=== PATIENT | male | born 1945 | race Caucasian/White ===

== ENCOUNTER → 2019-07-28 09:55 | Outpatient (CLI) | payer MEDICARE, OTHER, SELFPAY ==
[2017-11-21 01:22] VITALS: BMI 28.7
[2019-07-28 11:02] LABS: International Normalized Ratio 3.3
== END ==
PROVIDERS: Family Provider Physician Assistant; PCP Physician Assistant; Referring Provider Physician Assistant; Visit Provider Physician Assistant
DX: I48.2 Chronic atrial fibrillation (principal)
CPT/HCPCS: 85610

== ENCOUNTER → 2019-08-04 10:13 | Outpatient (CLI) | payer MEDICARE, OTHER, SELFPAY ==
[2017-11-21 01:22] VITALS: BMI 28.7
[2019-08-04 10:36] LABS: International Normalized Ratio 3.3; Prothrombin Time (Protime)PT. 33.9 SECONDS (11.7-14.9)
== END ==
PROVIDERS: Family Provider Physician Assistant; PCP Physician Assistant; Referring Provider Physician Assistant; Visit Provider Physician Assistant
DX: I48.2 Chronic atrial fibrillation (principal)
CPT/HCPCS: 85610

== ENCOUNTER 2019-08-13 02:05 | Observation (INO) | payer MEDICARE, OTHER, SELFPAY ==
[2019-08-13] VITALS (9 sets, daily range): BP systolic 126–189; BP diastolic 67–133; PULSE 70–100; RESP 16–20; TEMP 36.1–37.1; O2SAT 95–99; BMI 28.8; BMI 28.9
--- NOTE | 2019-08-13 02:41 | CT_ITS ---
STUDY: CT BRAIN WITHOUT CONTRAST REASON FOR EXAM: Male, 74 years old. Headache, neck pain, neck spasms. RADIATION DOSAGE (If Supplied By Facility): CTDIvol = ( 44.99 ) mGy, DLP = ( 796.11 ) mGycm TECHNIQUE: Transaxial CT imaging of the brain was performed without administration of intravenous contrast material. Individualized dose optimization techniques were used for this CT. COMPARISON: No relevant priors. FINDINGS: Normal soft tissue structures. Normal calvarium. Normal size ventricles and extra-axial spaces for the patient's age. Normal white matter tracts of the cerebral hemispheres. Normal basal ganglia and thalami. Normal brainstem. Punctate calcifications medial aspect of the left cerebellar hemisphere, anterior aspect of the left temporal lobe and left frontal lobe which may be related to distant infection. There is no intracranial hemorrhage. There are no findings of an acute ischemic infarction. Moderate to severe left maxillary sinus mucosal thickening with central high attenuation suggestive of calcification related to chronic infection. In addition there is thickening of the wall of the left maxillary sinus also compatible with chronic infection. CT/Brain/Head without Contrast IMPRESSION: No acute intracranial abnormality. Chronic left maxillary sinusitis which is likely long-standing. Recommend ENT consult. Scattered calcifications as above probably related to distant infection. Electronically Signed: Naeem Hernandez MD at 3:30 EDT , Service support ,
--- NOTE | 2019-08-13 02:41 | CT_ITS ---
STUDY: CT CERVICAL SPINE WITHOUT CONTRAST REASON FOR EXAM: Male, 74 years old. Headache, neck pain, neck spasms. RADIATION DOSAGE (If Supplied By Facility): CTDIvol = ( 24.67 ) mGy, DLP = ( 549.94 ) mGycm TECHNIQUE: High resolution transaxial imaging was performed without contrast material. Sagittal and coronal images were reconstructed. Individualized dose optimization techniques were used for this CT. COMPARISON: None FINDINGS: Normal craniovertebral junction. Normal anterior atlantoaxial articulation. Normal odontoid process. Straightening of normal cervical lordosis compatible with muscle spasm or patient positioning. Disc space narrowing C3-C4 through C7-T1. Small marginal osteophytes at multiple levels. At C5-C6 posterior osteophyte disc complex produces mild to moderate spinal stenosis. Neural foramina narrowing C3-C4 bilaterally, C4-C5 bilaterally, C5-C6 on the left, C6-C7 on the left, Normal visualized soft tissue structures. 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 Carotid calcifications. CT/Spine Cervical without Contras IMPRESSION: Multilevel degenerative changes of the cervical spine most prominent at C5-C6, no fracture identified. Electronically Signed: Naeem Hernandez MD at 3:38 EDT , Service support ,
--- NOTE | 2019-08-13 02:42 | ED.DCSUM_ITS ---
History of Present Illness Chief Complaint: Back Narrative: Patient is a 74-year-old male who presents with back pain. He describes this as spasms or cramping at the top of his neck or base of the skull. He notes he spent most of yesterday in a recliner. He fell asleep in the recliner. When he got up to go to the bathroom he had noticed some pain in his neck worse with movement. This has worsened throughout the day and now become severe. No headache. No numbness tingling or weakness anywhere. He has a history of some prior neck pain but never to this degree. No direct trauma or injury. Past Medical History - Allergies and Home Meds Allergies/Adverse Reactions: Allergies Latex, Natural Rubber Allergy (Verified 11/21/17 01:22) Rash Primary Care Physician: Shanelle Purvis PA [Primary Care Provider] - Past Medical History: - - Atrial fibrillation Smoking Status: Former smoker Review of Systems All systems negative except as indicated General: Denies: Fever Cardiovascular: Denies: Chest pain Respiratory: Denies: Dyspnea Gastrointestinal: Denies: Nausea, Vomiting Musculoskeletal: Reports: Neck pain Physical Exam Vital Signs/Narrative: Vital Signs Temp Pulse Resp BP Pulse Ox 08/13/19 02:06 97 F L 96 18 179/133 H 96 Inital Vital Signs reviewed: Yes General: Acute Distress - Patient appears to be in pain Head: Normocephalic Eyes: Perrl, EOMI ENT: Moist mucous membranes Neck: Supple, - - Patient has paraspinal upper cervical tenderness and muscle spasm Cardiovascular: Regular rate, Regular rhythm Respiratory: No distress, CTA bilaterally Skin: Normal color Neurological: Alert, Oriented x3, Normal Strength, Normal Sensation Psychological: Normal affect Diagnostic/Tx/Re-eval Impressions Brain CT 08/13/19 02:41 IMPRESSION: No acute intracranial abnormality. Chronic left maxillary sinusitis which is likely long-standing. Recommend ENT consult. Scattered calcifications as above probably related to distant infection. Electronically Signed: Naeem Hernandez MD at 3:30 EDT , Service support , Cervical Spine CT 08/13/19 02:41 IMPRESSION: Multilevel degenerative changes of the cervical spine most prominent at C5-C6, no fracture identified. Electronically Signed: Naeem Hernandez MD at 3:38 EDT , Service support , 08/13/19 02:41 Brain/Head without Contrast [CT] Stat CT Cervical [Spine Cervical without Contras] [CT] Stat Laboratory Results 08/13/19 02:55 PT 30.2 H INR 2.9 - Medical Decision Making Initially CTs of the head and neck as well as INR were ordered. These were unremarkable as above. Patient was initially given Valium for muscle spasm without change in symptoms. He was given intramuscular morphine and continues to pain is severe pain. At this point I also ordered IM Norflex and a bit ordered for an IV to be placed. At this point he will need admitted for intractable pain. He may need an MRI of the cervical spine did not concern for process such as disc herniation. He does not have an indication for an emergent MRI given the lack of any weakness or sensory symptoms. ED Disposition - Plan for ED Patient: Disposition: Acute Care [facility] Diagnosis: Neck pain Referrals: Shanelle Purvis PA [Primary Care Provider] -
[2019-08-13] MEDS: diazePAM 5 MG Tablet 2.5 MG PO (02:49)
[2019-08-13 03:06] LABS: International Normalized Ratio 2.9; Prothrombin Time (Protime)PT. 30.2 SECONDS (11.7-14.9)
[2019-08-13] MEDS: morphine 8 MG/ML Syringe IM (03:57)
--- NOTE | 2019-08-13 04:45 | PCM.HP.STD ---
Problem List (1) Neck pain Status: Acute History of Present Illness Date of Admission: 08/13/19 Chief Complaint: neck pain The patient is a 74 year old M with a significant history of atrial fibrillation; and hypertension who presented to emergency department with excruciating posterior neck pain that started few hours before presentation. Patient slept in a recliner. When he woke up he realized that he has excruciating neck pain. His pain radiates from his posterior neck to the top of his head. He describes his pain as spasms and stiffness. Associated with his symptoms is nausea without vomiting. He denies any aggravating or ameliorating factor. He reported the last time he had this kind of pain was when he was young and at that time the pain was to one side of his neck. At the emergency department patient was given Valium; 8 mg of morphine IM; Norflex. However patient continued to be in pain. Cervical CT did not show any acute pathology. Also a brain CT did not show any acute pathology. Past Medical History Medical History: Medical History (Last Updated 08/13/19 @ 06:15 by Chilo Colvin MD) Atrial fibrillation I48.91 Hypertension I10 Allergies Latex, Natural Rubber Allergy (Verified 11/21/17 01:22) Rash Home Medications: Ambulatory Orders Medication Instructions Recorded Diltiazem CD [Cardizem CD] 180 mg PO DAILY 06/03/14 Tamsulosin HCl [Flomax] 0.4 mg PO DAILY 06/03/14 Warfarin Sodium [Coumadin] 5 mg PO QHS 06/03/14 Atorvastatin Calcium [Lipitor] 20 mg PO QHS 08/13/19 Surgical History: appendectomy, total knee arthroplasty, - - Shoulder surgery Lives: Alone Smoking Status: Former smoker Alcohol: Occasional Review of Systems Constitutional: Denies: Chills, Fever, Weight Change HEENT: Reports: Head Aches. Denies: Sinus Congestion, Sinus Drainage Cardiovascular: Denies: Chest Pain, Palpitations Respiratory: Denies: Cough, Shortness of breath at rest, Sputum production Gastrointestinal: Denies: Abdominal Pain, Nausea, Vomiting Genitourinary: Denies: Dysuria Musculoskeletal: Reports: Neck Pain. Denies: Joint Pain, Joint Tenderness Skin: Denies: Rash, Wounds Neurological: Denies: Numbness, Tingling, Focal weakness Psychiatric: Denies: Anxiety, Depression, Homicidal Ideations, Suicidal Ideations Hematologic/ Lymphatic: Denies: Easy Bruising, Easy Bleeding VTE Information - Inpt Only VTE Present on Admission: No VTE Mechan Device Prophylaxis: None VTE Pharm Prophylaxis ordered?: No Reason prophylaxis not ordered:: Treatment Not Indicated - Coumadin continued for A. fib Patient Problems: Active and Suspected Problems Neck pain (Acute) - Physical Exam General: Alert, Oriented x3, Cooperative, - - Patient in acute distress secondary to posterior neck pain HEENT: Atraumatic, PERRLA, EOMI, Normocephalic Neck: Supple, No JVD, Negative Carotid Bruits Lungs: Clear to auscultation, Normal air movement Cardiovascular: Regular rate, No murmurs Abdomen: Bowel Sounds Present, Soft, Non Tender Extremities: No edema, Capillary Refill Less than 3 Seconds Skin: No rashes, No breakdown Musculoskeletal: No Tenderness to Palpation of Joints or Extremities Neurological: Cranial nerves II-XII grossly intact, - - Brudzinski sign and Kernig's sign were negative Psych/Mental Status: Normal Affect, Appropriate Vital Signs Temp Pulse Resp BP Pulse Ox 97 F L 74 20 H 179/115 H 97 08/13/19 02:06 08/13/19 03:51 08/13/19 03:51 08/13/19 03:51 08/13/19 03:51 Oxygen Delivery Method Room Air Weight: 88.451 kg Body Mass Index (BMI) 28.8 Laboratory Tests Past 24 Hrs 08/13/19 02:55 PT 30.2 H INR 2.9 Assessment/Plan All Active Problems Neck pain (Acute) The patient is a 74 year old M with a significant history of atrial fibrillation; and hypertension who presented to emergency department with excruciating posterior neck pain that started few hours before presentation consistent with intractable neck pain. Intractable neck pain Differential diagnoses include spinal stenosis; the examination; muscle strain/muscle sprain or other. We will get an MRI of cervical spine. Methocarbamol scheduled ordered Oxycodone for moderate pain and morphine IV for severe pain. Bowel protocol in place. IV antiemetics ordered. Hypertension On presentation his blood pressure was not within goal. His pain could be contributing to his hypertension. Cardizem continued We will add PRN hydralazine. Trend blood pressure and adjust blood pressure medication. BPH Flomax continued History of A. fib Cardizem continued Coumadin continued. Of note his INR was 2.9. Patient reports recent his INR was supratherapeutic while being treated for a cold infection. Continue Coumadin Check INR Chronic sinusitis Per CT imaging. Patient to follow-up outpatient. DVT prophylaxis Not indicated since patient is on Coumadin. Coumadin continued. Code Visit OBSV E&M: 74897 Initial observation care L3
[2019-08-13] MEDS: Orphenadrine 60 MG/2 ML Ampul IM (04:52)
[2019-08-13 05:10] LABS: Absolute Lymphocyte Count 2.13 X10^3/uL (0.83-4.51); Absolute Neutrophil Count 9.9 X10^3/uL (2.0-7.7); Basophil# 0.03 X10^3/uL; Basophil% 0.2 % (0-1); Eosinophil# 0.02 X10^3/uL; Eosinophils% 0.2 % (0-5); Hematocrit 53.7 % (40-54); Hemoglobin 17.7 g/dL (13.0-16.5); Lymphocyte # 2.13 X10^3/ul (4.0); Lymphocyte % 16.3 % (19-41); Mean Platelet Vol. 9.6 fl (6.2-12.0); Monocyte% 7.6 % (0-10); NRBC Flagged by Analyzer 0 % (0-5); Neutrophil # 9.85 X10^3/uL (2.7-7.7); Neutrophil % 75.3 % (47-70); Platelet Count 188 K/mm3 (150-450); RBC Distribution Width CV 12.4 % (11.6-14.6); RBC Distribution Width SD 42.6 fl (35.1-43.9); Red Blood Count 5.71 M/mm3 (4.6-6.2); White Blood Count 13.1 K/mm3 (4.4-11.0)
[2019-08-13 05:17] LABS: Anion Gap 8 (5-15); BUN 17 mg/dL (7-18); BUN/Creat Ratio 22.5 RATIO (10-20); Calcium,Total 8.7 mg/dL (8.5-10.1); Chloride 102 mmol/L (98-107); Creatinine, Serum 0.76 mg/dL (0.70-1.30); EST Glomerular Filtration Rate 107 mL/min (>60); Est Glom Filt Rate - Afr Amer 129 mL/min (>60); Estimated Creatinine Clearance 62.84 ml/min; Glucose 118 mg/dL (74-106); Potassium 3.9 mmol/L (3.5-5.1); Sodium Level 139 mmol/L (136-145)
--- NOTE | 2019-08-13 05:45 | MRI_ITS ---
STUDY: MRI CERVICAL SPINE WITHOUT CONTRAST REASON FOR EXAM: Male, 74 years old. Neck pain TECHNIQUE: Standardized fat and water weighted pulse sequences were obtained in the sagittal and axial planes. COMPARISON: CT 08/13/2019 FINDINGS: Normal foramen magnum and brainstem-cervical cord junction. Normal craniovertebral junction. There are degenerative changes of the anterior atlantoaxial articulation. Normal odontoid process. Normal cervical lordosis. Normal vertebral bodies and posterior osseous elements. C2-3: Normal endplates. Normal disc height, signal and morphology. Normal central canal and intervertebral neural foramina. C3-4: Moderate sized right preforaminal disc osteophyte complex and right uncovertebral hypertrophy produces moderate spinal stenosis with abutment of the right hemicord and mild right neural foraminal stenosis. C4-5: Moderate broad disc osteophyte complex and bilateral uncovertebral hypertrophy produces moderate spinal stenosis with abutment of the central spinal cord and mild bilateral neural foraminal stenosis. C5-6: Large broad disc osteophyte complex asymmetric to the left with bilateral carotid joint hypertrophy produces severe spinal stenosis with effacement of left hemicord and moderate bilateral neural foraminal stenosis. C6-7: Moderate broad disc osteophyte complex asymmetric left produces moderate spinal stenosis with abutment of the left hemicord and mild left neural foraminal stenosis. C7-T1: Ankylosis of the disc space but no spinal stenosis or neural foraminal stenosis. Normal cervical cord. Normal visualized soft tissue structures. MRI/Spine Cervical (Routine) IMPRESSION: Multilevel degenerative changes, as described above. Electronically Signed: Steven Leonard MD at 9:20 EDT Tel , Service support ,
[2019-08-13] MEDS: Methocarbamol 750 MG Tablet PO ×2 (06:01→14:39)
[2019-08-13] MEDS: Morphine 4 MG/ML Syringe IV ×2 (06:01→09:57)
[2019-08-13] MEDS: hydrALAZINE 20 MG/ML Vial 5 MG IV (06:02)
[2019-08-13] MEDS: Tamsulosin HCl 0.4 MG Capsule PO (06:02)
--- NOTE | 2019-08-13 07:18 | PCM.PN.BLA ---
Progress Note 74-year-old male with past medical history of hypertension, chronic atrial fibrillation who was admitted this morning with intractable neck pain. Patient was seen and examined. He underwent MRI of the cervical spine showed multilevel degenerative changes Patient's vitals show slightly elevated blood pressure Physical exam is positive for muscle spasms in the left posterior neck region We will continue on scheduled Tylenol, Lidoderm patch, methocarbamol as needed, oxycodone as needed Will reassess later for possible discharge today or tomorrow
[2019-08-13] MEDS: oxyCODONE 5 MG Tablet 10 MG PO (07:36)
[2019-08-13] MEDS: Acetaminophen 500 MG Tablet 1000 MG PO ×3 (09:56→21:54)
[2019-08-13] MEDS: 0.9% NaCl Peripheral Flush Adult/Peds IV (09:56)
[2019-08-13] MEDS: dilTIAZem CD 180 MG Capsule PO (09:57)
[2019-08-13] MEDS: Enoxaparin 40 MG/0.4 ML Syringe SC (09:57)
[2019-08-13] MEDS: Senna/Docusate Sodium 1 Tablet PO (09:57)
[2019-08-13] MEDS: Lidocaine 5% Patch 2 PATCH TOPICAL (09:58)
--- NOTE | 2019-08-13 13:19 | CASEMGMT ---
RN CM Assessment Introduced role of RN CM to patient.? Patient is alert, oriented and able?to participate in RN CM Assessment. ?Care providers, pharmacy, and demographics verified. Presentation: Neck/Back pain Admit Dx: Intractable Neck pain Re-Admit: No Barriers/Issues: None. Patient states that he was in pain this morning when the physician rounded and states that his pain is better and manageable at this time. PCP: Terry Purvis Specialists: Used to see Cardio- Dr Feliciano- states since usp his PCP Dr Purvis has been handling his cardiac care [facility]acy: [facility] Insurance: [employer] A[employer], [employer] Benefit:?Yes, [employer] for Maintenance Medication. ?LNOK: Ex Gege Munroe LW/HPOA: States has both but they are outdated and needs to redo them. States that another one of his Ex 's is listed and prefers to change HPOA to Ex Gege. Declines offered services and/or information on this admission and made aware if he changes his mind to notify staff or can come in as an Outpatient and complete. Living Arrangements:?Lives alone in a Mobile home with 4-5 steps to enter ADL?s: Independent with ambulation and ADLs Transportation: Patient drives and denies any transportation issues. DME: [employer] HHC: Past- cannot recall agency SNF: None Goal: Home and does not think will have any needs. Denies any issues/concerns/ or questions with DC planning at this time. Aware CM remains available for any emerging needs. DC PLAN: Home with no anticipated needs identified at this time. DAMIAN Johnson
[2019-08-13] MEDS: oxyCODONE 5 MG Tablet PO ×2 (14:38→21:53)
[2019-08-14 02:45] VITALS: BP 131/77; PULSE 75; RESP 16; TEMP 37.1; O2SAT 95
[2019-08-14] MEDS: Acetaminophen 500 MG Tablet 1000 MG PO (05:36)
[2019-08-14 06:11] LABS: International Normalized Ratio 3.2
[2019-08-14 08:45] VITALS: BP 138/88; PULSE 83; RESP 16; TEMP 37.1; O2SAT 98
--- NOTE | 2019-08-14 09:08 | DCINST_ITS ---
- Discharge Diagnoses Current Active Problems: Current Active and Chronic Problems (Last Updated 08/13/19 @ 06:15 by Chilo Colvin MD) Neck pain (Acute) Reason(s) for Visit for Discharge Instructions: Neck pain You will use the following diet at home:: Regular Your food should be the consistency of: Regular Your liquids should be the consistency of: Regular/Thin Discharge Activity: Return to Normal Activity Additional Instructions: Continue to take all your medications. Do not drive while on the muscle relaxants. Follow-up with your primary care doctor within 1- 2 weeks. Follow-up with pain management if pain is persistent. Allergies/Adverse Reactions: Allergies Latex, Natural Rubber Allergy (Verified 11/21/17 01:22) Rash Medications to take at Discharge Diltiazem CD [Cardizem CD] 180 mg PO DAILY 06/03/14 Tamsulosin HCl [Flomax] 0.4 mg PO DAILY 06/03/14 Warfarin Sodium [Coumadin] 5 mg PO QHS 06/03/14 Atorvastatin Calcium [Lipitor] 20 mg PO QHS 08/13/19 Acetaminophen [Tylenol] 1,000 mg PO Q8 PRN #30 tab 08/14/19 Lidocaine [Lidoderm Patch] 2 patch TOPICAL DAILY #14 patch 08/14/19 Methocarbamol 750 mg PO 4X/DAY PRN 7 Days #28 tab 08/14/19 The following prescriptions were given: Lidocaine [Lidoderm Patch] 2 patch TOPICAL DAILY #14 patch Transmission Status: Pending to [id number] Methocarbamol 750 mg PO 4X/DAY PRN 7 Days #28 tab PRN Reason: Muscle Spasm Transmission Status: Pending to [id number] Acetaminophen [Tylenol] 1,000 mg PO Q8 PRN #30 tab PRN Reason: Pain Score 6-10/10 Transmission Status: Pending to [id number] Primary Care Physician: Shanelle Purvis PA [Primary Care Provider] - Please follow up with your Primary Care Physician in: within 1-2 weeks Test Results: Test results from this visit will be discussed in further detail at your follow- up appointment, if applicable. Please Follow Up With: Kala Davila MD When: within 2 weeks Proposed Discharge Date: 08/14/19
--- NOTE | 2019-08-14 09:11 | DS.PCM_ITS ---
Discharge Date and Diagnosis - Problem List Patient Problems: Active and Suspected Problems (Last Updated 08/13/19 @ 06:15 by Chilo Colvin MD) Neck pain (Acute) Date of Admission: 08/13/19 Date of Discharge: 08/14/19 - Primary Discharge Diagnosis Active and Suspected Problems (Last Updated 08/13/19 @ 06:15 by Chilo Colvin MD) Intractable neck pain - Secondary Discharge Diagnosis Hypertension BPH Chronic atrial fibrillation Hospital Course and Treatment Imaging Results: Clinical Impression(s) from Imaging Studies Brain CT 08/13/19 02:41 IMPRESSION: No acute intracranial abnormality. Chronic left maxillary sinusitis which is likely long-standing. Recommend ENT consult. Scattered calcifications as above probably related to distant infection. Electronically Signed: Naeem Hernandez MD at 3:30 EDT , Service support , Cervical Spine CT 08/13/19 02:41 IMPRESSION: Multilevel degenerative changes of the cervical spine most prominent at C5-C6, no fracture identified. Electronically Signed: Naeem Hernandez MD at 3:38 EDT , Service support , Cervical Spine MRI 08/13/19 05:45 IMPRESSION: Multilevel degenerative changes, as described above. Electronically Signed: Steven Leonard MD at 9:20 EDT Tel , Service support , None Operations: None Procedures: None Summary of Care Provided: The patient is a 74 year old M with past medical history of chronic atrial fibrillation, hypertension, BPH who comes in with complaints of excruciating posterior neck pain which started a couple of hours prior to admission. Patient had a CT scan of the brain done on admission which was unremarkable. Cervical spine CT and cervical spine MRI was also unremarkable. Patient received IV morphine, p.o. oxycodone, Lidoderm patches, scheduled Tylenol, as well as methocarbamol. He was kept overnight with improvement in his pain. He was able to ambulate on a pain regimen. He was discharged on methocarbamol, Lidoderm patches and scheduled Tylenol. He was given a referral to Dr. Dr. Davila if his pain per sisted. He knows to follow-up with his primary care doctor within 1-2 weeks. Patient Problems: Active and Suspected Problems (Last Updated 08/13/19 @ 06:15 by Chilo Colvin MD) Neck pain (Acute) Subjective: On the day of discharge, patient was seen and examined. He complains of pain in his neck and back but this is much improved. He was eager to be discharged. - Physical Exam General: Alert, Oriented x3, Cooperative, - - In mild discomfort from pain HEENT: Atraumatic, PERRLA, EOMI, Normocephalic Oral: Moist Mucosa Neck: Supple Lungs: Clear to auscultation, Normal air movement Cardiovascular: Regular rate, Regular Rhythm, Normal S1, Normal S2, No murmurs Abdomen: Bowel Sounds Present, Soft, Non Tender, Non-Distended, No Hepato-splenomegaly Extremities: No edema Skin: No rashes, No breakdown Musculoskeletal: Tenderness - over the posterior neck and upper back, more on the left side of neck Lymphatic: No Cervical, Supraclavicular, or Inguinal Adenopathy Neurological: Cranial nerves II-XII grossly intact, Neuro grossly intact Psych/Mental Status: Normal Affect, Appropriate Vital Signs Temp Pulse Resp BP Pulse Ox 98.7 F 83 16 138/88 H 98 08/14/19 08:45 08/14/19 08:45 08/14/19 08:45 08/14/19 08:45 08/14/19 08:45 Oxygen Delivery Method Room Air Weight: 91.4 kg Body Mass Index (BMI) 28.9 Intake and Output for Last 24 Hours 08/12/19 08/13/19 08/14/19 23:59 23:59 23:59 Intake Total 1000 / 1000 Output Total 600 / 1250 1000 / 1000 Balance -600 / -650 0 / 0 Laboratory Tests Past 24 Hrs 08/14/19 05:42 PT 33.0 H INR 3.2 Discharge Diet: No Restrictions Discharge Activity: Return to Normal Activity Home Medications: Medications to take at Discharge Diltiazem CD [Cardizem CD] 180 mg PO DAILY 06/03/14 Tamsulosin HCl [Flomax] 0.4 mg PO DAILY 07/23/14 Warfarin Sodium [Coumadin] 5 mg PO QHS 06/03/14 Atorvastatin Calcium [Lipitor] 20 mg PO QHS 08/13/19 Acetaminophen [Tylenol] 1,000 mg PO Q8 PRN #30 tab 08/14/19 Lidocaine [Lidoderm Patch] 2 patch TOPICAL DAILY #14 patch 08/14/19 Methocarbamol 750 mg PO 4X/DAY PRN 7 Days #28 tab 08/14/19 Following Prescrptions Were Given to Patient: Lidocaine [Lidoderm Patch] 2 patch TOPICAL DAILY #14 patch Transmission Status: Received by [id number] Methocarbamol 750 mg PO 4X/DAY PRN 7 Days #28 tab PRN Reason: Muscle Spasm Transmission Status: Received by [id number] Acetaminophen [Tylenol] 1,000 mg PO Q8 PRN #30 tab PRN Reason: Pain Score 6-10/10 Transmission Status: Received by [id number] Primary Care Physician: Shanelle Purvis PA [Primary Care Provider] - Please follow up with your Primary Care Physician in: within 1-2 weeks Please Follow Up With: Kala Davila MD When: within 2 weeks Disposition: Home Minutes spent on discharge:: 40 Patient Condition:: Stable Medical Necessity - Tobacco Use Smoking Status: Former smoker Tobacco Use: Cigarettes, Pipe Meaningful Use Info Meaningful Use Diagnoses (Choose all that apply): None applicable Code Visit OBSV E&M: 81331 Observation care discharge
[2019-08-14] MEDS: Tamsulosin HCl 0.4 MG Capsule PO (09:26)
[2019-08-14] MEDS: Lidocaine 5% Patch 2 PATCH TOPICAL (09:26)
[2019-08-14] MEDS: Senna/Docusate Sodium 1 Tablet PO (09:26)
[2019-08-14] MEDS: Methocarbamol 750 MG Tablet PO (09:26)
[2019-08-14] MEDS: dilTIAZem CD 180 MG Capsule PO (09:26)
[2019-08-14 09:30] VITALS: PULSE 80
[2019-08-14 09:42] VITALS: BP 135/77; PULSE 75; RESP 18; TEMP 36.6; O2SAT 96
--- NOTE | 2019-08-14 09:45 | CASEMGMT ---
DASHAWN ROTH NOTE: To room to talk with pt. Pt sitting up in recliner chair. Introduced self and role of RN GONZALEZ. Reviewed GUAMAN form w/pt. Questions answered and form signed by pt. Copy made and placed on chart and original given to pt. Anaid VUONGN DASHAWN ROTH
== END 2019-08-14 09:57 | disposition home or self-care (01) ==
LOC: ED 04:43 → MS3 05:39
PROVIDERS: Admitting Provider Hospitalist; Emergency Provider Emergency Medicine; Family Provider Physician Assistant; PCP Physician Assistant; Visit Provider Internal Medicine
DX: M54.2 Cervicalgia (principal); I10 Essential (primary) hypertension; I48.20 Chronic atrial fibrillation, unspecified; N40.0 Benign prostatic hyperplasia without lower urinary tract symptoms; Z79.899 Other long term (current) drug therapy; Z87.891 Personal history of nicotine dependence; Z79.01 Long term (current) use of anticoagulants; J32.0 Chronic maxillary sinusitis
CPT/HCPCS: 36415; 70450; 72125; 72141; 80048; 85025; 85610; 96372; 96374; 96375; 96376; 99218; 99285; A4216; G0378

== ENCOUNTER 2019-10-01 08:16 | Day surgery (SDC) | payer MEDICARE, OTHER, SELFPAY ==
[2019-08-13 05:51] VITALS: BMI 28.9
[2019-09-24 09:28] VITALS: BP 133/84; PULSE 88; RESP 16; TEMP 37.2; O2SAT 95; BMI 29.0
--- NOTE | 2019-09-24 10:04 | SDCEKG_ITS ---
Test Reason : Blood Pressure : / mmHG Vent. Rate : 088 BPM Atrial Rate : 098 BPM P-R Int : 000 ms QRS Dur : 108 ms QT Int : 364 ms P-R-T Axes : 000 -25 011 degrees QTc Int : 440 ms Atrial fibrillation Incomplete right bundle branch block Abnormal ECG Confirmed by REG WALSH, LUKE ([id number]), primer expeditor and drier AMIRA PATTERSON ([id number]) on 10/01/2019 2:11:46 PM Referred By: Javan Taylor Confirmed By:LUKE FINNEY MD
[2019-10-01] VITALS (13 sets, daily range): BP systolic 117–148; BP diastolic 68–105; PULSE 62–110; RESP 16–18; TEMP 36.4–37.1; O2SAT 93–100; BMI 29.0
[2019-10-01 08:41] LABS: Prothrombin Time Fingerstick 16.5 SEC (11.9-14.4)
[2019-10-01] MEDS: Lactated Ringers 1,000 ML 100 ML IV ×2 (08:56→11:06)
--- NOTE | 2019-10-01 09:42 | PCM.DC ---
- Discharge Diagnoses Current Active Problems: BPH with obstruction Reason(s) for Visit for Discharge Instructions: Transurethral resection of the prostate You will use the following diet at home:: Regular Your food should be the consistency of: Regular Discharge Activity: Return to Normal Activity Call your doctor if your incision/area has: Sudden Increased Bleeding Instructions: Transurethral Resection of the Prostate (TURP): Home Recovery Allergies/Adverse Reactions: Allergies Latex, Natural Rubber Allergy (Verified 10/01/19 08:38) Rash lorazepam [From Ativan] Allergy (Verified 10/01/19 08:38) Other HALLUCINATIONS Medications to take at Discharge Diltiazem CD [Cardizem CD] 180 mg PO DAILY 06/03/14 Tamsulosin HCl [Flomax] 0.4 mg PO DAILY 06/03/14 Warfarin Sodium [Coumadin] 5 mg PO SUTUTHSA 06/03/14 Atorvastatin Calcium [Lipitor] 20 mg PO QHS 08/13/19 Albuterol Inhaler [Ventolin Hfa (SP)] 2 puff INHALATION Q6H PRN PRN 09/24/19 Cyclobenzaprine HCl 10 mg PO PRN PRN 09/24/19 Enoxaparin [Lovenox] 60 mg SUBCUT Q12@0600,1800 09/24/19 Prednisone 10 mg PO UD 09/24/19 Testosterone [Androgel] 10 gm TD DAILY 09/24/19 Warfarin [Coumadin (PBKC)] 4 mg PO MOWEFR 09/24/19 Ciprofloxacin [Cipro] 500 mg PO BID #14 tab 10/01/19 The following prescriptions were given: Ciprofloxacin [Cipro] 500 mg PO BID #14 tab Transmission Status: Pending to [id number] Primary Care Physician: Shanelle Purvis PA [Primary Care Provider] - Test Results: Test results from this visit will be discussed in further detail at your follow-up appointment, if applicable. Please Follow Up With: Lani Benoit Dr When: 2 weeks Proposed Discharge Date: 10/02/19
[2019-10-01] MEDS: Cefazolin 2 GM in 0.9% Normal Saline 100 ML IV (09:48)
--- NOTE | 2019-10-01 10:05 | PROS_PTH ---
PATIENT: MAGDALENA MERCADO [place] [facility] [place][id number] AGE/SX: 74/M ROOM: RE10/01/[address]: Dr. Javan Taylor MD : [id number] BED: DIS: 10/02/2019 SPEC #: [id number] RECD: 10/01/19 16:08 STATUS: TASNEEM REGalileo #: [id number] VERENA: 10/01/19 10:[address]: Javan Taylor DEPT: SURGICAL PATHOLOGY RECD BY: Denis Harris ENTERED: 10/02/19 11:29 SP TYPE: TURP OTHR DR: NIKKI Mckenzie Tissues: Prostate, NOS Procedures: Surgery Specimen Level IV HEADER OPERATION: Cysto, TUR prostate, Olympus PRE-OP DIAGNOSIS: BPH with obstruction TISSUE SUBMITTED: Prostate tissue MICROSCOPIC DIAGNOSIS Prostate tissue, TUR: Benign prostatic hyperplasia, glandular and stromal type. Focal mild chronic inflammation. SJ:darshan 10/03/19 MICROSCOPIC DESCRIPTION Slides are reviewed. GROSS DESCRIPTION Received is one container labeled with the patient's name and designated prostate tissue. The specimen consists of multiple irregular fragments of pink-bender, rubbery, soft tissue that in aggregate weigh 12.5 gm and measure in aggregate 5.5 x 5 x 2 cm. The entire specimen is submitted in 12 cassettes. / SJ:darshan 10/02/19 TC:5 CPT: 46371
--- NOTE | 2019-10-01 10:49 | OP.PCM_ITS ---
Report of Operation Date of Procedure: 10/01/19 Pre-Operative Diagnosis: BPH with obstruction and urinary retention Post-Operative Diagnosis: The same Surgery/Procedure Performed:: Transurethral resection of the prostate Description of Surgical Findings:: 74-year-old male taken back to the operating room at the smooth induction of general anesthesia. He was placed in dorsolithotomy position. The legs were placed in stirrups. Penis and testicles are prepped and draped in usual sterile fashion. Went into the bladder with a 21 Ukrainian rigid cystourethroscope he had a large median lobe bilateral hypertrophy and significant obstruction the bladder was heavily trabeculated with lots of trabeculation throughout the bladder but no tumors or stones seen within the bladder right and left ureteral orifice were identified. I then marked out the verumontanum marked out the bladder neck and then started resection resected the median lobe first making sure not to injure the left and right ureteral orifice I then resected the left lobe of the prostate completely and then resect the right lobe of the prostate completely and then resected the apical tissue at the end did a flow test he was able to get a decent flow looking back into the prostate and so had some tissue in the roof but still had a nice wide open channel all the way to the verumontanum into the bladder neck I then obtained hemostasis all the chips were Ellik out we verify that the left and right ureter orifice were intact and effluxing clear the sphincter was intact and has a nice good flow I tried to place a silicone catheter in the bladder but it was too rigid would not go so we put a regular 22 Ukrainian Toro catheter into the bladder this was placed on chronic irrigation the urine was nice and clear is taken back to PACU in good condition. Type of Anesthesia:: General Drains: [address] - Admit VTE Documentation VTE Present on Admission: No VTE Mechan Device Prophylaxis: SCD's
[2019-10-01] MEDS: 0.9% Normal Saline 1,000 ML 75 ML IV ×2 (11:51→23:15)
[2019-10-01] MEDS: dilTIAZem CD 180 MG Capsule PO (13:05)
[2019-10-01] MEDS: Pantoprazole Sodium 40 MG Tablet PO (13:05)
[2019-10-01] MEDS: 0.9% Saline Lock 10 ML Syringe IV (17:34)
[2019-10-01] MEDS: DiphenhydrAMINE 25 MG Capsule PO (21:23)
[2019-10-01] MEDS: Ciprofloxacin 400 MG/200 ML BAG 200 MG IV (21:23)
[2019-10-01] MEDS: Docusate Sodium 100 MG Capsule PO (21:23)
[2019-10-02 03:00] VITALS: BP 128/82; PULSE 75; RESP 16; TEMP 36.7; O2SAT 97
[2019-10-02 07:54] VITALS: BP 113/88; PULSE 74; RESP 16; TEMP 36.8; O2SAT 97
[2019-10-02] MEDS: Pantoprazole Sodium 40 MG Tablet PO (08:09)
[2019-10-02] MEDS: dilTIAZem CD 180 MG Capsule PO (08:10)
[2019-10-02] MEDS: Docusate Sodium 100 MG Capsule PO (08:10)
[2019-10-02] MEDS: Atorvastatin Calcium 20 MG Tablet PO (08:10)
[2019-10-02] MEDS: Tamsulosin HCl 0.4 MG Capsule PO (08:10)
[2019-10-02] MEDS: Ciprofloxacin 400 MG/200 ML BAG 200 MG IV (10:17)
[2019-10-02] MEDS: 0.9% Saline Lock 10 ML Syringe IV (10:20)
[2019-10-02 12:40] VITALS: BP 128/74; PULSE 78; RESP 16; TEMP 36.8; O2SAT 98
== END 2019-10-02 13:18 | disposition home or self-care (01) ==
LOC: SDC 08:19 → AC 08:20 → MS2 14:25
PROVIDERS: Family Provider Physician Assistant; PCP Physician Assistant; Referring Provider Urology; Visit Provider Urology
PROC: (CPT 52601; principal; 2019-10-01 09:55)
DX: N40.1 Benign prostatic hyperplasia with lower urinary tract symptoms (principal); N13.8 Other obstructive and reflux uropathy; R35.0 Frequency of micturition; R39.14 Feeling of incomplete bladder emptying; R35.1 Nocturia; R33.8 Other retention of urine; E11.9 Type 2 diabetes mellitus without complications; J45.998 Other asthma; E78.00 Pure hypercholesterolemia, unspecified; I10 Essential (primary) hypertension; I48.91 Unspecified atrial fibrillation; Z79.01 Long term (current) use of anticoagulants; Z79.899 Other long term (current) drug therapy; Z87.891 Personal history of nicotine dependence
CPT/HCPCS: 52601; 36416; 85610; 88305; 93005; 99251; J7030; J7120; A4216; G0463; J0744; J2405

== ENCOUNTER → 2019-12-01 10:01 | Outpatient (CLI) | payer MEDICARE, OTHER, SELFPAY ==
[2019-10-01 12:45] VITALS: BMI 29.0
[2019-12-01 10:36] LABS: International Normalized Ratio 2.5; Prothrombin Time (Protime)PT. 26.6 SECONDS (11.7-14.9)
== END ==
PROVIDERS: PCP Physician Assistant; Visit Provider Physician Assistant
DX: I48.20 Chronic atrial fibrillation, unspecified (principal)
CPT/HCPCS: 85610

== ENCOUNTER 2019-12-27 19:32 | Inpatient (IN) | payer MEDICARE, OTHER, SELFPAY ==
[2019-10-01 12:45] VITALS: BMI 29.0
[2019-12-27 19:33] VITALS: BP 145/116; PULSE 102; RESP 20; TEMP 36.2; O2SAT 96; BMI 29.6
--- NOTE | 2019-12-27 19:54 | EKG12_ITS ---
Test Reason : CHEST PAIN Blood Pressure : / mmHG Vent. Rate : 108 BPM Atrial Rate : 170 BPM P-R Int : 000 ms QRS Dur : 098 ms QT Int : 340 ms P-R-T Axes : 000 -47 011 degrees QTc Int : 455 ms Atrial fibrillation with rapid ventricular response Left axis deviation Incomplete right bundle branch block Abnormal ECG Confirmed by REG WALSH, LUKE ([id number]), editor book SB SPENCER ([id number]) on 12/31/2019 8:53:40 AM Referred By: TONNY Confirmed By:LUKE FINNEY MD
--- NOTE | 2019-12-27 19:55 | ED.DCSUM_ITS ---
History of Present Illness Chief Complaint: Abd Pain Informant: Patient Onset: Today Current Severity: Severe Maximum Severity: Severe Narrative: Patient presents with complaint of severe epigastric pain. He states he was watching a movie this afternoon and eating pizza. Before he realized that he to eaten half of a medium pizza. He started getting crampy epigastric abdominal pain that is continued to worsen. He tried taking multiple home remedies for indigestion without improvement. He has not been able to pass gas. Pain is now started move up into the chest. Patient denies any prior abdominal surgeries. - Past Medical History (1) Atrial fibrillation Status: Chronic (2) Hypertension Status: Chronic Past Medical History - Allergies and Home Meds Allergies/Adverse Reactions: Allergies Latex, Natural Rubber Allergy (Verified 12/27/19 19:33) Rash lorazepam [From Ativan] Allergy (Verified 12/27/19 19:33) Other HALLUCINATIONS Primary Care Physician: Shanelle Purvis PA [Primary Care Provider] - Prior records reviewed: Yes Surgical History: appendectomy, total knee arthroplasty, - - Shoulder surgery Lives: Alone Smoking Status: Former smoker Review of Systems General: Denies: Chills, Fever Eyes: Denies: Visual changes - bilaterally ENT: Denies: Bilateral ear pain Cardiovascular: Reports: Chest pain. Denies: Palpitations, Heart racing Respiratory: Denies: Dyspnea, Cough Gastrointestinal: Reports: Abdominal pain. Denies: Nausea, Vomiting, Diarrhea Genitourinary: Denies: Dysuria Musculoskeletal: Denies: Back pain, Extremity Pain Skin: Denies: Rash Neurological: Denies: Headache Allergy: Denies: Uticaria Physical Exam Vital Signs/Narrative: Vital Signs Temp Pulse Resp BP Pulse Ox 12/27/19 19:33 97.1 F L 102 H 20 H 145/116 H 96 Inital Vital Signs reviewed: Yes General: Well nourished, Well developed Head: Normocephalic ENT: Moist mucous membranes Neck: Supple Cardiovascular: Irregular Respiratory: No distress, CTA bilaterally Abdomen: Soft, Tender, Guarding, Hypoactive bowel sounds Skin: Normal color Neurological: Alert, Oriented x3 Psychological: Normal affect Diagnostic/Tx/Re-eval Impressions Abdomen/Pelvis CT 12/27/19 20:07 IMPRESSION: Findings consistent with small bowel obstruction of indeterminate etiology. Minor diverticular changes in the distal descending colon without evidence for acute diverticulitis Electronically Signed: Chung Croft MD at 20:38 EST , Service support , KUB X-Ray 12/27/19 21:20 IMPRESSION: NG tube placement with tip in gastric fundus Electronically Signed: Chung Croft MD at 21:33 EST , Service support , 12/27/19 20:07 Abdomen/Pelvis without Cont [CT] Stat 12/27/19 21:20 Abdomen Single View (Portable) [RAD] Stat Laboratory Results 12/27/19 12/27/19 12/27/19 20:00 20:00 20:00 WBC 11.2 H RBC 5.60 Hgb 17.2 H Hct 52.1 MCV 93.0 MCH 30.7 MCHC 33.0 RDW Std Deviation 42.1 RDW Coeff of Yakelin 12.3 Plt Count 272 MPV 9.1 Immature Gran % (Auto) 0.500 Neut % (Auto) 67.3 Lymph % (Auto) 22.4 [place] % (Auto) 8.1 Eos % (Auto) 1.2 Baso % (Auto) 0.5 Absolute Neuts (auto) 7.5 Absolute Lymphs (auto) 2.51 Nucleated RBC % 0 PT 23.7 H INR 2.1 Sodium 138 Potassium 3.9 Chloride 104 Carbon Dioxide 28.0 Anion Gap 6 BUN 17 Creatinine 1.08 Estim Creat Clear Calc 58.19 Est GFR (MDRD) Af Amer 85 Est GFR (MDRD) Non-Af 71 BUN/Creatinine Ratio 15.7 Glucose 101 Calcium 9.4 Total Bilirubin 0.50 Direct Bilirubin 0.16 AST 20 ALT 21 Alkaline Phosphatase 80 Troponin I < 0.015 Total Protein 7.4 Albumin 3.8 Globulin 3.6 Lipase 113 - EKG Initial EKG Interpretation: Atrial Fibrillation - A. fib at 108 with incomplete right bundle. No acute ischemia. - Medical Decision Making Patient was given morphine and Zofran on arrival. He was sent to CT scan rather quickly due to his significant abdominal distention and pain. CT scan does reveal small bowel obstruction. He initially told me he had no prior belly surgeries, however now states he did have a prior appendectomy. Further he states that he is been having difficulties with bowel movements recently. He was seen by his primary care doctor and had an ultrasound and an MRI of his abdomen last week. Patient states his last bowel movement was this morning and was loose. NG tube was placed without difficulty by nursing staff. He has had 800 cc material out already. I spoke with Dr. Diaz. She will see the patient in consult but this is not likely to be surgical. She asked for hospitalist to admit. Addendum: I received a call back from Dr. Diaz who was able to review further records from [facility] and noted that the patient does have a meningioma. With this present and patient being on anticoagulants she did not feel comfortable keeping the patient here in case the patient would need surgery. In addition to that she did note some pneumatosis on the CT scan. This was discussed with the patient and he agreed to transfer to [facility]. Addendum: I spoke with the surgeon at [facility]. He is concerned that the patient may have ischemic bowel and needs to go to the OR sooner rather than later and transfer is not necessary for this. He states the meningioma should not be a concern. He asked to speak directly to Dr. Diaz. Dr. Diaz called and spoke with him. Dr. Diaz advised me that she will be in to see the patient and may take him to the OR at this time. She did asked that I start FFP. I ordered a lactic acid as well as 2 units of FFP at this time. Patient has been updated. I did asked Dr. Tamez, hospitalist, to see the patient as well. ED Disposition - Plan for ED Patient: Disposition: Acute Care Hospital [facility] Diagnosis: Small bowel obstruction Referrals: Shanelle Purvis PA [Primary Care Provider] -
[2019-12-27] MEDS: Ondansetron 4 MG/2 ML Vial IV (20:02)
[2019-12-27] MEDS: Morphine 4 MG/ML Syringe IV (20:04)
[2019-12-27] MEDS: 0.9% Normal Saline 1,000 ML 150 ML IV (20:05)
[2019-12-27 20:07] VITALS: BP 144/91; PULSE 109; RESP 17; O2SAT 99
--- NOTE | 2019-12-27 20:07 | CT_ITS ---
STUDY: CT ABDOMEN AND PELVIS WITHOUT CONTRAST REASON FOR EXAM: Male, 74 years old. SEVERE UPPER ABD PAIN X 3 HR. Last ate pizza at 1:00pm RADIATION DOSAGE (If Supplied By Facility): CTDIvol = ( 13.78 ) mGy, DLP = ( 705.83 ) mGycm TECHNIQUE: Transaxial images were obtained from the dome of the diaphragm to the symphysis pubis without oral contrast, and without intravenous contrast. Sagittal and coronal images were reconstructed. Individualized dose optimization techniques were used for this CT. COMPARISON: None. FINDINGS: There is mild bibasilar interstitial thickening.. The visualized portions of the heart are within normal limits. The liver is normal size. There is a tiny cyst in the right lobe. Bile ducts are not dilated. Normal gallbladder and extrahepatic biliary system. Normal spleen. Normal pancreas. Normal bilateral adrenal glands. Normal right kidney. Normal left kidney. There is markedly distended fluid-filled stomach and multiple distended fluid-filled loops of small bowel with transition point as well as fecalization and pneumatosis which may be consistent with small bowel obstruction.. There is diffuse fecal retention within the colon. Diverticular changes in the distal descending colon without evidence for acute diverticulitis No evidence for acute appendicitis. Mild atherosclerotic changes of the aorta without evidence for aneurysm. Normal inferior vena cava. Normal retroperitoneum. Nonspecific enlargement of the prostate imaging upon the base of bladder which is incompletely distended mildly. Moderate size right inguinal hernia containing fat . Lumbar spine demonstrates advanced spondylosis CT/Abdomen/Pelvis without Cont IMPRESSION: Findings consistent with small bowel obstruction of indeterminate etiology. Minor diverticular changes in the distal descending colon without evidence for acute diverticulitis Electronically Signed: Chung Croft MD at 20:38 EST , Service support ,
[2019-12-27 20:09] LABS: Absolute Lymphocyte Count 2.51 X10^3/uL (0.83-4.51); Absolute Neutrophil Count 7.5 X10^3/uL (2.0-7.7); Basophil# 0.06 X10^3/uL; Basophil% 0.5 % (0-1); Eosinophil# 0.13 X10^3/uL; Eosinophils% 1.2 % (0-5); Hematocrit 52.1 % (40-54); Hemoglobin 17.2 g/dL (13.0-16.5); Lymphocyte # 2.51 X10^3/ul (4.0); Lymphocyte % 22.4 % (19-41); Mean Corpuscular Hgb 30.7 pg (27.0-32.0); Mean Platelet Vol. 9.1 fl (6.2-12.0); Monocyte# 0.91 X10^3/uL; Monocyte% 8.1 % (0-10); NRBC Flagged by Analyzer 0 % (0-5); Neutrophil # 7.53 X10^3/uL (2.7-7.7); Neutrophil % 67.3 % (47-70); Platelet Count 272 K/mm3 (150-450); RBC Distribution Width CV 12.3 % (11.6-14.6); RBC Distribution Width SD 42.1 fl (35.1-43.9); White Blood Count 11.2 K/mm3 (4.4-11.0)
[2019-12-27 20:16] LABS: International Normalized Ratio 2.1; Prothrombin Time (Protime)PT. 23.7 SECONDS (11.7-14.9)
[2019-12-27 20:36] LABS: AST(SGOT) 20 U/L (15-37); Alanine Aminotransfer ALT/SGPT 21 U/L (16-61); Albumin, Serum 3.8 g/dL (3.2-5.0); Alkaline Phosphatase 80 U/L (45-117); Anion Gap 6 (5-15); BUN 17 mg/dL (7-18); BUN/Creat Ratio 15.7 RATIO (10-20); Bilirubin, Direct 0.16 mg/dL (0.00-0.30); Calcium,Total 9.4 mg/dL (8.5-10.1); Chloride 104 mmol/L (98-107); Creatinine, Serum 1.08 mg/dL (0.70-1.30); EST Glomerular Filtration Rate 71 mL/min (>60); Est Glom Filt Rate - Afr Amer 85 mL/min (>60); Estimated Creatinine Clearance 58.19 ml/min; Globulin 3.6 g/dL (2.2-4.2); Glucose 101 mg/dL (74-106); Lipase 113 U/L (73-393); Potassium 3.9 mmol/L (3.5-5.1); Protein, Total 7.4 g/dL (6.4-8.2); Sodium Level 138 mmol/L (136-145)
[2019-12-27] MEDS: Lidocaine 4% 5 ML Ampul 2 ML INHALATION (20:59)
[2019-12-27 21:00] VITALS: PULSE 101; RESP 22
[2019-12-27] MEDS: Oxymetazoline 0.05% 1 SPRAY SPRAY.BTL 2 SPRAY NASAL (21:00)
--- NOTE | 2019-12-27 21:20 | RAD_ITS ---
STUDY: X-RAY - ABDOMEN/PELVIS REASON FOR EXAM: Male, 74 years old. NG PLACEMENT TECHNIQUE: KUB COMPARISON: None. FINDINGS: There is mild interstitial thickening in the lower lobes. Multiple distended air-filled loops of small bowel. There is no demonstrated free abdominal air. Nasogastric tube is noted with tip in the gastric fundus The visualized liver, spleen and kidneys are grossly normal in size and morphology. Normal soft tissue structures. Normal visualized osseous structures. RAD/Abdomen Single View (Portable) IMPRESSION: NG tube placement with tip in gastric fundus Electronically Signed: Chung Croft MD at 21:33 EST , Service support ,
--- NOTE | 2019-12-27 21:59 | HP.PCM_ITS ---
History of Present Illness Date of Admission: 12/27/19 Chief Complaint: Abdominal pain The patient is a 74 y/o M w/ PMHx: PAF, HTN, HLD, Former Tobacco use, GERD who presents to the [facility] ED on 12/27/19 with history of ate of 1/2 medium pizza this after noon while watching a movie with onset significant abdominal pain following, distention, lack of flatus, inability to have BM Notes feeling as if he needs to have a BM, but unable to have bowel movement. Spot on his liver that CC is following. appendectomy Work-up in the ED included T 97.1, heart rate 102, BP 145/116, respiratory rate 20, 96% on room air, CBC with WC 11.2, hemoglobin 17.2, platelet 272 without shift, INR 2.1, unremarkable CMP including normal liver function studies, lipase 113, troponin less than 0.015, CT abdomen and pelvis with evidence of small bowel obstruction of indeterminate etiology with moderate diverticular changes in the distal descending colon without evidence of acute diverticulitis, NG tube placed with follow-up KUB demonstrating NG tube placement with the tip in the gastric fundus. In the ED patient ministered Afrin, Zofran, morphine, lidocaine, normal saline. Following NGT placement, 800 cc output. Abdominal pain, nausea, emesis w/ SBO: Work-up in the ED included T 97.1, heart rate 102, BP 145/116, respiratory rate 20, 96% on room air, CBC with WC 11.2, hemoglobin 17.2, platelet 272 without shift, INR 2.1, unremarkable CMP including normal liver function studies, lipase 113, troponin less than 0.015, CT abdomen and pelvis with evidence of small bowel obstruction of indeterminate etiology with moderate diverticular changes in the distal descending colon without evidence of acute diverticulitis, NG tube placed with follow-up KUB demonstrating NG tube placement with the tip in the gastric fundus. Will admit to [facility], maintain on IVFs, continue NGT to suction, strict I&Os, IV pain/anti- emetics PRN, serial KUB as needed to montior bowel function, Famotidine IV, maintain NPO on bowel rest. General surgery Dr. Diaz consulted, pending. PAF: Holding patient oral regimen including Cardizem, if necessary may administer IV Lopressor versus Cardizem, holding Coumadin, INR therapeutic upon presentation. Hypertension: Holding oral regimen given n.p.o. status with NG tube, PRN IV hydralazine in interim. Hyperlipidemia: Holding statin therapy. Former tobacco use: Continues tobacco cessation. GERD: Maintained on IV famotidine. DVT prophylaxis: SCDs, therapeutic on Coumadin with admission INR 2.1, holding oral regimen with initiation of Lovenox once subtherapeutic. Past Medical History Past Medical History (Chronic Problems): Chronic Problems (Last Updated 08/13/19 @ 06:15 by Chilo Colvin MD) Atrial fibrillation (Chronic) Hypertension (Chronic) Medical History: Medical History (Last Updated 08/13/19 @ 06:15 by Chilo Colvin MD) Atrial fibrillation I48.91 Hypertension I10 Allergies Latex, Natural Rubber Allergy (Verified 12/27/19 19:33) Rash lorazepam [From Ativan] Allergy (Verified 12/27/19 19:33) Other HALLUCINATIONS Home Medications: Ambulatory Orders Medication Instructions Recorded Diltiazem CD [Cardizem CD] 180 mg PO DAILY 06/03/14 Atorvastatin Calcium [Lipitor] 20 mg PO QHS 08/13/19 Albuterol Inhaler [Ventolin Hfa] 2 puff INHALATION Q6H PRN PRN 09/24/19 Omeprazole [Prilosec] 20 mg PO DAILY 12/27/19 Warfarin [Coumadin (PBKC)] 4 mg PO MOWEFRSA 12/27/19 Warfarin [Coumadin (PBKC)] 5 mg PO SUTUTH 12/27/19 Surgical History: appendectomy, total knee arthroplasty, - - Shoulder surgery Lives: Alone Smoking Status: Former smoker Patient Problems: Active and Suspected Problems (Last Updated 08/13/19 @ 06:15 by Chilo Colvin MD) Small bowel obstruction (Acute) - Physical Exam Vitals/I&O's: Vital Signs Temp Pulse Resp BP Pulse Ox 97.1 F L 101 H 22 H 144/91 H 99 12/27/19 19:33 12/27/19 21:00 12/27/19 21:00 12/27/19 20:07 12/27/19 20:07 Oxygen Flow Rate (L/min) 2 Oxygen Delivery Method Nasal Cannula Weight: 203 lb 7.787 oz Body Mass Index (BMI) 29.6 Laboratory Results 12/27/19 20:00: WBC 11.2 H, RBC 5.60, Hgb 17.2 H, Hct 52.1, MCV 93.0, MCH 30.7, MCHC 33.0, RDW Std Deviation 42.1, RDW Coeff of Yakelin 12.3, Plt Count 272, MPV 9.1, Immature Gran % (Auto) 0.500, Neut % (Auto) 67.3, Lymph % (Auto) 22.4, [place] % (Auto) 8.1, Eos % (Auto) 1.2, Baso % (Auto) 0.5, Absolute Neuts (auto) 7.5, Absolute Lymphs (auto) 2.51, Nucleated RBC % 0 12/27/19 20:00: Sodium 138, Potassium 3.9, Chloride 104, Carbon Dioxide 28.0, Anion Gap 6, BUN 17, Creatinine 1.08, Estim Creat Clear Calc 58.19, Est GFR (MDRD) Af Amer 85, Est GFR (MDRD) Non-Af 71, BUN/Creatinine Ratio 15.7, Glucose 101, Calcium 9.4, Total Bilirubin 0.50, Direct Bilirubin 0.16, AST 20, ALT 21, Alkaline Phosphatase 80, Troponin I < 0.015, Total Protein 7.4, Albumin 3.8, Globulin 3.6, Lipase 113 12/27/19 20:00: PT 23.7 H, INR 2.1 Current Medications Sodium Chloride () 1,000 mls @ 150 mls/hr IV .[id number] JUAN Last Admin: 12/27/19 20:05 Dose: 150 mls/hr Documented by: Assessment/Plan All Active Problems (Last Updated 08/13/19 @ 06:15 by Chilo Colvin MD) Neck pain (Acute) Small bowel obstruction (Acute)
[2019-12-27 22:00] VITALS: BP 136/98; PULSE 101; RESP 16; O2SAT 98
[2019-12-27 23:00] VITALS: BP 169/81; PULSE 101; RESP 18; O2SAT 97
--- NOTE | 2019-12-27 23:51 | PCM.HP.STD ---
History of Present Illness Date of Admission: 12/27/19 Chief Complaint: Abdominal pain Admission Diagnoses: Acute SBO History of Meningioma Chronic Atrial Fibrillation Hypertension Hyperlipidemia BPH GERD The patient is a 74 y/o M w/ PMHx: Hx Meningoma noted to be stable, Chronic AF on coumadin previously following w/ Dr. Mccarty, HTN, HLD, GERD, BPH who presents to the [facility] ED on 12/27/19 with history of onset following intake of nearly 1/2 of a pizza while watching a movie at lunchtime significant 10 out of 10 progressively worsening cramping abdominal pain diffusely with distention as well as nausea without emesis with recent difficulties over the last several days of constipation and denies any flatus for hours following onset of initial discomfort prompting eventual ED presentation. In the ED NG tube was placed and following this patient had significant resolution of discomfort with copious (800 cc immediately) amounts of output with abdomen soft and nontender following. Patient initially going to be admitted earlier however concerns per general surgeon, Dr. Diaz with history of meningioma and noted to be on Coumadin therefore at that time she had recommended transfer to tertiary facility; however discussions between [facility] surgeon on-call and herself with decision for patient to remain at [facility] with some concern for possible pneumatosis noted on film with potential need for more urgent surgery. Work-up in the ED included T 97.1, heart rate 102, BP 145/116, respiratory rate 20, 96% on room air, CBC with WC 11.2, hemoglobin 17.2, platelet 272 without shift, INR 2.1, CMP unremarkable, troponin less than 0.015, lipase 113, lactic acid 0.9, CT abdomen pelvis with findings consistent with small bowel obstruction with moderate diverticular changes in the distal descending colon without evidence for acute diverticulitis, follow-up KUB s/p NGT placement with noted appropriate placement with tip in the gastric fundus. In the ED patient administered morphine, Zofran, Afrin. Given follow-up concerns per general surgery following per discussion with general surgeon at [facility], ED physician noted intention for administration of FFP to reverse patient given INR 2.1 as noted. Past Medical History Past Medical History (Chronic Problems): Chronic Problems (Last Updated 08/13/19 @ 06:15 by Chilo Colvin MD) Atrial fibrillation (Chronic) Hypertension (Chronic) Medical History: Medical History (Last Updated 08/13/19 @ 06:15 by Chilo Colvin MD) Atrial fibrillation I48.91 Hypertension I10 Allergies Latex, Natural Rubber Allergy (Verified 12/27/19 19:33) Rash lorazepam [From Ativan] Allergy (Verified 12/27/19 19:33) Other HALLUCINATIONS Home Medications: Ambulatory Orders Medication Instructions Recorded Diltiazem CD [Cardizem CD] 180 mg PO DAILY 06/03/14 Atorvastatin Calcium [Lipitor] 20 mg PO QHS 08/13/19 Albuterol Inhaler [Ventolin Hfa] 2 puff INHALATION Q6H PRN PRN 09/24/19 Omeprazole [Prilosec] 20 mg PO DAILY 12/27/19 Warfarin [Coumadin ([facility])] 4 mg PO MOWEFRSA 12/27/19 Warfarin [Coumadin ([facility])] 5 mg PO SUTUTH 12/27/19 Surgical History: appendectomy, total knee arthroplasty, - - Appendectomy, tonsillectomy, right total knee replacement, left total shoulder placement, prostate surgery, right inguinal hernia repair. Psychiatric History: No pertinent psych hx Lives: Alone Smoking Status: Former smoker - Quit remotely ~ 30-35 years prior, prior to this 1-1.5 ppd cigarette tobacco use. Tobacco Use: Non-smoker Alcohol: Occasional - Previously notes heavy beer intake but has not for many years and will only occasionally drink now. Drugs: None - *Family History Maternal History Items: - - Patient notes that his mother passed at age 82 and had significant health issues related with her stomach but he cannot tell specifically what these were. Paternal History Items: - - Patient notes his father had a history of prostate cancer. Review of Systems Constitutional: Reports: Malaise, Weakness, Fatigue. Denies: Chills, Fever, Weight Change HEENT: Denies: Head Aches, Sinus Congestion, Sinus Drainage Cardiovascular: Denies: Chest Pain, Palpitations Respiratory: Denies: Cough, Shortness of breath at rest, Sputum production Gastrointestinal: Reports: Abdominal Pain, Constipation, Nausea. Denies: Vomiting Genitourinary: Denies: Dysuria Musculoskeletal: Reports: Joint Pain. Denies: Joint Tenderness Skin: Denies: Rash, Wounds Neurological: Denies: Numbness, Tingling, Focal weakness Psychiatric: Denies: Anxiety, Depression, Homicidal Ideations, Suicidal Ideations Hematologic/ Lymphatic: Reports: Easy Bruising, Easy Bleeding VTE Information - Inpt Only VTE Present on Admission: No VTE Mechan Device Prophylaxis: SCD's VTE Pharm Prophylaxis ordered?: No Reason prophylaxis not ordered:: Medical Contraindication - INR 2.1 upon presentation. Patient Problems: Active and Suspected Problems (Last Updated 08/13/19 @ 06:15 by Chilo Colvin MD) Small bowel obstruction (Acute) Subjective: Seated upright in ED bed, mildly fatigued appearance but notes he is much more comfortable status post NG tube placement with copious NG tube output. Objective: Physical Examination: General: awake, alert, oriented x 3 and cooperative, seated upright in the ED bed, mildly fatigued but notes feeling much more comfortable status post NG tube placement. Skin: normal color, turgor, no icterus, cyanosis. HEENT: AT/NC, EOMI, PERRLA, moderately dry MM, NG-tube in place, no carotid bruits or JVD noted. Lungs: CTA bilaterally, moderate effort, moderate decrease BL bases, no rales, ronchi or wheezing. Heart: Irregular, rate controlled; no gallop, rub audible. Abdomen: soft, obese, significant improvement status post NG tube placement, per ED physician was very tense and severely diffusely tender initially in the ED upon presentation however now status post NG tube placement abdomen soft, nontender to palpation diffusely, still absent bowel sounds, difficult to assess HSM secondary to habitus. Extremities: no cyanosis, clubbing, or edema. Neurological: patient awake, alert, oriented x 3; cognitive function intact; pupils equally reactive to light and accomodation; cranial nerves II-XII grossly normal, moving all 4 extremities, no focal deficits, strength improved, moderately global decreased secondary to acute presentation. Psychiatric: affect appears fatigued, otherwise normal, no acute evidence of depressive or anxiety feelings. - Physical Exam Vitals/I&O's: Vital Signs Temp Pulse Resp BP Pulse Ox 97.1 F L 101 H 18 169/81 H 97 12/27/19 19:33 12/27/19 23:00 12/27/19 23:00 12/27/19 23:00 12/27/19 23:00 Oxygen Flow Rate (L/min) 2 Oxygen Delivery Method Room Air Weight: 203 lb 7.787 oz Body Mass Index (BMI) 29.6 Laboratory Results 12/27/19 13:41: Blood Type Pending 12/27/19 20:00: WBC 11.2 H, RBC 5.60, Hgb 17.2 H, Hct 52.1, MCV 93.0, MCH 30.7, MCHC 33.0, RDW Std Deviation 42.1, RDW Coeff of Yakelin 12.3, Plt Count 272, MPV 9.1, Immature Gran % (Auto) 0.500, Neut % (Auto) 67.3, Lymph % (Auto) 22.4, [place] % (Auto) 8.1, Eos % (Auto) 1.2, Baso % (Auto) 0.5, Absolute Neuts (auto) 7.5, Absolute Lymphs (auto) 2.51, Nucleated RBC % 0 12/27/19 20:00: Sodium 138, Potassium 3.9, Chloride 104, Carbon Dioxide 28.0, Anion Gap 6, BUN 17, Creatinine 1.08, Estim Creat Clear Calc 58.19, Est GFR (MDRD) Af Amer 85, Est GFR (MDRD) Non-Af 71, BUN/Creatinine Ratio 15.7, Glucose 101, Calcium 9.4, Total Bilirubin 0.50, Direct Bilirubin 0.16, AST 20, ALT 21, Alkaline Phosphatase 80, Troponin I < 0.015, Total Protein 7.4, Albumin 3.8, Globulin 3.6, Lipase 113 12/27/19 20:00: PT 23.7 H, INR 2.1 12/27/19 23:25: Lactic Acid Pending Current Medications Sodium Chloride () 1,000 mls @ 150 mls/hr IV .[id number] JUAN Last Admin: 12/27/19 20:05 Dose: 150 mls/hr Documented by: Assessment/Plan All Active Problems (Last Updated 08/13/19 @ 06:15 by Chilo Colvin MD) Neck pain (Acute) Small bowel obstruction (Acute) The patient is a 74 y/o M w/ PMHx: Hx Meningoma noted to be stable, Chronic AF on coumadin previously following w/ Dr. Mccarty, HTN, HLD, GERD, BPH who presents to the [facility] ED on 12/27/19 with history of onset following intake of nearly 1/2 of a pizza while watching a movie at lunchtime significant 10 out of 10 progressively worsening cramping abdominal pain diffusely with distention as well as nausea without emesis with recent difficulties over the last several days of constipation and denies any flatus for hours following onset of initial discomfort prompting eventual ED presentation. 1. Abdominal pain, nausea, emesis w/ SBO: Work-up in the ED included T 97.1, heart rate 102, BP 145/116, respiratory rate 20, 96% on room air, CBC with WC 11.2, hemoglobin 17.2, platelet 272 without shift, INR 2.1, CMP unremarkable, troponin less than 0.015, lipase 113, lactic acid 0.9, CT abdomen pelvis with findings consistent with small bowel obstruction with moderate diverticular changes in the distal descending colon without evidence for acute diverticulitis, follow-up KUB s/p NGT placement with noted appropriate placement with tip in the gastric fundus. In the ED patient administered morphine, Zofran, Afrin. Given follow-up concerns per general surgery following per discussion with general surgeon at [facility], ED physician noted intention for administration of FFP to reverse patient given INR 2.1 as noted. Will admit to medical surgical floor, maintain on IVFs, continue NGT to suction, strict I&Os, IV pain/anti-emetics PRN, serial KUB as needed to montior bowel function, Famotidine IV, maintain NPO on bowel rest. General surgeon evaluating patient, unclear if intention for operative intervention although currently patient comfortable, abdomen soft, nontender and lactic acid level is normal therefore lower suspicion. 2. Chronic atrial fibrillation: Holding oral regimen, will have IV Lopressor if needed, Coumadin being reversed with FFP administration per ED discretion. 3. Hypertension: Holding patient oral regimen, will have PRN IV Lopressor as well as IV hydralazine in interim. 4. Hyperlipidemia: Holding statin. 5. GERD: We will maintain on IV famotidine. 6. History of meningioma: Per report stable, encourage continued follow-up with patient's oncologist and neurosurgeon. 7. DVT prophylaxis: SCDs, admission INR 2.1, holding Coumadin, being reversed with FFP per ED physician per surgery request. Code Visit Inpatient E&M: 24630 Init Hosp L3
[2019-12-27 23:59] LABS: Lactic Acid 0.9 mmol/L (0.4-1.9)
[2019-12-28] VITALS (18 sets, daily range): BP systolic 137–165; BP diastolic 74–126; PULSE 73–126; RESP 12–20; TEMP 36.6–37.1; O2SAT 92–99; BMI 29.6; BMI 31.1; BMI 31.2
--- NOTE | 2019-12-28 00:22 | PCM.CONS.B ---
- Consult Date of Consult: 12/28/19 - Reason for Consult Chief Complaint: abdominal pain HISTORY OF PRESENT ILLNESS: 74 y/o WM presents with abdominal pain and bloating. He states that he has had problems with his bowels ever since his TURP two months ago. However, more recently he has had increase in his abdominal pain such that he presented to ED at [facility] this evening. He states that he has waves of severe pain. He denies emesis. LABS reveals WBC 11.2K with no shift in differential, INR is 2.1 Patient states that he does not recall the last time that he passed flatus and he states that he had watery bowel movements yesterday morning. CT scan reveals - There is markedly distended fluid-filled stomach and multiple distended fluid-filled loops of small bowel with transition point as well as fecalization and pneumatosis which may be consistent with small bowel obstruction.. There is diffuse fecal retention within the colon. Diverticular changes in the distal descending colon without evidence for acute diverticulitis No evidence for acute appendicitis. PAST MEDICAL HISTORY ? Atrial fibrillation (HCC) ? ? Benign neoplasm of colon 2006 ? Head injury, unspecified 1962 ? Right Head Injury Unspec ? Hypogonadism in male ? ? sees Dr. Wilson ? Intracranial meningioma (HCC) 07/06/2018 ? ?05/29/17 MRI brain: left middle cranial fossa meningioma. Done for recent intermittent motion dizziness. No falls, loss of hearing. 06/25/[address] Mcintosh 07/19/18 consult Tani Mccormick M.D. Dx: Left sphenoid wing meningioma, slow growth from initial MRI 2006. Plan to repeat MRI in 1 year. ? Unspecified asthma(493.90) ? ? ? PAST SURGICAL HISTORY ? APPENDECTOMY ? ? ? COLONOSCPY FLX DX ? 2011 ? COLONS W/REM POLYP HT BX ? 08/08/2007 ? small polyps at 20 and 40 cm - recommende 5 year follow up ? REMOVAL OF TONSILS,<12 Y/O ? ? ? Tonsillectomy ? REPAIR ING HERNIA,5+Y/O,REDUCIBL ? ? ? Right Hernia repair, inguinal ? REPAIR OF NASAL SEPTUM ? ? ? Septoplasty ? REPAIR SHOULDER CAPSULE,ANTERIOR Left ? ? Repair shoulder replacement ? TOTAL KNEE REPLACEMENT Right ? ? Knee replacement, total - Right ? TRANSURETHRAL ELEC-SURG PROSTATECTOM ? 10/01/2019 ? Dr. Taylor ? Social History ? Smoking status: Current Some Day Smoker ? ? Packs/day: 2.00 ? ? Years: 10.00 ? ? Pack years: 20.00 ? ? Types: Pipe ? Smokeless tobacco: Never Used ? Tobacco comment: smokes occasional pipe Substance Use Topics ? Alcohol use: No ? ? Alcohol/week: 0.0 standard drinks ? ? Comment: hx of abuse, quit drinking August 2015. ? Drug use: No ?? FAMILY HISTORY ? other (Arteriosclerosis) Father ? ? Coronary Artery ALLERGIES ? Adhesives [Other] ? ? ? blisters ? Ativan [Lorazepam] Mental Status Change ? Latex Other: See Comments ? ? blisterering from adhesive ? Tape [Other] Rash CURRENT MEDICATIONS sildenafil (REVATIO) 20 mg tablet TAKE 3 TABLETS BY MOUTH ONCE DAILY NEEDED warfarin (COUMADIN) 4 mg tablet 5mg T, Th, Sa, Romeo, 4mg all other days or as directed. warfarin (COUMADIN) 5 mg tablet 5mg T, Th, Sa, Romeo, 4mg all other days or as directed. atorvastatin (LIPITOR) 20 mg tablet Take 1 tablet by mouth once daily. cyclobenzaprine (FLEXERIL) 10 mg tablet Take 1 tablet by mouth three times daily as needed. enoxaparin (LOVENOX) 60 mg/0.6 mL syrg Inject 0.6 mL subcutaneously q 12 HR. diltiazem CD (CARDIZEM CD, CARTIA XT) 180 mg 24 hr capsule Take 1 capsule by mouth once daily. Promethazine-DM (PHENERGAN-DM) 6.25-15 mg/5 mL syrup Take 5 mL by mouth four times daily as needed. albuterol HFA (VENTOLIN HFA) 90 mcg/actuation inhaler INHALE 2 PUFFS BY MOUTH EVERY 4 HOURS NEEDED FOR WHEEZING OR SHORTNESS OF BREATH testosterone (FORTESTA) 10 mg/0.5 gram /actuation glpm 3 pumps daily -- prescribed by urology. COMPOUNDED PRESCRIPTION Nebulizer and supplies. Use as directed. Dx: J44.1 tamsulosin 0.4 mg Cp24 Take 0.4 mg by mouth. REVIEW OF SYSTEMS: General - denies fevers Cardiovascular denies chest pain, denies history of heart attack, has chronic afib Pulmonary denies shortness of breath, denies coughing up blood Gastrointestinal as per HPI Neurological has known stable intracranial meningioma, denies seizures, denies history of stroke Genitourinary s/p TURP Hematological denies spontaneous/prolonged bleeding Skin denies open non healing wounds Endocrine denies diabetes Psychological denies hallucinations PHYSICAL EXAMINATION: Vital signs Temp 97.8F HR 101 BP 165/91 RR 16 General WD/WN WM in no apparent distress, alert and oriented, not septic appearing HEENT Normocephalic. EOM intact with sclera clear and no icterus noted. Neck is supple with no jugular venous distention noted. Trachea is midline. Lungs normal breath sounds . No rales/rhonchi/wheezing noted. No labored breathing noted, such as retractions. No cough heard. Heart normal heart sounds, irregular Abdomen not soft, distended with diffuse tenderness and guarding, when patient has the wave of pain - there is facial grimacing and moaning, no bowel sounds noted. Extremities no calf tenderness noted. No pitting edema noted. Genitourinary/Rectal deferred Skin normal skin integrity. Neurological non focal Psychological normal affect, patient is appropriate IMPRESSION: small bowel obstruction DISCUSSION/PLAN: I have discussed the above with the patient. Given patient doesn't recall the last time he passed flatus and the reading of radiologist of pneumatosis and patient's tenderness on examination, will proceed to OR for exploratory laparotomy, lysis of adhesions, possible bowel resection (if compromised bowel is noted). He is on coumadin, his INR is 2.1, will transfuse 2 uFFP in the OR I have explained the procedure to the patient. I have counseled the patient as to the risks of the procedure, including but not limited to: infection, bleeding, injury to any blood vessels/nerves, scar tissue, injury to any intraabdominal organs, injury to kidney/ureters, injury to bowel/bladder, intraabdominal abscess/bleeding, hernias at incisional sites, wound infections, complications of anesthesia, postoperative pneumonia/cardiac problems/blood clots etc. the patient understands. He also has a known intracranial meningioma and I have told patient that we do not have neurosurgical capabilities at this hospital - he acknowledges this. Patient wishes to proceed with surgery. I have answered all questions to the patient?s satisfaction and the patient has no further questions.
[2019-12-28] MEDS: Lactated Ringers 1,000 ML 100 ML IV (02:15)
--- NOTE | 2019-12-28 02:29 | OP.PCM_ITS ---
Report of Operation Date of Procedure: 12/28/19 Pre-Operative Diagnosis: small bowel obstruction, acute abdomen, pneumatosis on CT scan Post-Operative Diagnosis: pneumatosis on CT scan, no bowel obstruction Surgery/Procedure Performed:: exploratory laparotomy Description of Surgical Findings:: normal small intestine - no evidence of bowel obstruction, fecalization in small intestine mortgage loan counselor: Pia Barakat Type of Anesthesia:: General Anesthesiologist: Nara Hi Specimen's removed: none Estimated Blood Loss (mL): 30 ml Fluids Replaced: 1000 ml RL, 2 u FFP Description of Procedure: After informed consent was obtained, patient was brought to the Operating Room. Appropriate time out protocol was followed. He was then placed under GETA. The abdomen was then prepped and draped in appropriate surgical fashion. A midline skin incision was made with a 10 blade scalpel and carried down to the fascia using sharp dissection. Any hemorrhage was controlled with electrocautery. Patient was noted to be oozing due to his being on coumadin. The fascia was then incised carefully avoiding any injury to any internal organs. The intraabdominal cavity was entered. There was no purulent peritoneal fluid noted. The small bowel was evaluated from the ligament of Trietz to the ileocecal valve and there was no evidence of obstruction/lesions/adhesions. There was palpable stool noted in the small intestine. Also, there was hard stool noted in the right and transverse colon. No obvious intraabdominal masses were noted. The abdomen was vigorously irrigated with normal saline and all irrigant was aspirated out. The fascia was reapproximated with running looped #1 PDS suture. The wound was irrigated with normal saline. The skin incision was reapproximated with skin licha. Dressing was applied. Patient was brought to Recovery Room in stable condition. - Complications none noted - Admit VTE Documentation VTE Present on Admission: Yes VTE Mechan Device Prophylaxis: SCD's
[2019-12-28] MEDS: 0.9% Normal Saline 1,000 ML 125 ML IV ×3 (04:35→21:18)
--- NOTE | 2019-12-28 05:26 | NURSING ---
Pt unsure of last PNA shot.
[2019-12-28 05:53] LABS: Absolute Lymphocyte Count 2.02 X10^3/uL (0.83-4.51); Absolute Neutrophil Count 10.9 X10^3/uL (2.0-7.7); Basophil# 0.03 X10^3/uL; Basophil% 0.2 % (0-1); Hemoglobin 15.5 g/dL (13.0-16.5); Lymphocyte # 2.02 X10^3/ul (4.0); Lymphocyte % 15.1 % (19-41); Mean Corp Hgb Conc 32.3 g/dL (32-36); Mean Corpuscular Hgb 30.6 pg (27.0-32.0); Mean Corpuscular Volume 94.7 fL (80-94); Mean Platelet Vol. 9.8 fl (6.2-12.0); Monocyte# 0.37 X10^3/uL; Monocyte% 2.8 % (0-10); NRBC Flagged by Analyzer 0 % (0-5); Neutrophil # 10.91 X10^3/uL (2.7-7.7); Neutrophil % 81.6 % (47-70); Platelet Count 238 K/mm3 (150-450); RBC Distribution Width CV 12.4 % (11.6-14.6); RBC Distribution Width SD 43.1 fl (35.1-43.9); Red Blood Count 5.07 M/mm3 (4.6-6.2); White Blood Count 13.4 K/mm3 (4.4-11.0)
--- NOTE | 2019-12-28 05:55 | RAD_ITS ---
HISTORY: SBO HAD ABDOMINAL SURGERY DURING THE NIGHT ADDITIONAL HISTORY: None. COMPARISON: 12/27/2019 Technique: Supine and upright abdominal radiographs Number of images including paperwork: 3 FINDINGS: FREE AIR: None detected. BOWEL GAS PATTERN: Nonobstructive. CALCIFICATIONS: No definite urinary tract calculi. ORGANS: No evidence of organomegaly. SOFT TISSUES: Unremarkable. BONES: No acute skeletal findings. Degenerative changes. Abdominal wall skin licha. Nasogastric tube tip and side-port of the stomach. RAD/Abd Decub and/or Erect(Portabl IMPRESSION: Nonspecific bowel gas pattern. Nasogastric tube in place. at [id number] Reported and signed by: Joy Leija MD Electronically Signed: Joy Leija MD at 6:53 EST Tel , Service support ,
[2019-12-28 06:35] LABS: Anion Gap 3 (5-15); BUN 15 mg/dL (7-18); Calcium,Total 8.5 mg/dL (8.5-10.1); Chloride 108 mmol/L (98-107); Creatinine, Serum 0.94 mg/dL (0.70-1.30); EST Glomerular Filtration Rate 83 mL/min (>60); Est Glom Filt Rate - Afr Amer 100 mL/min (>60); Estimated Creatinine Clearance 66.86 ml/min; Glucose 107 mg/dL (74-106); Potassium 4.2 mmol/L (3.5-5.1); Sodium Level 139 mmol/L (136-145)
[2019-12-28] MEDS: Morphine 4 MG/ML Syringe IV (06:56)
--- NOTE | 2019-12-28 10:19 | PN.SURG_ITS ---
Patient Problems: Active and Suspected Problems (Last Updated 08/13/19 @ 06:15 by Chilo Colvin MD) Small bowel obstruction (Acute) Subjective: patient feelnig well no flatus no bowel movement - Physical Exam Vitals/I&O's: Vital Signs Temp Pulse Resp BP Pulse Ox 98.3 F 106 H 17 146/85 H 96 12/28/19 08:28 12/28/19 08:28 12/28/19 08:28 12/28/19 08:28 12/28/19 09:49 Oxygen Flow Rate (L/min) 2 Oxygen Delivery Method Nasal Cannula Weight: 95.7 kg Body Mass Index (BMI) 31.1 Intake and Output for Last 24 Hours 12/26/19 12/27/19 12/28/19 23:59 23:59 23:59 Intake Total 2455.67 / 2455.67 Output Total 630 / 630 Balance 1825.67 / 1825.67 General: Alert, Oriented x3 Oral: Moist Mucosa Neck: Supple Lungs: Normal air movement Abdomen: Soft - dressing intact, no seepage Laboratory Results 12/27/19 13:41: Blood Type A POSITIVE 12/27/19 20:00: WBC 11.2 H, RBC 5.60, Hgb 17.2 H, Hct 52.1, MCV 93.0, MCH 30.7, MCHC 33.0, RDW Std Deviation 42.1, RDW Coeff of Yakelin 12.3, Plt Count 272, MPV 9.1, Immature Gran % (Auto) 0.500, Neut % (Auto) 67.3, Lymph % (Auto) 22.4, [place] % (Auto) 8.1, Eos % (Auto) 1.2, Baso % (Auto) 0.5, Absolute Neuts (auto) 7.5, Absolute Lymphs (auto) 2.51, Nucleated RBC % 0 12/27/19 20:00: Sodium 138, Potassium 3.9, Chloride 104, Carbon Dioxide 28.0, Anion Gap 6, BUN 17, Creatinine 1.08, Estim Creat Clear Calc 58.19, Est GFR (MDRD) Af Amer 85, Est GFR (MDRD) Non-Af 71, BUN/Creatinine Ratio 15.7, Glucose 101, Calcium 9.4, Total Bilirubin 0.50, Direct Bilirubin 0.16, AST 20, ALT 21, Alkaline Phosphatase 80, Troponin I < 0.015, Total Protein 7.4, Albumin 3.8, Globulin 3.6, Lipase 113 12/27/19 20:00: PT 23.7 H, INR 2.1 12/27/19 23:25: Lactic Acid 0.9 12/28/19 05:05: WBC 13.4 H, RBC 5.07, Hgb 15.5, Hct 48.0, MCV 94.7 H, MCH 30.6, MCHC 32.3, RDW Std Deviation 43.1, RDW Coeff of Yakelin 12.4, Plt Count 238, MPV 9.8, Immature Gran % (Auto) 0.300, Neut % (Auto) 81.6 H, Lymph % (Auto) 15.1 L, [place] % (Auto) 2.8, Eos % (Auto) 0.0, Baso % (Auto) 0.2, Absolute Neuts (auto) 10.9 H, Absolute Lymphs (auto) 2.02, Nucleated RBC % 0 12/28/19 05:05: Sodium 139, Potassium 4.2, Chloride 108 H, Carbon Dioxide 28.0, Anion Gap 3 L, BUN 15, Creatinine 0.94, Estim Creat Clear Calc 66.86, Est GFR (MDRD) Af Amer 100, Est GFR (MDRD) Non-Af 83, BUN/Creatinine Ratio 16.0, Glucose 107 H, Calcium 8.5 Current Medications Albuterol Sulfate (Ventolin Aerosols) 2.5 mg INHALATION Q2H PRN PRN PRN Reason: Shortness of Breath/Wheezing Glucagon () 1 mg IM .X1 PRN PRN Reason: Hypoglycemia Hydralazine HCl (Apresoline Iv) 10 mg IV Q4H PRN PRN PRN Reason: SBP > 160 Famotidine 20 mg/ Sodium (Chloride) 10 mls @ 300 mls/hr IV Q12 [facility] Sodium Chloride () 1,000 mls @ 125 mls/hr IV .Q8H [facility] Last Admin: 12/28/19 04:35 Dose: 125 mls/hr Documented by: Dextrose (Dextrose 10%-Water) 250 mls @ 999 mls/hr IV .Q16M PRN; Protocol PRN Reason: HYPOGLYCEMIA Lactated Ringer's () 1,000 mls @ 100 mls/hr IV .Q10H [facility] Last Infusion: 12/28/19 04:10 Dose: Infused Documented by: Sodium Chloride () 250 mls @ 15 mls/hr IV .[id number] PRN PRN Reason: Saline Flush Sodium Chloride () 250 mls @ 15 mls/hr IV .[id number] PRN PRN Reason: Additional IVPB Infusion Metoprolol Tartrate (Lopressor (Beta Shea)) 5 mg IV Q8H PRN PRN PRN Reason: HR > 100, sustained (PAF hx) Morphine Sulfate () 4 mg IV Q2H PRN PRN PRN Reason: 1-08/21 pain Last Admin: 12/28/19 06:56 Dose: 4 mg Documented by: Ondansetron HCl (Zofran) 4 mg IV Q8H PRN PRN PRN Reason: NAUSEA/VOMITING Prochlorperazine Edisylate (Compazine Iv) 5 mg IV Q4H PRN PRN PRN Reason: Breakthrough nausea/vomiting Sodium Chloride () 10 - 40 ml IV UD PRN PRN Reason: SALINE FLUSH Medical Necessity - Tobacco Use Smoking Status: Current some day smoker Tobacco Use: Non-smoker, Pipe Assessment/Plan All Active Problems (Last Updated 08/13/19 @ 06:15 by Chilo Colvin MD) Neck pain (Acute) Small bowel obstruction (Acute) IMPRESSION: DOS exploratory laparotomy - no evidence of bowel obstruction PLAN: given 30 ml of gastrografin for constipation and also fecalization of small intestine contents also adequate hydration Patient placed on PPI Maintain NG decompression until patient passing flatus can start coumadin tonight can give po meds and clamp NG tube for an hour
--- NOTE | 2019-12-28 11:22 | PN_ITS ---
Patient Problems: Active and Suspected Problems (Last Updated 08/13/19 @ 06:15 by Chilo Colvin MD) Small bowel obstruction (Acute) Subjective: Patient seen and examined. He was admitted with a complaint of abdominal pain and bloating and inability to pass gas. CT showed markedly distended fluid- filled stomach and multiple distended fluid-filled loops of small bowel as well as fecal isolation and pneumatosis which could be consistent with small bowel obstruction. General surgery was consulted and he had emergency laparotomy which was negative for small bowel obstruction. Patient seen this morning. He said pain was well controlled with IV morphine. He denied ay fever, chills, shortness of breath,k chest pain or vomiting. Review of systems is otherwise negative. Labs and vitals reviewed. He is tachycardic with heart rate going up to 120. This is likely because he has not gotten his p.o. A. fib medication. Chemistry is unremarkable. CBC shows white cell count of 13.4. Vitals/I&O's: Vital Signs Temp Pulse Resp BP Pulse Ox 98.3 F 106 H 17 146/85 H 96 12/28/19 08:28 12/28/19 08:28 12/28/19 08:28 12/28/19 08:28 12/28/19 09:49 Oxygen Flow Rate (L/min) 2 Oxygen Delivery Method Nasal Cannula Weight: 210 lb 15.718 oz Body Mass Index (BMI) 31.1 Intake and Output for Last 24 Hours 12/26/19 12/27/19 12/28/19 23:59 23:59 23:59 Intake Total 2455.67 / 2455.67 Output Total 630 / 630 Balance 1825.67 / 1825.67 General: Alert, Oriented x3, Cooperative, No apparent distress HEENT: Atraumatic, PERRLA, EOMI, Normocephalic Oral: Dry Mucosa Neck: Supple, No JVD, Negative Carotid Bruits Lungs: Clear to auscultation, Normal air movement, No rhonchi, No wheeze, No rales Cardiovascular: Normal S1, Normal S2, No murmurs, Irregular Rate - Afib, Tachycardic Abdomen: Bowel Sounds Present, Soft, Non Tender, - - clean, intact dresisng over laparotomy site. Minimal bowel sounds Extremities: No clubbing, No cyanosis, No edema, Capillary Refill Less than 3 Seconds Skin: No rashes, No breakdown Musculoskeletal: No Tenderness to Palpation of Joints or Extremities Lymphatic: No Cervical, Supraclavicular, or Inguinal Adenopathy Neurological: Cranial nerves II-XII grossly intact, Neuro grossly intact, Motor Exam 5/5 strength throughout Psych/Mental Status: Normal Affect, Appropriate, Alert and oriented to time, place, person, mood and affect Laboratory Results 12/27/19 13:41: Blood Type A POSITIVE 12/27/19 20:00: WBC 11.2 H, RBC 5.60, Hgb 17.2 H, Hct 52.1, MCV 93.0, MCH 30.7, MCHC 33.0, RDW Std Deviation 42.1, RDW Coeff of Yakelin 12.3, Plt Count 272, MPV 9.1, Immature Gran % (Auto) 0.500, Neut % (Auto) 67.3, Lymph % (Auto) 22.4, [place] % (Auto) 8.1, Eos % (Auto) 1.2, Baso % (Auto) 0.5, Absolute Neuts (auto) 7.5, Absolute Lymphs (auto) 2.51, Nucleated RBC % 0 12/27/19 20:00: Sodium 138, Potassium 3.9, Chloride 104, Carbon Dioxide 28.0, Anion Gap 6, BUN 17, Creatinine 1.08, Estim Creat Clear Calc 58.19, Est GFR (MDRD) Af Amer 85, Est GFR (MDRD) Non-Af 71, BUN/Creatinine Ratio 15.7, Glucose 101, Calcium 9.4, Total Bilirubin 0.50, Direct Bilirubin 0.16, AST 20, ALT 21, Alkaline Phosphatase 80, Troponin I < 0.015, Total Protein 7.4, Albumin 3.8, Globulin 3.6, Lipase 113 12/27/19 20:00: PT 23.7 H, INR 2.1 12/27/19 23:25: Lactic Acid 0.9 12/28/19 05:05: WBC 13.4 H, RBC 5.07, Hgb 15.5, Hct 48.0, MCV 94.7 H, MCH 30.6, MCHC 32.3, RDW Std Deviation 43.1, RDW Coeff of Yakelin 12.4, Plt Count 238, MPV 9.8, Immature Gran % (Auto) 0.300, Neut % (Auto) 81.6 H, Lymph % (Auto) 15.1 L, [place] % (Auto) 2.8, Eos % (Auto) 0.0, Baso % (Auto) 0.2, Absolute Neuts (auto) 10.9 H, Absolute Lymphs (auto) 2.02, Nucleated RBC % 0 12/28/19 05:05: Sodium 139, Potassium 4.2, Chloride 108 H, Carbon Dioxide 28.0, Anion Gap 3 L, BUN 15, Creatinine 0.94, Estim Creat Clear Calc 66.86, Est GFR (MDRD) Af Amer 100, Est GFR (MDRD) Non-Af 83, BUN/Creatinine Ratio 16.0, Glucose 107 H, Calcium 8.5 Diagnostic Data Abdomen/Pelvis CT 12/27/19 20:07 IMPRESSION: Findings consistent with small bowel obstruction of indeterminate etiology. Minor diverticular changes in the distal descending colon without evidence for acute diverticulitis Electronically Signed: Chung Croft MD at 20:38 EST , Service support , KUB X-Ray 12/27/19 21:20 IMPRESSION: NG tube placement with tip in gastric fundus Electronically Signed: Chung Croft MD at 21:33 EST , Service support , Abdomen X-Ray 12/28/19 05:55 IMPRESSION: Nonspecific bowel gas pattern. Nasogastric tube in place. at [id number] Reported and signed by: Joy Leija MD Electronically Signed: Joy Leija MD at 6:53 EST Tel , Service support , Current Medications Albuterol Sulfate (Ventolin Aerosols) 2.5 mg INHALATION Q2H PRN PRN PRN Reason: Shortness of Breath/Wheezing Atorvastatin Calcium (Lipitor) 20 mg PO DAILY [facility] Diltiazem HCl (Cardizem Cd) 180 mg PO 1700 [facility] Glucagon () 1 mg IM .X1 PRN PRN Reason: Hypoglycemia Hydralazine HCl (Apresoline Iv) 10 mg IV Q4H PRN PRN PRN Reason: SBP > 160 Famotidine 20 mg/ Sodium (Chloride) 10 mls @ 300 mls/hr IV Q12 [facility] Sodium Chloride () 1,000 mls @ 125 mls/hr IV .Q8H JUAN Last Admin: 12/28/19 04:35 Dose: 125 mls/hr Documented by: Dextrose (Dextrose 10%-Water) 250 mls @ 999 mls/hr IV .Q16M PRN; Protocol PRN Reason: HYPOGLYCEMIA Lactated Ringer's () 1,000 mls @ 100 mls/hr IV .Q10H [facility] Last Infusion: 12/28/19 04:10 Dose: Infused Documented by: Sodium Chloride () 250 mls @ 15 mls/hr IV .[id number] PRN PRN Reason: Saline Flush Sodium Chloride () 250 mls @ 15 mls/hr IV .[id number] PRN PRN Reason: Additional IVPB Infusion Metoprolol Tartrate (Lopressor (Beta Shea)) 5 mg IV Q8H PRN PRN PRN Reason: HR > 100, sustained (PAF hx) Morphine Sulfate () 4 mg IV Q2H PRN PRN PRN Reason: -08/21 pain Last Admin: 12/28/19 06:56 Dose: 4 mg Documented by: Non-Formulary Medication (Oxybutynin Chloride [Oxybutynin Chloride Er]) 10 mg PO DAILY [facility] Ondansetron HCl (Zofran) 4 mg IV Q8H PRN PRN PRN Reason: NAUSEA/VOMITING Prochlorperazine Edisylate (Compazine Iv) 5 mg IV Q4H PRN PRN PRN Reason: Breakthrough nausea/vomiting Sodium Chloride () 10 - 40 ml IV UD PRN PRN Reason: SALINE FLUSH Warfarin Sodium (Coumadin (Pbkc)) 4 mg PO MOWEFRSA [facility] Warfarin Sodium (Coumadin (Pbkc)) 5 mg PO [facility] STROKE Vital Signs/Narrative: Vital Signs Temp Pulse Resp BP Pulse Ox 12/28/19 09:49 96 12/28/19 08:28 98.3 F 106 H 17 146/85 H 98 Medical Necessity - Tobacco Use Smoking Status: Current some day smoker Tobacco Use: Non-smoker, Pipe Assessment/Plan All Active Problems (Last Updated 08/13/19 @ 06:15 by Chilo Colvin MD) Neck pain (Acute) Small bowel obstruction (Acute) 1. Small bowel obstruction s/p exploratory laparotomy * today is POD 0 * surgical findings showed no evidence of bowel obstruction and fecalization in small intestine * currently NPO * wbc is up to 13.4 * on IV famotidine * general surgery on board * 2. Chronic Afib * on cardizem; hasnt received his PO meds today as he was NPO * per general surgery, can take PO meds today; to receive cardizem tonight * coumadin on hold. Per general surgeon, can resume PO coumadin tonight, per general surgery * 3. Hypertension: on IV metoprolol and IV hydralazine. 4. Hyperlipidemia: on statin 5. GERD: on famotidine 6. History of meningioma: stable. To follow up with oncologist and neurosurgery DVT prophylaxis: to resume coumadin tonight Code Visit Inpatient E&M: 01308 Subs Hosp L2
[2019-12-28] MEDS: Famotidine 200 MG/20 ML MDV 20 MG in 0.9% Normal Saline (Pres. free 8 ML 300 MG IV ×2 (11:36→22:36)
--- NOTE | 2019-12-28 11:40 | NURSING ---
Patient NG tube hooked back up to low intermittent suction. Tolerated NG being clamped well. No complaints of nausea or increased abdominal pain.
[2019-12-28] MEDS: Metoprolol Tartrate 5 MG/5 ML Vial IV (11:43)
[2019-12-28] MEDS: dilTIAZem CD 180 MG Capsule PO (16:51)
[2019-12-28] MEDS: Tolterodine Tartrate 2 MG CAP.SA PO (16:51)
[2019-12-28] MEDS: Ondansetron 4 MG/2 ML Vial IV (18:17)
[2019-12-28] MEDS: 0.9% Saline Lock 10 ML Syringe IV (18:18)
[2019-12-28] MEDS: Atorvastatin Calcium 20 MG Tablet PO (22:36)
[2019-12-28] MEDS: MELATONIN 3 MG TABLET PO (22:36)
[2019-12-29 04:35] VITALS: BP 143/76; PULSE 94; RESP 12; TEMP 36.6; O2SAT 95
[2019-12-29 04:38] LABS: Absolute Lymphocyte Count 2.68 X10^3/uL (0.83-4.51); Absolute Neutrophil Count 9.2 X10^3/uL (2.0-7.7); Basophil# 0.02 X10^3/uL; Basophil% 0.2 % (0-1); Hematocrit 44.8 % (40-54); Hemoglobin 14.8 g/dL (13.0-16.5); Lymphocyte # 2.68 X10^3/ul (4.0); Lymphocyte % 20.5 % (19-41); Mean Corpuscular Hgb 30.6 pg (27.0-32.0); Mean Corpuscular Volume 92.6 fL (80-94); Mean Platelet Vol. 9.6 fl (6.2-12.0); Monocyte# 1.09 X10^3/uL; Monocyte% 8.3 % (0-10); NRBC Flagged by Analyzer 0 % (0-5); Neutrophil # 9.21 X10^3/uL (2.7-7.7); Neutrophil % 70.5 % (47-70); Platelet Count 230 K/mm3 (150-450); RBC Distribution Width CV 12.2 % (11.6-14.6); Red Blood Count 4.84 M/mm3 (4.6-6.2); White Blood Count 13.1 K/mm3 (4.4-11.0)
[2019-12-29 05:04] LABS: Anion Gap 7 (5-15); BUN 13 mg/dL (7-18); BUN/Creat Ratio 18.7 RATIO (10-20); Calcium,Total 8.4 mg/dL (8.5-10.1); Chloride 105 mmol/L (98-107); EST Glomerular Filtration Rate 117 mL/min (>60); Est Glom Filt Rate - Afr Amer 142 mL/min (>60); Estimated Creatinine Clearance 62.84 ml/min; Glucose 101 mg/dL (74-106); Sodium Level 138 mmol/L (136-145)
[2019-12-29] MEDS: 0.9% Normal Saline 1,000 ML 125 ML IV ×3 (05:41→22:01)
--- NOTE | 2019-12-29 07:51 | RAD_ITS ---
STUDY: X-RAY - ABDOMEN/PELVIS REASON FOR EXAM: Male, 74 years old. Small bowel obstruction -- done upright per Dr. Diaz TECHNIQUE: Single AP upright view of the abdomen / pelvis. COMPARISON: Comparison is made with prior study dated December 28, 2019. FINDINGS: The tip of the nasogastric tube is just distal to the gastroesophageal junction. A large amount of oral contrast is seen in the right hemicolon as well as fecal material. Nonspecific bowel gas pattern. There is no demonstrated free abdominal air. The visualized liver, spleen and kidneys are grossly normal in size and morphology. Normal soft tissue structures. There are diffuse degenerative changes of the visualized lumbar spine. RAD/Abdomen Single View IMPRESSION: Large amount of oral contrast is seen within the right hemicolon. Nonspecific bowel gas pattern. No evidence of small bowel obstruction. The tip of the nasogastric tube is just distal to the gastroesophageal junction. Electronically Signed: Doroteo Lopez, at 15:32 EST , Service support ,
--- NOTE | 2019-12-29 07:53 | PN.SURG_ITS ---
Patient Problems: Active and Suspected Problems (Last Updated 08/13/19 @ 06:15 by Chilo Colvin MD) Small bowel obstruction (Acute) Subjective: patient denies passing flatus has incisional pain controlled with pain meds - Physical Exam Vitals/I&O's: Vital Signs Temp Pulse Resp BP Pulse Ox 97.9 F 94 12 143/76 H 95 12/29/19 04:35 12/29/19 04:35 12/29/19 04:35 12/29/19 04:35 12/29/19 04:35 Oxygen Flow Rate (L/min) 2 Oxygen Delivery Method Room Air Weight: 95.7 kg Body Mass Index (BMI) 31.1 Intake and Output for Last 24 Hours 12/27/19 12/28/19 12/29/19 23:59 23:59 23:59 Intake Total 6170.67 / 6170.67 1480 / 1480 Output Total 2875 / 2875 1290 / 1290 Balance 3295.67 / 3295.67 190 / 190 General: Alert, Oriented x3 Oral: Moist Mucosa Neck: Supple Lungs: Normal air movement Abdomen: Soft, Hypoactive Bowel Sounds Laboratory Results 12/29/19 04:00: WBC 13.1 H, RBC 4.84, Hgb 14.8, Hct 44.8, MCV 92.6, MCH 30.6, MCHC 33.0, RDW Std Deviation 42.0, RDW Coeff of Yakelin 12.2, Plt Count 230, MPV 9.6, Immature Gran % (Auto) 0.500, Neut % (Auto) 70.5 H, Lymph % (Auto) 20.5, [place] % (Auto) 8.3, Eos % (Auto) 0.0, Baso % (Auto) 0.2, Absolute Neuts (auto) 9.2 H, Absolute Lymphs (auto) 2.68, Nucleated RBC % 0 12/29/19 04:00: Sodium 138, Potassium 4.0, Chloride 105, Carbon Dioxide 26.0, Anion Gap 7, BUN 13, Creatinine 0.70, Estim Creat Clear Calc 62.84, Est GFR (MDRD) Af Amer 142, Est GFR (MDRD) Non-Af 117, BUN/Creatinine Ratio 18.7, Glucose 101, Calcium 8.4 L Current Medications Albuterol Sulfate (Ventolin Aerosols) 2.5 mg INHALATION Q2H PRN PRN PRN Reason: Shortness of Breath/Wheezing Atorvastatin Calcium (Lipitor) 20 mg PO QHS [facility]PLAC[facility] Last Admin: 12/28/19 22:36 Dose: 20 mg Documented by: Diltiazem HCl (Cardizem Cd) 180 mg PO 1700 [facility]PL[facility] Last Admin: 12/28/19 16:51 Dose: 180 mg Documented by: Glucagon () 1 mg IM .X1 PRN PRN Reason: Hypoglycemia Hydralazine HCl (Apresoline Iv) 10 mg IV Q4H PRN PRN PRN Reason: SBP > 160 Famotidine 20 mg/ Sodium (Chloride) 10 mls @ 300 mls/hr IV Q12 [facility] Last Infusion: 12/28/19 22:38 Dose: Infused Documented by: Sodium Chloride () 1,000 mls @ 125 mls/hr IV .Q8H [facility]PLACED BY [facility] Last Admin: 12/29/19 05:41 Dose: 125 mls/hr Documented by: Dextrose (Dextrose 10%-Water) 250 mls @ 999 mls/hr IV .Q16M PRN; Protocol PRN Reason: HYPOGLYCEMIA Sodium Chloride () 250 mls @ 15 mls/hr IV .[id number] PRN PRN Reason: Saline Flush Sodium Chloride () 250 mls @ 15 mls/hr IV .[id number] PRN PRN Reason: Additional IVPB Infusion Melatonin (Melatonin) 3 mg PO QHS REPLACED BY [facility] Last Admin: 12/28/19 22:36 Dose: 3 mg Documented by: Metoclopramide HCl (Reglan) 5 mg IV Q6 REPLACED BY [facility] Metoprolol Tartrate (Lopressor (Beta Shea)) 5 mg IV Q8H PRN PRN PRN Reason: HR > 100, sustained (PAF hx) Last Admin: 12/28/19 11:43 Dose: 5 mg Documented by: Morphine Sulfate () 4 mg IV Q2H PRN PRN PRN Reason: -08/21 pain Last Admin: 12/28/19 06:56 Dose: 4 mg Documented by: Ondansetron HCl (Zofran) 4 mg IV Q8H PRN PRN PRN Reason: NAUSEA/VOMITING Last Admin: 12/28/19 18:17 Dose: 4 mg Documented by: Prochlorperazine Edisylate (Compazine Iv) 5 mg IV Q4H PRN PRN PRN Reason: Breakthrough nausea/vomiting Sodium Chloride () 10 - 40 ml IV UD PRN PRN Reason: SALINE FLUSH Last Admin: 12/28/19 18:18 Dose: 10 ml Documented by: Tolterodine Tartrate (Detrol La) 2 mg PO DAILY [facility]PLACED BY [facility] Last Admin: 12/28/19 16:51 Dose: 2 mg Documented by: Warfarin Sodium (Coumadin (Pbkc)) 4 mg PO MoWeFrSa@1700 [facility] Warfarin Sodium (Coumadin (Pbkc)) 5 mg PO SuTuTh@1700 [facility] Last Admin: 12/28/19 16:51 Dose: 5 mg Documented by: Medical Necessity - Tobacco Use Smoking Status: Current some day smoker Tobacco Use: Non-smoker, Pipe Assessment/Plan All Active Problems (Last Updated 08/13/19 @ 06:15 by Chilo Colvin MD) Neck pain (Acute) Small bowel obstruction (Acute) IMPRESSION: POD#1 exploratory laparotomy - no evidence of bowel obstruction PLAN: will check KUB and position of gastrografin Will start reglan to promote peristalsis Have encouraged ambulation suspect ileus after surgery, but may require repeat CT scan if no improvement
[2019-12-29] MEDS: Morphine 4 MG/ML Syringe IV ×2 (08:43→19:30)
[2019-12-29 08:49] VITALS: BP 147/99; PULSE 90; RESP 18; TEMP 36.7; O2SAT 98
[2019-12-29] MEDS: Tolterodine Tartrate 2 MG CAP.SA PO (10:07)
[2019-12-29] MEDS: Famotidine 200 MG/20 ML MDV 20 MG in 0.9% Normal Saline (Pres. free 8 ML 300 MG IV ×2 (10:07→22:04)
[2019-12-29] MEDS: Metoclopramide 10 MG/2 ML Vial 5 MG IV ×2 (11:07→17:34)
[2019-12-29] MEDS: 0.9% Saline Lock 10 ML Syringe IV ×4 (11:07→22:00)
--- NOTE | 2019-12-29 12:01 | PCM.PN.HOSP ---
Patient Problems: Active and Suspected Problems (Last Updated 08/13/19 @ 06:15 by Chilo Colvin MD) Small bowel obstruction (Acute) Reason for Visit: Follow-up on small bowel obstruction Subjective: Patient was seen and examined. NG tube in situ. He denied any complaints. Starting to feel bowel movements in the pelvis. Denies any flatus. Been walking around the unit. Objective: Physical exam: Vitals/I&O's: Vital Signs Temp Pulse Resp BP Pulse Ox 98.0 F 90 18 147/99 H 98 12/29/19 08:49 12/29/19 08:49 12/29/19 08:49 12/29/19 08:49 12/29/19 08:49 Oxygen Flow Rate (L/min) 2 Oxygen Delivery Method Room Air Weight: 95.7 kg Body Mass Index (BMI) 31.1 Intake and Output for Last 24 Hours 12/27/19 12/28/19 12/29/19 23:59 23:59 23:59 Intake Total 6170.67 / 6170.67 1590 / 1590 Output Total 2875 / 2875 1940 / 1940 Balance 3295.67 / 3295.67 -350 / -350 General: Alert, Oriented x3, Cooperative, No apparent distress HEENT: Atraumatic, PERRLA, EOMI, Normocephalic, - - NG tube in situ Oral: Moist Mucosa Neck: Supple Lungs: Clear to auscultation, Normal air movement Cardiovascular: Regular rate, Regular Rhythm, Normal S1, Normal S2, No murmurs Abdomen: Bowel Sounds Present, Soft, Non-Distended, No Hepato-splenomegaly, Tender - dressing over incision, occasional bowel sounds Extremities: No edema Skin: No rashes Musculoskeletal: No Tenderness to Palpation of Joints or Extremities Lymphatic: No Cervical, Supraclavicular, or Inguinal Adenopathy Neurological: Cranial nerves II-XII grossly intact, Neuro grossly intact Psych/Mental Status: Normal Affect, Appropriate Laboratory Results 12/29/19 04:00: WBC 13.1 H, RBC 4.84, Hgb 14.8, Hct 44.8, MCV 92.6, MCH 30.6, MCHC 33.0, RDW Std Deviation 42.0, RDW Coeff of Yakelin 12.2, Plt Count 230, MPV 9.6, Immature Gran % (Auto) 0.500, Neut % (Auto) 70.5 H, Lymph % (Auto) 20.5, [place] % (Auto) 8.3, Eos % (Auto) 0.0, Baso % (Auto) 0.2, Absolute Neuts (auto) 9.2 H, Absolute Lymphs (auto) 2.68, Nucleated RBC % 0 12/29/19 04:00: Sodium 138, Potassium 4.0, Chloride 105, Carbon Dioxide 26.0, Anion Gap 7, BUN 13, Creatinine 0.70, Estim Creat Clear Calc 62.84, Est GFR (MDRD) Af Amer 142, Est GFR (MDRD) Non-Af 117, BUN/Creatinine Ratio 18.7, Glucose 101, Calcium 8.4 L Current Medications Albuterol Sulfate (Ventolin Aerosols) 2.5 mg INHALATION Q2H PRN PRN PRN Reason: Shortness of Breath/Wheezing Atorvastatin Calcium (Lipitor) 20 mg PO QHS [facility] Last Admin: 12/28/19 22:36 Dose: 20 mg Documented by: Diltiazem HCl (Cardizem Cd) 180 mg PO 1700 [facility] Last Admin: 12/28/19 16:51 Dose: 180 mg Documented by: Glucagon () 1 mg IM .X1 PRN PRN Reason: Hypoglycemia Hydralazine HCl (Apresoline Iv) 10 mg IV Q4H PRN PRN PRN Reason: SBP > 160 Famotidine 20 mg/ Sodium (Chloride) 10 mls @ 300 mls/hr IV Q12 [facility] Last Infusion: 12/29/19 10:09 Dose: Infused Documented by: Sodium Chloride () 1,000 mls @ 125 mls/hr IV .Q8H [facility] Last Admin: 12/29/19 05:41 Dose: 125 mls/hr Documented by: Dextrose (Dextrose 10%-Water) 250 mls @ 999 mls/hr IV .Q16M PRN; Protocol PRN Reason: HYPOGLYCEMIA Sodium Chloride () 250 mls @ 15 mls/hr IV .[id number] PRN PRN Reason: Saline Flush Sodium Chloride () 250 mls @ 15 mls/hr IV .[id number] PRN PRN Reason: Additional IVPB Infusion Melatonin (Melatonin) 3 mg PO QHS [facility] Last Admin: 12/28/19 22:36 Dose: 3 mg Documented by: Metoclopramide HCl (Reglan) 5 mg IV Q6 [facility] Last Admin: 12/29/19 11:07 Dose: 5 mg Documented by: Metoprolol Tartrate (Lopressor (Beta Shea)) 5 mg IV Q8H PRN PRN PRN Reason: HR > 100, sustained (PAF hx) Last Admin: 12/28/19 11:43 Dose: 5 mg Documented by: Morphine Sulfate () 4 mg IV Q2H PRN PRN PRN Reason: 1-08/21 pain Last Admin: 12/29/19 08:43 Dose: 4 mg Documented by: Ondansetron HCl (Zofran) 4 mg IV Q8H PRN PRN PRN Reason: NAUSEA/VOMITING Last Admin: 12/28/19 18:17 Dose: 4 mg Documented by: Prochlorperazine Edisylate (Compazine Iv) 5 mg IV Q4H PRN PRN PRN Reason: Breakthrough nausea/vomiting Sodium Chloride () 10 - 40 ml IV UD PRN PRN Reason: SALINE FLUSH Last Admin: 12/29/19 11:07 Dose: 10 ml Documented by: Tolterodine Tartrate (Detrol La) 2 mg PO DAILY [facility] Last Admin: 12/29/19 10:07 Dose: 2 mg Documented by: Warfarin Sodium (Coumadin (Pbkc)) 4 mg PO MoWeFrSa@1700 [facility] Warfarin Sodium (Coumadin (Pbkc)) 5 mg PO SuTuTh@1700 [facility] Last Admin: 12/28/19 16:51 Dose: 5 mg Documented by: STROKE Vital Signs/Narrative: Vital Signs Temp Pulse Resp BP Pulse Ox 12/29/19 08:49 98.0 F 90 18 147/99 H 98 Medical Necessity - Tobacco Use Smoking Status: Current some day smoker Tobacco Use: Non-smoker, Pipe Assessment/Plan All Active Problems (Last Updated 08/13/19 @ 06:15 by Chilo Colvin MD) Neck pain (Acute) Small bowel obstruction (Acute) 1. Postop day #1 status post exploratory laparotomy, status post NG tube His pain is well controlled, ambulating around the unit General surgery following, continue on IV fluids 2. Chronic atrial fibrillation, rate controlled, on Cardizem, metoprolol as needed, INR is pending, resumed on coumadin 3. Hypertension, better controlled, continue on Cardizem, continue on metoprolol and hydralazine as needed 4. GERD continue on famotidine IV 5. DVT PPx- on coumadin Code Visit Inpatient E&M: 77417 Subs Hosp L2
--- NOTE | 2019-12-29 13:17 | CASEMGMT ---
DASHAWN ROTH assessment: Face to Face with patient for initial transition planning/care coordination assessment. DASHAWN ROTH introduced self and role at [facility], pt voices understanding and consents to assessment at this time. Pt is sitting up in bed in no distress at this time with NG in place to low suction. Pt is A/Ox4 at this time and answers all questions appropriately at this time. Care providers, pharmacy, and demographics verified at this time. Presentation: Mid abd pain after eating pizza Admitting dx: SBO PCP: Yaniv Specialists: urologist Preferred [facility]acy: [facility] Insurance: MCR A/B, Prescription Benefit: yes Living Will/HPOA: Pt states has LW/HPOA and is aware that they are not currently on file at [facility] at this time. Pt states that he wants his AD's updated but declines SW c/s for same, stating 'I have too many stipulations and I would prefer my plastic worker take care of it.' LNOK: Gege Munroe, ex- Living Arrangements: Pt states lives alone in mobile home with stairs up to deck and states no concerns at home at this time. Pt is independent with ADL's. Transportation: Pt states drives self and states no transportation concerns at this time. DME/HHC: Pt states no current DME or need for any at this time. Pt states has had HHC in the past but has not been to SNF. Pt states no concerns with going home at time of discharge. Pt states is retired. Pt states does not smoke cigarettes and rarely drinks ETOH. Pt states no further concerns/needs at this time. CM to follow for any further discharge planning/needs. Advised pt to ask for CM if any further questions/concerns/needs arise, voices understanding. Pt Goal: Home Plan: [place] DASHAWN ROTH
[2019-12-29 14:00] VITALS: O2SAT 94
[2019-12-29 14:15] VITALS: BP 141/92; PULSE 88; RESP 18; TEMP 36.6; O2SAT 94
[2019-12-29 17:05] LABS: International Normalized Ratio 2.4; Prothrombin Time (Protime)PT. 25.8 SECONDS (11.7-14.9)
[2019-12-29] MEDS: dilTIAZem CD 180 MG Capsule PO (17:34)
[2019-12-29 20:20] VITALS: BP 131/84; PULSE 90; RESP 18; TEMP 36.6; O2SAT 97
[2019-12-29] MEDS: Atorvastatin Calcium 20 MG Tablet PO (22:01)
[2019-12-29] MEDS: MELATONIN 3 MG TABLET PO (22:04)
--- NOTE | 2019-12-29 23:33 | NURSING ---
Pt wanted his iv fluids turned down for the night because he had to void almost every 30 minutes. It was turned down to 75/hr, will notify .
[2019-12-30] MEDS: Metoclopramide 10 MG/2 ML Vial 5 MG IV ×4 (00:52→17:46)
[2019-12-30] MEDS: 0.9% Saline Lock 10 ML Syringe IV ×3 (00:53→21:55)
[2019-12-30 05:30] VITALS: BP 143/87; PULSE 81; RESP 18; TEMP 36.5; O2SAT 97
[2019-12-30 06:04] LABS: Absolute Lymphocyte Count 2.88 X10^3/uL (0.83-4.51); Absolute Neutrophil Count 6.1 X10^3/uL (2.0-7.7); Basophil# 0.03 X10^3/uL; Basophil% 0.3 % (0-1); Eosinophil# 0.03 X10^3/uL; Eosinophils% 0.3 % (0-5); Hematocrit 51.6 % (40-54); Hemoglobin 16.6 g/dL (13.0-16.5); Lymphocyte # 2.88 X10^3/ul (4.0); Mean Corp Hgb Conc 32.2 g/dL (32-36); Mean Corpuscular Hgb 29.9 pg (27.0-32.0); Mean Platelet Vol. 9.8 fl (6.2-12.0); Monocyte# 1.21 X10^3/uL; Monocyte% 11.7 % (0-10); NRBC Flagged by Analyzer 0 % (0-5); Neutrophil # 6.12 X10^3/uL (2.7-7.7); Neutrophil % 59.4 % (47-70); Platelet Count 238 K/mm3 (150-450); RBC Distribution Width CV 12.4 % (11.6-14.6); RBC Distribution Width SD 42.8 fl (35.1-43.9); Red Blood Count 5.55 M/mm3 (4.6-6.2); White Blood Count 10.3 K/mm3 (4.4-11.0)
[2019-12-30 06:16] LABS: International Normalized Ratio 2.5; Prothrombin Time (Protime)PT. 27.4 SECONDS (11.7-14.9)
[2019-12-30 06:38] LABS: AST(SGOT) 30 U/L (15-37); Alanine Aminotransfer ALT/SGPT 22 U/L (16-61); Albumin, Serum 3.9 g/dL (3.2-5.0); Alkaline Phosphatase 74 U/L (45-117); Anion Gap 6 (5-15); BUN 12 mg/dL (7-18); BUN/Creat Ratio 13.4 RATIO (10-20); Calcium,Total 8.8 mg/dL (8.5-10.1); Chloride 102 mmol/L (98-107); EST Glomerular Filtration Rate 87 mL/min (>60); Est Glom Filt Rate - Afr Amer 106 mL/min (>60); Estimated Creatinine Clearance 69.83 ml/min; Globulin 3.8 g/dL (2.2-4.2); Glucose 81 mg/dL (74-106); Potassium 3.6 mmol/L (3.5-5.1); Protein, Total 7.7 g/dL (6.4-8.2); Sodium Level 138 mmol/L (136-145)
--- NOTE | 2019-12-30 07:24 | PN.SURG_ITS ---
Patient Problems: Active and Suspected Problems (Last Updated 08/13/19 @ 06:15 by Chilo Colvin MD) Small bowel obstruction (Acute) Subjective: some abdominal pain, has been ambulating some flatus no bowel movement - anxious about this - Physical Exam Vitals/I&O's: Vital Signs Temp Pulse Resp BP Pulse Ox 97.7 F L 81 18 143/87 H 97 12/30/19 05:30 12/30/19 05:30 12/30/19 05:30 12/30/19 05:30 12/30/19 05:30 Oxygen Flow Rate (L/min) 2 Oxygen Delivery Method Room Air Weight: 95.7 kg Body Mass Index (BMI) 31.1 Intake and Output for Last 24 Hours 12/28/19 12/29/19 12/30/19 23:59 23:59 23:59 Intake Total 6170.67 / 6170.67 3691.67 / 3891.67 857.5 / 857.5 Output Total 2875 / 2875 2915 / 3615 1685 / 1685 Balance 3295.67 / 3295.67 776.67 / 276.67 -827.5 / -827.5 General: Alert, Oriented x3 Oral: Moist Mucosa Neck: Supple Lungs: Normal air movement Abdomen: Soft, - - incision intact - ecchymoses present Laboratory Results 12/29/19 16:33: PT 25.8 H, INR 2.4 12/30/19 05:25: PT 27.4 H, INR 2.5 12/30/19 05:25: WBC 10.3, RBC 5.55, Hgb 16.6 H, Hct 51.6, MCV 93.0, MCH 29.9, MCHC 32.2, RDW Std Deviation 42.8, RDW Coeff of Yakelin 12.4, Plt Count 238, MPV 9.8, Immature Gran % (Auto) 0.300, Neut % (Auto) 59.4, Lymph % (Auto) 28.0, [place] % (Auto) 11.7 H, Eos % (Auto) 0.3, Baso % (Auto) 0.3, Absolute Neuts (auto) 6.1, Absolute Lymphs (auto) 2.88, Nucleated RBC % 0 12/30/19 05:25: Sodium 138, Potassium 3.6, Chloride 102, Carbon Dioxide 30.0, Anion Gap 6, BUN 12, Creatinine 0.90, Estim Creat Clear Calc 69.83, Est GFR (MDRD) Af Amer 106, Est GFR (MDRD) Non-Af 87, BUN/Creatinine Ratio 13.4, Glucose 81, Calcium 8.8, Total Bilirubin 1.00, AST 30, ALT 22, Alkaline Phosphatase 74, Total Protein 7.7, Albumin 3.9, Globulin 3.8, Albumin/Globulin Ratio 1.0 Current Medications Albuterol Sulfate (Ventolin Aerosols) 2.5 mg INHALATION Q2H PRN PRN PRN Reason: Shortness of Breath/Wheezing Atorvastatin Calcium (Lipitor) 20 mg PO QHS [facility] Last Admin: 12/29/19 22:01 Dose: 20 mg Documented by: Diltiazem HCl (Cardizem Cd) 180 mg PO 1700 [facility] Last Admin: 12/29/19 17:34 Dose: 180 mg Documented by: Glucagon () 1 mg IM .X1 PRN PRN Reason: Hypoglycemia Hydralazine HCl (Apresoline Iv) 10 mg IV Q4H PRN PRN PRN Reason: SBP > 160 Famotidine 20 mg/ Sodium (Chloride) 10 mls @ 300 mls/hr IV Q12 [facility] Last Infusion: 12/29/19 22:08 Dose: Infused Documented by: Sodium Chloride () 1,000 mls @ 125 mls/hr IV .Q8H [facility] Last Infusion: 12/30/19 05:55 Dose: 125 mls/hr Documented by: Dextrose (Dextrose 10%-Water) 250 mls @ 999 mls/hr IV .Q16M PRN; Protocol PRN Reason: HYPOGLYCEMIA Sodium Chloride () 250 mls @ 15 mls/hr IV .[id number] PRN PRN Reason: Saline Flush Sodium Chloride () 250 mls @ 15 mls/hr IV .[id number] PRN PRN Reason: Additional IVPB Infusion Melatonin (Melatonin) 3 mg PO QHS [facility] Last Admin: 12/29/19 22:04 Dose: 3 mg Documented by: Metoclopramide HCl (Reglan) 5 mg IV Q6 [facility] Last Admin: 12/30/19 05:37 Dose: 5 mg Documented by: Metoprolol Tartrate (Lopressor (Beta Shea)) 5 mg IV Q8H PRN PRN PRN Reason: HR > 100, sustained (PAF hx) Last Admin: 12/28/19 11:43 Dose: 5 mg Documented by: Morphine Sulfate () 4 mg IV Q2H PRN PRN PRN Reason: 1-08/21 pain Last Admin: 12/29/19 19:30 Dose: 4 mg Documented by: Ondansetron HCl (Zofran) 4 mg IV Q8H PRN PRN PRN Reason: NAUSEA/VOMITING Last Admin: 12/28/19 18:17 Dose: 4 mg Documented by: Prochlorperazine Edisylate (Compazine Iv) 5 mg IV Q4H PRN PRN PRN Reason: Breakthrough nausea/vomiting Sodium Chloride () 10 - 40 ml IV UD PRN PRN Reason: SALINE FLUSH Last Admin: 12/30/19 05:37 Dose: 10 ml Documented by: Tolterodine Tartrate (Detrol La) 2 mg PO DAILY [facility] Last Admin: 12/29/19 10:07 Dose: 2 mg Documented by: Warfarin Sodium (Coumadin (Pbkc)) 4 mg PO MoWeFrSa@1700 [facility] Last Admin: 12/29/19 17:34 Dose: 4 mg Documented by: Warfarin Sodium (Coumadin (Pbkc)) 5 mg PO SuTuTh@1700 [facility] Last Admin: 12/28/19 16:51 Dose: 5 mg Documented by: Medical Necessity - Tobacco Use Smoking Status: Current some day smoker Tobacco Use: Non-smoker, Pipe Assessment/Plan All Active Problems (Last Updated 08/13/19 @ 06:15 by Chilo Colvin MD) Neck pain (Acute) Small bowel obstruction (Acute) IMPRESSION: POD#2 exploratory laparotomy - no evidence of bowel obstruction PLAN: continue reglan to promote peristalsis Have encouraged ambulation patient passing small amounts of flatus, has had chronic constipation since TURP, still no BM, will trial dulcolax suppository
[2019-12-30] MEDS: Bisacodyl 10 MG Suppository RECTAL ×2 (08:23→14:56)
[2019-12-30] MEDS: 0.9% Normal Saline 1,000 ML 125 ML IV (08:28)
[2019-12-30] MEDS: Tolterodine Tartrate 2 MG CAP.SA PO (10:11)
[2019-12-30] MEDS: Famotidine 200 MG/20 ML MDV 20 MG in 0.9% Normal Saline (Pres. free 8 ML 300 MG IV ×2 (10:12→21:55)
[2019-12-30 11:00] VITALS: O2SAT 96
[2019-12-30 11:10] VITALS: BP 155/83; PULSE 88; RESP 18; TEMP 36.3; O2SAT 96
--- NOTE | 2019-12-30 12:38 | PN_ITS ---
Patient Problems: Active and Suspected Problems (Last Updated 08/13/19 @ 06:15 by Chilo Colvin MD) Small bowel obstruction (Acute) Reason for Visit: Follow-up on small bowel obstruction Subjective: Patient was seen and examined. He has not moved his bowel. He has been ambulating. NG tube has been taken out. He has passed some flatus. Objective: Physical exam: General: Alert, Oriented x3, Cooperative, No apparent distress HEENT: Atraumatic, PERRLA, EOMI, Normocephalic Oral: Moist Mucosa Neck: Supple Lungs: Clear to auscultation, Normal air movement Cardiovascular: Regular rate, Regular Rhythm, Normal S1, Normal S2, No murmurs Abdomen: Bowel Sounds Present, Soft, Non-Distended, No Hepato-splenomegaly, Tender - dressing over incision, occasional bowel sounds Extremities: No edema Skin: No rashes Musculoskeletal: No Tenderness to Palpation of Joints or Extremities Lymphatic: No Cervical, Supraclavicular, or Inguinal Adenopathy Neurological: Cranial nerves II-XII grossly intact, Neuro grossly intact Psych/Mental Status: Normal Affect, Appropriate Vitals/I&O's: Vital Signs Temp Pulse Resp BP Pulse Ox 97.4 F L 88 18 155/83 H 96 12/30/19 11:10 12/30/19 11:10 12/30/19 11:10 12/30/19 11:10 12/30/19 11:10 Oxygen Flow Rate (L/min) 2 Oxygen Delivery Method Room Air Weight: 95.7 kg Body Mass Index (BMI) 31.1 Intake and Output for Last 24 Hours 12/28/19 12/29/19 12/30/19 23:59 23:59 23:59 Intake Total 6170.67 / 6170.67 3691.67 / 3891.67 1186.25 / 1186.25 Output Total 2875 / 2875 2915 / 3615 1685 / 1685 Balance 3295.67 / 3295.67 776.67 / 276.67 -498.75 / -498.75 Laboratory Results 12/29/19 16:33: PT 25.8 H, INR 2.4 12/30/19 05:25: PT 27.4 H, INR 2.5 12/30/19 05:25: WBC 10.3, RBC 5.55, Hgb 16.6 H, Hct 51.6, MCV 93.0, MCH 29.9, MCHC 32.2, RDW Std Deviation 42.8, RDW Coeff of Yakelin 12.4, Plt Count 238, MPV 9.8, Immature Gran % (Auto) 0.300, Neut % (Auto) 59.4, Lymph % (Auto) 28.0, [place] % (Auto) 11.7 H, Eos % (Auto) 0.3, Baso % (Auto) 0.3, Absolute Neuts (auto) 6.1, Absolute Lymphs (auto) 2.88, Nucleated RBC % 0 12/30/19 05:25: Sodium 138, Potassium 3.6, Chloride 102, Carbon Dioxide 30.0, Anion Gap 6, BUN 12, Creatinine 0.90, Estim Creat Clear Calc 69.83, Est GFR (MDRD) Af Amer 106, Est GFR (MDRD) Non-Af 87, BUN/Creatinine Ratio 13.4, Glucose 81, Calcium 8.8, Total Bilirubin 1.00, AST 30, ALT 22, Alkaline Phosphatase 74, Total Protein 7.7, Albumin 3.9, Globulin 3.8, Albumin/Globulin Ratio 1.0 Current Medications Albuterol Sulfate (Ventolin Aerosols) 2.5 mg INHALATION Q2H PRN PRN PRN Reason: Shortness of Breath/Wheezing Atorvastatin Calcium (Lipitor) 20 mg PO QHS [facility] Last Admin: 12/29/19 22:01 Dose: 20 mg Documented by: Diltiazem HCl (Cardizem Cd) 180 mg PO 1700 [facility] Last Admin: 12/29/19 17:34 Dose: 180 mg Documented by: Glucagon () 1 mg IM .X1 PRN PRN Reason: Hypoglycemia Hydralazine HCl (Apresoline Iv) 10 mg IV Q4H PRN PRN PRN Reason: SBP > 160 Famotidine 20 mg/ Sodium (Chloride) 10 mls @ 300 mls/hr IV Q12 [facility] Last Infusion: 12/30/19 10:17 Dose: Infused Documented by: Sodium Chloride () 1,000 mls @ 125 mls/hr IV .Q8H [facility] Last Admin: 12/30/19 08:28 Dose: 125 mls/hr Documented by: Dextrose (Dextrose 10%-Water) 250 mls @ 999 mls/hr IV .Q16M PRN; Protocol PRN Reason: HYPOGLYCEMIA Sodium Chloride () 250 mls @ 15 mls/hr IV .[id number] PRN PRN Reason: Saline Flush Sodium Chloride () 250 mls @ 15 mls/hr IV .[id number] PRN PRN Reason: Additional IVPB Infusion Melatonin (Melatonin) 3 mg PO QHS [facility] Last Admin: 12/29/19 22:04 Dose: 3 mg Documented by: Metoclopramide HCl (Reglan) 5 mg IV Q6 [facility] Last Admin: 12/30/19 11:18 Dose: 5 mg Documented by: Metoprolol Tartrate (Lopressor (Beta Shea)) 5 mg IV Q8H PRN PRN PRN Reason: HR > 100, sustained (PAF hx) Last Admin: 12/28/19 11:43 Dose: 5 mg Documented by: Morphine Sulfate () 4 mg IV Q2H PRN PRN PRN Reason: 1-08/21 pain Last Admin: 12/29/19 19:30 Dose: 4 mg Documented by: Ondansetron HCl (Zofran) 4 mg IV Q8H PRN PRN PRN Reason: NAUSEA/VOMITING Last Admin: 12/28/19 18:17 Dose: 4 mg Documented by: Prochlorperazine Edisylate (Compazine Iv) 5 mg IV Q4H PRN PRN PRN Reason: Breakthrough nausea/vomiting Sodium Chloride () 10 - 40 ml IV UD PRN PRN Reason: SALINE FLUSH Last Admin: 12/30/19 05:37 Dose: 10 ml Documented by: Tolterodine Tartrate (Detrol La) 2 mg PO DAILY [facility] Last Admin: 12/30/19 10:11 Dose: 2 mg Documented by: Warfarin Sodium (Coumadin (Pbkc)) 4 mg PO MoWeFrSa@1700 [facility] Last Admin: 12/29/19 17:34 Dose: 4 mg Documented by: Warfarin Sodium (Coumadin (Pbkc)) 5 mg PO SuTuTh@1700 [facility] Last Admin: 12/28/19 16:51 Dose: 5 mg Documented by: STROKE Vital Signs/Narrative: Vital Signs Temp Pulse Resp BP Pulse Ox 12/30/19 11:10 97.4 F L 88 18 155/83 H 96 Medical Necessity - Tobacco Use Smoking Status: Current some day smoker Tobacco Use: Non-smoker, Pipe Assessment/Plan All Active Problems (Last Updated 08/13/19 @ 06:15 by Chilo Colvin MD) Neck pain (Acute) Small bowel obstruction (Acute) 1. Postop day #2 status post exploratory laparotomy, NG tube removal His pain remains controlled, ambulating around the unit General surgery following, continue on IV fluids 2. Chronic atrial fibrillation, rate controlled, on Cardizem, metoprolol as needed, INR is pending, on coumadin 3. Hypertension, better controlled, continue on Cardizem, continue on metoprolol and hydralazine as needed 4. GERD continue on famotidine IV 5. DVT PPx- on coumadin Code Visit Inpatient E&M: 45792 Subs Hosp L2
[2019-12-30] MEDS: Acetaminophen 325 MG Tablet 650 MG PO (14:55)
[2019-12-30 16:10] VITALS: BP 147/93; PULSE 89; RESP 18; TEMP 36.7; O2SAT 99
[2019-12-30] MEDS: dilTIAZem CD 180 MG Capsule PO (16:14)
[2019-12-30] MEDS: 0.9% Normal Saline 1,000 ML 75 ML IV (17:46)
[2019-12-30] MEDS: MELATONIN 3 MG TABLET PO (21:55)
[2019-12-30] MEDS: Atorvastatin Calcium 20 MG Tablet PO (21:55)
[2019-12-30 22:10] VITALS: BP 134/86; PULSE 79; RESP 18; TEMP 36.6; O2SAT 97
[2019-12-31] MEDS: 0.9% Saline Lock 10 ML Syringe IV ×2 (00:35→05:51)
[2019-12-31] MEDS: Metoclopramide 10 MG/2 ML Vial 5 MG IV ×3 (00:36→11:19)
[2019-12-31 04:20] VITALS: BP 139/95; PULSE 88; RESP 18; TEMP 36.3; O2SAT 98
[2019-12-31] MEDS: 0.9% Normal Saline 1,000 ML 75 ML IV (06:07)
[2019-12-31 06:47] LABS: Absolute Lymphocyte Count 2.87 X10^3/uL (0.83-4.51); Absolute Neutrophil Count 5.9 X10^3/uL (2.0-7.7); Basophil# 0.03 X10^3/uL; Basophil% 0.3 % (0-1); Eosinophil# 0.13 X10^3/uL; Eosinophils% 1.3 % (0-5); Hematocrit 52.4 % (40-54); Hemoglobin 17.3 g/dL (13.0-16.5); Lymphocyte # 2.87 X10^3/ul (4.0); Lymphocyte % 29.2 % (19-41); Mean Corpuscular Hgb 30.2 pg (27.0-32.0); Mean Corpuscular Volume 91.6 fL (80-94); Monocyte# 0.91 X10^3/uL; Monocyte% 9.2 % (0-10); NRBC Flagged by Analyzer 0 % (0-5); Neutrophil # 5.85 X10^3/uL (2.7-7.7); Neutrophil % 59.5 % (47-70); Platelet Count 248 K/mm3 (150-450); RBC Distribution Width CV 12.4 % (11.6-14.6); RBC Distribution Width SD 41.4 fl (35.1-43.9); Red Blood Count 5.72 M/mm3 (4.6-6.2); White Blood Count 9.8 K/mm3 (4.4-11.0)
[2019-12-31 06:57] LABS: International Normalized Ratio 3.2; Prothrombin Time (Protime)PT. 32.6 SECONDS (11.7-14.9)
[2019-12-31 07:19] LABS: AST(SGOT) 25 U/L (15-37); Alanine Aminotransfer ALT/SGPT 20 U/L (16-61); Albumin, Serum 3.7 g/dL (3.2-5.0); Alkaline Phosphatase 75 U/L (45-117); Anion Gap 10 (5-15); BUN 11 mg/dL (7-18); BUN/Creat Ratio 13.9 RATIO (10-20); Calcium,Total 8.9 mg/dL (8.5-10.1); Chloride 102 mmol/L (98-107); Creatinine, Serum 0.79 mg/dL (0.70-1.30); EST Glomerular Filtration Rate 101 mL/min (>60); Est Glom Filt Rate - Afr Amer 122 mL/min (>60); Estimated Creatinine Clearance 62.84 ml/min; Globulin 3.7 g/dL (2.2-4.2); Glucose 67 mg/dL (74-106); Potassium 3.7 mmol/L (3.5-5.1); Protein, Total 7.4 g/dL (6.4-8.2); Sodium Level 138 mmol/L (136-145)
[2019-12-31 07:38] VITALS: O2SAT 96
--- NOTE | 2019-12-31 08:15 | PN.SURG_ITS ---
Patient Problems: Active and Suspected Problems (Last Updated 08/13/19 @ 06:15 by Chilo Colvin MD) Small bowel obstruction (Acute) Subjective: patient still with no bowel movement, states that he is passing flatus there is stool in the colon that was hard - he may require assistance with gastrografin enema - Physical Exam Vitals/I&O's: Vital Signs Temp Pulse Resp BP Pulse Ox 97.3 F L 88 18 139/95 H 98 12/31/19 04:20 12/31/19 04:20 12/31/19 04:20 12/31/19 04:20 12/31/19 04:20 Oxygen Flow Rate (L/min) 2 Oxygen Delivery Method Room Air Weight: 95.7 kg Body Mass Index (BMI) 31.1 Intake and Output for Last 24 Hours 12/29/19 12/30/19 12/31/19 23:59 23:59 23:59 Intake Total 3691.67 / 3891.67 2316.25 / 2416.25 1026.25 / 1026.25 Output Total 2915 / 3615 3660 / 4160 1900 / 1900 Balance 776.67 / 276.67 -1343.75 / -1743.75 -873.75 / -873.75 General: Alert, Oriented x3 Oral: Moist Mucosa Neck: Supple Lungs: Normal air movement Abdomen: Soft, - - incision is clean/dry/intact Laboratory Results 12/31/19 05:55: PT 32.6 H, INR 3.2 12/31/19 05:55: WBC 9.8, RBC 5.72, Hgb 17.3 H, Hct 52.4, MCV 91.6, MCH 30.2, MCHC 33.0, RDW Std Deviation 41.4, RDW Coeff of Yakelin 12.4, Plt Count 248, MPV 10.0, Immature Gran % (Auto) 0.500, Neut % (Auto) 59.5, Lymph % (Auto) 29.2, [place] % (Auto) 9.2, Eos % (Auto) 1.3, Baso % (Auto) 0.3, Absolute Neuts (auto) 5.9, Absolute Lymphs (auto) 2.87, Nucleated RBC % 0 12/31/19 05:55: Sodium 138, Potassium 3.7, Chloride 102, Carbon Dioxide 26.0, Anion Gap 10, BUN 11, Creatinine 0.79, Estim Creat Clear Calc 62.84, Est GFR (MDRD) Af Amer 122, Est GFR (MDRD) Non-Af 101, BUN/Creatinine Ratio 13.9, Glucose 67 L, Calcium 8.9, Total Bilirubin 1.10 H, AST 25, ALT 20, Alkaline Phosphatase 75, Total Protein 7.4, Albumin 3.7, Globulin 3.7, Albumin/Globulin Ratio 1.0 Current Medications Acetaminophen (Tylenol) 650 mg PO Q6H PRN PRN PRN Reason: HEADACHE Last Admin: 12/30/19 14:55 Dose: 650 mg Documented by: Albuterol Sulfate (Ventolin Aerosols) 2.5 mg INHALATION Q2H PRN PRN PRN Reason: Shortness of Breath/Wheezing Atorvastatin Calcium (Lipitor) 20 mg PO QHS [facility] Last Admin: 12/30/19 21:55 Dose: 20 mg Documented by: Diltiazem HCl (Cardizem Cd) 180 mg PO 1700 [facility] Last Admin: 12/30/19 16:14 Dose: 180 mg Documented by: Glucagon () 1 mg IM .X1 PRN PRN Reason: Hypoglycemia Hydralazine HCl (Apresoline Iv) 10 mg IV Q4H PRN PRN PRN Reason: SBP > 160 Famotidine 20 mg/ Sodium (Chloride) 10 mls @ 300 mls/hr IV Q12 [facility] Last Infusion: 12/30/19 22:05 Dose: Infused Documented by: Sodium Chloride () 1,000 mls @ 75 mls/hr IV .[id number] [facility] Last Admin: 12/31/19 06:07 Dose: 75 mls/hr Documented by: Dextrose (Dextrose 10%-Water) 250 mls @ 999 mls/hr IV .Q16M PRN; Protocol PRN Reason: HYPOGLYCEMIA Sodium Chloride () 250 mls @ 15 mls/hr IV .[id number] PRN PRN Reason: Saline Flush Sodium Chloride () 250 mls @ 15 mls/hr IV .[id number] PRN PRN Reason: Additional IVPB Infusion Melatonin (Melatonin) 3 mg PO QHS [facility] Last Admin: 12/30/19 21:55 Dose: 3 mg Documented by: Metoclopramide HCl (Reglan) 5 mg IV Q6 [facility] Last Admin: 12/31/19 05:51 Dose: 5 mg Documented by: Metoprolol Tartrate (Lopressor (Beta Shea)) 5 mg IV Q8H PRN PRN PRN Reason: HR > 100, sustained (PAF hx) Last Admin: 12/28/19 11:43 Dose: 5 mg Documented by: Morphine Sulfate () 4 mg IV Q2H PRN PRN PRN Reason: 1-08/21 pain Last Admin: 12/29/19 19:30 Dose: 4 mg Documented by: Ondansetron HCl (Zofran) 4 mg IV Q8H PRN PRN PRN Reason: NAUSEA/VOMITING Last Admin: 12/28/19 18:17 Dose: 4 mg Documented by: Prochlorperazine Edisylate (Compazine Iv) 5 mg IV Q4H PRN PRN PRN Reason: Breakthrough nausea/vomiting Sodium Chloride () 10 - 40 ml IV UD PRN PRN Reason: SALINE FLUSH Last Admin: 12/31/19 05:51 Dose: 10 ml Documented by: Tolterodine Tartrate (Detrol La) 2 mg PO DAILY [facility] Last Admin: 12/30/19 10:11 Dose: 2 mg Documented by: Warfarin Sodium (Coumadin (Pbkc)) 4 mg PO MoWeFrSa@1700 [facility] Last Admin: 12/29/19 17:34 Dose: 4 mg Documented by: Warfarin Sodium (Coumadin (Pbkc)) 5 mg PO SuTuTh@1700 [facility] Last Admin: 12/30/19 16:14 Dose: 5 mg Documented by: Medical Necessity - Tobacco Use Smoking Status: Current some day smoker Tobacco Use: Non-smoker, Pipe Assessment/Plan All Active Problems (Last Updated 08/13/19 @ 06:15 by Chilo Colvin MD) Neck pain (Acute) Small bowel obstruction (Acute) IMPRESSION: POD#3 exploratory laparotomy - no evidence of bowel obstruction PLAN: gastrografin enema
--- NOTE | 2019-12-31 08:46 | RAD_ITS ---
STUDY: GASTROGRAFIN THERAPEUTIC ENEMA. REASON FOR EXAM: Male, 74 years old. Severe constipation, had prostate surgery 2 months ago, has had trouble with bowels since FLUOROSCOPY TIME (if supplied): ( 42 seconds ) minutes/seconds TECHNIQUE: Gastrografin was introduced retrograde through the rectum. The entire colon was opacified. COMPARISON: None. FINDINGS: On the cut out marker film, small amount of residual contrast is seen in the right hemicolon. Surgical clips are seen in the lower abdomen and pelvis. Degenerative changes of the lumbar spine. Gastrografin was introduced retrograde through the rectum. Large amount of fecal material is seen scattered throughout the colon. There is no evidence of retrograde obstruction to flow of contrast. There is evidence of scattered sigmoid diverticula without evidence of diverticulitis. On the postevacuation examination, residual fecal material is seen in the right hemicolon. RAD/Therapeutic Enema IMPRESSION: Gastrografin therapeutic enema. The patient tolerated the procedure well. Electronically Signed: Doroteo Lopez, at 9:26 EST , Service support ,
--- NOTE | 2019-12-31 10:51 | PN_ITS ---
Patient Problems: Active and Suspected Problems (Last Updated 08/13/19 @ 06:15 by Chilo Colvin MD) Small bowel obstruction (Acute) Reason for Visit: Follow-up on small bowel obstruction Subjective: Patient was seen and examined. He had 2 large bowel movements after Gastrografin enema. This study showed lots of stool in the colon. He denied any pain. He has been ambulating. Advanced on diet. Objective: Physical exam: General: Alert, Oriented x3, Cooperative, No apparent distress HEENT: Atraumatic, PERRLA, EOMI, Normocephalic Oral: Moist Mucosa Neck: Supple Lungs: Clear to auscultation, Normal air movement Cardiovascular: Regular rate, Regular Rhythm, Normal S1, Normal S2, No murmurs Abdomen: Bowel Sounds Present, Soft, Non-Distended, No Hepato-splenomegaly, Tender - wound is clean, licha to air, slight serosanguineous discharge Extremities: No edema Skin: No rashes Musculoskeletal: No Tenderness to Palpation of Joints or Extremities Lymphatic: No Cervical, Supraclavicular, or Inguinal Adenopathy Neurological: Cranial nerves II-XII grossly intact, Neuro grossly intact Psych/Mental Status: Normal Affect, Appropriate Vitals/I&O's: Vital Signs Temp Pulse Resp BP Pulse Ox 97.3 F L 88 18 139/95 H 96 12/31/19 04:20 12/31/19 04:20 12/31/19 04:20 12/31/19 04:20 12/31/19 07:38 Oxygen Flow Rate (L/min) 2 Oxygen Delivery Method Room Air Weight: 95.7 kg Body Mass Index (BMI) 31.1 Intake and Output for Last 24 Hours 12/29/19 12/30/19 12/31/19 23:59 23:59 23:59 Intake Total 3691.67 / 3891.67 2316.25 / 2416.25 1026.25 / 1026.25 Output Total 2915 / 3615 3660 / 4160 1900 / 1900 Balance 776.67 / 276.67 -1343.75 / -1743.75 -873.75 / -873.75 Laboratory Results 12/31/19 05:55: PT 32.6 H, INR 3.2 12/31/19 05:55: WBC 9.8, RBC 5.72, Hgb 17.3 H, Hct 52.4, MCV 91.6, MCH 30.2, MCHC 33.0, RDW Std Deviation 41.4, RDW Coeff of Yakelin 12.4, Plt Count 248, MPV 10.0, Immature Gran % (Auto) 0.500, Neut % (Auto) 59.5, Lymph % (Auto) 29.2, [place] % (Auto) 9.2, Eos % (Auto) 1.3, Baso % (Auto) 0.3, Absolute Neuts (auto) 5.9, Absolute Lymphs (auto) 2.87, Nucleated RBC % 0 12/31/19 05:55: Sodium 138, Potassium 3.7, Chloride 102, Carbon Dioxide 26.0, Anion Gap 10, BUN 11, Creatinine 0.79, Estim Creat Clear Calc 62.84, Est GFR (MDRD) Af Amer 122, Est GFR (MDRD) Non-Af 101, BUN/Creatinine Ratio 13.9, Glucose 67 L, Calcium 8.9, Total Bilirubin 1.10 H, AST 25, ALT 20, Alkaline Phosphatase 75, Total Protein 7.4, Albumin 3.7, Globulin 3.7, Albumin/Globulin Ratio 1.0 Current Medications Acetaminophen (Tylenol) 650 mg PO Q6H PRN PRN PRN Reason: HEADACHE Last Admin: 12/30/19 14:55 Dose: 650 mg Documented by: Albuterol Sulfate (Ventolin Aerosols) 2.5 mg INHALATION Q2H PRN PRN PRN Reason: Shortness of Breath/Wheezing Atorvastatin Calcium (Lipitor) 20 mg PO QHS [facility] Last Admin: 12/30/19 21:55 Dose: 20 mg Documented by: Diltiazem HCl (Cardizem Cd) 180 mg PO 1700 [facility] Last Admin: 12/30/19 16:14 Dose: 180 mg Documented by: Glucagon () 1 mg IM .X1 PRN PRN Reason: Hypoglycemia Hydralazine HCl (Apresoline Iv) 10 mg IV Q4H PRN PRN PRN Reason: SBP > 160 Famotidine 20 mg/ Sodium (Chloride) 10 mls @ 300 mls/hr IV Q12 [facility] Last Infusion: 12/30/19 22:05 Dose: Infused Documented by: Sodium Chloride () 1,000 mls @ 75 mls/hr IV .[id number] [facility] Last Admin: 12/31/19 06:07 Dose: 75 mls/hr Documented by: Dextrose (Dextrose 10%-Water) 250 mls @ 999 mls/hr IV .Q16M PRN; Protocol PRN Reason: HYPOGLYCEMIA Sodium Chloride () 250 mls @ 15 mls/hr IV .[id number] PRN PRN Reason: Saline Flush Sodium Chloride () 250 mls @ 15 mls/hr IV .[id number] PRN PRN Reason: Additional IVPB Infusion Melatonin (Melatonin) 3 mg PO QHS [facility] Last Admin: 12/30/19 21:55 Dose: 3 mg Documented by: Metoclopramide HCl (Reglan) 5 mg IV Q6 [facility] Last Admin: 12/31/19 05:51 Dose: 5 mg Documented by: Metoprolol Tartrate (Lopressor (Beta Shea)) 5 mg IV Q8H PRN PRN PRN Reason: HR > 100, sustained (PAF hx) Last Admin: 12/28/19 11:43 Dose: 5 mg Documented by: Morphine Sulfate () 4 mg IV Q2H PRN PRN PRN Reason: -08/21 pain Last Admin: 12/29/19 19:30 Dose: 4 mg Documented by: Ondansetron HCl (Zofran) 4 mg IV Q8H PRN PRN PRN Reason: NAUSEA/VOMITING Last Admin: 12/28/19 18:17 Dose: 4 mg Documented by: Prochlorperazine Edisylate (Compazine Iv) 5 mg IV Q4H PRN PRN PRN Reason: Breakthrough nausea/vomiting Sodium Chloride () 10 - 40 ml IV UD PRN PRN Reason: SALINE FLUSH Last Admin: 12/31/19 05:51 Dose: 10 ml Documented by: Tolterodine Tartrate (Detrol La) 2 mg PO DAILY [facility] Last Admin: 12/30/19 10:11 Dose: 2 mg Documented by: Warfarin Sodium (Coumadin (Pbkc)) 4 mg PO MoWeFrSa@1700 [facility] Last Admin: 12/29/19 17:34 Dose: 4 mg Documented by: Warfarin Sodium (Coumadin (Pbkc)) 5 mg PO [id number] [facility] Last Admin: 12/30/19 16:14 Dose: 5 mg Documented by: STROKE Vital Signs/Narrative: Vital Signs Pulse Ox 12/31/19 07:38 96 Medical Necessity - Tobacco Use Smoking Status: Current some day smoker Tobacco Use: Non-smoker, Pipe Assessment/Plan All Active Problems (Last Updated 08/13/19 @ 06:15 by Chilo Colvin MD) Neck pain (Acute) Small bowel obstruction (Acute) 1. Postop day #3, status post exploratory laparotomy, patient has moved his bowels; had Gastrografin today Advanced on diet, will continue to monitor 2. Chronic atrial fibrillation, rate controlled, on Cardizem, metoprolol as needed, INR is 3.2, on coumadin 3. Hypertension, better controlled, continue on Cardizem, continue on metoprolol and hydralazine as needed 4.DVT PPx- on coumadin Code Visit Inpatient E&M: 23294 Subs Hosp L2
[2019-12-31 11:09] VITALS: BP 130/79; PULSE 86; RESP 16; TEMP 36.7; O2SAT 95
[2019-12-31] MEDS: Famotidine 200 MG/20 ML MDV 20 MG in 0.9% Normal Saline (Pres. free 8 ML 300 MG IV (11:19)
[2019-12-31] MEDS: Tolterodine Tartrate 2 MG CAP.SA PO (11:19)
[2019-12-31 17:00] VITALS: BP 143/87; PULSE 102; RESP 18; TEMP 36.6; O2SAT 96
[2019-12-31] MEDS: dilTIAZem CD 180 MG Capsule PO (17:14)
[2019-12-31 21:35] VITALS: BP 148/95; PULSE 76; RESP 18; TEMP 37.1; O2SAT 96
[2019-12-31] MEDS: MELATONIN 3 MG TABLET PO (21:39)
[2019-12-31] MEDS: Atorvastatin Calcium 20 MG Tablet PO (21:39)
[2020-01-01 03:30] VITALS: BP 146/105; PULSE 86; RESP 16; TEMP 36.6; O2SAT 97
[2020-01-01 06:34] LABS: Prothrombin Time (Protime)PT. 41.7 SECONDS (11.7-14.9)
[2020-01-01 06:38] LABS: International Normalized Ratio 4.3
--- NOTE | 2020-01-01 07:31 | PN.SURG_ITS ---
Patient Problems: Active and Suspected Problems (Last Updated 08/13/19 @ 06:15 by Chilo Colvin MD) Small bowel obstruction (Acute) Subjective: passing flatus, having bowel movements feels good, ready to go home - Physical Exam Vitals/I&O's: Vital Signs Temp Pulse Resp BP Pulse Ox 97.8 F 86 16 146/105 H 97 01/01/20 03:30 01/01/20 03:30 01/01/20 03:30 01/01/20 03:30 01/01/20 03:30 Oxygen Flow Rate (L/min) 2 Oxygen Delivery Method Room Air Weight: 95.7 kg Body Mass Index (BMI) 31.1 Intake and Output for Last 24 Hours 12/30/19 12/31/19 01/01/20 23:59 23:59 23:59 Intake Total 2316.25 / 2416.25 1630.00 / 1630.00 50 / 50 Output Total 3660 / 4160 2150 / 2150 500 / 500 Balance -1343.75 / -1743.75 -520.00 / -520.00 -450 / -450 General: Alert, Oriented x3 Oral: Moist Mucosa Neck: Supple Lungs: Normal air movement Abdomen: Bowel Sounds Present, Soft, - - incision is clean/dry/intact Laboratory Results 01/01/20 05:35: PT 41.7 H, INR 4.3 H* Current Medications Acetaminophen (Tylenol) 650 mg PO Q6H PRN PRN PRN Reason: HEADACHE Last Admin: 12/30/19 14:55 Dose: 650 mg Documented by: Albuterol Sulfate (Ventolin Aerosols) 2.5 mg INHALATION Q2H PRN PRN PRN Reason: Shortness of Breath/Wheezing Atorvastatin Calcium (Lipitor) 20 mg PO QHS [facility] Last Admin: 12/31/19 21:39 Dose: 20 mg Documented by: Diltiazem HCl (Cardizem Cd) 180 mg PO 1700 [facility] Last Admin: 12/31/19 17:14 Dose: 180 mg Documented by: Glucagon () 1 mg IM .X1 PRN PRN Reason: Hypoglycemia Dextrose (Dextrose 10%-Water) 250 mls @ 999 mls/hr IV .Q16M PRN; Protocol PRN Reason: HYPOGLYCEMIA Sodium Chloride () 250 mls @ 15 mls/hr IV .[id number] PRN PRN Reason: Saline Flush Sodium Chloride () 250 mls @ 15 mls/hr IV .[id number] PRN PRN Reason: Additional IVPB Infusion Melatonin (Melatonin) 3 mg PO QHS [facility] Last Admin: 12/31/19 21:39 Dose: 3 mg Documented by: Metoclopramide HCl (Reglan) 5 mg IV Q6 [facility] Last Admin: 01/01/20 05:54 Dose: Not Given Documented by: Morphine Sulfate () 4 mg IV Q2H PRN PRN PRN Reason: 1-08/21 pain Last Admin: 12/29/19 19:30 Dose: 4 mg Documented by: Ondansetron HCl (Zofran) 4 mg IV Q8H PRN PRN PRN Reason: NAUSEA/VOMITING Last Admin: 12/28/19 18:17 Dose: 4 mg Documented by: Prochlorperazine Edisylate (Compazine Iv) 5 mg IV Q4H PRN PRN PRN Reason: Breakthrough nausea/vomiting Sodium Chloride () 10 - 40 ml IV UD PRN PRN Reason: SALINE FLUSH Last Admin: 12/31/19 05:51 Dose: 10 ml Documented by: Tolterodine Tartrate (Detrol La) 2 mg PO DAILY [facility] Last Admin: 12/31/19 11:19 Dose: 2 mg Documented by: Warfarin Sodium (Coumadin (Pbkc)) 3.5 mg PO DAILY@1700 [facility] Medical Necessity - Tobacco Use Smoking Status: Current some day smoker Tobacco Use: Non-smoker, Pipe Assessment/Plan All Active Problems (Last Updated 08/13/19 @ 06:15 by Chilo Colvin MD) Neck pain (Acute) Small bowel obstruction (Acute) IMPRESSION: POD#4 exploratory laparotomy - no evidence of bowel obstruction PLAN: can d/c to home patient not requiring narcotic pain medications, he states that he will take acetaminophen and/or ibuprofen at home to follow up with me next week.
--- NOTE | 2020-01-01 07:34 | DCINST_ITS ---
Discharge Diet: No Restrictions - drink plenty of fluids Discharge Activity: Return to Normal Activity Lifting Restrictions: no lifting greater than 20 pounds for one month Call your doctor if your incision/area has: Continuous Slow Oozing, Foul Smelling Discharge Call your doctor if you observe: Fever of 101 or Higher Additional Dressing/Incision Instructions:: May shower. Do not soak - no tub baths/swimming Allergies/Adverse Reactions: Allergies Latex, Natural Rubber Allergy (Verified 12/27/19 19:33) Rash lorazepam [From Ativan] Allergy (Verified 12/27/19 19:33) Other HALLUCINATIONS Medications to take at Discharge Diltiazem CD [Cardizem CD] 180 mg PO 1700 06/03/14 Atorvastatin Calcium [Lipitor] 20 mg PO DAILY 08/13/19 Albuterol Inhaler [Ventolin Hfa] 2 puff INHALATION Q6H PRN PRN 09/24/19 Warfarin [Coumadin ([facility])] 4 mg PO MOWEFRSA 12/27/19 Warfarin [Coumadin ([facility])] 5 mg PO SUTUTH 12/27/19 Oxybutynin Chloride [Oxybutynin Chloride ER] 10 mg PO DAILY 12/28/19 Testosterone 3 pump TOPICAL DAILY 12/28/19 Primary Care Physician: Shanelle Purvis PA [Primary Care Provider] - Test Results: Test results from this visit will be discussed in further detail at your follow- up appointment, if applicable. Please Follow Up With: Savana Diaz MD - call When: to be seen next week at your convenience, please call - thank you
[2020-01-01] MEDS: Tolterodine Tartrate 2 MG CAP.SA PO (09:13)
[2020-01-01 09:30] VITALS: BP 130/84; PULSE 78; RESP 18; TEMP 36.6; O2SAT 97
--- NOTE | 2020-01-01 12:45 | DCINST_ITS ---
- Discharge Diagnoses Current Active Problems: Current Active and Chronic Problems (Last Updated 08/13/19 @ 06:[address] Chilo Colvin MD) Small bowel obstruction (Acute) Reason(s) for Visit for Discharge Instructions: Abdominal pain You will use the following diet at home:: Cardiac Your food should be the consistency of: Regular Your liquids should be the consistency of: Regular/Thin Discharge Activity: Return to Normal Activity Call your doctor if your incision/area has: Continuous Slow Oozing, Foul Smelling Discharge Call your doctor if you observe: Fever of 101 or Higher Additional Dressing/Incision Instructions:: May shower. Do not soak - no tub baths/swimming Additional Instructions: Your INR today was 4.3. Do not take coumadin tonight. Go get your INR checked tomorrow, 01/02/20. Start on coumadin 3mg daily from tomorrow 01/02/20 unless instructed otherwise by your primary care doctor. Continue to hydrate yourself. Keep yourself active Allergies/Adverse Reactions: Allergies Latex, Natural Rubber Allergy (Verified 12/27/19 19:33) Rash lorazepam [From Ativan] Allergy (Verified 12/27/19 19:33) Other HALLUCINATIONS Medications to take at Discharge Diltiazem CD [Cardizem CD] 180 mg PO 1700 06/03/14 Atorvastatin Calcium [Lipitor] 20 mg PO DAILY 08/13/19 Albuterol Inhaler [Ventolin Hfa] 2 puff INHALATION Q6H PRN PRN 09/24/19 Oxybutynin Chloride [Oxybutynin Chloride ER] 10 mg PO DAILY 12/28/19 Testosterone 3 pump TOPICAL DAILY 12/28/19 Acetaminophen [Tylenol Tablet] 650 mg PO Q6H PRN PRN tablet 01/01/20 Warfarin [Coumadin] 3 mg PO DAILY #7 tab 01/01/20 The following prescriptions were given: Warfarin [Coumadin] 3 mg PO DAILY #7 tab Transmission Status: Pending to [id number] Primary Care Physician: Shanelle Purvis PA [Primary Care Provider] - Please follow up with your Primary Care Physician in: as scheduled on 01/09/20 Test Results: Test results from this visit will be discussed in further detail at your follow- up appointment, if applicable. Please Follow Up With: Savana Diaz MD When: to be seen next week at your convenience, please call - thank you Please Follow Up With: Shanelle Purvis PA Proposed Discharge Date: 01/01/20
--- NOTE | 2020-01-01 12:48 | DS.PCM_ITS ---
Discharge Date and Diagnosis Date of Admission: 12/27/19 Date of Discharge: 01/01/20 - Primary Discharge Diagnosis Active and Suspected Problems (Last Updated 08/13/19 @ 06:[address] Chilo Colvin MD) Abdominal pain, unclear etiology, likely secondary to constipation - Secondary Discharge Diagnosis Chronic Problems (Last Updated 08/13/19 @ 06:[address] Chilo Colvin MD) Atrial fibrillation (Chronic) Hypertension (Chronic) Hospital Course and Treatment Imaging Results: Clinical Impression(s) from Imaging Studies Abdomen/Pelvis CT 12/27/19 20:07 IMPRESSION: Findings consistent with small bowel obstruction of indeterminate etiology. Minor diverticular changes in the distal descending colon without evidence for acute diverticulitis Electronically Signed: Chung Croft MD at 20:38 EST , Service support , KUB X-Ray 12/27/19 21:20 IMPRESSION: NG tube placement with tip in gastric fundus Electronically Signed: Chung Croft MD at 21:33 EST , Service support , Abdomen X-Ray 12/28/19 05:55 IMPRESSION: Nonspecific bowel gas pattern. Nasogastric tube in place. at 0654 Reported and signed by: Joy Leija MD Electronically Signed: Joy Leija MD at 6:53 EST Tel , Service support , KUB X-Ray 12/29/19 07:51 IMPRESSION: Large amount of oral contrast is seen within the right hemicolon. Nonspecific bowel gas pattern. No evidence of small bowel obstruction. The tip of the nasogastric tube is just distal to the gastroesophageal junction. Electronically Signed: Doroteo Lopez, at 15:32 EST , Service support , Therapeutic Barium Enema Intussusception 12/31/19 08:46 IMPRESSION: Gastrografin therapeutic enema. The patient tolerated the procedure well. Electronically Signed: Doroteo Lopez, at 9:26 EST , Service support , General surgery Operations: None Procedures: None Summary of Care Provided: The patient is a 74 year old M past medical history of chronic atrial fibrillation, who presented with abdominal pain with bloating. Patient recently had a TURP 2 months prior. He noticed increasing abdominal pain that comes in waves. He came to the emergency department. His white cell count 11.2. CT of the abdomen showed marked distended fluid-filled stomach with multiple distended fluid-filled loops of small bowel transition point as well as equalization pneumatosis consistent with small bowel obstruction. There was diffuse retention within the colon. Patient went emergent exploratory laparotomy for pneumatosis seen on CT. There was findings of no bowel obstruction. There was recanalization in the small intestine. Patient postoperatively was managed off Coumadin, resume Coumadin on postop day 2. He was managed symptomatically with early ambulation, kept n.p.o., on gentle IV fluids. Patient continued to have no bowel movement but had some flatus. He received Dulcolax suppository as well as Gastrografin with improved bowel movement. His INR was supratherapeutic 2 days prior to his discharge. He was discharged home with her Coumadin and will follow-up the next day with his Coumadin clinic for close monitoring and titration. Subjective: On the day of discharge, patient was seen and examined. Denied any new complaints. He feels much improved. He was able to tolerate advancement in his diet. Objective: Physical exam: General: Alert, Oriented x3, Cooperative, No apparent distress HEENT: Atraumatic, PERRLA, EOMI, Normocephalic Oral: Moist Mucosa Neck: Supple Lungs: Clear to auscultation, Normal air movement Cardiovascular: Regular rate, Regular Rhythm, Normal S1, Normal S2, No murmurs Abdomen: Bowel Sounds Present, Soft, Non-Distended, No Hepato-splenomegaly, Tender - wound is clean, licha to air, slight serosanguineous discharge Extremities: No edema Skin: No rashes Musculoskeletal: No Tenderness to Palpation of Joints or Extremities Lymphatic: No Cervical, Supraclavicular, or Inguinal Adenopathy Neurological: Cranial nerves II-XII grossly intact, Neuro grossly intact Psych/Mental Status: Normal Affect, Appropriate - Physical Exam Vitals/I&O's: Vital Signs Temp Pulse Resp BP Pulse Ox 97.9 F 78 18 130/84 H 97 01/01/20 09:30 01/01/20 09:30 01/01/20 09:30 01/01/20 09:30 01/01/20 09:30 Oxygen Flow Rate (L/min) 2 Oxygen Delivery Method Room Air Weight: 95.7 kg Body Mass Index (BMI) 31.1 Intake and Output for Last 24 Hours 12/30/19 12/31/19 01/01/20 23:59 23:59 23:59 Intake Total 2316.25 / 2416.25 1630.00 / 1630.00 50 / 50 Output Total 3660 / 4160 2150 / 2150 500 / 500 Balance -1343.75 / -1743.75 -520.00 / -520.00 -450 / -450 Laboratory Results 01/01/20 05:35: PT 41.7 H, INR 4.3 H* Current Medications Acetaminophen (Tylenol) 650 mg PO Q6H PRN PRN PRN Reason: HEADACHE Last Admin: 12/30/19 14:55 Dose: 650 mg Documented by: Albuterol Sulfate (Ventolin Aerosols) 2.5 mg INHALATION Q2H PRN PRN PRN Reason: Shortness of Breath/Wheezing Atorvastatin Calcium (Lipitor) 20 mg PO QHS [facility] Last Admin: 12/31/19 21:39 Dose: 20 mg Documented by: Diltiazem HCl (Cardizem Cd) 180 mg PO 1700 [facility] Last Admin: 12/31/19 17:14 Dose: 180 mg Documented by: Glucagon () 1 mg IM .X1 PRN PRN Reason: Hypoglycemia Dextrose (Dextrose 10%-Water) 250 mls @ 999 mls/hr IV .Q16M PRN; Protocol PRN Reason: HYPOGLYCEMIA Sodium Chloride () 250 mls @ 15 mls/hr IV .[id number] PRN PRN Reason: Saline Flush Sodium Chloride () 250 mls @ 15 mls/hr IV .[id number] PRN PRN Reason: Additional IVPB Infusion Melatonin (Melatonin) 3 mg PO QHS [facility] Last Admin: 12/31/19 21:39 Dose: 3 mg Documented by: Metoclopramide HCl (Reglan) 5 mg IV Q6 [facility] Last Admin: 01/01/20 05:54 Dose: Not Given Documented by: Morphine Sulfate () 4 mg IV Q2H PRN PRN PRN Reason: -08/21 pain Last Admin: 12/29/19 19:30 Dose: 4 mg Documented by: Ondansetron HCl (Zofran) 4 mg IV Q8H PRN PRN PRN Reason: NAUSEA/VOMITING Last Admin: 12/28/19 18:17 Dose: 4 mg Documented by: Prochlorperazine Edisylate (Compazine Iv) 5 mg IV Q4H PRN PRN PRN Reason: Breakthrough nausea/vomiting Sodium Chloride () 10 - 40 ml IV UD PRN PRN Reason: SALINE FLUSH Last Admin: 12/31/19 05:51 Dose: 10 ml Documented by: Tolterodine Tartrate (Detrol La) 2 mg PO DAILY [facility] Last Admin: 01/01/20 09:13 Dose: 2 mg Documented by: Discharge Diet: No Restrictions - drink plenty of fluids Discharge Activity: Return to Normal Activity Call your doctor if your incision/area has: Continuous Slow Oozing, Foul Smelling Discharge Call your doctor if you observe: Fever of 101 or Higher Additional Dressing/Incision Instructions:: May shower. Do not soak - no tub baths/swimming Home Medications: Medications to take at Discharge Diltiazem CD [Cardizem CD] 180 mg PO 1700 06/03/14 Atorvastatin Calcium [Lipitor] 20 mg PO DAILY 08/13/19 Albuterol Inhaler [Ventolin Hfa] 2 puff INHALATION Q6H PRN PRN 09/24/19 Oxybutynin Chloride [Oxybutynin Chloride ER] 10 mg PO DAILY 12/28/19 Testosterone 3 pump TOPICAL DAILY 12/28/19 Acetaminophen [Tylenol Tablet] 650 mg PO Q6H PRN PRN tab 01/01/20 Warfarin [Coumadin] 3 mg PO DAILY #7 tab 01/01/20 Following Prescrptions Were Given to Patient: Warfarin [Coumadin] 3 mg PO DAILY #7 tab Transmission Status: Received by [facility] Primary Care Physician: Shanelle Purvis PA [Primary Care Provider] - Please follow up with your Primary Care Physician in: as scheduled on 01/09/20 Please Follow Up With: Savana Diaz MD When: to be seen next week at your convenience, please call - thank you Please Follow Up With: Shanelle Purvis PA Disposition: Home Minutes spent on discharge:: 40 Patient Condition:: Stable Medical Necessity - Tobacco Use Smoking Status: Current some day smoker Tobacco Use: Non-smoker, Pipe Meaningful Use Info Meaningful Use Diagnoses (Choose all that apply): None applicable Code Visit Inpatient E&M: 65478 Disch Hosp
--- NOTE | 2020-01-02 14:01 | CASEMGMT ---
DASHAWN CM DC PHONE CALL DC DATE: 01.01.20 DC Disposition: Home Diagnosis on Discharge: SBO LACE/STRATA: 10/15 Attempted call to home phone. No answer and no message machine with name identifier. Chinedu BALES RN ACM
== END 2020-01-01 13:06 | disposition home or self-care (01) | DRG 357 ==
LOC: ED 21:54 → PCU 22:25
PROVIDERS: Student in an Organized Health Care Education/Training Program; Surgery; Admitting Provider Family Medicine; Emergency Provider Emergency Medicine; PCP Physician Assistant; Visit Provider Internal Medicine
PROC: 0WJG0ZZ Inspection of Peritoneal Cavity, Open Approach (ICD-10-PCS; CPT 49000; principal; 2019-12-28 01:30)
DX: K59.00 Constipation, unspecified (principal); I48.20 Chronic atrial fibrillation, unspecified; I10 Essential (primary) hypertension; E78.5 Hyperlipidemia, unspecified; F17.200 Nicotine dependence, unspecified, uncomplicated; R10.9 Unspecified abdominal pain; Z79.01 Long term (current) use of anticoagulants; R79.1 Abnormal coagulation profile
CPT/HCPCS: 36415; 74018; 74019; 74176; 74283; 80048; 80053; 80076; 83605; 83690; 84484; 85025; 85610; 86900; 86901; 93005; 94640; 97802; 99251; 99285; J7030; J7040; J7120; P9017; A4216; G0463; J2405; J3490

== ENCOUNTER → 2020-01-02 | Outpatient (CLI) | payer MEDICARE, OTHER, SELFPAY ==
[2019-12-28 04:10] VITALS: BMI 31.1
[2020-01-02 13:29] LABS: International Normalized Ratio 3.6
[2020-01-02 14:08] LABS: Prothrombin Time (Protime)PT. 36.4 SECONDS (11.7-14.9)
== END | disposition home or self-care (01) ==
LOC: LABSPEC 12:43
PROVIDERS: PCP Physician Assistant; Referring Provider Physician Assistant; Visit Provider Physician Assistant
DX: I48.20 Chronic atrial fibrillation, unspecified (principal)
CPT/HCPCS: 85610

== ENCOUNTER → 2020-01-09 | Outpatient (CLI) | payer MEDICARE, OTHER, SELFPAY ==
[2019-12-28 04:10] VITALS: BMI 31.1
[2020-01-09 13:30] LABS: International Normalized Ratio 1.8; Prothrombin Time (Protime)PT. 20.4 SECONDS (11.7-14.9)
== END | disposition home or self-care (01) ==
LOC: LABSPEC 13:13
PROVIDERS: PCP Physician Assistant; Referring Provider Physician Assistant; Visit Provider Physician Assistant
DX: I48.20 Chronic atrial fibrillation, unspecified (principal)
CPT/HCPCS: 85610

== ENCOUNTER → 2020-01-23 | Outpatient (CLI) | payer MEDICARE, OTHER, SELFPAY ==
[2019-12-28 04:10] VITALS: BMI 31.1
[2020-01-23 10:39] LABS: International Normalized Ratio 2.4
== END | disposition home or self-care (01) ==
PROVIDERS: PCP Physician Assistant; Referring Provider Physician Assistant; Visit Provider Physician Assistant
DX: I48.20 Chronic atrial fibrillation, unspecified (principal)
CPT/HCPCS: 85610

== ENCOUNTER → 2020-01-30 | Outpatient (CLI) | payer MEDICARE, OTHER, SELFPAY ==
[2019-12-28 04:10] VITALS: BMI 31.1
[2020-01-30 12:56] LABS: International Normalized Ratio 2.4; Prothrombin Time (Protime)PT. 26.4 SECONDS (11.7-14.9)
== END | disposition home or self-care (01) ==
LOC: LABSPEC 12:18
PROVIDERS: PCP Physician Assistant; Referring Provider Physician Assistant; Visit Provider Physician Assistant
DX: I48.20 Chronic atrial fibrillation, unspecified (principal)
CPT/HCPCS: 85610

== ENCOUNTER → 2020-04-16 | Outpatient (CLI) | payer MEDICARE, OTHER, SELFPAY ==
[2019-12-28 04:10] VITALS: BMI 31.1
[2020-04-16 12:46] LABS: International Normalized Ratio 2.1; Prothrombin Time (Protime)PT. 22.9 SECONDS (11.7-14.9)
== END | disposition home or self-care (01) ==
LOC: LABSPEC 12:09
PROVIDERS: PCP Physician Assistant; Visit Provider Physician Assistant
DX: I48.20 Chronic atrial fibrillation, unspecified (principal)
CPT/HCPCS: 85610

== ENCOUNTER → 2020-05-17 | Outpatient (CLI) | payer MEDICARE, OTHER, SELFPAY ==
[2019-12-28 04:10] VITALS: BMI 31.1
[2020-05-17 10:33] LABS: Prothrombin Time (Protime)PT. 22.3 SECONDS (11.7-14.9)
== END | disposition home or self-care (01) ==
LOC: LABSPEC 10:03
PROVIDERS: PCP Physician Assistant; Referring Provider Physician Assistant; Visit Provider Physician Assistant
DX: I48.20 Chronic atrial fibrillation, unspecified (principal)
CPT/HCPCS: 85610

== ENCOUNTER → 2020-08-05 | Outpatient (CLI) | payer MEDICARE, OTHER, SELFPAY ==
[2019-12-28 04:10] VITALS: BMI 31.1
[2020-08-05 13:00] LABS: International Normalized Ratio 2.7
== END | disposition home or self-care (01) ==
LOC: LABSPEC 12:04
PROVIDERS: PCP Physician Assistant; Referring Provider Physician Assistant; Visit Provider Physician Assistant
DX: I48.20 Chronic atrial fibrillation, unspecified (principal)
CPT/HCPCS: 85610

== ENCOUNTER → 2021-07-05 10:29 | Outpatient (CLI) | payer MEDICARE, OTHER, SELFPAY ==
[2021-07-05 11:57] LABS: PSA,Total - Annual Screen 3.28 ng/mL (0.00-4.00)
== END ==
PROVIDERS: PCP Physician Assistant; Referring Provider Urology; Visit Provider Urology
DX: Z12.5 Encounter for screening for malignant neoplasm of prostate (principal)
CPT/HCPCS: 36415; 84153; G0103

== ENCOUNTER → 2021-07-22 06:16 | Outpatient (CLI) | payer MEDICARE, OTHER, SELFPAY ==
--- NOTE | 2021-07-22 11:34 | STRESSREP ---
Stress Test Report Date: 07-22-2021 Procedure: Pharmacologic stress nuclear imaging study Indications: Chest pain; dizzy/lightheaded; atrial fibrillation Consent: Per the patient Procedure: The patient underwent pharmacologic (Regadenoson 0.4mg ) evaluation with a peak heart rate of 94 beats per minute (66%predicted maximal heart rate) and a peak blood pressure of 142/92 mmHg. The baseline ECG demonstrated atrial fibrillation. The peak pharmacologic ECG demonstrated no obvious ECG changes. There was an isolated PVC during infusion and recovery. There was no complaint of chest discomfort during pharmacologic infusion or recovery. The examination was discontinued secondary to completion of protocol. Impression: 1. Pharmacologic (Regadenoson) evaluation 2. Peak pharmacologic ECG with no obvious ECG changes. 3. There was an isolated PVC during infusion and recovery. 4. Nuclear images pending Myocardial perfusion imaging study: Technique: The patient was injected with 14.4 millicuries of technetium 99m Cardiolite and subsequently rest SPECT Cardiolite nuclear imaging was obtained in the horizontal long, vertical long, and short axis views. The patient underwent pharmacologic (Regadenoson) evaluation with a peak heart rate of 94 beats per minute (66% percent predicted maximal heart rate) and a peak blood pressure of 142/92 mmHg. The patient was injected with 44.3 millicuries of technetium 99m Cardiolite and subsequently stress SPECT Cardiolite nuclear imaging was obtained in the horizontal long, vertical long, and short axis views. A gated Cardiolite study at peak stress was obtained. Interpretation: Rest and stress SPECT Cardiolite nuclear imaging status post realignment, normalization, and attenuation correction demonstrate relative uniform tracer uptake and myocardial perfusion appearing within normal limits. There is end systolic thickening and brightening. The gated Cardiolite study demonstrates myocardial thickening and inward wall motion. The reported LVEF is 56%. Impression: 1. Rest and stress SPECT Cardiolite nuclear imaging demonstrate relative uniform tracer uptake and myocardial perfusion appearing within normal limits. 2. The gated Cardiolite study reports an LVEF of 56%. This note was generated with [employer] software. It may contain incorrect words, spelling, and punctuation that were not noted in checking the note before signing.
== END ==
PROVIDERS: PCP Physician Assistant; Referring Provider Physician Assistant; Visit Provider Physician Assistant
DX: R07.89 Other chest pain (principal); I48.20 Chronic atrial fibrillation, unspecified; Z13.6 Encounter for screening for cardiovascular disorders; Z79.01 Long term (current) use of anticoagulants
CPT/HCPCS: 78452; 93017; A9500; A4216; J2785

== ENCOUNTER 2021-11-14 16:29 | Outpatient (CLI) | payer MEDICARE, OTHER, SELFPAY ==
--- NOTE | 2021-11-14 | CYSPIN_PTH ---
PATIENT: MAGDALENA MERCADO [facility] U#:[id number] AGE/SX: 76/M ROOM: RE11/14/[address]: Dr. Javan Taylor MD : 1945 BED: DIS: 11/14/2021 SPEC #: [id number] RECD: 11/15/21 09:10 STATUS: TASNEEM REGalileo #: [id number] VERENA: 11/14/21 00:[address]: Javan Taylor DEPT: CYTOLOGY RECD BY: Alejo Martell ENTERED: 11/15/21 09:11 SP TYPE: CYSPIN FL OTHR DR: NIKKI Mckenzie Tissues: Urine Procedures: Pap Stain (control) Special Stain Group II Cytospin Fluid HEADER OPERATION: Not noted PRE-OP DIAGNOSIS: Hematuria TISSUE SUBMITTED: Urine for cytology DIAGNOSIS CYTOLOGY Urine for cytology (cytospin): Rare atypical urothelial cells present. AM:darshan 11/16/2021 CYTOLOGY STUDY Slides are reviewed. CYTOLOGY GROSS Received is 50 ml of gold cloudy fluid labeled with the patient's name and and designated per the requisition as urine. Submitted for cytology preparation. / rg 11/15/2021 TC:? CPT: 71372
[2021-11-14 16:40] LABS: Cytology, Body Fluid / CSF SEE PATHOLOGY REPORT
== END 2021-11-14 23:59 | disposition short-term general hospital (02) ==
LOC: LABSPEC 16:31
PROVIDERS: PCP Physician Assistant; Visit Provider Urology
DX: R31.9 Hematuria, unspecified (principal)
CPT/HCPCS: 88108; 88313

== ENCOUNTER → 2022-07-31 | Outpatient (CLI) | payer MEDICARE, OTHER, SELFPAY | END | disposition home or self-care (01) | LOC: LAB 14:13 | PROVIDERS: PCP Physician Assistant; Referring Provider Urology; Visit Provider Urology | DX: R31.9 Hematuria, unspecified (principal) | CPT/HCPCS: 87086; 87088 ==

== ENCOUNTER → 2022-08-07 | Outpatient (CLI) | payer MEDICARE, OTHER, SELFPAY ==
[2022-08-07 13:27] LABS: Hematocrit 50.5 % (40-54); Hemoglobin 16.7 g/dL (13.0-16.5); Mean Corp Hgb Conc 33.1 g/dL (32-36); Mean Corpuscular Hgb 32.4 pg (27.0-32.0); Mean Corpuscular Volume 98.1 fL (80-94); Mean Platelet Vol. 10.2 fl (6.2-12.0); Platelet Count 266 K/mm3 (150-450); RBC Distribution Width CV 12.4 % (11.6-14.6); RBC Distribution Width SD 45.5 fl (35.1-43.9); Red Blood Count 5.15 M/mm3 (4.6-6.2)
[2022-08-07 13:51] LABS: Anion Gap 6 (5-15); BUN 24 mg/dL (7-18); Chloride 102 mmol/L (98-107); EST Glomerular Filtration Rate 77 mL/min (>60); Est Glom Filt Rate - Afr Amer 93 mL/min (>60); Glucose 104 mg/dL (74-106); Potassium 4.2 mmol/L (3.5-5.1); Sodium Level 138 mmol/L (136-145)
== END | disposition home or self-care (01) ==
LOC: LAB 12:03
PROVIDERS: PCP Physician Assistant; Referring Provider Urology; Visit Provider Urology
DX: Z01.812 Encounter for preprocedural laboratory examination (principal)
CPT/HCPCS: 36415; 80048; 85027

== ENCOUNTER 2022-08-29 01:13 | Emergency (ER) | payer MEDICARE, OTHER, SELFPAY ==
[2022-08-29 01:13] VITALS: BP 197/92; PULSE 98; RESP 20; TEMP 36.6; O2SAT 97; BMI 25.4
--- NOTE | 2022-08-29 01:27 | RAD_ITS ---
STUDY: X-RAY - LEFT HAND REASON FOR EXAM: Male, 77 years old. pain TECHNIQUE: 3 view(s) of the hand. COMPARISON: November 21, 2017. FINDINGS: Edema dorsal to the metacarpal head as with posterior paratracheal erosion at the second and third metacarpal head. Metallic ring noted. No other radiodense soft tissue foreign body. No fracture or dislocation. RAD/Hand Min 3 Views IMPRESSION: Soft tissue edema with dorsal periarticular erosion at the second and third metacarpal heads. Finding is nonspecific but can be seen with inflammatory osteoarthropathy including particular disease such as gout. No other acute osseous finding Electronically Signed: Zane Andrea MD at 2:22 EDT ,
--- NOTE | 2022-08-29 01:42 | EDS_ITS ---
HPI History of Present Illness Chief Complaint: Upper Extremity Injury Narrative Narrative: 77-year-old male past medical history of arthritis and atrial fibrillation has had previous shoulder surgery, presents with bilateral thumb pain left greater than right. He states he was working on his car 2 days ago, and has had increasing pain since then, mainly of his left thumb. Is worse with movement. He denies any fevers or chills. No nausea or vomiting or other symptoms. No true injury to his left thumb. He is right-hand dominant. He states that his primary care physician use to write him for Medrol Dosepaks which would help him considerably with his arthritis pain. [facility] Medical History Atrial fibrillation Hypertension Home Medications diltiazem HCl 180 mg capsule,extended release 24 hr 180 mg PO 1700 heart rate 06/03/14 [History Last Taken 12/26/19 17:00] atorvastatin 20 mg tablet 20 mg PO DAILY cholesterol 08/13/19 [History Last Taken 12/27/19 08:00] albuterol sulfate 90 mcg/actuation aerosol inhaler 2 puff inhalation Q6H PRN PRN Allergies 09/24/19 [History Last Taken Unknown] oxybutynin chloride 10 mg tablet,extended release 24 hr 10 mg PO DAILY urinary urgency 12/28/19 [History Last Taken 12/27/19 09:00] testosterone 10 mg/0.5 gram/actuation transdermal gel pump 3 pump topical DAILY hormone replacement 12/28/19 [History Last Taken 12/27/19 12:00] acetaminophen 325 mg tablet 650 mg PO Q6H PRN PRN Headache 01/01/20 [Rx Last Taken Unknown] warfarin 3 mg tablet 3 mg PO DAILY #7 tabs 01/01/20 [Rx Last Taken Unknown] methylprednisolone 4 mg tablets in a dose pack (Medrol (Tony)) 4 mg PO DAILY #21 tabs 08/29/22 [Rx Last Taken Unknown] Allergy/AdvReac Type Severity Reaction Status Date / Time Latex, Natural Rubber Allergy Rash Verified 08/29/22 01:26 lorazepam [From Ativan] Allergy Other Verified 08/29/22 01:26 Social History Smoking Status: Current some day smoker tobacco type: cigarettes ROS ROS ED ROS Narrative Constitutional: No fever, no chills. HEENT: No sore throat. No neck pain. No loss of vision. No rhinorrhea. Cardiovascular: No chest pain. No palpitations. No pedal edema. Respiratory: No cough, no shortness of breath. Abdominal: No abdominal pain. No nausea. No vomiting. Genitourinary: No dysuria. No hematuria. Musculoskeletal: No myalgias. Multiple arthralgias, especially bilateral thumbs left greater than right. Neurologic: No headaches. No dizziness. No lightheadedness. Skin: No rash. No change in color. Psychiatric: No depression. No anxiety. EXAM Physical Exam Narrative Exam Narrative: Afebrile. Vital signs noted. HEENT: Normocephalic. Atraumatic. PERRL, EOMI. Neck soft and supple. No point tenderness or step off. Cardiovascular: Regular rate and rhythm. No murmurs, rubs, or gallops appreciated. Respiratory: No tachypnea. Lungs clear to auscultation bilaterally. Gastrointestinal: Abdomen soft, nontender, with normoactive bowel sounds. No re bound or guarding. Neurological: Awake. Alert. Nonfocal, nonlateralizing. Skin: No rash. Normal color. No pallor. Musculoskeletal: No pedal edema. Full range of motion extremities with exception of decreased range of motion of left thumb. Positive Yolette test left. Full range of motion right thumb including opposition. Const Vital Signs: 08/29/22 01:13 Temperature 97.8 F Temperature Source Oral Pulse Rate 98 Respiratory Rate 20 H Blood Pressure 197/92 H Blood Pressure Mean 127 Pulse Ox 97 Oxygen Delivery Method Room Air MDM MDM MDM Narrative Medical decision making narrative: Patient was given 8 mg of Medrol orally here. I will write him for Medrol Dosepak. Given his positive Yolette test I do feel he may have more of a tendinitis along with arthritis. X-rays obtained of the left thumb, and patient was placed in a Velcro thumb spica splint. He will follow-up with orthopedics. My interpretation of his x-ray shows no evidence of fracture, but I feel there is noted osteoarthritis, especially at the base of the first metacarpal. He will follow-up with his orthopedic surgeon as soon as possible. Return instructions to the emergency department were reviewed. Disposition is discharged home in stable condition. Discharge Plan Triage Chief Complaint: Upper Extremity Injury ED Provider: Pasquale Chavez Dx/Rx/DC Orders Clinical Impression: De Quervain's tenosynovitis, Osteoarthritis of both thumbs Instructions: ED Osteoarthritis, ED De Quervain Tenosynovitis Prescriptions: New methylprednisolone [Medrol (Tony)] 4 mg tablets,dose pack 4 mg PO DAILY Qty: 21 0RF No Action diltiazem HCl 180 MG capsule 180 mg PO 1700 Label Comments: heart rate atorvastatin 20 MG tablet 20 mg PO DAILY Label Comments: cholesterol albuterol sulfate 1 INHALER inhaler 2 puff inhalation Q6H PRN PRN (Reason: Allergies) Label Comments: allergies oxybutynin chloride 10 MG tablet extended release 24hr 10 mg PO DAILY Label Comments: urinary urgency testosterone 10 mg/0.5 gram/actuation gel in metered-dose pump 3 pump topical DAILY Label Comments: APPLY 3 PUMPS TOPICALLY ONCE DAILY DIRECTED hormone replacement acetaminophen 325 MG tablet 650 mg PO Q6H PRN PRN (Reason: Headache) 0RF warfarin 3 MG tablet 3 mg PO DAILY Qty: 7 0RF Primary Care Provider: Martínez Rosado Referrals: Martínez Rosado MD [Primary Care Provider] - 3-5 Days if not improving Activity Restrictions/Additional Instructions: Follow-up with your orthopedic surgeon as soon as possible regarding your bilateral thumb pain. Wear your splint. Continue elevation of your hand and take your Medrol Dosepak as directed. Disposition Disposition: Home, Self Care Discharge Date/Time: 08/29/22 02:48
[2022-08-29] MEDS: MethylPREDNISolone 4 MG Tablet 8 MG PO (01:57)
[2022-08-29 02:48] VITALS: BP 163/75; PULSE 72; RESP 16
== END 2022-08-29 02:48 | disposition home or self-care (01) ==
PROVIDERS: Emergency Provider Emergency Medicine; PCP Family Medicine; Visit Provider Emergency Medicine
DX: M65.4 Radial styloid tenosynovitis [de Quervain] (principal); I48.91 Unspecified atrial fibrillation; I10 Essential (primary) hypertension; F17.210 Nicotine dependence, cigarettes, uncomplicated; M19.041 Primary osteoarthritis, right hand; M19.042 Primary osteoarthritis, left hand; M79.644 Pain in right finger(s); M79.645 Pain in left finger(s)
CPT/HCPCS: 73130; 99283

== ENCOUNTER → 2022-09-01 | Outpatient (CLI) | payer MEDICARE, OTHER, SELFPAY ==
--- NOTE | 2022-09-01 11:15 | TEST_PTH ---
PATIENT: MAGDALENA MERCADO LOC: [facility] U#:[id number] AGE/SX: 77/M ROOM: RE09/01/[address]: Dr. Javan Taylor MD : 1945 BED: DIS: 09/01/2022 SPEC #: [id number] RECD: 09/01/22 15:24 STATUS: TASNEEM REGalileo #: [id number] VERENA: 09/01/22 11:[address]: Javan Taylor DEPT: SURGICAL PATHOLOGY RECD BY: Deanne Cash ENTERED: 09/04/22 13:39 SP TYPE: TESTICLE OTHR DR: Dr. Martínez Rosado MD [facility] Tissues: Testis, NOS Procedures: Surgery Specimen Level IV HEADER OPERATION: Right radical orchiectomy PRE-OP DIAGNOSIS: Undescended testicle TISSUE SUBMITTED: Right testicle MICROSCOPIC DIAGNOSIS Right testicle, orchiectomy: Consistent with cryptorchid testis. AM:darshan 09/05/2022 MICROSCOPIC DESCRIPTION Slides are reviewed. GROSS DESCRIPTION Received in fixative is one container labeled with the patient's name and designated right testicle. The specimen consists of a testicle surrounded by soft tissue. The specimen measures 6 x 2.7 x 2.2 cm and weighs 18.4 gm. Serial sections reveal a testis measuring 3 x 2 x 2 cm. No mass lesions are identified. Distinct epididymis or rete testis are not identified. Subcontracts Manager sections are submitted in six cassettes. Cassette 6 contains the margin of excision. / AM:darshan 09/04/2022 TC:5 CPT: 91167
== END | disposition home or self-care (01) ==
LOC: LABSPEC 15:39
PROVIDERS: PCP Family Medicine; Visit Provider Urology
DX: Q53.10 Unspecified undescended testicle, unilateral (principal)
CPT/HCPCS: 88305; 88309

== ENCOUNTER → 2023-11-13 | Outpatient (CLI) | payer MEDICARE, OTHER, SELFPAY ==
[2023-11-13 10:46] LABS: Lipase 31 U/L (13-75)
--- OUTSIDE RECORDS SUMMARY | 2023-11-13 11:32 | XMS RPT_ITS | CCD ---
Author Name Unknown Address [id number] [place] [address] Organization [facility] Care Team Providers Care Manager Of Distribution Name Role Phone Shanelle Purvis PA-C Primary Care Provider [phone] Shanelle PURVIS Primary Care Unavailable GONZALES MONROY Referring Unavailable PROVIDER, UNKNOWN Referring Unavailable Shanelle PURVIS Primary Care Unavailable PROVIDER, UNKNOWN Referring Unavailable Shanelle PURVIS Primary Care Unavailable PROVIDER, UNKNOWN Referring Unavailable Shanelle PURVIS Primary Care Unavailable GONZALES MONROY Admitting Unavailable GONZALES MONROY Attending Unavailable Shanelle PURVIS Primary Care Unavailable Shanelle Purvis PA-C Primary Care Provider [phone] MARTÍNEZ YOUNG Referring Unavailable Shanelle PURVIS Primary Care Unavailable MARTÍNEZ YOUNG Referring Unavailable Shanelle PURVIS Primary Care Unavailable PURVISShanelle Attending Unavailable PURVISShanelle Primary Care Unavailable PURVISShanelle Attending Unavailable PURVISShanelle Primary Care Unavailable PURVISShanelle CARVAJAL Referring Unavailable DION KUMAR Attending Unavailable PURVISShanelle Primary Care Unavailable PURVISShanelle Referring Unavailable DION KUMAR Attending Unavailable PURVISShanelle Primary Care Unavailable PURVISShanelle Referring Unavailable DION KUMAR Attending Unavailable PURVISShanelle Primary Care Unavailable PURVISShanelle Primary Care Unavailable PURVIS, Shanelle DISLA Referring Unavailable Shanelle PURVIS Primary Care Unavailable MARTÍNEZ YOUNG Referring Unavailable MARTÍNEZ YOUNG Referring Unavailable Shanelle PURVIS Primary Care Unavailable MARTÍNEZ YOUNG Referring Unavailable PURVIS, Shanelle DISLA Primary Care Unavailable RAS MENDEZ Attending Unavailable RAS MENDEZ Referring Unavailable PURVISShanelle Primary Care Unavailable PURVIS, M NAIF Primary Care Unavailable PURVIS, M NAIF Referring Unavailable HANNAH, MARTÍNEZ Willingham Referring Unavailable PURVIS, M NAIF Primary Care Unavailable HANNAH, MARTÍNEZ Willingham Referring Unavailable PURVIS, M NAIF Primary Care Unavailable HANNAH, MARTÍNEZ J Referring Unavailable PURVIS, M NAIF Primary Care Unavailable HANNAH, MARTÍNEZ J Referring Unavailable PURVIS, M NAIF Primary Care Unavailable PURVIS, M NAIF Primary Care Unavailable HANNAH, MARTÍNEZ J Referring Unavailable GONZALES MONROY Attending Unavailable PURVIS, M NAIF Primary Care Unavailable HANNAH, MARTÍNEZ J Referring Unavailable PURVIS, M NAIF Primary Care Unavailable RAS MENDEZ Referring Unavailable PURVIS, M NAIF Primary Care Unavailable PURVIS, M NAIF Referring Unavailable DION KUMAR Attending Unavailable PURVIS, M NAIF Primary Care Unavailable PURVIS, M NAIF Primary Care Unavailable HANNAH, MARTÍNEZ J Referring Unavailable PURVIS, M NAIF Primary Care Unavailable HANNAH, MARTÍNEZ J Referring Unavailable PURVIS, M NAIF Primary Care Unavailable HANNAH, MARTÍNEZ J Referring Unavailable PURVIS, M NAIF Primary Care Unavailable HANNAH, MARTÍNEZ J Referring Unavailable PURVIS, M NAIF Primary Care Unavailable GONZALES MONROY Attending Unavailable PURVIS, M NAIF Primary Care Unavailable PURVIS, M NAIF Primary Care Unavailable HANNAH, MARTÍNEZ Willingham Referring Unavailable PURVIS, M NAIF Attending Unavailable PURVIS, M NAIF Primary Care Unavailable GONZALES MONROY Referring Unavailable PURVIS, M NAIF Primary Care Unavailable HANNAH, MARTÍNEZ Willingham Referring Unavailable PURVIS, M NAIF Primary Care Unavailable GONZALES MONROY Attending Unavailable GONZALES MONROY Referring Unavailable PURVIS, M NAIF Primary Care Unavailable PURVIS, M NAIF Referring Unavailable PURVIS, M NAIF Primary Care Unavailable GONZALES MONROY Attending Unavailable PURVIS, M NAIF Referring Unavailable PURVIS, M NAIF Primary Care Unavailable GONZALES MONROY Referring Unavailable PURVIS, M NAIF Primary Care Unavailable HANNAH, MARTÍNEZ Willingham Referring Unavailable PURVIS, M NAIF Primary Care Unavailable MAURA SHAH Attending Unavailable PURVIS, M NAIF Referring Unavailable PURVIS, M NAIF Primary Care Unavailable HANNAH, MARTÍNEZ Willingham Referring Unavailable PURVIS, M NAIF Primary Care Unavailable PURVIS, M NAIF Referring Unavailable PURVIS, M NAIF Primary Care Unavailable PURVIS, M NAIF Referring Unavailable PURVIS, M NAIF Primary Care Unavailable HANNAH, MARTÍNEZ J Referring Unavailable PURVIS, M NAIF Primary Care Unavailable RAS MENDEZ Attending Unavailable RAS MENDEZ Referring Unavailable Shanelle PURVIS Primary Care Unavailable MARTÍNEZ YOUNG Referring Unavailable Shanelle PURVIS Primary Care Unavailable Shanelle PURVIS Referring Unavailable Shanelle PURVIS Primary Care Unavailable Shanelle PURVIS Referring Unavailable Shanelle PURVIS Primary Care Unavailable MARTÍNEZ YOUNG Referring Unavailable Shanelle PURVIS Primary Care Unavailable MARTÍNEZ YOUNG Referring Unavailable Shanelle PURVIS Primary Care Unavailable Allergies Allergy Classification Reported Allergen(s) Allergy Type Date of Onset Reaction(s) Facility (20 sources) Latex; Translations: [LATEX] Drug Intolerance 7 Other: See Comments [facility] (20 sources) LORazepam; Translations: [LORAZEPAM] Drug Allergy 5 Mental Status Change [facility] (20 sources) adhesives [Other] Propensity to adverse reactions [address] [facility] Work Phone: (20 sources) tape [Other] Propensity to adverse reactions [address] [facility] (2 sources) OTHER; Translations: [OTHER] Propensity to adverse reactions (disorder) [address] [facility] Other [facility] [place] [facility] Medications Current Medications Medication Drug Class(es) Dates Sig (Normalized) Sig (Original) acetaminophen 325 mg / HYDROcodone bitartrate 5 mg oral tablet (1 source) Opioid Agonist Start: 11-17-2022 End: 11-24-2022 take 1 tablet by mouth every six hours as needed for pain HYDROcodone-acetamino phen (NORCO) 5-325 mg per tablet Indications: Arthritis of carpometacarpal (CMC) joint of left thumb Take 1 tablet by mouth every 6 hours as needed for pain for up to 7 days. 28 tablet 0 11/17/2022 11/24/2022 Active Completed/Discontinued Medications Medication Drug Class(es) Dates Sig (Normalized) Sig (Original) [id number] 200 actuat albuterol 0.09 mg/actuat metered dose inhaler (20 sources) beta2-Adrenergic Agonist Start: 01-22-2023 take 2 puff(s) by mouth every four hours as needed for wheezing albuterol HFA (VENTOLIN HFA) 90 mcg/actuation inhaler Indications: COPD with exacerbation (HCC) INHALE 2 PUFFS BY MOUTH EVERY 4 HOURS NEEDED FOR WHEEZING OR SHORTNESS OF BREATH 36 g 3 01/22/2023 Active Problems Active Problems Problem Classification Problem Date Documented Da te Episodic/Chronic Abdominal pain (1 source) Epigastric pain; Translations: [Epigastric pain] Episodic Adjustment disorders (2 sources) Adjustment disorder with mixed anxiety and depressed mood; Translations: [Adjustment disorder with mixed anxiety and depressed mood] Onset: 2 Chronic Anxiety disorders (20 sources) Generalized anxiety disorder; Translations: [Generalized anxiety disorder] Onset: 7 06-04-2007 Chronic Asthma (20 sources) Mild intermittent asthma; Translations: [Mild intermittent asthma, uncomplicated] Onset: 2 09-12-2012 Chronic Cardiac dysrhythmias (20 sources) Chronic atrial fibrillation; Translations: [Chronic atrial fibrillation, unspecified] Onset: 9 Chronic Cataract (20 sources) Bilateral cortical age-related cataract eyes; Translations: [Cortical age-related cataract, bilateral] Onset: 1 06-01-2021 Chronic Chronic obstructive pulmonary disease and bronchiectasis (20 sources) Chronic obstructive lung disease co-occurrent with acute bronchitis; Translations: [Chronic obstructive pulmonary disease with (acute) lower respiratory infection] Onset: 8 11-29-2017 Chronic Disorders of lipid metabolism (20 sources) Hyperlipidemia; Translations: [Other hyperlipidemia] Onset: 2 Chronic Esophageal disorders (20 sources) Gastroesophageal reflux disease; Translations: [Gastro-esophageal reflux disease without esophagitis] Onset: 2 Chronic Immunizations and screening for infectious disease (1 source) Suspected disease caused by 2019-nCoV; Translations: [Suspected COVID-19 virus infection] Episodic Miscellaneous mental health disorders (20 sources) Primary insomnia; Translations: [Primary insomnia] Onset: 8 12-28-2015 Chronic Osteoarthritis (20 sources) Degenerative joint disease involving multiple joints; Translations: [Polyosteoarthritis, unspecified] Onset: 7 06-04-2007 Chronic Other aftercare (3 sources) Long-term current use of anticoagulant; Translations: [assisted (current) use of anticoagulants] Episodic Other aftercare (1 source) terminal carman (current) use of anticoagulants; Translations: [Chronic anticoagulation] Onset: 3 Episodic Other and unspecified benign neoplasm (20 sources) Intracranial meningioma; Translations: [Benign neoplasm of cerebral meninges] Onset: 8 08-08-2018 Chronic Other and unspecified benign neoplasm (1 source) Benign neoplasm of cerebral meninges; Translations: [Intracranial meningioma (HCC)] Onset: 8 Chronic Other and unspecified benign neoplasm (1 source) 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; Translations: [Benign neoplasm of left conjunctiva] Episodic Other connective tissue disease (2 sources) Pain in right hand; Translations: [Pain in right hand] Episodic Other ear and sense organ disorders (20 sources) Bilateral hearing loss; Translations: [Sensorineural hearing loss, unilateral, right ear, with restricted hearing on the contralateral side] Onset: 9 01-14-2019 Chronic Other endocrine disorders (20 sources) Male hypogonadism; Translations: [Testicular hypofunction] Onset: 7 10-25-2017 Chronic Other endocrine disorders (1 source) Testicular hypofunction; Translations: [Hypogonadism in male] Onset: 7 Chronic Other gastrointestinal disorders (1 source) Heartburn; Translations: [Heartburn] Episodic Other lower respiratory disease (2 sources) Dyspnea on exertion; Translations: [Dyspnea, unspecified] Episodic Other lower respiratory disease (1 source) Other forms of dyspnea; Translations: [RUIZ (dyspnea on exertion)] Onset: 3 Episodic Other nervous system disorders (1 source) Ulnar neuropathy; Translations: [Lesion of ulnar nerve, right upper limb] Chronic Other upper respiratory infections (20 sources) Chronic left maxillary sinusitis; Translations: [Chronic maxillary sinusitis] Onset: 9 08-19-2019 Chronic Unclassified (1 source) Chronic atrial fibrillation, unspecified; Translations: [Chronic atrial fibrillation (HCC)] Onset: 6 Past or Other Problems Problem Classification Problem Date Documented Da te Episodic/Chronic Blindness and vision defects (20 sources) Disorder of refraction; Translations: [Unspecified disorder of refraction] Onset: 06-01-2021 06-01-2021 Episodic Conditions associated with dizziness or vertigo (20 sources) Dizziness and giddiness; Translations: [Dizziness and giddiness] Onset: 01-14-2019 01-14-2019 Episodic Menopausal disorders (2 sources) Long-term current use of testosterone replacement therapy; Translations: [Hormone replacement therapy] Onset: 04-28-2022 Episodic Nonspecific chest pain (20 sources) Chest pain; Translations: [Other chest pain] Onset: 07-28-2021 07-28-2021 Episodic Other and unspecified benign neoplasm (20 sources) Benign neoplasm of colon; Translations: [Benign neoplasm of colon, unspecified] Onset: 08-08-2007 08-08-2007 Episodic Other and unspecified benign neoplasm (20 sources) History of polyp of colon; Translations: [Personal history of colonic polyps] Onset: 09-19-2012 01-01-2019 Episodic Other and unspecified benign neoplasm (20 sources) Hemangioma of liver; Translations: [Hemangioma of intra-abdominal structures] Onset: 12-30-2019 01-18-2021 Episodic Other and unspecified benign neoplasm (2 sources) Hemangioma of intra-abdominal structures; Translations: [Hemangioma of liver] Onset: 01-18-2021 Episodic Other connective tissue disease (20 sources) Impingement syndrome of shoulder region; Translations: [Impingement syndrome of unspecified shoulder] Onset: 12-11-2016 12-11-2016 Episodic Other connective tissue disease (20 sources) Right rotator cuff syndrome; Translations: [Unspecified rotator cuff tear or rupture of right shoulder, not specified as traumatic] Onset: 12-11-2016 12-11-2016 Episodic Other connective tissue disease (20 sources) Tendonitis of right shoulder; Translations: [Other enthesopathies, not elsewhere classified] Onset: 09-26-2022 Episodic Other connective tissue disease (1 source) Other enthesopathies, not elsewhere classified; Translations: [Right shoulder tendinitis] Onset: 09-26-2022 Episodic Other connective tissue disease (1 source) Pain in right hand; Translations: [Pain of right hand] Onset: 10-02-2022 Episodic Other ear and sense organ disorders (20 sources) Ear pressure sensation; Translations: [Other specified disorders of right ear] Onset: 01-14-2019 01-14-2019 Episodic Other ear and sense organ disorders (20 sources) Bilateral tinnitus; Translations: [Tinnitus, bilateral] Onset: 01-14-2019 01-14-2019 Episodic Other eye disorders (20 sources) Tear film insufficiency; Translations: [Dry eye syndrome of bilateral lacrimal glands] Onset: 06-01-2021 06-01-2021 Episodic Other lower respiratory disease (1 source) Dyspnea, unspecified; Translations: [RUIZ (dyspnea on exertion)] Onset: 04-28-2022 Episodic Other non-traumatic joint disorders (20 sources) Disorder of shoulder; Translations: [Other specified joint disorders, unspecified shoulder] Onset: 12-11-2016 12-11-2016 Episodic Other screening for suspected conditions (not mental disorders or infectious disease) (20 sources) Patient encounter status; Translations: [Encounter for screening for malignant neoplasm of colon] Onset: 07-12-2007 07-12-2007 Episodic Residual codes; unclassified (20 sources) H/O: risk factor; Translations: [Contact with and (suspected) exposure to noise] Onset: 01-14-2019 01-14-2019 Episodic Spondylosis; intervertebral disc disorders; other back problems (20 sources) Low back pain; Translations: [Low back pain] Onset: 12-09-2009 12-09-2009 Episodic Results Test Name Value Interpretation Reference Range Facil ity Vital Signs Date Time Vital Sign Value Performing Clinician Faci lity 01-22-2023 09:50-0400 Body weight 84.82 kg Ras Mendez MD Work Phone: [facility] 01-22-2023 09:50-0400 Diastolic blood pressure 78 mm[Hg] Ras Mendez MD Work Phone: [facility] 01-22-2023 09:50-0400 Heart rate 82 /min Ras Mendez MD Work Phone: [facility] 01-22-2023 09:50-0400 SaO2% (BldA) [Mass fraction] 98 % Ras Mendez MD Work Phone: [facility] 01-22-2023 09:50-0400 Systolic blood pressure 122 mm[Hg] Ras Mendez MD Work Phone: [facility] 12-19-2022 09:01-0500 Body weight 79.38 kg ROB Purvis PA-C Work Phone: [facility] 12-19-2022 09:01-0500 Diastolic blood pressure 86 mm[Hg] NA Purvis PA-C Work Phone: [facility] 12-19-2022 09:01-0500 Heart rate 86 /min NA Purvis PA-C Work Phone: [facility] 12-19-2022 09:01-0500 Respiratory rate 16 /min NA Purvis PA-C Work Phone: [facility] 12-19-2022 09:01-0500 SaO2% (BldA) [Mass fraction] 97 % NA Purvis PA-C Work Phone: [facility] 12-19-2022 09:01-0500 Systolic blood pressure 148 mm[Hg] NA Purvis PA-C Work Phone: [facility] 10-23-2022 10:24-0500 Body height 175.3 cm Pacc 1 Work Phone: [facility] 10-23-2022 10:24-0500 Body temperature 97.81 [degF] Pacc 1 Work Phone: [facility] 10-23-2022 10:24-0500 Body weight 79.83 kg Pacc 1 Work Phone: [facility] 10-23-2022 10:24-0500 Diastolic blood pressure 84 mm[Hg] Pacc 1 Work Phone: [facility] 10-23-2022 10:24-0500 Heart rate 78 /min Pacc 1 Work Phone: [facility] 10-23-2022 10:24-0500 Respiratory rate 18 /min Pacc 1 Work Phone: [facility] 10-23-2022 10:24-0500 SaO2% (BldA) [Mass fraction] 95 % Pacc 1 Work Phone: [facility] 10-23-2022 10:24-0500 Systolic blood pressure 132 mm[Hg] Pacc 1 Work Phone: [facility] 07-31-2022 11:40-0400 Body temperature 99.9 [degF] Chung Paololebury MACHINE SHORTHAND TEACHER.CHICKEN TENDER Work Phone: [facility] 07-31-2022 11:40-0400 Body weight 78.02 kg Chung Glover MACHINE SHORTHAND TEACHER.CHICKEN TENDER Work Phone: [facility] 07-31-2022 11:40-0400 Diastolic blood pressure 90 mm[Hg] Chung Ugaldebury MACHINE SHORTHAND TEACHER.CHICKEN TENDER Work Phone: [facility] 07-31-2022 11:40-0400 Heart rate 94 /min [facility] MACHINE SHORTHAND TEACHER.CHICKEN TENDER Work Phone: [facility] 07-31-2022 11:40-0400 Respiratory rate 18 /min [facility] MACHINE SHORTHAND TEACHER.CHICKEN TENDER Work Phone: [facility] 07-31-2022 11:40-0400 SaO2% (BldA) [Mass fraction] 94 % [facility] MACHINE SHORTHAND TEACHER.CHICKEN TENDER Work Phone: [facility] 07-31-2022 11:40-0400 Systolic blood pressure 130 mm[Hg] Chung Glover MACHINE SHORTHAND TEACHER.CHICKEN TENDER Work Phone: [facility] 07-10-2022 10:06-0400 Body weight 78.93 kg Ras Mendez MD Work Phone: [facility] 07-10-2022 10:06-0400 Diastolic blood pressure 90 mm[Hg] Ras Mendez MD Work Phone: [facility] 07-10-2022 10:06-0400 Heart rate 70 /min Ras Mendez MD Work Phone: [facility] 07-10-2022 10:06-0400 Systolic blood pressure 140 mm[Hg] Ras Mendez MD Work Phone: [facility] 04-28-2022 10:30-0400 Body weight 81.65 kg NA Yaniv COOK Work Phone: [facility] 04-28-2022 10:30-0400 Diastolic blood pressure 78 mm[Hg] NA Yaniv COOK Work Phone: [facility] 04-28-2022 10:30-0400 Heart rate 71 /min NA Puvris PA-C Work Phone: [facility] 04-28-2022 10:30-0400 Respiratory rate 18 /min NA Purvis PA-C Work Phone: [facility] 04-28-2022 10:30-0400 SaO2% (BldA) [Mass fraction] 97 % NA Purvis PA-C Work Phone: [facility] 04-28-2022 10:30-0400 Systolic blood pressure 128 mm[Hg] NA Purvis PA-C Work Phone: [facility] Encounters Encounter Date Encounter Type Care Provider Facility Start: 09-13-2023 Taran Disla Artur on PA-C Work Phone: [facility] Procedures Date Procedure Procedure Detail Performing Clinician Start: 10-02-2022 Radex hand minimum 3 views Gonzales Monroy MD Work Phone: Start: 09-19-2022 Mri brain brain stem w/o w/contrast material Shanelle Disla Purvis PA-C Work Phone: Start: 05-16-2022 Mri abdomen w/o & w/contrast material Shanelle Disla Purvis PA-C Work Phone: Start: 07-24-2019 Adult depression screening assessment NA Purvis PA-C Work Phone: Plan of Treatment Date Care Activity Detail Author Start: 03-15-2026 DIABETES SCREEN DIABETES SCREEN [facility] Start: 03-15-2026 Diabetes Screening Diabetes Screenin g [facility] Start: 05-16-2025 DIABETES SCREEN DIABETES SCREEN [facility] Start: 05-04-2025 DIABETES SCREEN DIABETES SCREEN [facility] Start: 03-09-2025 DIABETES SCREEN DIABETES SCREEN [facility] Start: 10-19-2024 DIABETES SCREEN DIABETES SCREEN [facility] Start: 06-03-2024 Urine microalbumin profile [facility] Start: 12-19-2023 ANNUAL PCP TEAM SCRAP BUNCH MAKER MARCOS DISEASE VISIT ANNUAL PCP TEAM CHRONIC DISEASE VISIT [facility] Start: 12-19-2023 COVID-19 VACCINE (3 - Booster for Pfizer series) COVID-19 VACCINE (3 - Booster for Pfizer series) [facility] Immunizations Immunization Date Immunization Notes Care Provider Violet burgos 09-18-2022 influenza, high-dose , quadrivalent vaccine (FLUZONE HIGH DOSE QUADRIVALENT) NA Purvis PA-C Work Phone: [facility] 09-18-2022 influenza virus vacc ine, unspecified formulation NA Purvis PA-C Work Phone: [facility] 10-13-2021 influenza, high-dose , quadrivalent vaccine (FLUZONE HIGH DOSE QUADRIVALENT) NA Purvis PA-C Work Phone: [facility] 12-23-2019 influenza, seasonal, injectable, preservative free NA Purivs PA-C Work Phone: [facility] 12-15-2019 influenza, high dose seasonal, preservative-free NA Purvis PA-C Work Phone: [facility] 08-12-2018 influenza, high dose seasonal, preservative-free NA Purvis PA-C Work Phone: [facility] Work Phone: 08-21-2016 influenza, high dose seasonal, preservative-free NA Purvis PA-C Work Phone: [facility] 12-28-2015 pneumococcal conjuga te vaccine, 13 valent NA Purvis PA-C Work Phone: [facility] 08-06-2014 influenza, high dose seasonal, preservative-free NA Purvis PA-C Work Phone: [facility] 06-03-2014 TD(adult) unspecifie d formulation NA Purvis PA-C Work Phone: [facility] 06-03-2014 tetanus and diphther ia toxoids, adsorbed, preservative free, for adult use (2 Lf of tetanus toxoid and 2 Lf of diphtheria toxoid) NA Purvis PA-C Work Phone: [facility] 09-03-2013 influenza virus vacc ine, unspecified formulation NA Purvis PA-C Work Phone: [facility] 09-13-2012 influenza virus vacc ine, unspecified formulation NA Purvis PA-C Work Phone: [facility] 10-18-2010 pneumococcal polysaccharide vaccine, 23 valent NA Purvis PA-C Work Phone: [facility] 08-26-2009 influenza virus vacc ine, unspecified formulation NA Purvis PA-C Work Phone: [facility] 06-12-2005 diphtheria and tetan us toxoids, adsorbed for pediatric use NA Purvis PA-C Work Phone: [facility] Payers Date Payer Category Payer Medicare MEDICARE MEDICAR E A AND B [id number] 2008-Present [phone] [address] [address] [place] [address] Medicare [id number] 2008 Medicare MEDICARE MEDICAR E A AND B [id number] 2008-Present [phone] [address] [address] [place] [address] Medicare [id number] 2008 Medicare [id number] 2003 [employer] ( and others) [id number] 2003 Unknown FOR LIFE [id number] 2003-Present [phone] [place] [id number] Indemnity [id number] 2003 Unknown FOR LIFE [id number] 2003-Present [phone] [address] [place] [address] Indemnity [id number] Social History Date Type Detail Facility Start: 07-28-2021 End: 07-10-2022 Tobacco smoking status NHIS Ex-smoker [facility] History of tobacco use Pipe Smoker [facility] Start: 10-17-2020 End: 07-28-2021 Cigarettes smoked current (pack per day) - Reported [address] [facility] Work Phone: Start: 07-28-2021 End: 07-10-2022 Tobacco use and exposure Smokeless tobacco non-user [facility] Start: 01-09-2022 End: 09-18-2022 Alcohol intake Current non-drinker of alcohol (finding) [facility] Start: 12-28-2015 History SDOH Alcohol Comment hx of abuse, quit drinking August 2015. [facility] Start: 10-19-2014 End: 07-10-2022 Tobacco Comment smokes occasional pipe [facility] Start: 1945 Sex Assigned At Not on file [facility] Start: 01-23-2022 End: 10-02-2022 Exposure to SARS-CoV-2 (event) Not sure [facility] History of tobacco use Current smoker [facility] History of tobacco use Cigarette Smoker C [facility] Start: 10-17-2020 End: 01-22-2023 Tobacco use panel [facility] Work Phone: Adult Depression Screening Assessment [address] [facility] Work Phone: Clinical Notes 12-30-2019 to 09-14-2023 Telephone Encounter - Neo Chung - 09/14/2023 2:13 PM EDTTelephone Encounter - Carolina Husain LPN - 03/16/2023 8:31 AM EDTTelephone Encounter - Shanelle Purvis PA-C - 03/15/2023 7:11 PM EDT Note Date & Type Note Facility 09-14-2023 Miscellaneous Notes Patient phones requesting refills as follows: Requested Prescriptions Pending Prescriptions Disp Refills Doxepin 3 mg tab 30 tablet 2 Sig: Take 1 tablet by mouth daily at bedtime. ASHUTOSH 12/19/22Sep no upcoming appt Please review and advise. Neo Chung documented in this encounter [facility] 03-16-2023 Miscellaneous Notes Patient notified and verbalizes understanding. He will check with pharmacy and let us know the outcome. Lower next dose to 2.5mg and then new schedule: 2.5mg one day, all others 5mg Recheck in INR 2 weeks. In the interim I will send an rx in for eliquis and see if we can get it covered. 03/15/2023 CRE 0.79, eGFR 90 Have him check tomorrow with pharmacy on cost and call or mychart results. We may have to finagle assistance if too high. If cost is acceptable will stop coumadin and started apixaban next day The following approved medication requests have been transmitted electronically. Requested Prescriptions Signed Prescriptions Disp Refills apixaban (ELIQUIS) 5 mg tab(s) 60 tablet 5 Sig: Take 1 tablet by mouth twice daily. Authorizing Provider: Shanelle PURVIS PA-C See Message below. Patient states that for the past 4 nights he had mixed up an elixir to help him sleep. Elixir consists of 1 cup water, 1/4 of cinnamon stick, 1/2 lemon, 1 Tablespoon apple cider vinegar, and bag of chamomile tea. Patient does not know if this would have an effect on INR. Please review and advise, Joy Saravia RN Patient returned call and went over notes from Shaun JORDAN with understanding. Patient said he has been on keto diet for some time, but INR has fluctuated for long time. Patient said he is interested in which ever medication you think he should go on. He is tired if having all the blood work done all the time. He uses [facility] for his pharmacy. Left message to call office and speak with nurse. INR is too high- any diet changes? This seems to fluctuate way too often. Would he be interested in trying Eliquis or Xarelto- doesn't required labwork. Thanks, Shaun Purvis PA-C Last INR: INR (POCT) 3.5 03/15/2023 Current dose of coumadin is: 5mg daily. Last date of dose change: 12/18/22. Previous INR (date and result): 2.7 03/01/23 Additional Clinical Information or narrative: no documented in this encounter [facility] 03-08-2023 Miscellaneous Notes Patient has been identified by name and date of : Yes, Provider MARGAUX Quach Date 03/08/23 Time 9:31 am Patient phones for refill(s): Requested Prescriptions Pending Prescriptions Disp Refills Doxepin 3 mg tab 30 tablet 2 Sig: Take 1 tablet by mouth daily at bedtime. Date of last office visit in primary care: 12/19/22 next apt Last 2 Encounter Wt Readings: Date: Wt: 01/22/2023 84.8 kg (187 lb) 12/19/2022 79.4 kg (175 lb) Previous labs/tests for medication: Not applicable Thank you. Oneida Hannah LPN documented in this encounter [facility] 03-01-2023 Miscellaneous Notes Patient notified of results, verbalizes understanding of instructions. Tracker updated. Heather Gil MA Same dosing, recheck 2 weeks. Shaun Ortiz PA-C Last INR: INR (POCT) 2.7 03/01/2023 Current dose of coumadin is: 5mg daily. Last date of dose change: 12/18/22. Previous INR (date and result): 2.1 02/15/23 Additional Clinical Information or narrative: no documented in this encounter [facility] 02-15-2023 Miscellaneous Notes Patient instructed of dosage with teach back method. Verbalizes understanding. Same dose, 2 weeks Shaun Ortiz PA-C Last INR: INR (POCT) 2.1 02/15/2023 Current dose of coumadin is: 5 mg daily. Previous INR (date and result): 2.6 on 02/01/23 Additional Clinical Information or narrative: no documented in this encounter [facility] 02-01-2023 Miscellaneous Notes Confirmed dose with patient and states that is taking 5 mg daily. Tracker updated. Same dose, 2 weeks Shaun Ortiz PA-C Last INR: INR (POCT) 2.6 02/01/2023 Current dose of coumadin is: 2.5 Tues/Thurs and 5mg all other days. Last date of dose change: 01/15/23 was instructed to take an extra 2.5mg. Previous INR (date and result): 01/15/23 1.8 Additional Clinical Information or narrative: no documented in this encounter [facility] 01-25-2023 Note HNO ID: [id number] Author: Delphine Lang OT/Sara Service: ? Author Type: Occupational Therapist Type: Progress Notes Filed: 01/25/2023 10:52 AM Note Text: Episode Visit Count: 3 Therapist That Will Accept/Oversee The Plan Of Care: Rickey Akers Start of Care Date: 11/28/22 Onset Date: 11/17/22 Plan of Care Certification Date: 11/28/22 Next Certification Due Date: 02/23/23 Patient Identified by Name and Date of : Yes REHABILITATION AND SPORTS THERAPY OCCUPATIONAL THERAPY DISCONTINUANCE OF CARE PLAN OF CARE UPDATE: Assessment: Lupillo Mercado is discontinued from Occupational Therapy services due to goal achievement and maximal benefit.. Patient was seen for 3 visits from Start of Care Date: 11/28/22 to 01/25/2023 and treatment included: Therapeutic exercise. Goals for Episode of Care created on 11/28/22 through 02/16/23 Patient will report a good understanding of diagnosis and OT recommendations for progression of program.PROGRESSING 01/04 MET Patient will demonstrate independence with ongoing home recommendations/exercise program throughout therapy plan of care. PROGRESSING 01/04 MET Patient will independently demonstrate correct application of CUSTOM orthosis and verbalize understanding of proper wear/care. PROGRESSING 01/04 MET Patient will report a good understanding of edema control, scar / wound management throughout therapy plan of care to promote non-adherent / non-tender soft tissue.PROGRESSING 01/04 MET Patient Goals: to resume full function PROGRESSING 01/04 SUBJECTIVE: 10 weeks post CMC suspensionplasty Pain: Post Treatment Pain Post Treatment Pain Level: 0 PROMIS Scales T-scores: mean of general population = 50. 5 points is clinically meaningfully difference Percentiles provide an indication of how the patient's score ranks in relation to the general population. Higher percentile rankings indicate better function/quality of life. 50th percentile is the average of the general population and indicates half of respondents had a worse score. OBJECTIVE MEASURES WITH LEVEL OF FUNCTION: Hand Strength: Wire Tester Position 2, Pinch Meter Hand Strength R Wire Tester Position 2 (lbs): 49 lbs R Lateral Pinch (lbs): 7 lbs R Tripod/ 3 Jaw Florencio (lbs): 7 lbs Sensory R Thumb Sensation, Osburn Sanjeev: 3.61 - diminished light touch R Index Finger Sensation, Osburn Sanjeev: 3.61 - diminished light touch R Middle Finger Sensation, Osburn Sanjeev: 3.61-diminished light touch R Radial Ring Finger Sensation, Osburn Sanjeev: 3.61 - diminished light touch R Ulnar Ring Finger Sensation, Osburn Sanjeev: 4.31 - diminished protective sensation R Little Finger Sensation, Osburn Sanjeev: 4.31 - diminished protective sensation UE AROM R Wrist Extension: 65 Degrees R Wrist Flexion: 65 Degrees R Wrist Radial Deviation: 30 Degrees R Wrist Ulnar Deviation: 20 Degrees Hand AROM R Thumb MP Flexion : 52 Degrees R Thumb IP Flexion : 55 Degrees R Thumb Radial Abduction: 75 Degrees R Thumb Palmar Abduction: 70 Degrees TREATMENT: Therapeutic Exercise: 1: objective measurements taken and recorded discusses with patient 2: reviewed and provided hamndouts for all strengthening with instructions on progression 3: educated in resuming normal activities including yardwork, working out to his tolerance Skilled Intervention: Patient was educated in proper exercise technique and purpose for exercises. Skilled judgment was provided in selection of appropriate interventions. Billing Therapeutic Exercise Treatment Minutes: 38 Delphine Lang OT/Sara [facility] 01-25-2023 History of Presen t illness Narrative Episode Visit Count: 3 Therapist That Will Accept/Oversee The Plan Of Care: Rickey Akers Start of Care Date: 11/28/22 Onset Date: 11/17/22 Plan of Care Certification Date: 11/28/22 Next Certification Due Date: 02/23/23 Patient Identified by Name and Date of : Yes REHABILITATION AND SPORTS THERAPY OCCUPATIONAL THERAPY DISCONTINUANCE OF CARE PLAN OF CARE UPDATE: Assessment: Lupillo Mercado is discontinued from Occupational Therapy services due to goal achievement and maximal benefit.. Patient was seen for 3 visits from Start of Care Date: 11/28/22 to 01/25/2023 and treatment included: Therapeutic exercise. Goals for Episode of Care created on 11/28/22 through 02/16/23 Patient will report a good understanding of diagnosis and OT recommendations for progression of program.PROGRESSING 01/04 MET Patient will demonstrate independence with ongoing home recommendations/exercise program throughout therapy plan of care. PROGRESSING 01/04 MET Patient will independently demonstrate correct application of CUSTOM orthosis and verbalize understanding of proper wear/care. PROGRESSING 01/04 MET Patient will report a good understanding of edema control, scar / wound management throughout therapy plan of care to promote non-adherent / non-tender soft tissue.PROGRESSING 01/04 MET Patient Goals: to resume full function PROGRESSING 01/04 SUBJECTIVE: 10 weeks post CMC suspensionplasty Pain: Post Treatment Pain Post Treatment Pain Level: 0 PROMIS Scales T-scores: mean of general population = 50. 5 points is clinically meaningfully difference Percentiles provide an indication of how the patient's score ranks in relation to the general population. Higher percentile rankings indicate better function/quality of life. 50th percentile is the average of the general population and indicates half of respondents had a worse score. OBJECTIVE MEASURES WITH LEVEL OF FUNCTION: Hand Strength: Wire Tester Position 2, Pinch Meter Hand Strength R Wire Tester Position 2 (lbs): 49 lbs R Lateral Pinch (lbs): 7 lbs R Tripod/ 3 Jaw Florencio (lbs): 7 lbs Sensory R Thumb Sensation, Osburn Sanjeev: 3.61 - diminished light touch R Index Finger Sensation, Osburn Sanjeev: 3.61 - diminished light touch R Middle Finger Sensation, Osburn Sanjeev: 3.61-diminished light touch R Radial Ring Finger Sensation, Osburn Sanjeev: 3.61 - diminished light touch R Ulnar Ring Finger Sensation, Osburn Sanjeev: 4.31 - diminished protective sensation R Little Finger Sensation, Osburn Sanjeev: 4.31 - diminished protective sensation UE AROM R Wrist Extension: 65 Degrees R Wrist Flexion: 65 Degrees R Wrist Radial Deviation: 30 Degrees R Wrist Ulnar Deviation: 20 Degrees Hand AROM R Thumb MP Flexion : 52 Degrees R Thumb IP Flexion : 55 Degrees R Thumb Radial Abduction: 75 Degrees R Thumb Palmar Abduction: 70 Degrees TREATMENT: Therapeutic Exercise: 1: \objective measurements taken and recorded discusses with patient 2: reviewed and provided hamndouts for all strengthening with instructions on progression 3: educated in resuming normal activities including yardwork, working out to his tolerance Skilled Intervention: Patient was educated in proper exercise technique and purpose for exercises. Skilled judgment was provided in selection of appropriate interventions. Billing Therapeutic Exercise Treatment Minutes: 38 Delphine Lang OT/L documented in this encounter [facility] 01-22-2023 Note [facility] 01-22-2023 Instructions Ras Mendez MD - 01/22/2023 10:13 AM EDT We will repeat fasting blood work documented in this encounter [facility] 01-22-2023 History of Presen t illness Narrative Images from the original note were not included. [facility] SECTION OF REGIONAL CARDIOLOGY Cardiology ([facility]) [address] [facility] [id number] OUTPATIENT VISIT DATE 01/22/2023 PRIMARY CARE PHYSICIAN: Shanelle Purvis [address] [place] [address] HISTORY OF PRESENT ILLNESS: Mr. Mercado is a 77 year old gentleman with a longstanding history of atrial fibrillation who is here for routine follow-up. Patient continues to remain very active. He has been following a keto diet. He stopped taking Lipitor due to concerns of side effects. He has had no decline in his functional capacity since his last visit. He denies symptoms concerning for lightheadedness, dizziness, or syncope. He has not had symptoms concerning for congestive heart failure including PND, orthopnea, or lower extremity edema. PAST MEDICAL HISTORY Diagnosis Date Atrial fibrillation (HCC) Benign neoplasm of colon 2007 Head injury, unspecified 1963 Right Head Injury Unspec Hypogonadism in male sees Dr. Wilson Intracranial meningioma (HCC) 07/06/2018 05/29/17 MRI brain: left middle cranial fossa meningioma. Done for recent intermittent motion dizziness. No falls, loss of hearing. 06/25/[address] Mcintosh 07/19/18 consult Tani Mccormick M.D. Dx: Left sphenoid wing meningioma, slow growth from initial MRI 2006. Plan to repeat MRI in 1 year. Other specified diseases of intestine 12/2019 Pneumatosis coli 12/30/2019 12/17/19 patient had outpatient evaluation for heartburn and epigastric pain with ultrasound demonstrating possible hemangioma of liver. MRI was recommended. 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 Also 1 cm left hepatic lobe cyst. Follow-up MRI in 3-6 months is recommended to assess stability and exclude a malignant neoplasm. 12/27/19 [facility] ED Unspecified asthma(493.90) PAST SURGICAL HISTORY Procedure Laterality Date APPENDECTOMY ARTHRP KNE CONDYLE&PLATU MEDIAL&LAT COMPARTMENTS Right Knee replacement, total - Right CAPSULORRHAPHY ANTERIOR PUTTI-SHIRAZ/NHI Left Repair shoulder replacement COLONOSCPY FLX DX 2011 COLSC FLX W/REMOVAL LESION BY HOT BX FORCEPS 08/08/2007 small polyps at 20 and 40 cm - recommende 5 year follow up EXPLORATORY LAPAROTOMY CELIOTOMY W/WO BIOPSY SPX 12/28/2019 ORCHIECTOMY, RADICAL, INGUINAL APPROACH 2022 RPR 1ST INGUN HRNA AGE 3 YRS/> REDUCIBLE Right Hernia repair, inguinal SEPTOPLASTY/SUBMUCOUS RESECJ W/WO CARTILAGE GRF Septoplasty TONSILLECTOMY PRIMARY/SECONDARY <AGE 10 Tonsillectomy TRURL ELECTROSURG RESCJ PROSTATE BLEED COMPLETE 10/01/2019 Dr. Taylor SOCIAL HISTORY Social History Tobacco Use Smoking status: Former Packs/day: 2.00 Years: 10.00 Pack years: 20.00 Types: Pipe, Cigarettes Smokeless tobacco: Never Tobacco comments: smokes occasional pipe Vaping Use Vaping Use: Never used Substance Use Topics Alcohol use: No Alcohol/week: 0.0 standard drinks Comment: hx of abuse, quit drinking August 2015. Drug use: Not Currently Types: Marijuana FAMILY HISTORY Problem Relation Age of Onset other (Arteriosclerosis) Father Coronary Artery Disease Mother No Ocular Disease No Family History ALLERGIES: ALLERGIES Allergen Reactions Adhesives [Other] blisters Ativan [Lorazepam] Mental Status Change Latex Other: See Comments blisterering from adhesive Tape [Other] Rash MEDICATIONS: Doxepin 3 mg tab Take 1 tablet by mouth daily at bedtime. dilTIAZem CD (CARDIZEM CD, CARTIA XT) 180 mg 24 hr capsule Take 1 capsule by mouth once daily. warfarin (COUMADIN) 5 mg tablet 5mg daily or as directed by provider (Patient taking differently: 2.5 T/TH, 5 mg all other days or as directed by provider) omeprazole (PRILOSEC) 40 mg capsule Take 1 capsule by mouth once daily. (Patient taking differently: Take 40 mg by mouth as needed.) albuterol (PROVENTIL) 2.5 mg /3 mL (0.083 %) nebulizer solution Use 3 mL via nebulizer every 4 hours as needed for wheezing/shortness of breath. Use over 5-15minutes. Fluticasone Propionate (FLOVENT DISKUS) 50 mcg/actuation diskus inhaler Inhale 1 Puff as instructed twice daily. (Patient taking differently: Inhale 1 Puff as instructed as needed.) warfarin (COUMADIN) 4 mg tablet 4 mg daily or as directed by provider (Patient taking differently: 2.5 T/TH, 5 mg all other days or as directed by provider) albuterol HFA (VENTOLIN HFA) 90 mcg/actuation inhaler INHALE 2 PUFFS BY MOUTH EVERY 4 HOURS NEEDED FOR WHEEZING OR SHORTNESS OF BREATH sildenafil (REVATIO) 20 mg tablet TAKE 3 TABLETS BY MOUTH ONCE DAILY NEEDED testosterone (FORTESTA) 10 mg/0.5 gram /actuation glpm 3 pumps daily -- prescribed by urology. COMPOUNDED PRESCRIPTION Nebulizer and supplies. Use as directed. Dx: J44.1 REVIEW OF SYSTEMS: Review of Systems Constitutional: Negative for chills, fever, malaise/fatigue and weight loss. HENT: Negative for hearing loss and sore throat. Eyes: Negative for blurred vision and double vision. Respiratory: Negative. Cardiovascular: Negative. Genitourinary: Negative for dysuria, frequency, hematuria and urgency. Musculoskeletal: Negative. Skin: Negative. Neurological: Negative for dizziness, seizures, loss of consciousness, weakness and headaches. Endo/Heme/Allergies: Negative for environmental allergies. Does not bruise/bleed easily. Psychiatric/Behavioral: Negative for depression. PHYSICAL EXAMINATION: BP 122/78 Pulse 82 Wt 187 lb (84.8kg) SpO2 98% General: Patient sitting appears comfortable no apparent distress. He is alert and oriented x3 HEENT: Carotid upstrokes are brisk without bruits no JVD appreciated. Pulmonary: Lungs are clear no rales, wheezes, or rhonchi Cardiovascular: Variable S1. Regular rate with an irregularly irregular rhythm. No murmurs, rubs, or gallops Extremities: Warm, well-perfused, no lower extremity edema. CARDIOVASCULAR MEDICINE TESTING: Lexiscan Nuclear Stress [facility] 07/22/2021 1. Rest and stress SPECT Cardiolite nuclear imaging demonstrate relative uniform tracer uptake and myocardial perfusion appearing within normal limits. 2. Gated Cardiolite study reports an LVEF of 56% Ecocardiogram 04/19/2020: CONCLUSIONS: - Technically difficult exam due to body habitus. - Exam indication: Atrial fibrillation - The left ventricle is small. There is mild upper septal left ventricular hypertrophy. Left ventricular systolic function is normal. EF = 55 5% (2D biplane) Left ventricular diastolic function was not evaluated due to AF. - The right ventricle is normal in size. Right ventricular systolic function is npr,e mal.- The left atrial cavity is moderately dilated. - The right atrial cavity is dilated. - There is no significant valvular stenosis or insufficiency present. - The patient has not had a prior CC echocardiographic exam for comparison. IMPRESSION: Mr. Mercado is a 77 year old gentleman with a history of persistent atrial fibrillation, dyslipidemia, borderline hypertension, prior significant smoking history who presents for routine follow-up PLAN AND RECOMMENDATIONS: 1. Chronic atrial fibrillation (HCC) - ICD9: 427.31, ICD10: I48.20 (primary diagnosis) Heart rates adequately controlled on current regimen. He is on Coumadin for stroke risk reduction. - CBC - COMP METABOLIC PANEL 2. Other hyperlipidemia - ICD9: 272.4, ICD10: E78.49 Patient would like to recheck his fasting lipid panel before making a decision regarding treatment with statin. - COMP METABOLIC PANEL - LIPID PANEL BASIC Ras Mendez MD documented in this encounter [facility] 01-15-2023 Miscellaneous Notes Patient informed and verbalized understanding. Katy Chacon Take extra 2.5mg today, continue same schedule. Recheck in 2 weeks. Thanks, Shaun Purvis PA-C Last INR: INR (POCT) 1.8 01/15/2023 Current dose of coumadin is: 2.5mg Tues/Thurs and 5mg all other days. Last date of dose change: 12/18/22. Previous INR (date and result): 2.2 01/01/23 Additional Clinical Information or narrative: no documented in this encounter [facility] 01-15-2023 Note [facility] 01-15-2023 History of Presen t illness Narrative Gonzales Monroy MD Department of Orthopaedics Orthopaedics [address] [facility] [address] Dept: [phone] Dept January 15, 2023 CHIEF COMPLAINT: Post Op of the Right Hand and 8 weeks 3 days post op Right thumb CMC arthroplasty (and 1st dorsal compartment release). HPI Patient here for post op Right thumb CMC arthroplasty. He is continuing OT and home exercises. Patient states since the surgery he has been have numbness and tingling in his right 4th and 5th fingers. He was given some exercises in OT for his fingers but is not helping. 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 He believes he is got some ulnar neuropathy at the wrist with some subjective light touch sensation in the small and ulnar half of the ring with symptoms apparently isolated at the wrist. Otherwise doing well. We will continue to keep an eye on things and if he still having troubles in another 6 weeks we may consider a nerve exam. Exam: As above Supporting Information Below: Medications: Current Outpatient Medications Medication Sig Doxepin 3 mg tab Take 1 tablet by mouth daily at bedtime. dilTIAZem CD (CARDIZEM CD, CARTIA XT) 180 mg 24 hr capsule Take 1 capsule by mouth once daily. warfarin (COUMADIN) 5 mg tablet 5mg daily or as directed by provider (Patient taking differently: 2.5 T/TH, 5 mg all other days or as directed by provider) omeprazole (PRILOSEC) 40 mg capsule Take 1 capsule by mouth once daily. (Patient taking differently: Take 40 mg by mouth as needed.) albuterol (PROVENTIL) 2.5 mg /3 mL (0.083 %) nebulizer solution Use 3 mL via nebulizer every 4 hours as needed for wheezing/shortness of breath. Use over 5-15minutes. Fluticasone Propionate (FLOVENT DISKUS) 50 mcg/actuation diskus inhaler Inhale 1 Puff as instructed twice daily. (Patient taking differently: Inhale 1 Puff as instructed as needed.) warfarin (COUMADIN) 4 mg tablet 4 mg daily or as directed by provider (Patient taking differently: 2.5 T/TH, 5 mg all other days or as directed by provider) albuterol HFA (VENTOLIN HFA) 90 mcg/actuation inhaler INHALE 2 PUFFS BY MOUTH EVERY 4 HOURS NEEDED FOR WHEEZING OR SHORTNESS OF BREATH sildenafil (REVATIO) 20 mg tablet TAKE 3 TABLETS BY MOUTH ONCE DAILY NEEDED testosterone (FORTESTA) 10 mg/0.5 gram /actuation glpm 3 pumps daily -- prescribed by urology. COMPOUNDED PRESCRIPTION Nebulizer and supplies. Use as directed. Dx: J44.1 No current facility-administered medications for this visit. Allergies: Adhesives [Other], Ativan [Lorazepam], Latex, and Tape [Other] Gonzales Monroy MD documented in this encounter [facility] 01-15-2023 Miscellaneous Notes Telephone on 01/15/23 PROTHROMBIN TIME/PT ThanksShaun PA-C INR order is please file new order. documented in this encounter [facility] 01-05-2023 Miscellaneous Notes Patient instructed of dosage with teach back method. Verbalizes understanding. Same dose, repeat in 2 weeks ago Shaun Ortiz PA-C Last INR: INR (POCT) 2.2 01/01/2023 Current dose of coumadin is: 2.5 mg Tues/Thurs, 5 mg all other days. Last date of dose change: 12/14/22. Previous INR (date and result): 3.8 Additional Clinical Information or narrative: no documented in this encounter [facility] 01-04-2023 Note HNO ID: [id number] Author: Delphine Lang OT/Sara Service: ? Author Type: Occupational Therapist Type: Progress Notes Filed: 01/04/2023 11:04 AM Note Text: Episode Visit Count: 2 Therapist That Will Accept/Oversee The Plan Of Care: Rickey Akers Start of Care Date: 11/28/22 Onset Date: 11/17/22 Plan of Care Certification Date: 11/28/22 Next Certification Due Date: 02/23/23 REHABILITATION AND SPORTS THERAPY OCCUPATIONAL THERAPY PROGRESS REPORT PLAN OF CARE UPDATE: Assessment: Lupillo Mercado demonstrates moderate improvement in weight bearing, gripping, and pinching. He has progressed toward goals. Patient continues to present with impairments in strength that interfere with . Current prognosis is .good He will benefit from continued skilled therapy services to meet the updated goals for this plan of care as noted below. Goals for Episode of Care created on 11/28/22 through 02/16/23 Patient will report a good understanding of diagnosis and OT recommendations for progression of program.PROGRESSING 01/04 Patient will demonstrate independence with ongoing home recommendations/exercise program throughout therapy plan of care. PROGRESSING 01/04 Patient will independently demonstrate correct application of CUSTOM orthosis and verbalize understanding of proper wear/care. PROGRESSING 01/04 Patient will report a good understanding of edema control, scar / wound management throughout therapy plan of care to promote non-adherent / non-tender soft tissue.PROGRESSING 01/04 Patient Goals: to resume full function PROGRESSING 01/04 Planned Interventions, Frequency, and Duration: , Planned Treatment Interventions: SUBJECTIVE: 7 weeks post CMC arthroplasty reports he is here to see how he is doing has not been to OT reports ulnar nerve symptoms Pain: Pain Pain Level: 0 PROMIS Scales Higher is Better 12/11/2016 03/13/2017 GH Physical - Percentile 41 % 41 % GH Mental - Percentile 34 % 53 % T-scores: mean of general population = 50. 5 points is clinically meaningfully difference Percentiles provide an indication of how the patient's score ranks in relation to the general population. Higher percentile rankings indicate better function/quality of life. 50th percentile is the average of the general population and indicates half of respondents had a worse score. T-scores: mean of general population = 50. 5 points is clinically meaningfully difference Percentiles provide an indication of how the patient's score ranks in relation to the general population. Higher percentile rankings indicate better function/quality of life. 50th percentile is the average of the general population and indicates half of respondents had a worse score. OBJECTIVE MEASURES WITH LEVEL OF FUNCTION: Hand Strength: Wire Tester Position 2, Pinch Meter Sensation: Osburn-Sanjeev Hand, Reports tingling or numbness Hand Strength R Wire Tester Position 2 (lbs): 40 lbs L Wire Tester Position 2 (lbs): 60 lbs R Lateral Pinch (lbs): 7 lbs R Tripod/ 3 Jaw Florencio (lbs): 6 lbs L Lateral Pinch (lbs): 20 lbs L Tripod/ 3 Jaw Florencio (lbs): 17 lbs Sensory R Thumb Sensation, Osburn Sanjeev: 3.61 - diminished light touch R Index Finger Sensation, Osburn Sanjeev: 3.61 - diminished light touch R Middle Finger Sensation, Osburn Sanjeev: 3.61-diminished light touch R Radial Ring Finger Sensation, Osburn Sanjeev: 3.61 - diminished light touch R Ulnar Ring Finger Sensation, Osburn Sanjeev: 4.31 - diminished protective sensation R Little Finger Sensation, Osburn Sanjeev: 4.31 - diminished protective sensation UE AROM R Wrist Extension: 55 Degrees R Wrist Flexion: 55 Degrees R Wrist Radial Deviation: 25 Degrees R Wrist Ulnar Deviation: 15 Degrees Hand AROM R Thumb MP Flexion : 44 Degrees R Thumb IP Flexion : 57 Degrees R Thumb Radial Abduction: 75 Degrees R Thumb Palmar Abduction: 70 Degrees TREATMENT: Therapeutic Exercise: 1: 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 Skilled judgment was provided in selection of appropriate interventions. Provided written instruction for home exercise program to facilitate proper performance and compliance. Delphine Lang OT/[facility] 01-04-2023 History of Presen t illness Narrative Episode Visit Count: 2 Therapist That Will Accept/Oversee The Plan Of Care: Rickey Akers Start of Care Date: 11/28/22 Onset Date: 11/17/22 Plan of Care Certification Date: 11/28/22 Next Certification Due Date: 02/23/23 REHABILITATION AND SPORTS THERAPY OCCUPATIONAL THERAPY PROGRESS REPORT PLAN OF CARE UPDATE: Assessment: Lupillo Mercado demonstrates moderate improvement in weight bearing, gripping, and pinching. He has progressed toward goals. Patient continues to present with impairments in strength that interfere with . Current prognosis is .good He will benefit from continued skilled therapy services to meet the updated goals for this plan of care as noted below. Goals for Episode of Care created on 11/28/22 through 02/16/23 Patient will report a good understanding of diagnosis and OT recommendations for progression of program.PROGRESSING 01/04 Patient will demonstrate independence with ongoing home recommendations/exercise program throughout therapy plan of care. PROGRESSING 01/04 Patient will independently demonstrate correct application of CUSTOM orthosis and verbalize understanding of proper wear/care. PROGRESSING 01/04 Patient will report a good understanding of edema control, scar / wound management throughout therapy plan of care to promote non-adherent / non-tender soft tissue.PROGRESSING 01/04 Patient Goals: to resume full function PROGRESSING 01/04 Planned Interventions, Frequency, and Duration: , Planned Treatment Interventions: SUBJECTIVE: 7 weeks post CMC arthroplasty reports he is here to see how he is doing has not been to OT reports ulnar nerve symptoms Pain: Pain Pain Level: 0 PROMIS Scales Higher is Better 12/11/2016 03/13/2017 GH Physical - Percentile 41 % 41 % GH Mental - Percentile 34 % 53 % T-scores: mean of general population = 50. 5 points is clinically meaningfully difference Percentiles provide an indication of how the patient's score ranks in relation to the general population. Higher percentile rankings indicate better function/quality of life. 50th percentile is the average of the general population and indicates half of respondents had a worse score. T-scores: mean of general population = 50. 5 points is clinically meaningfully difference Percentiles provide an indication of how the patient's score ranks in relation to the general population. Higher percentile rankings indicate better function/quality of life. 50th percentile is the average of the general population and indicates half of respondents had a worse score. OBJECTIVE MEASURES WITH LEVEL OF FUNCTION: Hand Strength: Wire Tester Position 2, Pinch Meter Sensation: Osburn-Sanjeev Hand, Reports tingling or numbness Hand Strength R Wire Tester Position 2 (lbs): 40 lbs L Wire Tester Position 2 (lbs): 60 lbs R Lateral Pinch (lbs): 7 lbs R Tripod/ 3 Jaw Florencio (lbs): 6 lbs L Lateral Pinch (lbs): 20 lbs L Tripod/ 3 Jaw Florencio (lbs): 17 lbs Sensory R Thumb Sensation, Osburn Sanjeev: 3.61 - diminished light touch R Index Finger Sensation, Osburn Sanjeev: 3.61 - diminished light touch R Middle Finger Sensation, Osburn Sanjeev: 3.61-diminished light touch R Radial Ring Finger Sensation, Osburn Sanjeev: 3.61 - diminished light touch R Ulnar Ring Finger Sensation, Osburn Sanjeev: 4.31 - diminished protective sensation R Little Finger Sensation, Osburn Sanjeev: 4.31 - diminished protective sensation UE AROM R Wrist Extension: 55 Degrees R Wrist Flexion: 55 Degrees R Wrist Radial Deviation: 25 Degrees R Wrist Ulnar Deviation: 15 Degrees Hand AROM R Thumb MP Flexion : 44 Degrees R Thumb IP Flexion : 57 Degrees R Thumb Radial Abduction: 75 Degrees R Thumb Palmar Abduction: 70 Degrees TREATMENT: Therapeutic Exercise: 1: 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 Skilled judgment was provided in selection of appropriate interventions. Provided written instruction for home exercise program to facilitate proper performance and compliance. CLAIRE Fitch documented in this encounter [facility] 12-19-2022 Note [facility] 12-19-2022 Note HNO ID: [id number] Author: JOHN Santiago Service: Radiology Author Type: Technologist Type: Progress Notes Filed: 12/19/2022 1:14 PM Note Text: Radiology Service Progress Note PATIENT NAME: Lupillo Mercado DATE OF SERVICE: December 19, 2022 TIME: 1:14 PM PATIENT IDENTITY VERIFICATION COMPLETED USING TWO (2) IDENTIFIERS: Name and Date of confirmed by patient verbally. FALL SCREENING: Has the patient had 2 falls in the last year or 1 fall with injury or currently using an Ambulatory Assistive Device (Walker, Cane, Wheelchair, Crutches, etc.)? No PATIENT GENDER DATA: Male PATIENT RELEVANT IMPLANT DATA REVIEWED: Not Applicable RADIOLOGY DEPARTMENT: General X-ray: Exam(s) Completed: Upper Extremity X-Ray(s): Hand, right PERIPHERAL IV DATA: Not applicable SIGNED BY: JOHN Santiago December 19, 2022 1:14 PM [facility] 12-19-2022 History of Presen t illness Narrative Gonzales Monroy MD Department of Orthopaedics Orthopaedics [address] [place] [id number] Dept: [phone] December 19, 2022 CHIEF COMPLAINT: Post Op of the Right Hand and 4 weeks 6 days post op Right thumb CMC arthroplasty (and 1st dorsal compartment release). HPI Patient here for post op Right thumb CMC arthroplasty. Patient states he is continuing to wear orthoplasty splint. He is having numbness in his right 4th and 5th fingers. Patient thought he was scheduled for OT today but there is no appointment scheduled. He is continuing to home exercises. Patient is from [place] and asking if he can have his OT closer to home. Patient taking Tylenol for the pain and does not help. He is asking for a refill of Tramadol. X-rays done today. ASSESSMENT: M18.11 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 (primary encounter diagnosis) SUMMARY/PLAN: He's doing very well. Not sure why some ulnar symptoms. That's not typically seen. If symptoms persist, would get a nerve test at 3-4 months post-op. Exam: Healed incision. Normal radial sensory nerve. Imaging: Appropriate post op films. Mr. Lupillo Mercado was advised as to contrast therapies and/or to take analgesics/anti-inflammatories as needed and all contraindications were reviewed. Supporting Information Below: Medications: Current Outpatient Medications Medication Sig Doxepin 3 mg tab Take 1 tablet by mouth daily at bedtime. dilTIAZem CD (CARDIZEM CD, CARTIA XT) 180 mg 24 hr capsule Take 1 capsule by mouth once daily. warfarin (COUMADIN) 5 mg tablet 5mg daily or as directed by provider (Patient taking differently: 2.5 T/TH, 5 mg all other days or as directed by provider) omeprazole (PRILOSEC) 40 mg capsule Take 1 capsule by mouth once daily. (Patient taking differently: Take 40 mg by mouth as needed.) albuterol (PROVENTIL) 2.5 mg /3 mL (0.083 %) nebulizer solution Use 3 mL via nebulizer every 4 hours as needed for wheezing/shortness of breath. Use over 5-15minutes. Fluticasone Propionate (FLOVENT DISKUS) 50 mcg/actuation diskus inhaler Inhale 1 Puff as instructed twice daily. (Patient taking differently: Inhale 1 Puff as instructed as needed.) warfarin (COUMADIN) 4 mg tablet 4 mg daily or as directed by provider (Patient taking differently: 2.5 T/TH, 5 mg all other days or as directed by provider) albuterol HFA (VENTOLIN HFA) 90 mcg/actuation inhaler INHALE 2 PUFFS BY MOUTH EVERY 4 HOURS NEEDED FOR WHEEZING OR SHORTNESS OF BREATH sildenafil (REVATIO) 20 mg tablet TAKE 3 TABLETS BY MOUTH ONCE DAILY NEEDED COMPOUNDED PRESCRIPTION Nebulizer and supplies. Use as directed. Dx: J44.1 testosterone (FORTESTA) 10 mg/0.5 gram /actuation glpm 3 pumps daily -- prescribed by urology. No current facility-administered medications for this visit. Allergies: Adhesives [Other], Ativan [Lorazepam], Latex, and Tape [Other] Gonzales Monroy MD documented in this encounter [facility] 12-19-2022 Note [facility] 12-19-2022 History of Presen t illness Narrative 77 year old male with c/o here for follow up Chronic atrial fibrillation (hcc) (primary encounter diagnosis) Chronic anticoagulation Ruiz (dyspnea on exertion) Other hyperlipidemia Cardiovascular interval hx: Patient did not schedule nuclear medicine stress test ordered 07/14/2021 EKG 07/10/2022: Atrial fibrillation VR 69, AR 214, incomplete RBBB, left anterior fascicular block 12/20/2021 cardiology f/u Dr. Mendez 07/1021 nuclear pharmacologic stress test:Dr. Quesada [facility]: Baseline rhythm atrial fibrillation, isolated PVC during infusion recovery, no complaints of chest pain, MHR 94, 66% predicted, peak blood pressure 142. Cardiolite imaging: Uniform uptake, gated study shows myocardial thickening and inward wall motion, LVEF 56%. Echocardiogram 04/19/2020: CONCLUSIONS: - Technically difficult exam due to body habitus. - Exam indication: Atrial fibrillation - The left ventricle is small. There is mild upper septal left ventricular hypertrophy. Left ventricular systolic function is normal. EF = 55 5% (2D biplane) Left ventricular diastolic function was not evaluated due to AF. - The right ventricle is normal in size. Right ventricular systolic function is npr,e mal.- The left atrial cavity is moderately dilated. - The right atrial cavity is dilated. - There is no significant valvular stenosis or insufficiency present. - The patient has not had a prior CC echocardiographic exam for comparison. Current meds: Diltiazem CD 180mg daily Warfarin 5mg as directed Use of NTG: No Chest pain, arm, jaw pain, neck, or upper back pain suggestive of angina: No. SOB: No Dyspnea with exertion: No orthopnea: No Cough : No racing or irregular heartbeats: No palpitations: No syncopal sx: No Headache: No Unexplainable fatigue No Leg swelling: No Nausea: No diaphoresis: No Heartburn: No Claudication: No Smoking: No Following Low cholesterol, high fiber diet? No If on statin: muscle aches? N/A If on statin: GI sx or diarrhea? N/A Additional history none. Lab review: Component Latest Ref Rng & Units 03/09/2022 05/04/2022 05/16/2022 Protein, Total 6.3 - 8.0 g/dL 6.9 6.4 6.6 Albumin 3.9 - 4.9 g/dL 4.3 4.3 4.3 Calcium 8.5 - 10.2 mg/dL 8.6 8.7 8.6 Bilirubin, Total 0.2 - 1.3 mg/dL 1.1 0.7 0.5 Alkaline Phosphatase 38 - 113 U/L 53 61 61 AST 14 - 40 U/L 18 17 18 Glucose 74 - 99 mg/dL 95 111 (H) 109 (H) BUN 9 - 24 mg/dL 17 16 22 Creatinine 0.73 - 1.22 mg/dL 0.91 0.80 0.90 Sodium 136 - 144 mmol/L 134 (L) 136 138 Potassium 3.7 - 5.1 mmol/L 4.2 4.1 4.2 Chloride 97 - 105 mmol/L 97 98 98 CO2 22 - 30 mmol/L 27 24 26 Anion Gap 9 - 18 mmol/L 10 14 14 ALT 10 - 54 U/L 11 13 13 eGFR- eGFR-All Other Races . eGFR >=60 mL/min/1.73m 86 91 87 WBC 3.70 - 11.00 k/uL 8.85 RBC 4.20 - 6.00 m/uL 5.34 Hemoglobin 13.0 - 17.0 g/dL 17.0 Hematocrit 39.0 - 51.0 % 50.6 MCV 80.0 - 100.0 fL 94.8 MCH 26.0 - 34.0 pg 31.8 MCHC 30.5 - 36.0 g/dL 33.6 RDW-CV 11.5 - 15.0 % 13.7 Platelet Count 150 - 400 k/uL 224 MPV 9.0 - 12.7 fL 10.1 Absolute nRBC <0.01 k/uL <0.01 Cholesterol, Total <200 mg/dL 213 (H) 222 (H) Triglyceride <150 mg/dL 66 53 HDL Cholesterol >39 mg/dL 42 48 LDL Cholesterol <100 mg/dL 158 (H) 163 (H) Non HDL Cholesterol <130 mg/dL 171 (H) 174 (H) Fasting Time hrs 12 13 VLDL Cholesterol <30 mg/dL 13 11 TC:HDL Ratio <5.10 5.07 4.63 LDL:HDL Ratio <2.54 3.76 (H) 3.40 (H) Last 3 Encounter BP Readings: Date: BP: 12/19/2022 148/86 11/17/2022 108/61 10/23/2022 132/84 Copd with exacerbation (hcc) 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 Interval history: no changes. Current medications: Albuterol 0.083% NEBS Q4H prn Fluticasone propionate 50mcg 1 puff twice daily Albuterol HFA 90 mcg 2 puffs every 4 hours as needed Worsening shortness of breath: No. Cough: No. Wheezing: No. Smoking: No. Compliant with medications: No. Using rescue inhaler: No. . Recurrent vertigo Intracranial meningioma (hcc) 09/19/2022 MRI brain without and with IV contrast: No significant overall change in size and morphology left middle cranial fossa meningioma from 07/29/2021 Vertigo has improved significantly Arthritis of carpometacarpal (cmc) joint of left thumb Cmc djd(carpometacarpal degenerative joint disease), localized primary, right 11/17/2022 arthroplasty carpometacarpal joint right, Dr. Monroy In PT/OT currently Patient notes carpal tunnel and left hand flared up because he is using his left hand more postsurgery. 12/12/2022 called and and prednisone 5-day burst 40 mg daily was provided. Right shoulder tendinitis A little twinge now and then. In PT and feels improving. Steroid injection helped significantly Gastroesophageal reflux disease, unspecified whether esophagitis present Current medication: Omeprazole 40 mg daily as needed. Current symptoms: none. Last Mg level if on PPI chronically: 01/31/21 2.0. Heartburn is controlled: Yes. Dysphagia: No. Bloody or black stools: No. Bowel changes: No. Last EGD and/or colonoscopy: 10/16/2012. - Mild inflammation was found in the cecum secondary to colitis. This was biopsied, diverticulosis in the sigmoid colon. One 3 mm polyp at the recto-sigmoid colon. Resected and retrieved. A few non-bleeding colonic angiodysplastic lesions. FINAL DIAGNOSIS 1. Cecum, biopsy (A) - Colonic mucosa with ischemic-type injury. 2. Colon at 20 cm, polypectomy (B) - Fragments of hyperplastic polyp. TP/kr 10/17/2012 Hemangioma of liver 05/16/2022 MRI (EOVIST) liver w/wo IVCON: Stable indeterminate but likely benign segment 7/8 lesion. 04/22/20 MRI 0.9 cm mildly T2 hyperintense/T1 hypointense arterial enhancing lesion.There is an adjacent contiguous 1.0 x 0.7 cm mildly hyperintense lesion- likely small cyst. No rec for additional follow up. 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 Also 1 cm left hepatic lobe cyst. Follow-up MRI in 3-6 months is recommended to assess stability and exclude a malignant neoplasm. Insomnia Current medications: Rozerem 8mg daily HS Has been doubling medication last few days. Only sleeps about 2h a night. Urinates but feels not the issue waking him Taking power naps through the day watching TV 2 naps a day 1-2h each. ETOH use none Hypogonadism Testosterone 10 mg per 0.5 g per actuation 3 pumps daily (prescribed by urology) HISTORIES FAMILY HISTORY Problem Relation Age of Onset other (Arteriosclerosis) Father Coronary Artery Disease Mother No Ocular Disease No Family History PAST MEDICAL HISTORY Diagnosis Date Atrial fibrillation (HCC) Benign neoplasm of colon 2006 Head injury, unspecified 1963 Right Head Injury Unspec Hypogonadism in male sees Dr. Wilson Intracranial meningioma (HCC) 07/06/2018 05/29/17 MRI brain: left middle cranial fossa meningioma. Done for recent intermittent motion dizziness. No falls, loss of hearing. 06/25/[address] Mcintosh 07/19/18 consult Tani Mccormick M.D. Dx: Left sphenoid wing meningioma, slow growth from initial MRI 2006. Plan to repeat MRI in 1 year. Other specified diseases of intestine 12/2019 Pneumatosis coli 12/30/2019 12/17/19 patient had outpatient evaluation for heartburn and epigastric pain with ultrasound demonstrating possible hemangioma of liver. MRI was recommended. 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 Also 1 cm left hepatic lobe cyst. Follow-up MRI in 3-6 months is recommended to assess stability and exclude a malignant neoplasm. 12/27/19 [facility] ED Unspecified asthma(493.90) PAST SURGICAL HISTORY Procedure Laterality Date APPENDECTOMY ARTHRP KNE CONDYLE&PLATU MEDIAL&LAT COMPARTMENTS Right Knee replacement, total - Right CAPSULORRHAPHY ANTERIOR PUTTI-SHIRAZ/NHI Left Repair shoulder replacement COLONOSCPY FLX DX 2012 COLSC FLX W/REMOVAL LESION BY HOT BX FORCEPS 08/08/2007 small polyps at 20 and 40 cm - recommende 5 year follow up EXPLORATORY LAPAROTOMY CELIOTOMY W/WO BIOPSY SPX 12/28/2019 RPR 1ST INGUN HRNA AGE 3 YRS/> REDUCIBLE Right Hernia repair, inguinal SEPTOPLASTY/SUBMUCOUS RESECJ W/WO CARTILAGE GRF Septoplasty TONSILLECTOMY PRIMARY/SECONDARY <AGE 10 Tonsillectomy TRURL ELECTROSURG RESCJ PROSTATE BLEED COMPLETE 10/01/2019 Dr. Taylor Social History Tobacco Use Smoking status: Former Packs/day: 2.00 Years: 10.00 Pack years: 20.00 Types: Pipe, Cigarettes Smokeless tobacco: Never Tobacco comments: smokes occasional pipe Vaping Use Vaping Use: Never used Substance Use Topics Alcohol use: No Alcohol/week: 0.0 standard drinks Comment: hx of abuse, quit drinking August 2015. Drug use: Not Currently Types: Marijuana ACTIVE PROBLEM LIST Generalized Anxiety Disorder Generalized Osteoarthrosis, Unspecified Site Hypogonadism in Male Special Screening for Malignant Neoplasms, Colon Benign Neoplasm of Colon Primary Insomnia Chronic Atrial Fibrillation (Hcc) Low Back Pain Asthma, Mild Intermittent Personal History of Colonic Polyps Shoulder Impingement Rotator Cuff Syndrome of Right Shoulder Copd (Chronic Obstructive Pulmonary Disease) With Acute Bronchitis (Hcc) Intracranial Meningioma (Hcc) Sensorineural Hearing Loss (Snhl) of Right Ear With Restricted Hearing of Left Ear History of Exposure to Noise Dizziness and Giddiness Ear Pressure, Right Tinnitus, Bilateral Chronic Left Maxillary Sinusitis Hemangioma of Liver Cortical Age-Related Cataract, Bilateral Dry Eye Syndrome of Both Eyes Refractive Error Other Chest Pain Arthritis of Carpometacarpal (Cmc) Joint of Left Thumb Other Hyperlipidemia Right Shoulder Tendinitis Cmc Djd(carpometacarpal Degenerative Joint Disease), Localized Primary, Right Gerd (Gastroesophageal Reflux Disease) Current Outpatient Medications Medication Sig Dispense Refill dilTIAZem CD (CARDIZEM CD, CARTIA XT) 180 mg 24 hr capsule Take 1 capsule by mouth once daily. 90 capsule 3 warfarin (COUMADIN) 5 mg tablet 5mg daily or as directed by provider (Patient taking differently: 2.5 T/TH, 5 mg all other days or as directed by provider) 90 tablet 3 ramelteon (ROZEREM) 8 mg tablet Take 1 tablet by mouth daily at bedtime. 30 tablet 5 omeprazole (PRILOSEC) 40 mg capsule Take 1 capsule by mouth once daily. (Patient taking differently: Take 40 mg by mouth as needed.) 90 capsule 3 albuterol (PROVENTIL) 2.5 mg /3 mL (0.083 %) nebulizer solution Use 3 mL via nebulizer every 4 hours as needed for wheezing/shortness of breath. Use over 5-15minutes. 750 mL 5 Fluticasone Propionate (FLOVENT DISKUS) 50 mcg/actuation diskus inhaler Inhale 1 Puff as instructed twice daily. (Patient taking differently: Inhale 1 Puff as instructed as needed.) 1 Each 5 warfarin (COUMADIN) 4 mg tablet 4 mg daily or as directed by provider (Patient taking differently: 2.5 T/TH, 5 mg all other days or as directed by provider) 90 tablet 3 albuterol HFA (VENTOLIN HFA) 90 mcg/actuation inhaler INHALE 2 PUFFS BY MOUTH EVERY 4 HOURS NEEDED FOR WHEEZING OR SHORTNESS OF BREATH 36 g 3 sildenafil (REVATIO) 20 mg tablet TAKE 3 TABLETS BY MOUTH ONCE DAILY NEEDED testosterone (FORTESTA) 10 mg/0.5 gram /actuation glpm 3 pumps daily -- prescribed by urology. COMPOUNDED PRESCRIPTION Nebulizer and supplies. Use as directed. Dx: J44.1 1 Device 0 No current facility-administered medications for this visit. SHINGRIX VACCINE(1 of 2) Never done COVID-19 VACCINE(3 - Booster for Pfizer series) due on 07/20/2021 ADVANCE DIRECTIVE DISCUSSION due on 11/12/2022 DEPRESSION ASSESSMENT Never done EXAM: BP 148/86 Pulse 86 Resp 16 Wt 79.4 kg (175 lb) SpO2 97% BMI 25.84 kg/m Pleasant well appearing adult man, splint on right thumb, in no acute distress. Alert and oriented all spheres. Normal affect and cognition. Speech normal. No deficits to learning or comprehension. Skin warm, dry, pink to lips and nailbeds. Normal turgor. Respirations regular and unlabored. HEENT: NCAT. No scleral icterus or conjunctival injection. TM's clear. Nose and oropharynx free from injection or lesion. Oral membranes moist and pink. No cervical lymph nodes. Thyroid non-tender, no masses, or enlargement. Carotids pulses 2+/4+ without bruits. No JVD with HOB at 30 degrees. Chest is normal shape. Lungs are clear to all miller with good air exchange through out. Heart rate irregular, without murmur or gallop. No lifts, heaves, or rubs. Extrem: no clubbing or cyanosis. Edema: none. Extremities are warm and pink with prompt capillary refill. ASSESSMENT/PLAN: 1. Chronic atrial fibrillation (HCC) - ICD9: 427.31, ICD10: I48.20 (primary diagnosis) Stable rhythm, asymptomatic. 2. Chronic anticoagulation - ICD9: V58.61, ICD10: Z79.01 Compliant with coumadin. 3. COPD with exacerbation (HCC) - ICD9: 491.21, ICD10: J44.1 Stable on medications, continue. Minimal use resuce 4. RUIZ (dyspnea on exertion) - ICD9: 786.09, ICD10: R06.09 Stable 5. Other hyperlipidemia - ICD9: 272.4, ICD10: E78.49 Stable on medication, continue 6. Recurrent vertigo - ICD9: 780.4, ICD10: R42 IMPROVED SINCE STARTED 7. Intracranial meningioma (HCC) - ICD9: 225.2, ICD10: D32.0 Stable on last MRI 8. Arthritis of carpometacarpal (CMC) joint of left thumb - ICD9: 716.94, ICD10: M18.12 Persistent sx: considering surgery 9. CMC DJD(carpometacarpal degenerative joint disease), localized primary, right - ICD9: 715.14, ICD10: M19.031 In recovery from surgery 10. Right shoulder tendinitis - ICD9: 726.10, ICD10: M77.8 Stable and improved following steroid injection. Exercising as instructed 11. Gastroesophageal reflux disease, unspecified whether esophagitis present - ICD9: 530.81, ICD10: K21.9 - improved on keto diet and with weight loss 12. Hemangioma of liver - ICD9: 228.04, ICD10: D18.03 Stable on last MRi 13. Chronic insomnia - ICD9: 780.52, ICD10: F51.04 Trial. Doxepin 3mg qHS prn 14. Hypogonadism in male - ICD9: 257.2, ICD10: E29.1 Follows with urology. F/u 6 months and as needed Shanelle Purvis PA-C documented in this encounter [facility] 12-18-2022 Miscellaneous Notes Spoke with pt. He already took his dose today. Advised 2.5 mg and , 5 mg all other days. Recheck 2 weeks. He will eat some greens today. Sunday and 2.5mg, other days 5mg or as instructed. Recheck in 2 weeks. Eat some extra greens today. Thanks, Shaun Purvis PA-C Last INR: INR (POCT) 3.8 12/18/2022 Current dose of coumadin is: 5mg daily. Last date of dose change: 10/03 Previous INR (date and result): 2.1 11/30/22. Additional Clinical Information or narrative: no documented in this encounter [facility] 12-12-2022 Miscellaneous Notes Patient notified of prescription at pharmacy. He was made aware to call back if no improvement Fariba Arreola Ma The following approved medication requests have been transmitted electronically. Requested Prescriptions Signed Prescriptions Disp Refills predniSONE (DELTASONE) 20 mg tablet 10 tablet 0 Sig: Take 2 tablets by mouth once daily for 5 days. Authorizing Provider: Shanelle PURVIS PA-C Pt calls to report he had carpal tunnel surgery on R hand on 11/17/22. Pt reports he has carpal tunnel in L hand also. Pt reports since he is having to use left hand his left thumb has flared up x 2 + days. Pt reports he cannot apply any pressure with L thumb. Pt reports pain is a 10, feels inflamed, sharp stabbing pains. Pt reports he has been prescribed prednisone before when right hand flared up. Pt is requesting rx for prednisone for left thumb pain. Pt reports he could not sleep last night because of pain. Pt has an appt 12/19 with pcp but reports he can not wait that long with the pain. Pt did not want to come in for OV sooner if not needed. Please review and advise. Bev Collins LPN documented in this encounter [facility] 11-30-2022 Miscellaneous Notes Patient instructed of dosage with teach back method. Verbalizes understanding. Same dose, 2 weeks How'd surgery go? Thanks, Shaun Purvis PA-C Last INR: INR (POCT) 2.1 11/30/2022 Current dose of coumadin is: 5 mg daily. Last date of dose change: 10/03/22. Previous INR (date and result): 1.2 on 11/17 for surgery, 2.2 on 10/23 Additional Clinical Information or narrative: no documented in this encounter [facility] 11-28-2022 Note HNO ID: [id number] Author: Delphine Lang, OT/L Service: ? Author Type: Occupational Therapist Type: Progress Notes Filed: 11/28/2022 5:55 PM Note Text: Episode Visit Count: 1 Therapist That Will Accept/Oversee The Plan Of Care: Rickey Akers Start of Care Date: 11/28/22 Onset Date: 11/17/22 Plan of Care Certification Date: 11/28/22 Next Certification Due Date: 02/23/23 Patient Identified by Name and Date of : Yes [facility] OCCUPATIONAL THERAPY EVALUATION PLAN OF CARE: Assessment: Lupillo Mercado presents with diagnosis of post CMC arthroplasty that interferes with weight bearing;gripping;pinching;john g;pushing;carrying . He presents with impairments in range of motion and strength . PROMIS? (Patient-Reported Outcomes Measurement Information System) scores were reviewed and physical function domain identified as a rehabilitation concern. Prognosis for therapy is Good due to: current objective clinical presentation . He will benefit from skilled therapy services to meet the goals established for this plan of care as noted below. Goals for Episode of Care created on 11/28/22 through 02/16/23 Patient will report a good understanding of diagnosis and OT recommendations for progression of program. Patient will demonstrate independence with ongoing home recommendations/exercise program throughout therapy plan of care. Patient will independently demonstrate correct application of CUSTOM orthosis and verbalize understanding of proper wear/care. Patient will report a good understanding of edema control, scar / wound management throughout therapy plan of care to promote non-adherent / non-tender soft tissue. Patient Goals: to resume full function Planned Interventions, Frequency, and Duration: Current Frequency: 1x every other week Duration: 8 weeks Total Number of Visits Planned: 4 Planned Treatment Interventions: Custom orthosis fabrication;Prefabricated orthosis fitting;Therapeutic exercise (90684);Self-intermediate management (07123) PLAN FOR NEXT VISIT: check and adjust splint reduce to hand based at 4 weeks, start scar massage soft sponge formal thumb motion Patient demonstrates good understanding of plan of care and treatment. The above goals and plan of care were discussed and agreed upon by patient/family. SUBJECTIVE: Lupillo Mercado is a 77 year old male seen today for s/p CMC arthroplasty Functional Limitations: weight bearing;gripping;pinching;john g;pushing;carrying Prior Level of Function: Independent without limitations Patient Goals: to resume full function Intake Information: Prescription present Previous Treatment: None Falls Interview: No positive findings with falls interview Relevant History Past Relevant Medical Conditions: Cardiac;COPD;Arthritis Past Relevant Surgical Conditions: Total Shoulder Replacement-Left;Total Hip Replacement-Right Preferred Language: Belgian Right or Left Handed: Right Employment: Retired Recreation / Current Exercise: [employer] work out Hobbies / Interests: outdoor activities Home Environment Patient Lives With: Self/Alone Assistance Available: PRN Pain: Pain Pain Level: 4 Pain Location: Hand - Right;Wrist - Right Description: Aching;Stiffness Frequency: Intermittent Post Treatment Pain Post Treatment Pain Level: No Change PROMIS Scales Higher is Better 12/11/2016 03/13/2017 GH Physical - Percentile 41 % 41 % GH Mental - Percentile 34 % 53 % T-scores: mean of general population = 50. 5 points is clinically meaningfully difference Percentiles provide an indication of how the patient's score ranks in relation to the general population. Higher percentile rankings indicate better function/quality of life. 50th percentile is the average of the general population and indicates half of respondents had a worse score. T-scores: mean of general population = 50. 5 points is clinically meaningfully difference Percentiles provide an indication of how the patient's score ranks in relation to the general population. Higher percentile rankings indicate better function/quality of life. 50th percentile is the average of the general population and indicates half of respondents had a worse score. OBJECTIVE MEASURES WITH LEVEL OF FUNCTION: Hand Skin / Wound: Scar;Sutures Wound Description: absorbable;Steri-strips Scar: Tender;Mild adherance Edema Location: right hand Edema Description: Moderate Wrist AROM: Right Limitation Right Hand AROM: WFL (full but not tight fist) Thumb AROM: Right Limitation Sensation: Denies tingling or numbness UE AROM R Wrist Extension: 40 Degrees R Wrist Flexion: 40 Degrees R Wrist Radial Deviation: 15 Degrees R Wrist Ulnar Deviation: 5 Degrees Right Hand AROM: WFL (full but not tight fist) Thumb AROM: Right Limitation Hand AROM R Thumb MP Flexion : 32 Degrees R Thumb IP Flexion : 40 Degrees R Th (more content not included)... [facility] 11-28-2022 Note [facility] 11-28-2022 History of Presen t illness Narrative Episode Visit Count: 1 Therapist That Will Accept/Oversee The Plan Of Care: Rickey Akers Start of Care Date: 11/28/22 Onset Date: 11/17/22 Plan of Care Certification Date: 11/28/22 Next Certification Due Date: 02/23/23 Patient Identified by Name and Date of : Yes [facility] OCCUPATIONAL THERAPY EVALUATION PLAN OF CARE: Assessment: Lupillo Mercado presents with diagnosis of post CMC arthroplasty that interferes with weight bearing;gripping;pinching;john g;pushing;carrying . He presents with impairments in range of motion and strength . PROMIS (Patient-Reported Outcomes Measurement Information System) scores were reviewed and physical function domain identified as a rehabilitation concern. Prognosis for therapy is Good due to: current objective clinical presentation . He will benefit from skilled therapy services to meet the goals established for this plan of care as noted below. Goals for Episode of Care created on 11/28/22 through 02/16/23 Patient will report a good understanding of diagnosis and OT recommendations for progression of program. Patient will demonstrate independence with ongoing home recommendations/exercise program throughout therapy plan of care. Patient will independently demonstrate correct application of CUSTOM orthosis and verbalize understanding of proper wear/care. Patient will report a good understanding of edema control, scar / wound management throughout therapy plan of care to promote non-adherent / non-tender soft tissue. Patient Goals: to resume full function Planned Interventions, Frequency, and Duration: Current Frequency: 1x every other week Duration: 8 weeks Total Number of Visits Planned: 4 Planned Treatment Interventions: Custom orthosis fabrication;Prefabricated orthosis fitting;Therapeutic exercise (83975);Self-intermediate management ([id number]) PLAN FOR NEXT VISIT: check and adjust splint reduce to hand based at 4 weeks, start scar massage soft sponge formal thumb motion Patient demonstrates good understanding of plan of care and treatment. The above goals and plan of care were discussed and agreed upon by patient/family. SUBJECTIVE: Lupillo Mercado is a 77 year old male seen today for s/p CMC arthroplasty Functional Limitations: weight bearing;gripping;pinching;john g;pushing;carrying Prior Level of Function: Independent without limitations Patient Goals: to resume full function Intake Information: Prescription present Previous Treatment: None Falls Interview: No positive findings with falls interview Relevant History Past Relevant Medical Conditions: Cardiac;COPD;Arthritis Past Relevant Surgical Conditions: Total Shoulder Replacement-Left;Total Hip Replacement-Right Preferred Language: Belgian Right or Left Handed: Right Employment: Retired Recreation / Current Exercise: [employer] work out Hobbies / Interests: outdoor activities Home Environment Patient Lives With: Self/Alone Assistance Available: PRN Pain: Pain Pain Level: 4 Pain Location: Hand - Right;Wrist - Right Description: Aching;Stiffness Frequency: Intermittent Post Treatment Pain Post Treatment Pain Level: No Change PROMIS Scales Higher is Better 12/11/2016 03/13/2017 GH Physical - Percentile 41 % 41 % GH Mental - Percentile 34 % 53 % T-scores: mean of general population = 50. 5 points is clinically meaningfully difference Percentiles provide an indication of how the patient's score ranks in relation to the general population. Higher percentile rankings indicate better function/quality of life. 50th percentile is the average of the general population and indicates half of respondents had a worse score. T-scores: mean of general population = 50. 5 points is clinically meaningfully difference Percentiles provide an indication of how the patient's score ranks in relation to the general population. Higher percentile rankings indicate better function/quality of life. 50th percentile is the average of the general population and indicates half of respondents had a worse score. OBJECTIVE MEASURES WITH LEVEL OF FUNCTION: Hand Skin / Wound: Scar;Sutures Wound Description: absorbable;Steri-strips Scar: Tender;Mild adherance Edema Location: right hand Edema Description: Moderate Wrist AROM: Right Limitation Right Hand AROM: WFL (full but not tight fist) Thumb AROM: Right Limitation Sensation: Denies tingling or numbness UE AROM R Wrist Extension: 40 Degrees R Wrist Flexion: 40 Degrees R Wrist Radial Deviation: 15 Degrees R Wrist Ulnar Deviation: 5 Degrees Right Hand AROM: WFL (full but not tight fist) Thumb AROM: Right Limitation Hand AROM R Thumb MP Flexion : 32 Degrees R Thumb IP Flexion : 40 Degrees R Thumb Radial Abduction: 55 Degrees R Thumb Palmar Abduction: 60 Degrees Education: Education Learning Preferences: Demonstration;Explanation;Perfor rosemary;Printed Materials Barriers: None Learning/educational needs: Procedure / Surgery;Home exercise program;Plan of Care;Brace Fit Education Provided: Yes, see treatment interventions for education provided Education Provided To: Patient Education Mode/Type: Demonstration;Explanation/Discus cristopher;Literature/Printed Materials;Performance Response to Education/Teach Back: States/Identifies;Return Demonstration;Requires Review/Additional Education TREATMENT: OT Treatment Interventions : Therapeutic Exercise;Self-Long-Term Management;Custom Orthosis/Splint Fabrication Evaluation Evaluation Therapeutic Exercise: 1: fanricated forearm based thumb spica splint educated in wear schedule and precautions 2: wrist flex/ext dev and circumduction 3: thumb opposition and circumduction Skilled Intervention: Patient was educated in proper exercise technique and purpose for exercises. Self-Long-Term Management: 1: educated in post op precautions 2: educated in use of ice with ptrecautions Skilled Intervention: Skilled judgment in the selection of proper modification for activity of daily living/home management based on clinical presentation, deficits, and needs. Custom orthosis: L 3808 WHFO w/out joints (long opponens, thumb spica, intrinsic gutter, resting, anti-spasticity, EXOS, dorsal block) Custom orthosis to provide Pt practiced orthosis application, donning on/off while under OT's supervision. and to promote healing. Patient was instructed in care of orthosis and wearing schedule time clock inspector except when exercising / bathing. . Skilled Intervention: Clinical knowledge and skills required for custom orthotic fabrication and wearing schedule Billing * Evaluation Moderate Complexity: 1 Unit Therapeutic Exercise Treatment Minutes: 15 Self-Care/Home Management Treatment Minutes: 10 * L 3808 WHFO w/out joints (long opponens, thumb spica, intrinsic gutter, resting, anti-spasticity, EXOS, dorsal block) Quantity: 1 Total Treatment Time Minutes (timed/untimed): 50 Delphine Lang OT/Sara documented in this encounter [facility] 11-21-2022 Miscellaneous Notes Agree with advice given, thank you! Pt calling S/p CMC 11/17/22 The block has worn off and he has started to move his fingers He is having swelling to the point he can not bend his fingers He c/o wrist pain Spoke with pt Advised pt Swelling is normal afterwards, usually occurs about 3-7 days afterwards Pt needs to elevate ABOVE heart, ice in the crook of the elbow, keep moving fingers Loosen ruben wrap but do not take splint off documented in this encounter [facility] 11-17-2022 Note HNO ID: [id number] Author: Marcellus Herring MD Service: ? Author Type: Anesthesiologist Type: Anesthesia Procedure Notes Filed: 11/17/2022 11:37 AM Note Text: ANESTHESIOLOGY PROCEDURE NOTE Peripheral Nerve Block General Information Procedure Start Time/Medication Administration: 11/17/2022 12:23 PM Procedure End time: 11/17/2022 11:30 AM Patient location during procedure: PACU Timeout Performed Pre-procedure: timeout performed Consent Obtained: Yes Patient identity confirmed: arm band, care boarder steam and patient Reason for block: post-op pain management/at surgeon's request Staffing Anesthesiologist: Marcellus Herring MD Performed by: anesthesiologist Preparation Sterility Preparation: hand hygiene performed prior to procedure, sterile gloves, drapes, and procedure tray, gown used during line insertion, surgical cap used, mask used, sterile drape used during line insertion, skin prep agent completely dried prior to procedure Sterility Technique Not Completely Performed Due to Extreme Emergency: Yes Site Prep: Chloraprep and chlorhexidine Pre-Procedure Neuro Exam Location: RUE Sensory: intact Motor: intact Procedure Details Patient Position: supine Monitoring: Pulse OX and EKG Block Type Upper Extremity: axillary Approach: axillary Laterality: right Injection Technique: single-shot Ultrasound Guided: Yes Image in Chart: yes Local Infiltration: Yes Needle Needle Type: blunt Needle Gauge: 21 G Needle Localization: ultrasound Test Dose Response: negative test dose Assessment Injection assessment: incremental injection and no paresthesia on injection Paresthesia: immediately resolved Post-Procedure Neuro Exam Expected Regional Anesthesia: Yes Medications Administered ropivacaine (PF) 5 mg/mL (0.5 %) injection (NAROPIN) - peripheral nerve block 30 mL - 11/17/2022 12:23:00 PM Comments Procedure tolerated well. SIGNATURE: Marcellus Herring MD PATIENT NAME: Lupillo Mercado DATE: November 17, 2022 TIME: 11:33 AM CSN: [id number] [facility] 10-26-2022 Miscellaneous Notes INR faxed to [facility] at [phone]. Beth Álvarez RN [facility] called needing to have the most recent INR results faxed. Fax to [phone] documented in this encounter [facility] 10-24-2022 Note [facility] 10-24-2022 History of Presen t illness Narrative Episode Visit Count: 4 Therapist That Will Accept/Oversee The Plan Of Care: Dion Kumar Start of Care Date: 09/26/22 Onset Date: 09/26/21 Plan of Care Certification Date: 09/26/22 Next Certification Due Date: 12/27/22 REHABILITATION AND SPORTS THERAPY PHYSICAL THERAPY DISCONTINUANCE OF CARE PLAN OF CARE UPDATE: Assessment: Lupillo Mercado is discontinued from Physical Therapy services due to goal achievement and maximal benefit.. Patient was seen for 4 visits from Start of Care Date: 09/26/22 to 10/24/2022 and treatment included: Therapeutic exercise, Manual therapy, and Self-intermediate management. Patient has seen significant improvements in strength, pain free range of motion, and functional use of the R shoulder, also stating that he no longer has the mm spasms. Patient has outstanding prognosis should he continue his HEP as prescribed. Goals updated on 10/24/2022. Goals for Episode of Care: created on 09/26/22 through 11/26/22 [place] in home exercise program. Met Patient will decrease pain rating by 2 points to meet minimal clinical important difference for numeric pain rating scale. Met Patient will demonstrate increase in right shoulder strength to 5/5 during manual muscle testing in order to improve function for basic self-care tasks, home management tasks, leisure / recreation skills, light functional tasks, moderate to heavy functional tasks, and prior functional Tasks. Met Perform reaching/lifting with decreased report of symptoms/pain in 6-8 Weeks. Met Perform ADLs and self care without pain. Met SUBJECTIVE: Patient Reason for Visit: Shoulder is in a really good spot right now. He feels a slight dull ache deep in the shoulder from time to time, but no spasms or sharp pain. Pt feels confident he is good with his exercises and feels he could be discharged today. Pain: Pain Pain Level: 1 Pain Location: Shoulder - Right Description: Aching;Sore Frequency: Intermittent PROMIS Scales Higher is Better 12/11/2016 03/13/2017 GH Physical - Percentile 41 % 41 % GH Mental - Percentile 34 % 53 % T-scores: mean of general population = 50. 5 points is clinically meaningfully difference Percentiles provide an indication of how the patient's score ranks in relation to the general population. Higher percentile rankings indicate better function/quality of life. 50th percentile is the average of the general population and indicates half of respondents had a worse score. T-scores: mean of general population = 50. 5 points is clinically meaningfully difference Percentiles provide an indication of how the patient's score ranks in relation to the general population. Higher percentile rankings indicate better function/quality of life. 50th percentile is the average of the general population and indicates half of respondents had a worse score. OBJECTIVE MEASURES WITH LEVEL OF FUNCTION: Shoulder Observations R Shoulder Palpation Tenderness: Rotator cuff muscles (infraspinatus) UE and Cervical Strength R Shoulder Flexion: 5/5 R Shoulder Abduction (C5): 5/5 R Shoulder Internal Rotation: 5/5 R Shoulder External Rotation: 5/5 TREATMENT: Therapeutic Exercise: 1: BTB ER/IR 2x10 2: Full can 2x10 2# 3: SL ER 2# 2x10 4: BTB horizontal abduction 2x10 5: BTB rows 2x10 6: *Pt given handout with progressions and regressions Skilled Intervention: Patient was educated in proper exercise technique and purpose for exercises. Skilled judgment was provided in selection of appropriate interventions. Provided written instruction for home exercise program to facilitate proper performance and compliance. Correct performance of therapeutic exercises was facilitated with verbal, visual, and tactile cuing. Manual Therapy: 1: STM and CFM to R infraspinatus with push to tolerance with lacrosse ball Skilled Intervention: Manual skills to improve joint mobility, ROM, and decrease pain. Utilized anatomy knowledge of the therapist, and assessment of patient's response to intervention. Billing Therapeutic Exercise Treatment Minutes: 15 Manual TherapyTreatment Minutes: 10 Total Treatment Time Minutes (timed/untimed): 25 Dion Kumar PT documented in this encounter [facility] 10-23-2022 Miscellaneous Notes Patient instructed of dosage with teach back method. Verbalizes understanding. Same dose, 2 weeks Thanks, Shaun Purvis PA-C Last INR: INR (POCT) 2.2 10/23/2022 Current dose of coumadin is: 5 mg daily. Last date of dose change: 10/03/22. Previous INR (date and result): 2.4 10/10/22 Additional Clinical Information or narrative: no documented in this encounter [facility] 10-23-2022 Miscellaneous Notes Kostas Reid! [id number] score is 2, should be okay off 5 days prior and resume 1 day after surgery. Shanelle Purvis PA-C Pt is scheduled 11/17/[address]21 in [place] [address] Dr. Monroy for CMC arthroplasty. Pt hx chronic afib and daily Coumadin. Usually hold time is 5 days, is this okay with you? documented in this encounter [facility] 10-23-2022 Instructions Jeanette Hernandez APRN.SEA - 10/23/2022 10:45 AM EST PATIENT PREOPERATIVE INSTRUCTIONS Gonzales Monroy MD has scheduled you for your procedure at this surgery center: [facility]: [phone] -- [address] [facility] [address]. Please read below carefully for your personalized instructions. Dietary Restrictions: - No solid food after midnight. - You may have 12 ounces of clear liquids (water, clear juices such as apple juice or gatorade, carbonated beverages, clear tea, black coffee, jello) until 2 hours before scheduled arrival at facility. No red/purple coloring and no creamer/sugar Medications: Unless instructed differently below, stay on all of your medications until your surgery. Approved medications to take the morning of surgery with a sip of water: albuterol (PROAIR) inhaler, Fluticasone Propionate (FLOVENT DISKUS), omeprazole (PRILOSEC), dilTIAZem (CARDIZEM, CARTIA) If you take any medications for erectile dysfunction-Cialis (Tadalafil), Levitra, Staxyn (Vardenafil) Viagra (Sildenenafil please do not take these for 48 hours before surgery. If you start any new medications after today's visit, please contact the surgeon's office. Blood Thinning Medications: - Stop NSAIDS (Ibuprofen, Advil, Aleve, Motrin, Celebrex, Mobic, etc.) 7 days before surgery, as directed by your surgeon. - Stop Aspirin 7 days before surgery, as directed by your surgeon. - Stop Vitamin E, ALL multi-vitamins, herbals and dietary supplements 7 days before surgery. - You may take Tylenol (Acetaminophen) or any of your pain medications that do not contain aspirin or NSAIDS as needed. - STOP COUMADIN 5 DAYS PRIOR TO SURGERY Important Reminders: - Candy, mints, and tobacco products are NOT permitted the morning of surgery. - Hearing aids, dentures and glasses may be worn the morning of surgery. - NO jewelry, body piercings, makeup, hairpins or contacts are to be worn the day of surgery. If you develop symptoms such as a fever, cold, or flu, or have other changes to your health within TWO DAYS of scheduled surgery or the morning of surgery, please contact the surgery center above. Personal Belongings: -Please have photo ID and insurance cards. -If you do not have a copy of advance directives on file with us, please bring a copy with you on the day of surgery. - Leave ALL valuables and money at home or with family members. For Outpatient Procedures: - YOU MUST HAVE A RESPONSIBLE RADIATION PHYSICIST TAKE YOU HOME. A GARBAGE MAN OR PROCESS AUTOMATION ENGINEER CANNOT BE MADE A RESPONSIBLE RADIATION PHYSICIST. - We recommend that a responsible person stays with you overnight to take care of you. - You cannot stay in a hotel alone after outpatient surgery. You will not be permitted to have your surgery, if you do not have someone to take care of you. Arrival Time for Surgery: - The Surgery Center or hospital where you are having surgery will call the afternoon before surgery (or Sunday for Sunday surgery) with a scheduled arrival time. - If you have not heard by 4 pm, please contact the surgery center above. Please be aware that emergency situations arise, which may delay or change your surgical time. If this happens, we will notify you as soon as possible and regret any inconvenience. If you already have an Advance Directive, please fax a copy to [phone] or email to for it to be added to your chart. If you do not have an Advance Directive, you can find the appropriate form and more information at [email or web address]. We recommend that you complete the Advance Directive form found on the website and bring it with you the day of your surgery. It can be witnessed and scanned into your chart that day. Jeanette Hernandez APRN.CNP documented in this encounter [facility] 10-23-2022 History and physical note HISTORY AND PHYSICAL EXAMINATION SERVICE DATE: 10/23/2022 SERVICE TIME: 11:52 AM PRIMARY CARE PHYSICIAN: Shanelle Purvis PA-C REASON FOR VISIT: Lupillo Mercado is a 77 year old male who is scheduled for Procedure(s): ARTHROPLASTY CARPOMETACARPAL JOINTS (Right) at the request of Dr. Gonzales Monroy for consultation. My final recommendation will be communicated back to the requesting physician by way of shared medical record or letter. Subjective The patient has the following: ACTIVE PROBLEM LIST Generalized Anxiety Disorder Generalized Osteoarthrosis, Unspecified Site Hypogonadism in Male Special Screening for Malignant Neoplasms, Colon Benign Neoplasm of Colon Primary Insomnia Chronic Atrial Fibrillation (Hcc) Low Back Pain Asthma, Mild Intermittent Personal History of Colonic Polyps Shoulder Impingement Rotator Cuff Syndrome of Right Shoulder Copd (Chronic Obstructive Pulmonary Disease) With Acute Bronchitis (Hcc) Intracranial Meningioma (Hcc) Sensorineural Hearing Loss (Snhl) of Right Ear With Restricted Hearing of Left Ear History of Exposure to Noise Dizziness and Giddiness Ear Pressure, Right Tinnitus, Bilateral Chronic Left Maxillary Sinusitis Hemangioma of Liver Cortical Age-Related Cataract, Bilateral Dry Eye Syndrome of Both Eyes Refractive Error Other Chest Pain Arthritis of Carpometacarpal (Cmc) Joint of Left Thumb Other Hyperlipidemia Right Shoulder Tendinitis Cmc Djd(carpometacarpal Degenerative Joint Disease), Localized Primary, Right Gerd (Gastroesophageal Reflux Disease) COVID-19 Immunization Status Overdue - COVID-19 VACCINE (3 - Booster for Pfizer series) Overdue since 07/20/2021 05/25/2021 Imm Admin: COVID-19 original vaccine, age 12+ yr, monovalent (PFIZER-BIONTECH - PURPLE TOP) 05/03/2021 Imm Admin: COVID-19 original vaccine, age 12+ yr, monovalent (PFIZER-BIONTECH - PURPLE TOP) CHIEF COMPLAINT: Pre-op exam HPI: Lupillo Mercado is a 77 year old seen for PAC due to scheduled above surgery because of CMC OA. 10/02/2022, Dr. Monroy CHIEF COMPLAINT: Established Patient and Pain of the Right Hand HPI Patient is here today for follow up on right thumb CMC arthritis. Patient's last visit was a little over a year ago. Patient states he wears his brace pretty consistently while out and about and using his hand/wrist. Patient ices and uses heat when it flares up bad; he also take tylenol arthritis but states it does not help much. Xray done today at [facility]. REVIEW OF SYSTEMS: General: No weight loss, malaise or fevers. 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 Negative for: cerebral palsy, dementia, headaches, hemiplegia, impaired sensorium, multiple sclerosis, Parkinson's disease, peripheral neuropathy, seizures, TIA and strokes. Respiratory: Positive for: COPD (rx as needed). Negative for: asthma, pneumonia within 6 weeks, tobacco use, URI < 2 weeks and obstructive sleep apnea. Cardiovascular: Positive for: anticoagulation therapy and atrial fibrillation (on rx, following [facility]) Negative for: arrhythmia, CAD, chest pain, CHF, congenital heart defect, DVT/PE, hyperlipidemia, hypertension, recent NM, murmur/valvular heart disease, open heart surgery and valve surgery. GI: Positive for: GERD (diet controlled) Negative for: abdominal pain, dysphagia, diverticulitis, hepatitis, irritable bowel syndrome, inflammatory bowel disease, liver disease, nausea, pancreatitis, vomiting and ETOH >2 drinks/day. : Positive for: BPH (s/p TURP). Negative for: urinary incontinence, nephrolithiasis, renal failure and urinary tract infection. Endocrine: No history of diabetes. Has not taken steroids within the past 30 days. No history of endocrinological symptoms or problems. Hematology: No history of bleeding or clotting disorder. Patient is not taking anti-coagulation or platelet medications. No history of hematological symptoms or problems. Oncology: No history of CA metastasis, chemo within 30 days, or radiotherapy within 90 days. No history of oncological symptoms or problems. Psych: Positive for: anxiety (situational). Musculoskeletal: See HPI. Skin: Negative for lesions, rash and itching.t PAST MEDICAL HISTORY Diagnosis Date Atrial fibrillation (HCC) Benign neoplasm of colon 2006 Head injury, unspecified 1963 Right Head Injury Unspec Hypogonadism in male sees Dr. Wilson Intracranial meningioma (HCC) 07/06/2018 05/29/17 MRI brain: left middle cranial fossa meningioma. Done for recent intermittent motion dizziness. No falls, loss of hearing. 06/25/[address] Mcintosh 07/19/18 consult Tani Mccormick M.D. Dx: Left sphenoid wing meningioma, slow growth from initial MRI 2006. Plan to repeat MRI in 1 year. Other specified diseases of intestine 12/2019 Pneumatosis coli 12/30/2019 12/17/19 patient had outpatient evaluation for heartburn and epigastric pain with ultrasound demonstrating possible hemangioma of liver. MRI was recommended. 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 Also 1 cm left hepatic lobe cyst. Follow-up MRI in 3-6 months is recommended to assess stability and exclude a malignant neoplasm. 12/27/19 [facility] ED Unspecified asthma(493.90) PAST SURGICAL HISTORY Procedure Laterality Date APPENDECTOMY ARTHRP KNE CONDYLE&PLATU MEDIAL&LAT COMPARTMENTS Right Knee replacement, total - Right CAPSULORRHAPHY ANTERIOR PUTTI-SHIRAZ/NHI Left Repair shoulder replacement COLONOSCPY FLX DX 2011 COLSC FLX W/REMOVAL LESION BY HOT BX FORCEPS 08/08/2007 small polyps at 20 and 40 cm - recommende 5 year follow up EXPLORATORY LAPAROTOMY CELIOTOMY W/WO BIOPSY SPX 12/28/2019 RPR 1ST INGUN HRNA AGE 5 YRS/> REDUCIBLE Right Hernia repair, inguinal SEPTOPLASTY/SUBMUCOUS RESECJ W/WO CARTILAGE GRF Septoplasty TONSILLECTOMY PRIMARY/SECONDARY <AGE 12 Tonsillectomy TRURL ELECTROSURG RESCJ PROSTATE BLEED COMPLETE 10/01/2019 Dr. Taylor FAMILY HISTORY Problem Relation Age of Onset other (Arteriosclerosis) Father Coronary Artery Disease Mother No Ocular Disease No Family History Social History Tobacco Use Smoking status: Former Packs/day: 2.00 Years: 10.00 Pack years: 20.00 Types: Pipe, Cigarettes Smokeless tobacco: Never Tobacco comments: smokes occasional pipe Vaping Use Vaping Use: Never used Substance Use Topics Alcohol use: No Alcohol/week: 0.0 standard drinks Comment: hx of abuse, quit drinking August 2015. Drug use: Not Currently Types: Marijuana Prior to Admission medications as of 10/23/22 1139 Medication Sig Last Dose Taking dilTIAZem CD (CARDIZEM CD, CARTIA XT) 180 mg 24 hr capsule Take 1 capsule by mouth once daily. Taking Yes warfarin (COUMADIN) 5 mg tablet 5mg daily or as directed by provider Taking Yes ramelteon (ROZEREM) 8 mg tablet Take 1 tablet by mouth daily at bedtime. Taking Yes omeprazole (PRILOSEC) 40 mg capsule Take 1 capsule by mouth once daily. Patient taking differently: Take 40 mg by mouth as needed. Taking Yes albuterol (PROVENTIL) 2.5 mg /3 mL (0.083 %) nebulizer solution Use 3 mL via nebulizer every 4 hours as needed for wheezing/shortness of breath. Use over 5-15minutes. Taking Yes Fluticasone Propionate (FLOVENT DISKUS) 50 mcg/actuation diskus inhaler Inhale 1 Puff as instructed twice daily. Patient taking differently: Inhale 1 Puff as instructed as needed. Taking Yes warfarin (COUMADIN) 4 mg tablet 4 mg daily or as directed by provider Patient taking differently: 5 mg daily or as directed by provider Taking Yes albuterol HFA (VENTOLIN HFA) 90 mcg/actuation inhaler INHALE 2 PUFFS BY MOUTH EVERY 4 HOURS NEEDED FOR WHEEZING OR SHORTNESS OF BREATH Taking Yes sildenafil (REVATIO) 20 mg tablet TAKE 3 TABLETS BY MOUTH ONCE DAILY NEEDED Taking Yes testosterone (FORTESTA) 10 mg/0.5 gram /actuation glpm 3 pumps daily -- prescribed by urology. Taking Yes COMPOUNDED PRESCRIPTION Nebulizer and supplies. Use as directed. Dx: J44.1 Taking Yes No medication comments found. ALLERGIES Allergen Reactions Adhesives [Other] blisters Ativan [Lorazepam] Mental Status Change Latex Other: See Comments blisterering from adhesive Tape [Other] Rash Objective PHYSICAL EXAM: General: alert and oriented (x3) and healthy appearance. Pertinent negatives noted - not distressed. Skin: normal color, no rash or lesions. HEENT: EOM intact and pupils equal round. Pertinent negatives noted - no carotid bruit. Cardiovascular: regular rate and rhythm, normal S1 and S2, no rub, murmurs, or gallop. Respiratory: normal breath sounds, no wheezes or crackles. No chest wall deformity or tenderness. Abdomen: soft. Pertinent negatives noted - not tender. Extremities: no deformity, no edema or tenderness, no joint swelling or clubbing. Neurological: normal cognition and motor skills. Gait normal. No weakness or sensory deficit. PAIN ASSESSMENT: Pain Pain Level: 1 Pain Location: Hand-Right Description: Sharp;Aching Duration Amount of Time: 3 Duration Units: Years Frequency: Continuous Intervention/Comfort measure: Relaxation;Medication VITALS: BP 132/84 Pulse 78 Temp (Src) 97.8 (Temporal) Resp 18 Ht 5' 9 (1.75m) Wt 176 lb (79.8kg) SpO2 95% BMI 25.98 kg/(m^2). Diagnostic tests reviewed for today's visit: Lab Value Units Date High Low HB 17.0 g/dL 05/04/2022 17.0 13.0 HCT 50.6 % 05/04/2022 51.0 39.0 WBC 8.85 k/uL 05/04/2022 11.00 3.70 PLT 224 k/uL 05/04/2022 400 150 NA 138 mmol/L 05/16/2022 144 136 K 4.2 mmol/L 05/16/2022 5.1 3.7 GLUC 109 mg/dL 05/16/2022 99 74 BUN 22 mg/dL 05/16/2022 24 9 CREAT 0.90 mg/dL 05/16/2022 1.22 0.73 PTSEC 21.2 sec 10/23/2022 <13.1 INR 2.2 no uni* 10/23/2022 1.3 0.9 APTT No results within date range. ALT 13 U/L 05/16/2022 54 10 AST 18 U/L 05/16/2022 40 14 TBILI 0.5 mg/dL 05/16/2022 1.3 0.2 TSH No results within date range. Lab Value Units Date High Low HCGQT No results within date range. UHCG No results within date range. HCG, BODY* No results within date range. Lab Value Units Date High Low ABORHD No results within date range. ABSCREEN No results within date range. Hemoglobin A1C (%) Date Value 05/16/2018 5.6 Recent Results (from the past 8760 hour(s)) ECG COMPLETE Collection Time: 07/10/22 10:12 AM Result Value Ventricular Rate 69 Atrial Rate 214 QRS Duration 106 QT Interval 430 QTC Calculation (Bazett) 460 Calculated R [place] -57 Calculated T [place] -20 Impression ATRIAL FIBRILLATION INCOMPLETE RIGHT BUNDLE BRANCH BLOCK LEFT ANTERIOR FASCICULAR BLOCK ABNORMAL ECG Recent Results (from the past 50400 hour(s)) ECHO Collection Time: 04/19/20 10:00 AM Result Value Retail Cosmetics Sales Beauty Advisor Echocardiography Report: Transthoracic Echo [facility] Date of service: 04/19/2020 10:00:09 AM TENDER Ordering physician: Shanelle PURVIS Indication: Atrial fibrillation Technologist: Joy Conner [facility] Interpreting physician: Chung Torrez MD PATIENT: Name: MR. LUPILLO MERCADO : 1945 Age: 74 years Gender: M History of arrhythmia. Primary rhythm: atrial fib. Height: 171.50 cm BSA: 2.05 m Weight: 88.00 kg BMI: 29.9 kg/m Heart rate 77 bpm Technically difficult exam due to body habitus. Color Doppler was utilized to interrogate the cardiac valves assessed and spectral Doppler was utilized to determine the flow velocities and pressure gradients reported in this exam. MEASUREMENTS: Value Indexed Normal Max aortic dimension 3.7 cm Ao < 3.8 Left atrium diameter 4.6 cm (M-Mode) Left atrial vo lume 91 ml (4ch A-L) 45 ml/m Beth[place] <= 34 LV ID (diastole) 4.1 cm (2D) 2.00 cm/m LV ID (systole) 3.2 cm (2D) 1.55 cm/m IVS, leaflet tips 1.4 cm (2D) Posterior wall thickness 1.0 cm (2D) Left ventricular mass 176 g (2D) 86 g/m LV stroke volume 32 ml (2D biplane) LV end diastolic volume 59 ml (2D biplane) 28.6 ml/m 34<=EDVi<75 LV end systolic volume 26 ml (2D biplane) 12.9 ml/m Ejection Fraction 55 % (2D biplane) EF > 52 FINDINGS: LEFT VENTRICLE The left ventricle is small. There is mild upper septal left ventricular hypertrophy. Left ventricular systolic function is normal. Left ventricular diastolic function was not evaluated due to AF. Wall Motion: All scored segments are normal. RIGHT VENTRICLE The right ventricle is normal in size. Right ventricular systolic function is normal. RV systolic tissue Doppler velocity is 11.0 cm/s. Estimated right ventricul ar systolic pressure is 39 mmHg consistent with mild pulmonary hypertension. Estimated right atrial pressure is 8 mmHg based on IVC assessment. LEFT ATRIUM The left atrial cavity is moderately dilated. RIGHT ATRIUM The right atrial cavity is dilated. Inferior Vena Cava: The inferior vena cava appears normal measuring 1.7 cm. The vessel decreases less than 50 percent with inspiration. MITRAL VALVE There is mild mitral annular calcification observed posterior. There is no mitral valve regurgitation. TRICUSPID VALVE The tricuspid valve leaflets are structurally normal. There is trace (trace - 1+) tricuspid valve regurgitation. AORTIC VALVE The aortic valve cusps are structurally normal. There is no aortic valve regurgitation. The peak gradient is 4 mmHg (peak velocity = 102.3 cm/s). PULMONIC VALVE The pulmonic valve cusps are structurally normal. There is trace (trace - 1+) pulmonic valve regurgitation. AORTA The visualized aorta is normal in size. Measurements - Sinus: 3.7 cm. Sinotubular junction 3.1 cm. Mid ascending aorta 3.6 cm. PULMONARY ARTERIES The pulmonary arteries are unseen or not interrogated. PERICARDIUM There is no pericardial effusion. There is an epicardial fat pad. CONCLUSIONS: - Technically difficult exam due to body habitus. - Exam indication: Atrial fibrillation - The left ventricle is small. There is mild upper septal left ventricular hypertrophy. Left ventricular systolic function is normal. EF = 55 5% (2D biplane) Left ventricular diastolic function was not evaluated due to AF. - The right ventricle is normal in size. Right ventricular systolic function is normal. - The left atrial cavity is moderately dilated. - The right atrial cavity is dilated. - There is no significant valvular stenosis or insufficiency present. - The patient has not had a prior [facility] echocardiographic exam for comparison. :1 7 PM Assessment Primary insomnia Assessment: rx as needed Other hyperlipidemia Assessment: diet controlled Intracranial meningioma (HCC) Assessment: unchanged following serial imaging, under surveillance by PCP 09/2022 imaging IMPRESSION: No significant overall change in size or morphology of the left middle cranial fossa meningioma from the 07/29/2021 exam.. GERD (gastroesophageal reflux disease) Assessment: controlled on rx COPD (chronic obstructive pulmonary disease) with acute bronchitis (HCC) Assessment: rx as needed, former smoker 2ppd/20 years Chronic atrial fibrillation (HCC) Assessment: rate controlled on rx, following [facility] cardiology, daily Coumadin, TE to PCP's office regarding pre-op AC instructions Hemangioma of liver Assessment: under surveillance by PCP 05/2022 imaging IMPRESSION: Stable indeterminate but likely benign segment 7/8 lesion. Jules Activity Status Index: METS: Climb a flight of stairs or walk up a hill (5.50 METs) DASI Score: 5.5 Patient denies any chest pain or undue shortness of breath with the above physical activity. Clinical Frailty Scale: 3. Well, with treated comorbid disease STOP-Bang Score: Patient over 50 years old Male patient Denies snoring loudly Denies feeling tired, fatigued, or sleepy during the daytime Has not been observed to stop breathing or choking/gasping during sleep Denies having high blood pressure BMI less than or equal to 35 kg/m^2 Does not have a large neck STOP-Bang Score: 2 [id number] Score: Age: >=75 Sex: male CHF history: No Hypertension history: No Stroke/TIA/thromboembolism history: No Vascular disease history: No Diabetes history: No [id number] Score: 2 ARISCAT Score: Age: 51-80 Preoperative SpO2: >=96% Respiratory infection in the last month: No Preoperative anemia: No Surgical incision: peripheral Duration of surgery: <2 hrs Emergency procedure: No ARISCAT Score: 3 ASA Class: 3 ANESTHESIA FINDINGS: Intubation History: No history of difficult intubation Significant Anesthesia Considerations: none Airway History: No history of difficult airway I - PHYSICAL EVALUATION AIRWAY Patient intubated: No. Tracheostomy tube not present Mallampati: II. TM distance: >3 FB. Neck ROM: full ROM without neurological symptoms. Mouth opening: adequate. Short neck: no. Thick neck: no Joe present: no DENTAL Dental findings: teeth intact. Dentures, upper: partial. II - ANESTHESIA PLAN ASA Score: 3 Anesthetic Plan: other Anesthetic plan additional comments: *PACC/TCI - anesthesia choice. Beta Shea Monitoring Plan Post Procedure Analgesic Plan Informed Consent Anesthetic risks, benefits, alternatives, personnel and consent discussed: yes. Patient / Responsible Republican agrees to proceed: yes Patient / Surrogate agrees to blood products: blood products not planned Prepared for Surgery: optimally prepared for surgery, pending [see comment]. labs CONSULTS: Patient does not require consults for optimization at this time Planned Anesthetic: other anesthesia choice The Following Tests/Procedures Have Been Initiated: Orders Placed This Encounter PT/INR Standing Status: Future Number of Occurrences: 1 Standing Expiration Date: 12/23/2022 Instructions Given to Patient: Instructions located in the after visit summary. Patient given verbal and written preop instructions and voices comprehension and compliance. SIGNATURE: Jeanette Hernandez APRN.CNP PATIENT NAME: Lupillo Mercado DATE: October 23, 2022 TIME: 10:41 AM PAGER/CONTACT #: documented in this encounter [facility] 10-18-2022 Note [facility] 10-13-2022 Note [facility] 10-13-2022 History of Presen t illness Narrative Episode Visit Count: 2 Therapist That Will Accept/Oversee The Plan Of Care: Dion Kumar Start of Care Date: 09/26/22 Onset Date: 09/26/21 Plan of Care Certification Date: 09/26/22 Next Certification Due Date: 12/27/22 [facility] PHYSICAL THERAPY TREATMENT NOTE ASSESSMENT: Lupillo Mercado tolerated the session with fatigue and decreased symptoms. He demonstrated difficulty with trigger points in R infraspinatus. The patient will continue to benefit from ongoing skilled physical therapy to progress toward set goals. PLAN FOR NEXT VISIT: May be needling candidate SUBJECTIVE: Patient Reason for Visit: Shoulder doing better overall, but still pinches/grabs when he reaches out or up at times Pain: Pain Pain Level: 3 Pain Location: Shoulder - Right Description: Aching;Sharp Frequency: Intermittent OBJECTIVE MEASURES WITH LEVEL OF FUNCTION: Multiple TrP in R infraspinatus reproduces pain TREATMENT: Therapeutic Exercise: 1: Shoulder pulleys into scaption 3x20 2: BTB ER/IR 2x10 3: Full can 2x10 2# 4: SL ER 2# 2x10 5: *OTB horizontal abd 2x10 6: *OTB rows 2x10 Skilled Intervention: Patient was educated in proper exercise technique and purpose for exercises. Skilled judgment was provided in selection of appropriate interventions. Provided written instruction for home exercise program to facilitate proper performance and compliance. Correct performance of therapeutic exercises was facilitated with verbal, visual, and tactile cuing. Manual Therapy: 1: TrPr/CFM to R infraspinatus with push to tolerance (showed pt self STM at home with ball in pillow case) Skilled Intervention: Manual skills to improve joint mobility, ROM, and decrease pain. Utilized anatomy knowledge of the therapist, and assessment of patient's response to intervention. Billing Therapeutic Exercise Treatment Minutes: 28 Manual TherapyTreatment Minutes: 12 Total Treatment Time Minutes (timed/untimed): 40 Dion Kumar PT documented in this encounter [facility] 10-10-2022 Miscellaneous Notes Pt notified Same dose, recheck 2 weeks ThanksShaun PA-C Last INR: INR (POCT) 2.4 10/10/2022 Current dose of coumadin is: 5 mg daily. Last date of dose change: 10/03/22. Previous INR (date and result): 1.1 on 10/03/22 Additional Clinical Information or narrative: no documented in this encounter [facility] 10-06-2022 Miscellaneous Notes Scheduled OT as close as I could to the post op appt Thanks Please assist with OT appointment to follow 1st post op with Dr. Monroy on 11/28/2022. I will mail appointment with post op appointments. Thank you. OT order signed. Surgical request completed. Roxy, Yris sign OT order Patient scheduled for Right CMC arthroplasty with tendon transfer and suspension on 11/17/2022. documented in this encounter [facility] 10-03-2022 Miscellaneous Notes Urinary bleeding stopped. Hesitant on reloading coumadin. Take extra 5mg today and tomorrow in addition to routine schedule. Recheck INR in1 week Notified, repeated instructions correctly on teach back. Thanks, Shaun Purvis PA-C Last INR: INR (POCT) 1.1 10/03/2022 Current dose of coumadin is: Pt was instructed to stop coumadin for 5 days on 09/28/22 per urology. See telephone encounter. Previous INR (date and result): 2.9 09/18/22 Additional Clinical Information or narrative: no documented in this encounter [facility] 10-03-2022 Note [facility] 10-03-2022 History of Presen t illness Narrative Assessment and Plan 1. Combined forms of age-related cataract of both eyes -early visual significance 2. Dry eye syndrome of both eyes -mild symptoms 3. Refractive error -stable 4. 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 To consider cataract measurements then if interested in proceeding I have confirmed and edited as necessary the relevant ophthalmic history, ROS, and the neuro exam findings as obtained by others. I have seen and examined Lupillo Mercado. I have discussed the case and the management of this patient's care with the Resident/Fellow, if applicable. I also have reviewed and agree with the assessment and plan as stated above and agree with all of its relevant components. Maura Shah MD October 03, 2022 9:43 AM documented in this encounter [facility] 10-03-2022 Instructions Maura Shah MD - 10/03/2022 9:43 AM EST Images from the original note were not included. documented in this encounter [facility] 10-02-2022 Note [facility] 10-02-2022 Note [facility] 09-28-2022 Miscellaneous Notes Patient phoned to let pcp know he is having blood in urine bleeding profusely from a prostate surgery he had done 2 years ago. Urologist has instructed him to stop coumadin for 5 days (starts today) and push fluids. If the bleeding does not stop he will go to ER. Patient just wanted you to know. Please phone patient with any questions. documented in this encounter [facility] 09-26-2022 Note [facility] 09-26-2022 History of Presen t illness Narrative Episode Visit Count: 1 Therapist That Will Accept/Oversee The Plan Of Care: Dion Kumar Start of Care Date: 09/26/22 Onset Date: 09/26/21 Plan of Care Certification Date: 09/26/22 Next Certification Due Date: 12/27/22 Patient Identified by Name and Date of : Yes REHABILITATION AND SPORTS THERAPY PHYSICAL THERAPY EVALUATION PLAN OF CARE: Assessment: Lupillo Mercado presents with chief complaint of right shoulder pain that interferes with heavy exertion;lifting;physical activities;recreational activities;reaching behind back;reaching overhead;use hand with arm at shoulder level . He presents with impairments in ADL's, overall function, range of motion, strength , symptom management, and tissue tenderness. Prognosis for therapy is Fair due to: clinical presentation;chronic nature of impairments;limited tolerance to activity . He will benefit from skilled therapy services to meet the goals established for this plan of care as noted below. Goals for Episode of Care: created on 09/26/22 through 11/26/22 [place] in home exercise program. Patient will decrease pain rating by 2 points to meet minimal clinical important difference for numeric pain rating scale. Patient will demonstrate increase in right shoulder strength to 5/5 during manual muscle testing in order to improve function for basic self-care tasks, home management tasks, leisure / recreation skills, light functional tasks, moderate to heavy functional tasks, and prior functional tasks. Perform reaching/lifting with decreased report of symptoms/pain in 6-8 weeks. Perform ADLs and self care without pain. Planned Interventions, Frequency, and Duration: Current Frequency: 1x/week Duration: 8 weeks Total Number of Visits Planned: 8 Planned Treatment Interventions: Therapeutic exercise (76958);Manual therapy (06395);Neuromuscular re-education (77172);Therapeutic activities (54150);Self-intermediate management (79605);Patient/Family/Caregiver Education;Body Mechanics Training PLAN FOR NEXT VISIT: assess addition of exercises, progress throwers 10 per tolerance with periscapular strengthening Patient demonstrates good understanding of plan of care and treatment. The above goals and plan of care were discussed and agreed upon by patient/family. SUBJECTIVE: Lupillo Mercado is a 77 year old male seen today for right shoulder pain for awhile now, but recently increased pain. Most pain with reaching out or up, especially as he is lowering the arm down. Pain isolated to the lateral shoulder. Functional Limitations: heavy exertion;lifting;physical activities;recreational activities;reaching behind back;reaching overhead;use hand with arm at shoulder level Prior Level of Function: Independent without limitations Intake Information: Prescription present Previous Treatment: Injections Pain: Pain Pain Level: 8 Pain Location: Shoulder - Right Description: Sharp;Aching Frequency: Intermittent Post Treatment Pain Post Treatment Pain Level: No Change PROMIS Scales Higher is Better 12/11/2016 03/13/2017 GH Physical - Percentile 41 % 41 % GH Mental - Percentile 34 % 53 % T-scores: mean of general population = 50. 5 points is clinically meaningfully difference Percentiles provide an indication of how the patient's score ranks in relation to the general population. Higher percentile rankings indicate better function/quality of life. 50th percentile is the average of the general population and indicates half of respondents had a worse score. T-scores: mean of general population = 50. 5 points is clinically meaningfully difference Percentiles provide an indication of how the patient's score ranks in relation to the general population. Higher percentile rankings indicate better function/quality of life. 50th percentile is the average of the general population and indicates half of respondents had a worse score. OBJECTIVE MEASURES WITH LEVEL OF FUNCTION: Shoulder Observations R Shoulder Palpation Tenderness: Rotator cuff muscles;Bicipital groove UE and Cervical Strength Strength Tested: Shoulder All R Shoulder Flexion: 4+/5 R Shoulder Abduction (C5): 5/5 R Shoulder Internal Rotation: 5/5 R Shoulder External Rotation: 4+/5 L Shoulder Flexion: 5/5 L Shoulder Abduction (C5): 5/5 L Shoulder Internal Rotation: 5/5 L Shoulder External Rotation: 5/5 Special Tests - Shoulder Shoulder Special Tests: Biceps Load;Apprehension;Empty Can;Charles-Jose;Neer;[place] ;Speed's;Relocation Apprehension: Right Positive (posterior pain) Biceps Load: Right Negative Empty Can: Right Negative Charles-Jose: Right Negative Neer: Right Negative [place]: Right Negative Relocation: Right Positive (positive for internal impingement, not hypermobility) Speed's: Right Positive Education: Education Learning/educational needs: Home exercise program;Plan of Care;Changes in Plan of Care TREATMENT: PT Treatment Interventions: Therapeutic Exercise;Self-Long-Term Management Evaluation Therapeutic Exercise: 1: *Shoulder pulleys into scaption 3x20 2: *BTB ER/IR 2x10 3: *Full can 2x10 2# 4: *SL ER 2# 2x10 Skilled Intervention: Patient was educated in proper exercise technique and purpose for exercises. Skilled judgment was provided in selection of appropriate interventions. Provided written instruction for home exercise program to facilitate proper performance and compliance. Correct performance of therapeutic exercises was facilitated with verbal, visual, and tactile cuing. Self-Long-Term Management: 1: Long discussion on shoulder impingement, anitomical considerations, mechanical considerations, causes, and treatment Skilled Intervention: Skilled judgment in the selection of proper modification for activity of daily living/home management based on clinical presentation, deficits, and needs. Reviewed patient specific diagnosis in relation to activities of daily living/home management. Activity progression based on professional judgement. Billing * Evaluation Low Complexity: 1 Unit Therapeutic Exercise Treatment Minutes: 15 Self-Care/Home Management Treatment Minutes: 15 Total Treatment Time Minutes (timed/untimed): 45 Dion Kumar PT documented in this encounter [facility] 09-19-2022 Note [facility] 09-19-2022 History of Presen t illness Narrative Radiology Service Progress Note DATE OF SERVICE: September 19, 2022 TIME: 10:21 AM PATIENT IDENTITY VERIFICATION COMPLETED USING TWO (2) STANDARD IDENTIFIERS: Name and Date of confirmed by patient verbally. FALL SCREENING: Has the patient had 2 falls in the last year or 1 fall with injury or currently using an Ambulatory Assistive Device (Walker, Cane, Wheelchair, Crutches, etc.)? No PATIENT GENDER DATA: Male PATIENT RELEVANT IMPLANT DATA REVIEWED: Yes ALLERGIES: Reviewed and unchanged CONTRAST ALLERGY: NO. EXAM: MRI - CONTRAST TYPE: GROUP II PERIPHERAL IV DATA: Ambulatory: A peripheral IV was started in the Right antecubital site with a Angio cath: 22 gauge. RADIOLOGY DEPARTMENT: MR; Exam(s) Completed: Head: Routine Brain SIGNATURE: RT David(R) PATIENT NAME: Lupillo Mercado DATE: September 19, 2022 TIME: 10:21 AM documented in this encounter [facility] 09-18-2022 Miscellaneous Notes Patient notified and verbalizes understanding. Same dose, 2 weeks Shaun Ortiz PA-C Last INR: INR (POCT) 2.9 09/18/2022 Current dose of coumadin is: 7.5 mg on 09/06/22, 5 mg all other days Last date of dose change: 09/06/22. Previous INR (date and result): 2.0 09/11/22 Additional Clinical Information or narrative: no documented in this encounter [facility] 09-18-2022 Note [facility] 09-11-2022 Miscellaneous Notes Patient instructed of dosage with teach back method. Verbalizes understanding. Same dose, recheck 1 week Shaun Ortiz PA-C Last INR: INR (POCT) 2.0 09/11/2022 Current dose of coumadin is: 7.5 mg on 09/06/22, 5 mg all other days. Last date of dose change: 09/06/22 due to low INR. Previous INR (date and result): 1.3 on 09/06/22 Additional Clinical Information or narrative: no Yamilet Stover Ma documented in this encounter [facility] 09-06-2022 Miscellaneous Notes Patient returned call and repeated back instructions correctly. Left detailed vm with provider's instructions, and asked patient to return call to nurse to let us know he received message. INR is low. Recommend taking 7.5 mg with next dose, then continuing 5 mg daily and recheck INR on Tuesday 09/11. Pt reports he resumed taking his Coumadin on Sunday09/02/22. INR is low. What day did he resume taking coumadin after recent surgery? Last INR: INR (POCT) 1.3 09/06/2022 Current dose of coumadin is: 5 mg daily. Last date of dose change: 08/16/22. Previous INR (date and result): 08/22/22 INR: 2.3 Additional Clinical Information or narrative: no documented in this encounter [facility] 08-28-2022 Miscellaneous Notes Tamara at [facility] calling to request patient's ECG result from April 2020. Record sent to FAX #: [phone]. Wendi Bang RN documented in this encounter [facility] 08-23-2022 Miscellaneous Notes Patient informed and verbalized understanding. Katy Chacon Resume day after if ok with urology. Same dose. Lets recheck about five days after starting to make sure is ok. Patient calling to add to note below: Patient states he will be stopping his coumadin prior to his procedure as previously instructed, but would like to know when he should restart it and what doses? Please call patient to address below INR as well as this question. Thank you. Last INR: INR (POCT) 2.3 08/22/2022 Current dose of coumadin is: 2.5 mg on 08/16/22, then 5 mg all other days. Last date of dose change: 08/16/22. Previous INR (date and result): 3.2 on 08/15/22. Additional Clinical Information or narrative: yes: Pt is undergoing surgery by Uro on 09/01/22. Will be stopping regimen on 08/26. See phone note on 08/16/22. Yamilet Stover Ma documented in this encounter [facility] 08-17-2022 Miscellaneous Notes Noted. [id number] score is 2: should be okay to stop Shaun Ortiz PA-C Pt calling to state he received INR instructions. Pt reports he is having surgery with Dr Taylor on 09/01/22 to remove an undescended testicle. Pt states he will have to stop taking coumadin on 08/26/22. JAK Iverson LPN Called and left a detailed voicemail notifying patient of providers message. Hospital phone number was left so Pt could call us back to let us know he received the message. Ana Velasquez RN 2.5 today, then 5 mg a day rest of the week. Recheck one week Last INR: INR (POCT) 3.2 08/15/2022 Current dose of coumadin is: 5 mg daily. Previous INR pt took 10 mg on 08/02. Last date of dose change: 08/02/22. Previous INR (date and result): 2.1 on 08/07/22 Additional Clinical Information or narrative: no Yamilet Stover Ma documented in this encounter [facility] 07-31-2022 Note [facility] 07-31-2022 History of Presen t illness Narrative Subjective HPI Nontoxic-appearing male presents urgent care chief complaint diarrhea abdominal pain body aches chills night sweats fever. Duration of symptoms 3 days. Associated symptoms listed above. Patient states he did have prostate scope done 5 days ago. Presents today for evaluation. States he does not know if he has an infection from procedure or some other viral illness. States he has not taken any OTC medications today. Did take milk of magnesia yesterday. Did have multiple bowel movements today. Denies any pain currently. Does have slight tenderness if he pushes over his abdomen. Denies any high fevers productive cough chest pain shortness of breath pleuritic pain hemoptysis or rash. .Patient presents with: Nausea: Diarrhea, stomach ache, low fever x5 days PAST MEDICAL HISTORY Diagnosis Date Atrial fibrillation (HCC) Benign neoplasm of colon 2006 Head injury, unspecified 1962 Right Head Injury Unspec Hypogonadism in male sees Dr. Wilson Intracranial meningioma (HCC) 07/06/2018 05/29/17 MRI brain: left middle cranial fossa meningioma. Done for recent intermittent motion dizziness. No falls, loss of hearing. 06/25/[address] Mcintosh 07/19/18 consult Tani Mccormick M.D. Dx: Left sphenoid wing meningioma, slow growth from initial MRI 2006. Plan to repeat MRI in 1 year. Other specified diseases of intestine 12/2019 Pneumatosis coli 12/30/2019 12/17/19 patient had outpatient evaluation for heartburn and epigastric pain with ultrasound demonstrating possible hemangioma of liver. MRI was recommended. 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 Also 1 cm left hepatic lobe cyst. Follow-up MRI in 3-6 months is recommended to assess stability and exclude a malignant neoplasm. 12/27/19 [facility] ED Unspecified asthma(493.90) PAST SURGICAL HISTORY Procedure Laterality Date APPENDECTOMY ARTHRP KNE CONDYLE&PLATU MEDIAL&LAT COMPARTMENTS Right Knee replacement, total - Right CAPSULORRHAPHY ANTERIOR PUTTI-SHIRAZ/NHI Left Repair shoulder replacement COLONOSCPY FLX DX 2011 COLSC FLX W/REMOVAL LESION BY HOT BX FORCEPS 08/08/2007 small polyps at 20 and 40 cm - recommende 5 year follow up EXPLORATORY LAPAROTOMY CELIOTOMY W/WO BIOPSY SPX 12/28/2019 RPR 1ST INGUN HRNA AGE 3 YRS/> REDUCIBLE Right Hernia repair, inguinal SEPTOPLASTY/SUBMUCOUS RESECJ W/WO CARTILAGE GRF Septoplasty TONSILLECTOMY PRIMARY/SECONDARY <AGE 12 Tonsillectomy TRURL ELECTROSURG RESCJ PROSTATE BLEED COMPLETE 10/01/2019 Dr. Taylor ALLERGIES Adhesives [Other], Ativan [Lorazepam], Latex, and Tape [Other] MEDICATIONS warfarin (COUMADIN) 5 mg tablet 5mg daily or as directed by provider ramelteon (ROZEREM) 8 mg tablet Take 1 tablet by mouth daily at bedtime. (Patient not taking: Reported on 07/10/2022) omeprazole (PRILOSEC) 40 mg capsule Take 1 capsule by mouth once daily. albuterol (PROVENTIL) 2.5 mg /3 mL (0.083 %) nebulizer solution Use 3 mL via nebulizer every 4 hours as needed for wheezing/shortness of breath. Use over 5-15minutes. Fluticasone Propionate (FLOVENT DISKUS) 50 mcg/actuation diskus inhaler Inhale 1 Puff as instructed twice daily. dilTIAZem CD (CARDIZEM CD, CARTIA XT) 180 mg 24 hr capsule Take 1 capsule by mouth once daily. atorvastatin (LIPITOR) 20 mg tablet Take 1 tablet by mouth once daily. warfarin (COUMADIN) 4 mg tablet 4 mg daily or as directed by provider (Patient taking differently: 5 mg daily or as directed by provider) albuterol HFA (VENTOLIN HFA) 90 mcg/actuation inhaler INHALE 2 PUFFS BY MOUTH EVERY 4 HOURS NEEDED FOR WHEEZING OR SHORTNESS OF BREATH sildenafil (REVATIO) 20 mg tablet TAKE 3 TABLETS BY MOUTH ONCE DAILY NEEDED testosterone (FORTESTA) 10 mg/0.5 gram /actuation glpm 3 pumps daily -- prescribed by urology. COMPOUNDED PRESCRIPTION Nebulizer and supplies. Use as directed. Dx: J44.1 FAMILY HISTORY Problem Relation Age of Onset other (Arteriosclerosis) Father Coronary Artery Disease Mother Social History Tobacco Use Smoking status: Former Packs/day: 2.00 Years: 10.00 Pack years: 20.00 Types: Pipe, Cigarettes Smokeless tobacco: Never Tobacco comments: smokes occasional pipe Vaping Use Vaping Use: Never used Substance Use Topics Alcohol use: No Alcohol/week: 0.0 standard drinks Comment: hx of abuse, quit drinking August 2015. Drug use: No BP 130/90 Pulse 94 Temp 37.7 C (99.9 F) Resp 18 Wt 78 kg (172 lb) SpO2 94% BMI 26.54 kg/m Review of Systems Constitutional: Positive for chills, fever and malaise/fatigue. HENT: Negative for congestion, ear discharge, ear pain, sinus pain and sore throat. Eyes: Negative for blurred vision, pain, discharge and redness. Respiratory: Negative for cough, hemoptysis, sputum production, shortness of breath, wheezing and stridor. Cardiovascular: Negative for chest pain. Gastrointestinal: Positive for abdominal pain and diarrhea. Negative for nausea and vomiting. Musculoskeletal: Negative for myalgias. Skin: Negative for itching and rash. Neurological: Negative for dizziness and headaches. Objective Physical Exam Constitutional: General: He is not in acute distress. Appearance: He is not diaphoretic. HENT: Head: Normocephalic. Eyes: Conjunctiva/sclera: Conjunctivae normal. Pupils: Pupils are equal, round, and reactive to light. Cardiovascular: Rate and Rhythm: Normal rate and regular rhythm. Heart sounds: Normal heart sounds. Pulmonary: Effort: Pulmonary effort is normal. No tachypnea, accessory muscle usage or respiratory distress. Breath sounds: Normal breath sounds. No stridor. No wheezing, rhonchi or rales. Abdominal: Palpations: Abdomen is soft. Tenderness: There is abdominal tenderness. Musculoskeletal: Cervical back: Normal range of motion and neck supple. No rigidity or tenderness. Lymphadenopathy: Cervical: No cervical adenopathy. Skin: General: Skin is warm and dry. Neurological: Mental Status: He is alert and oriented to person, place, and time. ASSESSMENT/PLAN: 1. Suspected COVID-19 virus infection - ICD9: V01.79, ICD10: Z20.822 - COVID WITH FLUA+B, ROUTINE Patient will be swabbed for COVID-19 in office today. Was instructed to contact urology office today to discuss symptoms post procedure for further evaluation and care. Patient verbalized understand agrees with plan of care. Chung Glover APRN.SEA documented in this encounter [facility] 07-27-2022 Miscellaneous Notes [id number] 3 Okay. Shaun Purvis PA-C Patient stops in office after just leaving Dr Taylor office due to some acute bleeding related to prostate. Was told to stop coumadin starting today for 3 days. Is going to restart on Sunday. Dr Taylor wanted to do procedure on Sunday but patient is unable to do then. Will probably have procedure on Sunday. Patient wanted to stop in office to let us know that could be awhile before getting his next INR completed. He is waiting to hear back from urology about getting procedure done for sure. documented in this encounter [facility] 07-18-2022 Miscellaneous Notes Pt notified and voiced understanding. Tracker and med list updated. Sisi Connor Ma Same dose, recheck 2 weeks Thanks, Shaun Purvis PA-C Last INR: INR (POCT) 2.9 07/18/2022 Current dose of coumadin is: 5 mg daily. Last date of dose change: 05/31/22. Previous INR (date and result): 2.6 on 06/14/22 Additional Clinical Information or narrative: no Yamilet Stover Ma documented in this encounter [facility] 07-10-2022 Note [facility] 07-10-2022 History of Presen t illness Narrative Images from the original note were not included. [facility] Cardiology ([address]) [address] [facility] [id number] OUTPATIENT VISIT DATE 07/10/2022 PRIMARY CARE PHYSICIAN: Shanelle Purvis [address] [place] [address] HISTORY OF PRESENT ILLNESS: Mr. Mercado is a 77 year old gentleman with a longstanding history of atrial fibrillation who is here for routine follow-up. Patient reports that he went on a keto diet after his last visit. He is lost over 50 pounds. He has been trying to watch his dietary intake. He has had improvement in his overall functional capacity. He tells me is exercising in the gym 3 to 4 days a week. He has not had symptoms of palpitations, lightheadedness, dizziness, or syncope. He has had no symptoms concerning for congestive heart failure including PND, orthopnea, lower extremity edema. PAST MEDICAL HISTORY Diagnosis Date Atrial fibrillation (HCC) Benign neoplasm of colon 2006 Head injury, unspecified 1963 Right Head Injury Unspec Hypogonadism in male sees Dr. Wilson Intracranial meningioma (HCC) 07/06/2018 05/29/17 MRI brain: left middle cranial fossa meningioma. Done for recent intermittent motion dizziness. No falls, loss of hearing. 06/25/[address] Mcintosh 07/19/18 consult Tani Mccormick M.D. Dx: Left sphenoid wing meningioma, slow growth from initial MRI 2006. Plan to repeat MRI in 1 year. Other specified diseases of intestine 12/2019 Pneumatosis coli 12/30/2019 12/17/19 patient had outpatient evaluation for heartburn and epigastric pain with ultrasound demonstrating possible hemangioma of liver. MRI was recommended. 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 Also 1 cm left hepatic lobe cyst. Follow-up MRI in 3-6 months is recommended to assess stability and exclude a malignant neoplasm. 12/27/19 [facility] ED Unspecified asthma(493.90) PAST SURGICAL HISTORY Procedure Laterality Date APPENDECTOMY ARTHRP KNE CONDYLE&PLATU MEDIAL&LAT COMPARTMENTS Right Knee replacement, total - Right CAPSULORRHAPHY ANTERIOR PUTTI-SHIRAZ/NHI Left Repair shoulder replacement COLONOSCPY FLX DX 2011 COLSC FLX W/REMOVAL LESION BY HOT BX FORCEPS 08/08/2007 small polyps at 20 and 40 cm - recommende 5 year follow up EXPLORATORY LAPAROTOMY CELIOTOMY W/WO BIOPSY SPX 12/28/2019 RPR 1ST INGUN HRNA AGE 3 YRS/> REDUCIBLE Right Hernia repair, inguinal SEPTOPLASTY/SUBMUCOUS RESECJ W/WO CARTILAGE GRF Septoplasty TONSILLECTOMY PRIMARY/SECONDARY <AGE 10 Tonsillectomy TRURL ELECTROSURG RESCJ PROSTATE BLEED COMPLETE 10/01/2019 Dr. Taylor SOCIAL HISTORY Social History Tobacco Use Smoking status: Former Packs/day: 2.00 Years: 10.00 Pack years: 20.00 Types: Pipe, Cigarettes Smokeless tobacco: Never Tobacco comments: smokes occasional pipe Vaping Use Vaping Use: Never used Substance Use Topics Alcohol use: No Alcohol/week: 0.0 standard drinks Comment: hx of abuse, quit drinking August 2015. Drug use: No FAMILY HISTORY Problem Relation Age of Onset other (Arteriosclerosis) Father Coronary Artery Disease Mother ALLERGIES: ALLERGIES Allergen Reactions Adhesives [Other] blisters Ativan [Lorazepam] Mental Status Change Latex Other: See Comments blisterering from adhesive Tape [Other] Rash MEDICATIONS: warfarin (COUMADIN) 5 mg tablet 5mg daily or as directed by provider omeprazole (PRILOSEC) 40 mg capsule Take 1 capsule by mouth once daily. albuterol (PROVENTIL) 2.5 mg /3 mL (0.083 %) nebulizer solution Use 3 mL via nebulizer every 4 hours as needed for wheezing/shortness of breath. Use over 5-15minutes. Fluticasone Propionate (FLOVENT DISKUS) 50 mcg/actuation diskus inhaler Inhale 1 Puff as instructed twice daily. dilTIAZem CD (CARDIZEM CD, CARTIA XT) 180 mg 24 hr capsule Take 1 capsule by mouth once daily. atorvastatin (LIPITOR) 20 mg tablet Take 1 tablet by mouth once daily. warfarin (COUMADIN) 4 mg tablet 4 mg daily or as directed by provider (Patient taking differently: 5 mg daily or as directed by provider) albuterol HFA (VENTOLIN HFA) 90 mcg/actuation inhaler INHALE 2 PUFFS BY MOUTH EVERY 4 HOURS NEEDED FOR WHEEZING OR SHORTNESS OF BREATH sildenafil (REVATIO) 20 mg tablet TAKE 3 TABLETS BY MOUTH ONCE DAILY NEEDED testosterone (FORTESTA) 10 mg/0.5 gram /actuation glpm 3 pumps daily -- prescribed by urology. COMPOUNDED PRESCRIPTION Nebulizer and supplies. Use as directed. Dx: J44.1 ramelteon (ROZEREM) 8 mg tablet Take 1 tablet by mouth daily at bedtime. (Patient not taking: Reported on 07/10/2022) REVIEW OF SYSTEMS: Review of Systems Constitutional: Negative for chills, fever, malaise/fatigue and weight loss. HENT: Negative for hearing loss and sore throat. Eyes: Negative for blurred vision and double vision. Respiratory: Negative. Cardiovascular: Negative. Genitourinary: Negative for dysuria, frequency, hematuria and urgency. Musculoskeletal: Negative. Skin: Negative. Neurological: Negative for dizziness, seizures, loss of consciousness, weakness and headaches. Endo/Heme/Allergies: Negative for environmental allergies. Does not bruise/bleed easily. Psychiatric/Behavioral: Negative for depression. PHYSICAL EXAMINATION: BP 140/90 Pulse 70 Wt 174 lb (78.9kg) General: Patient sitting appears comfortable no apparent distress. He is alert and oriented x3 HEENT: Carotid upstrokes are brisk without bruits no JVD appreciated. Pulmonary: Lungs are clear no rales, wheezes, or rhonchi Cardiovascular: Variable S1. Regular rate with an irregularly irregular rhythm. No murmurs, rubs, or gallops Extremities: Warm, well-perfused, no lower extremity edema. CARDIOVASCULAR MEDICINE TESTING: Lexiscan Nuclear Stress [facility] 07/22/2021 1. Rest and stress SPECT Cardiolite nuclear imaging demonstrate relative uniform tracer uptake and myocardial perfusion appearing within normal limits. 2. Gated Cardiolite study reports an LVEF of 56% Ecocardiogram 04/19/2020: CONCLUSIONS: - Technically difficult exam due to body habitus. - Exam indication: Atrial fibrillation - The left ventricle is small. There is mild upper septal left ventricular hypertrophy. Left ventricular systolic function is normal. EF = 55 5% (2D biplane) Left ventricular diastolic function was not evaluated due to AF. - The right ventricle is normal in size. Right ventricular systolic function is npr,e mal.- The left atrial cavity is moderately dilated. - The right atrial cavity is dilated. - There is no significant valvular stenosis or insufficiency present. - The patient has not had a prior CC echocardiographic exam for comparison. IMPRESSION: Mr. Mercado is a 77 year old gentleman with a history of persistent atrial fibrillation, dyslipidemia, borderline hypertension, prior significant smoking history who presents for routine follow-up PLAN AND RECOMMENDATIONS: 1. Chronic atrial fibrillation (HCC) - ICD9: 427.31, ICD10: I48.20 (primary diagnosis) Patient is maintained on Coumadin for stroke risk reduction. Heart rates are adequate control on current regimen. He has no symptoms concerning for bradycardia. 2. Other hyperlipidemia - ICD9: 272.4, ICD10: E78.49 I reviewed his most recent fasting lipid panel April 2022. LDL cholesterol 163 mg/dL. He is currently maintained on Lipitor 20 mg daily. Discussed dietary modification for further improvements in his cholesterol profile and cardiovascular risk reduction. Ras Mendez MD documented in this encounter [facility] 06-14-2022 Miscellaneous Notes Patient was notified, tracker updated. Doreen Davis Ma Same. Recheck in one month Last INR: INR (POCT) 2.6 06/14/2022 Current dose of coumadin is: 5 mg daily. Last date of dose change: 05/31. Previous INR (date and result): 05/31 2.7 Doreen Davis Ma documented in this encounter [facility] 05-31-2022 Miscellaneous Notes Pt called and notified, verbalized understanding. Tracker updated. Yamilet Stover Ma Same. Recheck two weeks. Last INR: INR (POCT) 2.7 05/31/2022 Current dose of coumadin is: 5 mg daily. Last date of dose change: 03/23/22. Previous INR (date and result): 3.0 on 05/24/22 Additional Clinical Information or narrative: no Yamilet Stover Ma documented in this encounter [facility] 05-24-2022 Miscellaneous Notes Left detailed message on voicemail as instructed. Same. Recheck one week INR 3.0 Current dose is 5 mg daily. Previous INR 3.2 05/16/22 Last dose change 03/23/22 documented in this encounter [facility] 05-16-2022 Miscellaneous Notes Detailed message left for pt with dosage instructions Same dose, recheck 1 week. Try to keep diet steady. Thanks, Shaun Purvis PA-C Last INR: INR (POCT) 3.2 05/16/2022 Current dose of coumadin is: 5 mg daily. Last date of dose change: 03/23/22. Previous INR (date and result): 2.8 on 05/04/22 Additional Clinical Information or narrative: no documented in this encounter [facility] 05-16-2022 Note [facility] 05-16-2022 History of Presen t illness Narrative Radiology Service Progress Note DATE OF SERVICE: May 16, 2022 TIME: 8:59 AM PATIENT IDENTITY VERIFICATION COMPLETED USING TWO (2) STANDARD IDENTIFIERS: Name and Date of confirmed by patient verbally. FALL SCREENING: Has the patient had 2 falls in the last year or 1 fall with injury or currently using an Ambulatory Assistive Device (Walker, Cane, Wheelchair, Crutches, etc.)? No PATIENT GENDER DATA: Male PATIENT RELEVANT IMPLANT DATA REVIEWED: Yes ALLERGIES: Reviewed and unchanged CONTRAST ALLERGY: NO. EXAM: MRI - CONTRAST TYPE: GROUP II PERIPHERAL IV DATA: Ambulatory: A peripheral IV was started in the Left antecubital site with a Angio cath: 22 gauge. RADIOLOGY DEPARTMENT: MR; Exam(s) Completed: Body: Liver (routine) SIGNATURE: RT David(R) PATIENT NAME: Lupillo Mercado DATE: May 16, 2022 TIME: 8:59 AM documented in this encounter [facility] 05-10-2022 Miscellaneous Notes ----- Message from RT David(Dave) sent at 05/10/2022 8:15 AM EDT ----- Regarding: MRI Order Good Morning Shaun, This exam is usually done WWO contrast for the hemangioma to be visualized. If the pt has no contraindications, could you place another order for MRI Liver WWO? The previous MRI Liver was done wwo contrast. Thanks, Fariba RADFORD(R)(MRI) documented in this encounter [facility] 05-04-2022 Miscellaneous Notes Detailed message left for pt with dosage instructions Same dose, 2 weeks ThanksShaun PA-C Last INR: INR (POCT) 2.8 05/04/2022 Current dose of coumadin is: 5 mg daily. Last date of dose change: 03/23/22. Previous INR (date and result): 3.0 04/27/22 Additional Clinical Information or narrative: no documented in this encounter [facility] 04-28-2022 Note HNO ID: [id number] Author: Shanelle Purvis PA-C Service: ? Author Type: Physician Coal Loader Type: Progress Notes Filed: 04/28/2022 1:13 PM Note Text: . [facility] 04-28-2022 Note [facility] 04-28-2022 Instructions Shanelle Purvis PA-C - 04/28/2022 10:55 AM EDT SLEEP HYGIENE Steps to Improve Your sleep Maintain a regular sleep-wake cycle 7 days a week. Bedtime should not vary more than 1 hour from day to day. Go to bed ONLY when you are sleepy. Aim for at least 8 hours of sleep which has been identified as the optimal amount for all adults. Maintain a regular schedule for meals, medications, chores and sleep as much as possible. Limit or wean completely off any stimulants, such as caffeine, nicotine, energy drinks, and OTC decongestant medications which can effect sleep efficiency. Caffeine exerts its effect for 12-16 hours, so avoid use within that time period before sleep. Do not use nicotine products withing 4-6 hours of sleeping. Avoid taking naps. If you do nap, try to limit is to less than 1 hour. Don't lay in bed longer than 20-30 minutes without sleeping. Get up and do something sedentary unitl you feel tired like folding clothes, reading, listening to relaxing music or meditation. Minimize excessive light, noise, or extremes of temperature in the sleep environment. Minimize distractions as much as possible such as pets, children, un-silenced phones, light or TV noise in the bedroom. Move the alarm clock away from your bed so that you are not tempted to look at it. Don't eat a large meal within a few hours of bedtime. Don't use alcohol to induce sleep or in late evening hours as it can cause awakenings later in the night Don't exercise vigorously within fours of sleep. Regular exercise earlier in the day will help with overall sleep improvement. Limit television to an hour a day. Television viewing actually decreases the REM (most restful) portion of your sleep cycle. Avoid screen time in the two hours before sleep. This includes television, tablets, computer screens and cell-phones. The blue light from the devices mimics sunlight and activates wakefulness. Avoid using your bed as a recreational area for reading or television. The bed should be reserved for two things, and one of those is sleep. Almost all sleep-aids are sedatives. While sedatives make cause you to sleep, they actually interfere with stage 4 deep sleep which is the reparative stage for brain stress. Chronic use of sedatives for an unknown reason increases all cause mortality and shorter life span. OTC herbal supplements such as Valerian Root and Kava Kava have shown some benefit in sleep induction without hang over. Melatonin has been sown to help some people and is also not a sedative. The recommended dose for melatonin in adult is 1/2mg one hour prior to bedtime. Melatonin regulates sleep cycle and larger doses may cause activation rather than sleep. Mindfulness practice has been shown to improve deep sleep. There are many internet source and apps to help guidance in this habit. See below for guidance in this practice. Riki: Patient drug information Access [employer] for additional drug information, tools, and databases. Copyright 5164-7880 [employer]. All rights reserved. Contributor Disclosures (For additional information see Jennyfereon: Drug information ) You must carefully read the Consumer Information Use and Disclaimer below in order to understand and correctly use this information. Brand Names: [place] Ochoa What is this drug used for? It is used to treat sleep problems. What do I need to tell my doctor BEFORE I take this drug? If you are allergic to this drug; any part of this drug; or any other drugs, foods, or substances. Tell your doctor about the allergy and what signs you had. If you have liver disease. If you have sleep apnea. If you do not have time to get a full night's sleep. If you are taking fluvoxamine. If you are taking any other drugs that can make you sleepy. There are many drugs that can do this. Ask your doctor or pharmacist if you are not sure. This is not a list of all drugs or health problems that interact with this drug. Tell your doctor and pharmacist about all of your drugs (prescription or OTC, natural products, vitamins) and health problems. You must check to make sure that it is safe for you to take this drug with all of your drugs and health problems. Do not start, stop, or change the dose of any drug without checking with your doctor. What are some things I need to know or do while I take this drug? Tell all of your health care providers that you take this drug. This includes your doctors, nurses, pharmacists, and dentists. Avoid driving and doing other tasks or actions that call for you to be alert after you take this drug. You may still feel sleepy the day after you take this drug. Avoid these tasks or actions until you feel fully awake. Avoid alcohol while taking this drug. Do not take this drug if you drank alcohol that evening or before bed. Talk with your doctor before you use marijuana, other forms of cannabis, or prescription or OTC drugs that may slow your actions. Some people have done certain tasks or actions while they were not fully awake like driving, making and eating food, and having sex. Most of the time, people do not remember doing these things. Tell your doctor if this happens to you. Do not take this drug unless you can get a full night's sleep (at least 7 to 8 hours) before you need to be active again. Tell your doctor if you are , plan on getting , or are breast-feeding. You will need to talk about the benefits and risks to you and the baby. What are some side effects that I need to call my doctor about right away? WARNING/CAUTION: Even though it may be rare, some people may have very bad and sometimes deadly side effects when taking a drug. Tell your doctor or get medical help right away if you have any of the following signs or symptoms that may be related to a very bad side effect: Signs of an allergic reaction, like rash; hives; itching; red, swollen, blistered, or peeling skin with or without fever; wheezing; tightness in the chest or throat; trouble breathing, swallowing, or talking; unusual hoarseness; or swelling of the mouth, face, lips, tongue, or throat. New or worse behavior or mood changes like depression or thoughts of suicide. Feeling confused. Hallucinations (seeing or hearing things that are not there). Bad dreams. Memory problems or loss. Upset stomach or throwing up. No menstrual period. Nipple discharge. Lowered interest in sex. Trouble getting . A very bad reaction called angioedema has happened with this drug. Sometimes, this may be life-threatening. Signs may include swelling of the hands, face, lips, eyes, tongue, or throat; trouble breathing; trouble swallowing; or unusual hoarseness. Get medical help right away if you have any of these signs. What are some other side effects of this drug? All drugs may cause side effects. However, many people have no side effects or only have minor side effects. Call your doctor or get medical help if any of these side effects or any other side effects bother you or do not go away: Feeling dizzy, sleepy, tired, or weak. These are not all of the side effects that may occur. If you have questions about side effects, call your doctor. Call your doctor for medical advice about side effects. You may report side effects to your national health agency. How is this drug best taken? Use this drug as ordered by your doctor. Read all information given to you. Follow all instructions closely. Take within 30 minutes of bedtime. Avoid taking this drug with or right after high-fat meals. Swallow tablet whole. Do not chew, break, or crush. After you take this drug, only do things needed to get ready for bed. If you still have trouble sleeping after 7 to 10 days, call your doctor. What do I do if I miss a dose? If you take this drug on a regular basis, take a missed dose as soon as you think about it. If you will not be able to get a full night's sleep (at least 7 hours) after taking the missed dose, skip the missed dose and go back to your normal time. Do not take 2 doses at the same time or extra doses. Do not take more than 1 dose of this drug in the same day. Many times this drug is taken on an as needed basis. Do not take more often than told by the doctor. How do I store and/or throw out this drug? Store at room temperature with the lid tightly closed. Store in a dry place. Do not store in a bathroom. Keep all drugs in a safe place. Keep all drugs out of the reach of children and pets. Throw away unused or drugs. Do not flush down a toilet or pour down a drain unless you are told to do so. Check with your pharmacist if you have questions about the best way to throw out drugs. There may be drug take-back programs in your area. General drug facts If your symptoms or health problems do not get better or if they become worse, call your doctor. Do not share your drugs with others and do not take anyone else's drugs. Some drugs may have another patient information leaflet. If you have any questions about this drug, please talk with your doctor, nurse, pharmacist, or other health care provider. If you think there has been an overdose, call your poison control center or get medical care right away. Be ready to tell or show what was taken, how much, and when it happened. Last Reviewed [id number] Consumer Information Use and Disclaimer This generalized information is a limited summary of diagnosis, treatment, and/or medication information. It is not meant to be comprehensive and should be used as a tool to help the user understand and/or assess potential diagnostic and treatment options. It does NOT include all information about conditions, treatments, medications, side effects, or risks that may apply to a specific patient. It is not intended to be medical advice or a substitute for the medical advice, diagnosis, or treatment of a health care provider based on the health care provider's examination and assessment of a patient's specific and unique circumstances. Patients must speak with a health care provider for complete information about their health, medical questions, and treatment options, including any risks or benefits regarding use of medications. This information does not endorse any treatments or medications as safe, effective, or approved for treating a specific patient. [employer] and its affiliates disclaim any warranty or liability relating to this information or the use thereof. The use of this information is governed by the Terms of Use, available at https://www.WallCompasser.com/en /know/rbnoazou-cyypkdmhtxfkv-otm ms. 2021 [employer]. and its affiliates and/or licensors. All rights reserved. Use of [employer] is subject to the Terms of Use. Topic 95901 Version 114.0 Close The use of [employer] is subject to the Terms of Use. documented in this encounter [facility] 04-28-2022 History of Presen t illness Narrative 76 year old male with c/o here for follow up Doing keto diet. Has lost 48lbs Working aout a couple days a week at the [facility]. Feeling good. Chronic atrial fibrillation (hcc) (primary encounter diagnosis) Chronic anticoagulation Ruiz (dyspnea on exertion) Other hyperlipidemia Cardiovascular interval hx: 01/09/[address] Mendez: consider additional tx HTN 07/22/21 nuclear stress WNL: MHR 94, uniform tracer uptake, EF 56% Current meds: Diltiazem CD 180 mg daily Atorvastatin 20 mg daily at bedtime Warfarin as directed Use of NTG: No Chest pain, arm, jaw pain, neck, or upper back pain suggestive of angina: No. SOB: No Dyspnea with exertion: No orthopnea: No racing or irregular heartbeats: No palpitations: No syncopal sx: No Unexplainable fatigue No Leg swelling: No Nausea: No diaphoresis: No Heartburn: No Claudication: No Smoking: No Following Low cholesterol, high fiber diet? Keto diet If on statin: muscle aches? No If on statin: GI sx or diarrhea? No Additional history: No ETOH use. Continues marijuana. Copd with exacerbation (hcc) Mild intermittent asthma without complication Current medications: Albuterol HFA 90 mcg per actuation 2 puffs every 4 hours as needed Albuterol nebs Flovent : not using Worsening shortness of breath: No. Cough: No. Wheezing: No. Smoking: Not cigarettes but marijuana Compliant with medications: No. Using rescue inhaler 0 times per week. Hypogonadism in male Long-term current use of testosterone replacement therapy Current medications: Revatio 20 mg 3 tablets daily as needed Testosterone 10 mg per 0.5 g per actuation 3 pumps daily Adjustment reaction with anxiety and depression Generalized anxiety disorder Primary insomnia No meds currently Intracranial meningioma (hcc) Dizziness and giddiness Stable on 05/29/[address] Tani Mccormick 07/19/2018: recommend recheck MRI 1 year. -There has been no follow up: not interested in pursuing. From prior notes: 07/28/[address] Rajesh Monroy [facility] arthritis left thumb: splinting, consider injections. 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 Also 1 cm left hepatic lobe cyst. Follow-up MRI in 3-6 months is recommended to assess stability and exclude a malignant neoplasm. - has not had follow up. Caffeine 2 cups in morning Chas Black tea by the gallon . HISTORIES FAMILY HISTORY Problem Relation Age of Onset other (Arteriosclerosis) Father Coronary Artery Disease Mother PAST MEDICAL HISTORY Diagnosis Date Atrial fibrillation (HCC) Benign neoplasm of colon 2006 Head injury, unspecified 1963 Right Head Injury Unspec Hypogonadism in male sees Dr. Wilson Intracranial meningioma (HCC) 07/06/2018 05/29/17 MRI brain: left middle cranial fossa meningioma. Done for recent intermittent motion dizziness. No falls, loss of hearing. 06/25/[address] Mcintosh 07/19/18 consult Tani Mccormick M.D. Dx: Left sphenoid wing meningioma, slow growth from initial MRI 2006. Plan to repeat MRI in 1 year. Other specified diseases of intestine 12/2019 Pneumatosis coli 12/30/2019 12/17/19 patient had outpatient evaluation for heartburn and epigastric pain with ultrasound demonstrating possible hemangioma of liver. MRI was recommended. 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 Also 1 cm left hepatic lobe cyst. Follow-up MRI in 3-6 months is recommended to assess stability and exclude a malignant neoplasm. 12/27/19 [facility] ED Unspecified asthma(493.90) PAST SURGICAL HISTORY Procedure Laterality Date APPENDECTOMY ARTHRP KNE CONDYLE&PLATU MEDIAL&LAT COMPARTMENTS Right Knee replacement, total - Right CAPSULORRHAPHY ANTERIOR PUTTI-SHIRAZ/NHI Left Repair shoulder replacement COLONOSCPY FLX DX 2011 COLSC FLX W/REMOVAL LESION BY HOT BX FORCEPS 08/08/2007 small polyps at 20 and 40 cm - recommende 5 year follow up EXPLORATORY LAPAROTOMY CELIOTOMY W/WO BIOPSY SPX 12/28/2019 [facility] 1ST INGUN HRNA AGE 3 YRS/> REDUCIBLE Right Hernia repair, inguinal SEPTOPLASTY/SUBMUCOUS RESECJ W/WO CARTILAGE GRF Septoplasty TONSILLECTOMY PRIMARY/SECONDARY <AGE 10 Tonsillectomy TRURL ELECTROSURG RESCJ PROSTATE BLEED COMPLETE 10/01/2019 Dr. Taylor Social History Tobacco Use Smoking status: Former Smoker Packs/day: 2.00 Years: 10.00 Pack years: 20.00 Types: Pipe Smokeless tobacco: Never Used Tobacco comment: smokes occasional pipe Vaping Use Vaping Use: Never used Substance Use Topics Alcohol use: No Alcohol/week: 0.0 standard drinks Comment: hx of abuse, quit drinking August 2015. Drug use: No ACTIVE PROBLEM LIST Generalized Anxiety Disorder Generalized Osteoarthrosis, Unspecified Site Hypogonadism in Male Special Screening for Malignant Neoplasms, Colon Benign Neoplasm of Colon Primary Insomnia Chronic Atrial Fibrillation (Hcc) Low Back Pain Asthma, Mild Intermittent Personal History of Colonic Polyps Shoulder Impingement Rotator Cuff Syndrome of Right Shoulder Copd (Chronic Obstructive Pulmonary Disease) With Acute Bronchitis (Hcc) Intracranial Meningioma (Hcc) Sensorineural Hearing Loss (Snhl) of Right Ear With Restricted Hearing of Left Ear History of Exposure to Noise Dizziness and Giddiness Ear Pressure, Right Tinnitus, Bilateral Chronic Left Maxillary Sinusitis Hemangioma of Liver Cortical Age-Related Cataract, Bilateral Dry Eye Syndrome of Both Eyes Refractive Error Other Chest Pain Arthritis of Carpometacarpal (Cmc) Joint of Left Thumb Other Hyperlipidemia Current Outpatient Medications Medication Sig Dispense Refill omeprazole (PRILOSEC) 40 mg capsule Take 1 capsule by mouth once daily. 90 capsule 3 cyclobenzaprine (FLEXERIL) 10 mg tablet Take 1 tablet by mouth at bedtime as needed for muscle spasm (for muscle spasm, insomnia). 30 tablet 1 albuterol (PROVENTIL) 2.5 mg /3 mL (0.083 %) nebulizer solution Use 3 mL via nebulizer every 4 hours as needed for wheezing/shortness of breath. Use over 5-15minutes. 750 mL 5 Fluticasone Propionate (FLOVENT DISKUS) 50 mcg/actuation diskus inhaler Inhale 1 Puff as instructed twice daily. 1 Each 5 dilTIAZem CD (CARDIZEM CD, CARTIA XT) 180 mg 24 hr capsule Take 1 capsule by mouth once daily. 90 capsule 3 atorvastatin (LIPITOR) 20 mg tablet Take 1 tablet by mouth once daily. 90 tablet 3 warfarin (COUMADIN) 4 mg tablet 4 mg daily or as directed by provider (Patient taking differently: 5 mg daily or as directed by provider ) 90 tablet 3 warfarin (COUMADIN) 5 mg tablet 5mg daily or as directed by provider 90 tablet 3 albuterol HFA (VENTOLIN HFA) 90 mcg/actuation inhaler INHALE 2 PUFFS BY MOUTH EVERY 4 HOURS NEEDED FOR WHEEZING OR SHORTNESS OF BREATH 36 g 3 sildenafil (REVATIO) 20 mg tablet TAKE 3 TABLETS BY MOUTH ONCE DAILY NEEDED testosterone (FORTESTA) 10 mg/0.5 gram /actuation glpm 3 pumps daily -- prescribed by urology. COMPOUNDED PRESCRIPTION Nebulizer and supplies. Use as directed. Dx: J44.1 1 Device 0 No current facility-administered medications for this visit. HEPATITIS C SCREENING Never done DEPRESSION SCREENING due on 07/24/2020 COVID-19 VACCINE(3 - Booster for Pfizer series) due on 10/25/2021 ADVANCE DIRECTIVE DISCUSSION Never done EXAM: BP 128/78 Pulse 71 Resp 18 Wt 81.6 kg (180 lb) SpO2 97% BMI 27.78 kg/m Pleasant adult man in no acute distress. Alert and oriented all spheres. Normal affect and cognition. Speech normal. No deficits to learning or comprehension. Skin warm, dry, pink to lips and nailbeds. Normal turgor. Respirations regular and unlabored. HEENT: NCAT. No scleral icterus or conjunctival injection. TM's clear. Nose and oropharynx free from injection or lesion. Oral membranes moist and pink. No cervical lymph nodes. Thyroid non-tender, no masses, or enlargement. Carotids pulses 2+/4+ without bruits. No JVD with HOB at 30 degrees. Chest is normal shape. Lungs are clear to all miller with good air exchange through out. HRRR without murmur or gallop. No lifts, heaves, or rubs. Abdomen: active bowel sounds throughout, soft, nontender, no masses or organomegaly. No CVAT. Extrem: no clubbing or cyanosis. Edema: none. Extremities are warm and pink with prompt capillary refill. ASSESSMENT/PLAN: 1. Chronic atrial fibrillation (HCC) - ICD9: 427.31, ICD10: I48.20 (primary diagnosis) Stable, asymptomatic, controlled rhythm and rate - CBC 2. Chronic anticoagulation - ICD9: V58.61, ICD10: Z79.01 - WARFARIN 5 MG TABLET 3. RUIZ (dyspnea on exertion) - ICD9: 786.09, ICD10: R06.00 Weight decreasing - CBC + DIFF 4. Other hyperlipidemia - ICD9: 272.4, ICD10: E78.49 - COMP METABOLIC PANEL - LIPID PANEL BASIC - LIPID PANEL BASIC 5. COPD with exacerbation (HCC) - ICD9: 491.21, ICD10: J44.1 Stable and improved with weight loss. 6. Mild intermittent asthma without complication - ICD9: 493.90, ICD10: J45.20 Mild intermittent Asthma stable - Continue current meds - Avoidance of triggers recommended 7. Hypogonadism in male - ICD9: 257.2, ICD10: E29.1 8. Long-term current use of testosterone replacement therapy - ICD9: V58.69, ICD10: Z79.890 - CBC 9. Adjustment reaction with anxiety and depression - ICD9: 309.28, ICD10: F43.23 - CBC + DIFF - COMP METABOLIC PANEL 10. Generalized anxiety disorder - ICD9: 300.02, ICD10: F41.1 - CBC + DIFF - COMP METABOLIC PANEL 11. Primary insomnia - ICD9: 307.42, ICD10: F51.01 Trial rozerem: Educated on new medication, precautions, use, common side effects. Informational handout provided. 12. Intracranial meningioma (HCC) - ICD9: 225.2, ICD10: D32.0 Continues to decline further evaluation and treatment. 13. Dizziness and giddiness - ICD9: 780.4, ICD10: R42 - CBC + DIFF - COMP METABOLIC PANEL 14. Chronic insomnia - ICD9: 780.52, ICD10: F51.04 - RAMELTEON 8 MG TABLET 15. Age-related cataract of both eyes, unspecified age-related cataract type - ICD9: 366.10, ICD10: H25.9 - CONSULT TO OPHTHALMOLOGY 16. Hemangioma of liver - ICD9: 228.04, ICD10: D18.03 Patient wishes to continue to follow-up on this particular problem. - MRI LIVER WO IVCON Some of this note may have been copied and pasted for the purpose of history context and comparison. Shaun Purvis PA-C . documented in this encounter [facility] 04-27-2022 Miscellaneous Notes Patient notified. Verbalized understanding. Same dose, recheck in 2 weeks. Eat some greens Thanks, Shaun Purvis PA-C Last INR: INR (POCT) 3.0 04/27/2022 Current dose of coumadin is: 5 mg daily. Last date of dose change: 03/23/22. Previous INR (date and result): 2.4 04/13/22 Additional Clinical Information or narrative: no documented in this encounter [facility] 04-26-2022 Note [facility] 04-25-2022 Note [facility] 04-25-2022 History of Presen t illness Narrative POPULATION HEALTH NAVIGATION OUTREACH Action/I Patient Outreach: [facility] Support - Left voicemail for patient to call back to schedule follow up with PCP. Any agent can assist with scheduling. Pt identified by name and : NO Outreach Outcome/Action Unable to reach patient: Left message Did you use a PCP flex slot to schedule this appointment? No Reason for Outreach Care Gap or Scheduling/Wellness visits Payer: Payor: MEDICARE / Plan: MEDICARE A AND B / Product Type: Medicare / Care Gap Reviewed:: Follow-up appointment Reminder: Reminder note to check Health Maintenance for items below Health Maintenance items due: HEPATITIS C SCREENING Never done DEPRESSION SCREENING due on 07/24/2020 COVID-19 VACCINE(3 - Booster for Pfizer series) due on 10/25/2021 ADVANCE DIRECTIVE DISCUSSION Never done Message Sent to Practice: No Navigation Signature: Rosalie Lao Pss April 25, 2022 11:17 AM documented in this encounter [facility] 04-13-2022 Miscellaneous Notes Detailed message left with dosage instructions. Fariba Arreola Ma Same dose, recheck 2 weeks Shaun Ortiz PA-C Last INR: INR (POCT) 2.4 04/13/2022 Current dose of coumadin is: 5 mg daily. Last date of dose change: 03/23/22. Previous INR (date and result): 2.4 on 03/30/22 Additional Clinical Information or narrative: no documented in this encounter [facility] 03-30-2022 Miscellaneous Notes Detailed message left with dosage and follow up instructions. Fariba Arreola Ma Same dose, recheck in 2 weeks. Shaun Ortiz PA-C Last INR: INR (POCT) 2.4 03/30/2022 Current dose of coumadin is: 5 mg daily. Last date of dose change: 03/23/22. Previous INR (date and result): 1.3 Additional Clinical Information or narrative: no documented in this encounter [facility] 03-23-2022 Miscellaneous Notes Patient instructed of dosage with teach back method. Verbalizes understanding. Please adjust 5mg daily, recheck in 1 week. Shaun Ortiz PA-C Current INR: 1.3 03/23/2022 Current dose of coumadin is: 5mg M, Th, Sa other days 2.5mg. Recheck 1 week Previous INR (date and result): 1.4 03/16/2022 Additional Clinical Information or narrative: no documented in this encounter [facility] 03-16-2022 Miscellaneous Notes Patient notified and tracker updated Doreen Davis Ma Adjust; 5mg M, Th, Sa other days 2.5mg Recheck 1 week Shaun Ortiz PA-C Last INR: INR (POCT) 1.4 03/16/2022 Current dose of coumadin is: 5 mg Sun/, 2.5 mg all other days. Last date of dose change: Previous INR (date and result): 03/09/22 INR: 1.3 Additional Clinical Information or narrative: no documented in this encounter [facility] 03-09-2022 Miscellaneous Notes Patient instructed of dosage with teach back method. Verbalizes understanding. Add 2.5mg today. Start new schedule 2.5 all days except 5mg Sun and or as directed. Recheck in 1 week Shaun Ortiz PA-C Last INR: INR (POCT) 1.3 03/09/2022 Current dose of coumadin is: 2.5 mg daily. Last date of dose change: 03/02/22. Previous INR (date and result): 1.5 Additional Clinical Information or narrative: yes: Pt is still consisitent on Keto. He is eating broccoli, asparagus, and salads along with the fats and protein. documented in this encounter [facility] 03-06-2022 Miscellaneous Notes Patient phones requesting refills as follows: Pending Prescriptions Disp Refills OMEPRAZOLE 40 MG CAPSULE,DELAYED RELEASE 90 capsule 3 Sig: Take 1 capsule by mouth once daily. LIU: No ASHUTOSH 10/13/21 NOV no upcoming appt Please review and advise. Neo Chung LPN documented in this encounter [facility] 03-02-2022 Miscellaneous Notes Patient notified. Tracker updated. 2.5mg daily and recheck in 1 week. Thanks, Shaun Purvis PA-C Last INR: INR (POCT) 1.5 03/02/2022 Current dose of coumadin is: 2.5 mg on Weds, 4 mg all other days. Last date of dose change: 02/16/22. Previous INR (date and result): 1.7 Additional Clinical Information or narrative: no documented in this encounter [facility] 02-16-2022 Miscellaneous Notes Telephone on 02/16/22 LIPID PANEL BASIC CBC + DIFF COMP METABOLIC PANEL Thanks, Shaun Purvis PA-C Lab calling for lab orders. Filed remote labs are not correct. Pt getting labs later. Not today. Lab just noted order needs chanced for when pt does do these. documented in this encounter [facility] documented as of this encounter (statuses as of 02/16/2022) 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 MRI was recommended. 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 Also 1 cm left hepatic lobe cyst. Follow-up MRI in 3-6 months is recommended to assess stability and exclude a malignant neoplasm. 12/27/19 [facility] ED complaining of severe epigastric pain. Multiple home treatments without improvement. Unable to pass gas. T97.1 pulse 102 respiration 20 blood pressure 145/116. CT abdomen to demonstrated findings consistent with small bowel obstruction of indeterminate etiology, minor diverticular changes and descending colon without evidence of acute diverticulitis. NG tube was placed. White count 11.2, hemoglobin 17.2 otherwise CBC within normal limits. Electrolytes, liver tests, troponin, lipase all within normal limits. Patient was treated with Zofran and morphine. Patient was admitted to hospital. Patient was given fresh frozen plasma to reverse INR 2.1, famotidine IV, nothing by mouth with bowel rest. 12/28/19 consult Savana Diaz who confirmed small bowel obstruction, recommended exploratory lap, possible bowel resection documented as of this encounter (statuses as of 03/02/2022) 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 MRI was recommended. 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 Also 1 cm left hepatic lobe cyst. Follow-up MRI in 3-6 months is recommended to assess stability and exclude a malignant neoplasm. 12/27/19 [facility] ED complaining of severe epigastric pain. Multiple home treatments without improvement. Unable to pass gas. T97.1 pulse 102 respiration 20 blood pressure 145/116. CT abdomen to demonstrated findings consistent with small bowel obstruction of indeterminate etiology, minor diverticular changes and descending colon without evidence of acute diverticulitis. NG tube was placed. White count 11.2, hemoglobin 17.2 otherwise CBC within normal limits. Electrolytes, liver tests, troponin, lipase all within normal limits. Patient was treated with Zofran and morphine. Patient was admitted to hospital. Patient was given fresh frozen plasma to reverse INR 2.1, famotidine IV, nothing by mouth with bowel rest. 12/28/19 consult Savana Diaz who confirmed small bowel obstruction, recommended exploratory lap, possible bowel resection documented as of this encounter (statuses as of 03/06/2022) 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 MRI was recommended. 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 Also 1 cm left hepatic lobe cyst. Follow-up MRI in 3-6 months is recommended to assess stability and exclude a malignant neoplasm. 12/27/19 [facility] ED complaining of severe epigastric pain. Multiple home treatments without improvement. Unable to pass gas. T97.1 pulse 102 respiration 20 blood pressure 145/116. CT abdomen to demonstrated findings consistent with small bowel obstruction of indeterminate etiology, minor diverticular changes and descending colon without evidence of acute diverticulitis. NG tube was placed. White count 11.2, hemoglobin 17.2 otherwise CBC within normal limits. Electrolytes, liver tests, troponin, lipase all within normal limits. Patient was treated with Zofran and morphine. Patient was admitted to hospital. Patient was given fresh frozen plasma to reverse INR 2.1, famotidine IV, nothing by mouth with bowel rest. 12/28/19 consult Savana Diaz who confirmed small bowel obstruction, recommended exploratory lap, possible bowel resection documented as of this encounter (statuses as of 03/09/2022) 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 MRI was recommended. 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 Also 1 cm left hepatic lobe cyst. Follow-up MRI in 3-6 months is recommended to assess stability and exclude a malignant neoplasm. 12/27/19 [facility] ED complaining of severe epigastric pain. Multiple home treatments without improvement. Unable to pass gas. T97.1 pulse 102 respiration 20 blood pressure 145/116. CT abdomen to demonstrated findings consistent with small bowel obstruction of indeterminate etiology, minor diverticular changes and descending colon without evidence of acute diverticulitis. NG tube was placed. White count 11.2, hemoglobin 17.2 otherwise CBC within normal limits. Electrolytes, liver tests, troponin, lipase all within normal limits. Patient was treated with Zofran and morphine. Patient was admitted to hospital. Patient was given fresh frozen plasma to reverse INR 2.1, famotidine IV, nothing by mouth with bowel rest. 12/28/19 consult Savana Diaz who confirmed small bowel obstruction, recommended exploratory lap, possible bowel resection documented as of this encounter (statuses as of 03/16/2022) 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 MRI was recommended. 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 Also 1 cm left hepatic lobe cyst. Follow-up MRI in 3-6 months is recommended to assess stability and exclude a malignant neoplasm. 12/27/19 [facility] ED complaining of severe epigastric pain. Multiple home treatments without improvement. Unable to pass gas. T97.1 pulse 102 respiration 20 blood pressure 145/116. CT abdomen to / demonstrated findings consistent with small bowel obstruction of indeterminate etiology, minor diverticular changes and descending colon without evidence of acute diverticulitis. NG tube was placed. White count 11.2, hemoglobin 17.2 otherwise CBC within normal limits. Electrolytes, liver tests, troponin, lipase all within normal limits. Patient was treated with Zofran and morphine. Patient was admitted to hospital. Patient was given fresh frozen plasma to reverse INR 2.1, famotidine IV, nothing by mouth with bowel rest. 12/28/19 consult Savana Diaz who confirmed small bowel obstruction, recommended exploratory lap, possible bowel resection documented as of this encounter (statuses as of 03/23/2022) 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 MRI was recommended. 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 Also 1 cm left hepatic lobe cyst. Follow-up MRI in 3-6 months is recommended to assess stability and exclude a malignant neoplasm. 12/27/19 [facility] ED complaining of severe epigastric pain. Multiple home treatments without improvement. Unable to pass gas. T97.1 pulse 102 respiration 20 blood pressure 145/116. CT abdomen to / demonstrated findings consistent with small bowel obstruction of indeterminate etiology, minor diverticular changes and descending colon without evidence of acute diverticulitis. NG tube was placed. White count 11.2, hemoglobin 17.2 otherwise CBC within normal limits. Electrolytes, liver tests, troponin, lipase all within normal limits. Patient was treated with Zofran and morphine. Patient was admitted to hospital. Patient was given fresh frozen plasma to reverse INR 2.1, famotidine IV, nothing by mouth with bowel rest. 12/28/19 consult Savana Diaz who confirmed small bowel obstruction, recommended exploratory lap, possible bowel resection documented as of this encounter (statuses as of 03/30/2022) 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 MRI was recommended. 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 Also 1 cm left hepatic lobe cyst. Follow-up MRI in 3-6 months is recommended to assess stability and exclude a malignant neoplasm. 12/27/19 [facility] ED complaining of severe epigastric pain. Multiple home treatments without improvement. Unable to pass gas. T97.1 pulse 102 respiration 20 blood pressure 145/116. CT abdomen to 215/ demonstrated findings consistent with small bowel obstruction of indeterminate etiology, minor diverticular changes and descending colon without evidence of acute diverticulitis. NG tube was placed. White count 11.2, hemoglobin 17.2 otherwise CBC within normal limits. Electrolytes, liver tests, troponin, lipase all within normal limits. Patient was treated with Zofran and morphine. Patient was admitted to hospital. Patient was given fresh frozen plasma to reverse INR 2.1, famotidine IV, nothing by mouth with bowel rest. 12/28/19 consult Savana Diaz who confirmed small bowel obstruction, recommended exploratory lap, possible bowel resection documented as of this encounter (statuses as of 04/13/2022) 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 MRI was recommended. 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 Also 1 cm left hepatic lobe cyst. Follow-up MRI in 3-6 months is recommended to assess stability and exclude a malignant neoplasm. 12/27/19 [facility] ED complaining of severe epigastric pain. Multiple home treatments without improvement. Unable to pass gas. T97.1 pulse 102 respiration 20 blood pressure 145/116. CT abdomen to 215/20 demonstrated findings consistent with small bowel obstruction of indeterminate etiology, minor diverticular changes and descending colon without evidence of acute diverticulitis. NG tube was placed. White count 11.2, hemoglobin 17.2 otherwise CBC within normal limits. Electrolytes, liver tests, troponin, lipase all within normal limits. Patient was treated with Zofran and morphine. Patient was admitted to hospital. Patient was given fresh frozen plasma to reverse INR 2.1, famotidine IV, nothing by mouth with bowel rest. 12/28/19 consult Savana Diaz who confirmed small bowel obstruction, recommended exploratory lap, possible bowel resection documented as of this encounter (statuses as of 04/25/2022) 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 MRI was recommended. 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 Also 1 cm left hepatic lobe cyst. Follow-up MRI in 3-6 months is recommended to assess stability and exclude a malignant neoplasm. 12/27/19 [facility] ED complaining of severe epigastric pain. Multiple home treatments without improvement. Unable to pass gas. T97.1 pulse 102 respiration 20 blood pressure 145/116. CT abdomen to 215/20 demonstrated findings consistent with small bowel obstruction of indeterminate etiology, minor diverticular changes and descending colon without evidence of acute diverticulitis. NG tube was placed. White count 11.2, hemoglobin 17.2 otherwise CBC within normal limits. Electrolytes, liver tests, troponin, lipase all within normal limits. Patient was treated with Zofran and morphine. Patient was admitted to hospital. Patient was given fresh frozen plasma to reverse INR 2.1, famotidine IV, nothing by mouth with bowel rest. 12/28/19 consult Savana Diaz who confirmed small bowel obstruction, recommended exploratory lap, possible bowel resection documented as of this encounter (statuses as of 04/27/2022) 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 MRI was recommended. 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 Also 1 cm left hepatic lobe cyst. Follow-up MRI in 3-6 months is recommended to assess stability and exclude a malignant neoplasm. 12/27/19 [facility] ED complaining of severe epigastric pain. Multiple home treatments without improvement. Unable to pass gas. T97.1 pulse 102 respiration 20 blood pressure 145/116. CT abdomen to 215/ demonstrated findings consistent with small bowel obstruction of indeterminate etiology, minor diverticular changes and descending colon without evidence of acute diverticulitis. NG tube was placed. White count 11.2, hemoglobin 17.2 otherwise CBC within normal limits. Electrolytes, liver tests, troponin, lipase all within normal limits. Patient was treated with Zofran and morphine. Patient was admitted to hospital. Patient was given fresh frozen plasma to reverse INR 2.1, famotidine IV, nothing by mouth with bowel rest. 12/28/19 consult Savana Diaz who confirmed small bowel obstruction, recommended exploratory lap, possible bowel resection documented as of this encounter (statuses as of 04/28/2022) 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 MRI was recommended. 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 Also 1 cm left hepatic lobe cyst. Follow-up MRI in 3-6 months is recommended to assess stability and exclude a malignant neoplasm. 12/27/19 [facility] ED complaining of severe epigastric pain. Multiple home treatments without improvement. Unable to pass gas. T97.1 pulse 102 respiration 20 blood pressure 145/116. CT abdomen to 215/ demonstrated findings consistent with small bowel obstruction of indeterminate etiology, minor diverticular changes and descending colon without evidence of acute diverticulitis. NG tube was placed. White count 11.2, hemoglobin 17.2 otherwise CBC within normal limits. Electrolytes, liver tests, troponin, lipase all within normal limits. Patient was treated with Zofran and morphine. Patient was admitted to hospital. Patient was given fresh frozen plasma to reverse INR 2.1, famotidine IV, nothing by mouth with bowel rest. 12/28/19 consult Savana Diaz who confirmed small bowel obstruction, recommended exploratory lap, possible bowel resection documented as of this encounter (statuses as of 05/04/2022) 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 MRI was recommended. 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 Also 1 cm left hepatic lobe cyst. Follow-up MRI in 3-6 months is recommended to assess stability and exclude a malignant neoplasm. 12/27/19 [facility] ED complaining of severe epigastric pain. Multiple home treatments without improvement. Unable to pass gas. T97.1 pulse 102 respiration 20 blood pressure 145/116. CT abdomen to demonstrated findings consistent with small bowel obstruction of indeterminate etiology, minor diverticular changes and descending colon without evidence of acute diverticulitis. NG tube was placed. White count 11.2, hemoglobin 17.2 otherwise CBC within normal limits. Electrolytes, liver tests, troponin, lipase all within normal limits. Patient was treated with Zofran and morphine. Patient was admitted to hospital. Patient was given fresh frozen plasma to reverse INR 2.1, famotidine IV, nothing by mouth with bowel rest. 12/28/19 consult Savana Diaz who confirmed small bowel obstruction, recommended exploratory lap, possible bowel resection documented as of this encounter (statuses as of 05/11/2022) 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 MRI was recommended. 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 Also 1 cm left hepatic lobe cyst. Follow-up MRI in 3-6 months is recommended to assess stability and exclude a malignant neoplasm. 12/27/19 [facility] ED complaining of severe epigastric pain. Multiple home treatments without improvement. Unable to pass gas. T97.1 pulse 102 respiration 20 blood pressure 145/116. CT abdomen to demonstrated findings consistent with small bowel obstruction of indeterminate etiology, minor diverticular changes and descending colon without evidence of acute diverticulitis. NG tube was placed. White count 11.2, hemoglobin 17.2 otherwise CBC within normal limits. Electrolytes, liver tests, troponin, lipase all within normal limits. Patient was treated with Zofran and morphine. Patient was admitted to hospital. Patient was given fresh frozen plasma to reverse INR 2.1, famotidine IV, nothing by mouth with bowel rest. 12/28/19 consult Savana Diaz who confirmed small bowel obstruction, recommended exploratory lap, possible bowel resection documented as of this encounter (statuses as of 05/16/2022) 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 MRI was recommended. 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 Also 1 cm left hepatic lobe cyst. Follow-up MRI in 3-6 months is recommended to assess stability and exclude a malignant neoplasm. 12/27/19 [facility] ED complaining of severe epigastric pain. Multiple home treatments without improvement. Unable to pass gas. T97.1 pulse 102 respiration 20 blood pressure 145/116. CT abdomen to demonstrated findings consistent with small bowel obstruction of indeterminate etiology, minor diverticular changes and descending colon without evidence of acute diverticulitis. NG tube was placed. White count 11.2, hemoglobin 17.2 otherwise CBC within normal limits. Electrolytes, liver tests, troponin, lipase all within normal limits. Patient was treated with Zofran and morphine. Patient was admitted to hospital. Patient was given fresh frozen plasma to reverse INR 2.1, famotidine IV, nothing by mouth with bowel rest. 12/28/19 consult Savana Diaz who confirmed small bowel obstruction, recommended exploratory lap, possible bowel resection documented as of this encounter (statuses as of 05/17/2022) 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 MRI was recommended. 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 Also 1 cm left hepatic lobe cyst. Follow-up MRI in 3-6 months is recommended to assess stability and exclude a malignant neoplasm. 12/27/19 [facility] ED complaining of severe epigastric pain. Multiple home treatments without improvement. Unable to pass gas. T97.1 pulse 102 respiration 20 blood pressure 145/116. CT abdomen to demonstrated findings consistent with small bowel obstruction of indeterminate etiology, minor diverticular changes and descending colon without evidence of acute diverticulitis. NG tube was placed. White count 11.2, hemoglobin 17.2 otherwise CBC within normal limits. Electrolytes, liver tests, troponin, lipase all within normal limits. Patient was treated with Zofran and morphine. Patient was admitted to hospital. Patient was given fresh frozen plasma to reverse INR 2.1, famotidine IV, nothing by mouth with bowel rest. 12/28/19 consult Savana Diaz who confirmed small bowel obstruction, recommended exploratory lap, possible bowel resection documented as of this encounter (statuses as of 05/20/2022) 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 MRI was recommended. 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 Also 1 cm left hepatic lobe cyst. Follow-up MRI in 3-6 months is recommended to assess stability and exclude a malignant neoplasm. 12/27/19 [facility] ED complaining of severe epigastric pain. Multiple home treatments without improvement. Unable to pass gas. T97.1 pulse 102 respiration 20 blood pressure 145/116. CT abdomen to demonstrated findings consistent with small bowel obstruction of indeterminate etiology, minor diverticular changes and descending colon without evidence of acute diverticulitis. NG tube was placed. White count 11.2, hemoglobin 17.2 otherwise CBC within normal limits. Electrolytes, liver tests, troponin, lipase all within normal limits. Patient was treated with Zofran and morphine. Patient was admitted to hospital. Patient was given fresh frozen plasma to reverse INR 2.1, famotidine IV, nothing by mouth with bowel rest. 12/28/19 consult Savana Diaz who confirmed small bowel obstruction, recommended exploratory lap, possible bowel resection documented as of this encounter (statuses as of 05/24/2022) 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 MRI was recommended. 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 Also 1 cm left hepatic lobe cyst. Follow-up MRI in 3-6 months is recommended to assess stability and exclude a malignant neoplasm. 12/27/19 [facility] ED complaining of severe epigastric pain. Multiple home treatments without improvement. Unable to pass gas. T97.1 pulse 102 respiration 20 blood pressure 145/116. CT abdomen to demonstrated findings consistent with small bowel obstruction of indeterminate etiology, minor diverticular changes and descending colon without evidence of acute diverticulitis. NG tube was placed. White count 11.2, hemoglobin 17.2 otherwise CBC within normal limits. Electrolytes, liver tests, troponin, lipase all within normal limits. Patient was treated with Zofran and morphine. Patient was admitted to hospital. Patient was given fresh frozen plasma to reverse INR 2.1, famotidine IV, nothing by mouth with bowel rest. 12/28/19 consult Savana Diaz who confirmed small bowel obstruction, recommended exploratory lap, possible bowel resection documented as of this encounter (statuses as of 05/31/2022) 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 MRI was recommended. 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 Also 1 cm left hepatic lobe cyst. Follow-up MRI in 3-6 months is recommended to assess stability and exclude a malignant neoplasm. 12/27/19 [facility] ED complaining of severe epigastric pain. Multiple home treatments without improvement. Unable to pass gas. T97.1 pulse 102 respiration 20 blood pressure 145/116. CT abdomen to demonstrated findings consistent with small bowel obstruction of indeterminate etiology, minor diverticular changes and descending colon without evidence of acute diverticulitis. NG tube was placed. White count 11.2, hemoglobin 17.2 otherwise CBC within normal limits. Electrolytes, liver tests, troponin, lipase all within normal limits. Patient was treated with Zofran and morphine. Patient was admitted to hospital. Patient was given fresh frozen plasma to reverse INR 2.1, famotidine IV, nothing by mouth with bowel rest. 12/28/19 consult Savana Diaz who confirmed small bowel obstruction, recommended exploratory lap, possible bowel resection documented as of this encounter (statuses as of 06/14/2022) 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 MRI was recommended. 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 Also 1 cm left hepatic lobe cyst. Follow-up MRI in 3-6 months is recommended to assess stability and exclude a malignant neoplasm. 12/27/19 [facility] ED complaining of severe epigastric pain. Multiple home treatments without improvement. Unable to pass gas. T97.1-pulse 102-respiration 20-blood pressure 145/116. CT abdomen to demonstrated findings consistent with small bowel obstruction of indeterminate etiology, minor diverticular changes and descending colon without evidence of acute diverticulitis. NG tube was placed. White count 11.2, hemoglobin 17.2 otherwise CBC within normal limits. Electrolytes, liver tests, troponin, lipase all within normal limits. Patient was treated with Zofran and morphine. Patient was admitted to hospital. Patient was given fresh frozen plasma to reverse INR 2.1, famotidine IV, nothing by mouth with bowel rest. 12/28/19 consult Savana Diaz who confirmed small bowel obstruction, recommended exploratory lap, possible bowel resection documented as of this encounter (statuses as of 07/05/2022) 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 MRI was recommended. 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 Also 1 cm left hepatic lobe cyst. Follow-up MRI in 3-6 months is recommended to assess stability and exclude a malignant neoplasm. 12/27/19 [facility] ED complaining of severe epigastric pain. Multiple home treatments without improvement. Unable to pass gas. T97.1-pulse 102-respiration 20-blood pressure 145/116. CT abdomen to demonstrated findings consistent with small bowel obstruction of indeterminate etiology, minor diverticular changes and descending colon without evidence of acute diverticulitis. NG tube was placed. White count 11.2, hemoglobin 17.2 otherwise CBC within normal limits. Electrolytes, liver tests, troponin, lipase all within normal limits. Patient was treated with Zofran and morphine. Patient was admitted to hospital. Patient was given fresh frozen plasma to reverse INR 2.1, famotidine IV, nothing by mouth with bowel rest. 12/28/19 consult Savana Diaz who confirmed small bowel obstruction, recommended exploratory lap, possible bowel resection documented as of this encounter (statuses as of 07/10/2022) 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 MRI was recommended. 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 Also 1 cm left hepatic lobe cyst. Follow-up MRI in 3-6 months is recommended to assess stability and exclude a malignant neoplasm. 12/27/19 [facility] ED complaining of severe epigastric pain. Multiple home treatments without improvement. Unable to pass gas. T97.1-pulse 102-respiration 20-blood pressure 145/116. CT abdomen to demonstrated findings consistent with small bowel obstruction of indeterminate etiology, minor diverticular changes and descending colon without evidence of acute diverticulitis. NG tube was placed. White count 11.2, hemoglobin 17.2 otherwise CBC within normal limits. Electrolytes, liver tests, troponin, lipase all within normal limits. Patient was treated with Zofran and morphine. Patient was admitted to hospital. Patient was given fresh frozen plasma to reverse INR 2.1, famotidine IV, nothing by mouth with bowel rest. 12/28/19 consult Savana Diaz who confirmed small bowel obstruction, recommended exploratory lap, possible bowel resection documented as of this encounter (statuses as of 07/18/2022) 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 MRI was recommended. 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 Also 1 cm left hepatic lobe cyst. Follow-up MRI in 3-6 months is recommended to assess stability and exclude a malignant neoplasm. 12/27/19 [facility] ED complaining of severe epigastric pain. Multiple home treatments without improvement. Unable to pass gas. T97.1-pulse 102-respiration 20-blood pressure 145/116. CT abdomen to demonstrated findings consistent with small bowel obstruction of indeterminate etiology, minor diverticular changes and descending colon without evidence of acute diverticulitis. NG tube was placed. White count 11.2, hemoglobin 17.2 otherwise CBC within normal limits. Electrolytes, liver tests, troponin, lipase all within normal limits. Patient was treated with Zofran and morphine. Patient was admitted to hospital. Patient was given fresh frozen plasma to reverse INR 2.1, famotidine IV, nothing by mouth with bowel rest. 12/28/19 consult Savana Diaz who confirmed small bowel obstruction, recommended exploratory lap, possible bowel resection documented as of this encounter (statuses as of 07/27/2022) 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 MRI was recommended. 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 Also 1 cm left hepatic lobe cyst. Follow-up MRI in 3-6 months is recommended to assess stability and exclude a malignant neoplasm. 12/27/19 [facility] ED complaining of severe epigastric pain. Multiple home treatments without improvement. Unable to pass gas. T97.1-pulse 102-respiration 20-blood pressure 145/116. CT abdomen to demonstrated findings consistent with small bowel obstruction of indeterminate etiology, minor diverticular changes and descending colon without evidence of acute diverticulitis. NG tube was placed. White count 11.2, hemoglobin 17.2 otherwise CBC within normal limits. Electrolytes, liver tests, troponin, lipase all within normal limits. Patient was treated with Zofran and morphine. Patient was admitted to hospital. Patient was given fresh frozen plasma to reverse INR 2.1, famotidine IV, nothing by mouth with bowel rest. 12/28/19 consult Savana Diaz who confirmed small bowel obstruction, recommended exploratory lap, possible bowel resection documented as of this encounter (statuses as of 07/31/2022) 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 MRI was recommended. 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 Also 1 cm left hepatic lobe cyst. Follow-up MRI in 3-6 months is recommended to assess stability and exclude a malignant neoplasm. 12/27/19 [facility] ED complaining of severe epigastric pain. Multiple home treatments without improvement. Unable to pass gas. T97.1-pulse 102-respiration 20-blood pressure 145/116. CT abdomen to 215/ demonstrated findings consistent with small bowel obstruction of indeterminate etiology, minor diverticular changes and descending colon without evidence of acute diverticulitis. NG tube was placed. White count 11.2, hemoglobin 17.2 otherwise CBC within normal limits. Electrolytes, liver tests, troponin, lipase all within normal limits. Patient was treated with Zofran and morphine. Patient was admitted to hospital. Patient was given fresh frozen plasma to reverse INR 2.1, famotidine IV, nothing by mouth with bowel rest. 12/28/19 consult Savana Diaz who confirmed small bowel obstruction, recommended exploratory lap, possible bowel resection documented as of this encounter (statuses as of 08/18/2022) 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 MRI was recommended. 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 Also 1 cm left hepatic lobe cyst. Follow-up MRI in 3-6 months is recommended to assess stability and exclude a malignant neoplasm. 12/27/19 [facility] ED complaining of severe epigastric pain. Multiple home treatments without improvement. Unable to pass gas. T97.1-pulse 102-respiration 20-blood pressure 145/116. CT abdomen to 215/20 demonstrated findings consistent with small bowel obstruction of indeterminate etiology, minor diverticular changes and descending colon without evidence of acute diverticulitis. NG tube was placed. White count 11.2, hemoglobin 17.2 otherwise CBC within normal limits. Electrolytes, liver tests, troponin, lipase all within normal limits. Patient was treated with Zofran and morphine. Patient was admitted to hospital. Patient was given fresh frozen plasma to reverse INR 2.1, famotidine IV, nothing by mouth with bowel rest. 12/28/19 consult Savana Diaz who confirmed small bowel obstruction, recommended exploratory lap, possible bowel resection documented as of this encounter (statuses as of 08/23/2022) 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 MRI was recommended. 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 Also 1 cm left hepatic lobe cyst. Follow-up MRI in 3-6 months is recommended to assess stability and exclude a malignant neoplasm. 12/27/19 [facility] ED complaining of severe epigastric pain. Multiple home treatments without improvement. Unable to pass gas. T97.1-pulse 102-respiration 20-blood pressure 145/116. CT abdomen to / demonstrated findings consistent with small bowel obstruction of indeterminate etiology, minor diverticular changes and descending colon without evidence of acute diverticulitis. NG tube was placed. White count 11.2, hemoglobin 17.2 otherwise CBC within normal limits. Electrolytes, liver tests, troponin, lipase all within normal limits. Patient was treated with Zofran and morphine. Patient was admitted to hospital. Patient was given fresh frozen plasma to reverse INR 2.1, famotidine IV, nothing by mouth with bowel rest. 12/28/19 consult Savana Diaz who confirmed small bowel obstruction, recommended exploratory lap, possible bowel resection documented as of this encounter (statuses as of 08/28/2022) 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 MRI was recommended. 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 Also 1 cm left hepatic lobe cyst. Follow-up MRI in 3-6 months is recommended to assess stability and exclude a malignant neoplasm. 12/27/19 [facility] ED complaining of severe epigastric pain. Multiple home treatments without improvement. Unable to pass gas. T97.1-pulse 102-respiration 20-blood pressure 145/116. CT abdomen to demonstrated findings consistent with small bowel obstruction of indeterminate etiology, minor diverticular changes and descending colon without evidence of acute diverticulitis. NG tube was placed. White count 11.2, hemoglobin 17.2 otherwise CBC within normal limits. Electrolytes, liver tests, troponin, lipase all within normal limits. Patient was treated with Zofran and morphine. Patient was admitted to hospital. Patient was given fresh frozen plasma to reverse INR 2.1, famotidine IV, nothing by mouth with bowel rest. 12/28/19 consult Savana Diaz who confirmed small bowel obstruction, recommended exploratory lap, possible bowel resection documented as of this encounter (statuses as of 09/06/2022) 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 MRI was recommended. 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 Also 1 cm left hepatic lobe cyst. Follow-up MRI in 3-6 months is recommended to assess stability and exclude a malignant neoplasm. 12/27/19 [facility] ED complaining of severe epigastric pain. Multiple home treatments without improvement. Unable to pass gas. T97.1-pulse 102-respiration 20-blood pressure 145/116. CT abdomen to demonstrated findings consistent with small bowel obstruction of indeterminate etiology, minor diverticular changes and descending colon without evidence of acute diverticulitis. NG tube was placed. White count 11.2, hemoglobin 17.2 otherwise CBC within normal limits. Electrolytes, liver tests, troponin, lipase all within normal limits. Patient was treated with Zofran and morphine. Patient was admitted to hospital. Patient was given fresh frozen plasma to reverse INR 2.1, famotidine IV, nothing by mouth with bowel rest. 12/28/19 consult Savana Diaz who confirmed small bowel obstruction, recommended exploratory lap, possible bowel resection documented as of this encounter (statuses as of 09/11/2022) 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 MRI was recommended. 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 Also 1 cm left hepatic lobe cyst. Follow-up MRI in 3-6 months is recommended to assess stability and exclude a malignant neoplasm. 12/27/19 [facility] ED complaining of severe epigastric pain. Multiple home treatments without improvement. Unable to pass gas. T97.1-pulse 102-respiration 20-blood pressure 145/116. CT abdomen to demonstrated findings consistent with small bowel obstruction of indeterminate etiology, minor diverticular changes and descending colon without evidence of acute diverticulitis. NG tube was placed. White count 11.2, hemoglobin 17.2 otherwise CBC within normal limits. Electrolytes, liver tests, troponin, lipase all within normal limits. Patient was treated with Zofran and morphine. Patient was admitted to hospital. Patient was given fresh frozen plasma to reverse INR 2.1, famotidine IV, nothing by mouth with bowel rest. 12/28/19 consult Savana Diaz who confirmed small bowel obstruction, recommended exploratory lap, possible bowel resection documented as of this encounter (statuses as of 09/18/2022) 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 MRI was recommended. 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 Also 1 cm left hepatic lobe cyst. Follow-up MRI in 3-6 months is recommended to assess stability and exclude a malignant neoplasm. 12/27/19 [facility] ED complaining of severe epigastric pain. Multiple home treatments without improvement. Unable to pass gas. T97.1-pulse 102-respiration 20-blood pressure 145/116. CT abdomen to demonstrated findings consistent with small bowel obstruction of indeterminate etiology, minor diverticular changes and descending colon without evidence of acute diverticulitis. NG tube was placed. White count 11.2, hemoglobin 17.2 otherwise CBC within normal limits. Electrolytes, liver tests, troponin, lipase all within normal limits. Patient was treated with Zofran and morphine. Patient was admitted to hospital. Patient was given fresh frozen plasma to reverse INR 2.1, famotidine IV, nothing by mouth with bowel rest. 12/28/19 consult Savana Diaz who confirmed small bowel obstruction, recommended exploratory lap, possible bowel resection documented as of this encounter (statuses as of 09/26/2022) 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 MRI was recommended. 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 Also 1 cm left hepatic lobe cyst. Follow-up MRI in 3-6 months is recommended to assess stability and exclude a malignant neoplasm. 12/27/19 [facility] ED complaining of severe epigastric pain. Multiple home treatments without improvement. Unable to pass gas. T97.1-pulse 102-respiration 20-blood pressure 145/116. CT abdomen to demonstrated findings consistent with small bowel obstruction of indeterminate etiology, minor diverticular changes and descending colon without evidence of acute diverticulitis. NG tube was placed. White count 11.2, hemoglobin 17.2 otherwise CBC within normal limits. Electrolytes, liver tests, troponin, lipase all within normal limits. Patient was treated with Zofran and morphine. Patient was admitted to hospital. Patient was given fresh frozen plasma to reverse INR 2.1, famotidine IV, nothing by mouth with bowel rest. 12/28/19 consult Savana Diaz who confirmed small bowel obstruction, recommended exploratory lap, possible bowel resection documented as of this encounter (statuses as of 09/27/2022) 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 MRI was recommended. 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 Also 1 cm left hepatic lobe cyst. Follow-up MRI in 3-6 months is recommended to assess stability and exclude a malignant neoplasm. 12/27/19 [facility] ED complaining of severe epigastric pain. Multiple home treatments without improvement. Unable to pass gas. T97.1-pulse 102-respiration 20-blood pressure 145/116. CT abdomen to demonstrated findings consistent with small bowel obstruction of indeterminate etiology, minor diverticular changes and descending colon without evidence of acute diverticulitis. NG tube was placed. White count 11.2, hemoglobin 17.2 otherwise CBC within normal limits. Electrolytes, liver tests, troponin, lipase all within normal limits. Patient was treated with Zofran and morphine. Patient was admitted to hospital. Patient was given fresh frozen plasma to reverse INR 2.1, famotidine IV, nothing by mouth with bowel rest. 12/28/19 consult Savana Diaz who confirmed small bowel obstruction, recommended exploratory lap, possible bowel resection documented as of this encounter (statuses as of 10/03/2022) 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 MRI was recommended. 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 Also 1 cm left hepatic lobe cyst. Follow-up MRI in 3-6 months is recommended to assess stability and exclude a malignant neoplasm. 12/27/19 [facility] ED complaining of severe epigastric pain. Multiple home treatments without improvement. Unable to pass gas. T97.1-pulse 102-respiration 20-blood pressure 145/116. CT abdomen to demonstrated findings consistent with small bowel obstruction of indeterminate etiology, minor diverticular changes and descending colon without evidence of acute diverticulitis. NG tube was placed. White count 11.2, hemoglobin 17.2 otherwise CBC within normal limits. Electrolytes, liver tests, troponin, lipase all within normal limits. Patient was treated with Zofran and morphine. Patient was admitted to hospital. Patient was given fresh frozen plasma to reverse INR 2.1, famotidine IV, nothing by mouth with bowel rest. 12/28/19 consult Savana Diaz who confirmed small bowel obstruction, recommended exploratory lap, possible bowel resection documented as of this encounter (statuses as of 10/03/2022) 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 MRI was recommended. 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 Also 1 cm left hepatic lobe cyst. Follow-up MRI in 3-6 months is recommended to assess stability and exclude a malignant neoplasm. 12/27/19 [facility] ED complaining of severe epigastric pain. Multiple home treatments without improvement. Unable to pass gas. T97.1-pulse 102-respiration 20-blood pressure 145/116. CT abdomen to demonstrated findings consistent with small bowel obstruction of indeterminate etiology, minor diverticular changes and descending colon without evidence of acute diverticulitis. NG tube was placed. White count 11.2, hemoglobin 17.2 otherwise CBC within normal limits. Electrolytes, liver tests, troponin, lipase all within normal limits. Patient was treated with Zofran and morphine. Patient was admitted to hospital. Patient was given fresh frozen plasma to reverse INR 2.1, famotidine IV, nothing by mouth with bowel rest. 12/28/19 consult Savana Diaz who confirmed small bowel obstruction, recommended exploratory lap, possible bowel resection documented as of this encounter (statuses as of 10/06/2022) 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 MRI was recommended. 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 Also 1 cm left hepatic lobe cyst. Follow-up MRI in 3-6 months is recommended to assess stability and exclude a malignant neoplasm. 12/27/19 [facility] ED complaining of severe epigastric pain. Multiple home treatments without improvement. Unable to pass gas. T97.1-pulse 102-respiration 20-blood pressure 145/116. CT abdomen to 215/ demonstrated findings consistent with small bowel obstruction of indeterminate etiology, minor diverticular changes and descending colon without evidence of acute diverticulitis. NG tube was placed. White count 11.2, hemoglobin 17.2 otherwise CBC within normal limits. Electrolytes, liver tests, troponin, lipase all within normal limits. Patient was treated with Zofran and morphine. Patient was admitted to hospital. Patient was given fresh frozen plasma to reverse INR 2.1, famotidine IV, nothing by mouth with bowel rest. 12/28/19 consult Savana Diaz who confirmed small bowel obstruction, recommended exploratory lap, possible bowel resection documented as of this encounter (statuses as of 10/10/2022) 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 MRI was recommended. 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 Also 1 cm left hepatic lobe cyst. Follow-up MRI in 3-6 months is recommended to assess stability and exclude a malignant neoplasm. 12/27/19 [facility] ED complaining of severe epigastric pain. Multiple home treatments without improvement. Unable to pass gas. T97.1-pulse 102-respiration 20-blood pressure 145/116. CT abdomen to 215/20 demonstrated findings consistent with small bowel obstruction of indeterminate etiology, minor diverticular changes and descending colon without evidence of acute diverticulitis. NG tube was placed. White count 11.2, hemoglobin 17.2 otherwise CBC within normal limits. Electrolytes, liver tests, troponin, lipase all within normal limits. Patient was treated with Zofran and morphine. Patient was admitted to hospital. Patient was given fresh frozen plasma to reverse INR 2.1, famotidine IV, nothing by mouth with bowel rest. 12/28/19 consult Savana Diaz who confirmed small bowel obstruction, recommended exploratory lap, possible bowel resection documented as of this encounter (statuses as of 10/13/2022) 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 MRI was recommended. 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 Also 1 cm left hepatic lobe cyst. Follow-up MRI in 3-6 months is recommended to assess stability and exclude a malignant neoplasm. 12/27/19 [facility] ED complaining of severe epigastric pain. Multiple home treatments without improvement. Unable to pass gas. T97.1-pulse 102-respiration 20-blood pressure 145/116. CT abdomen to 215/20 demonstrated findings consistent with small bowel obstruction of indeterminate etiology, minor diverticular changes and descending colon without evidence of acute diverticulitis. NG tube was placed. White count 11.2, hemoglobin 17.2 otherwise CBC within normal limits. Electrolytes, liver tests, troponin, lipase all within normal limits. Patient was treated with Zofran and morphine. Patient was admitted to hospital. Patient was given fresh frozen plasma to reverse INR 2.1, famotidine IV, nothing by mouth with bowel rest. 12/28/19 consult Savana Diaz who confirmed small bowel obstruction, recommended exploratory lap, possible bowel resection documented as of this encounter (statuses as of 10/23/2022) 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 MRI was recommended. 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 Also 1 cm left hepatic lobe cyst. Follow-up MRI in 3-6 months is recommended to assess stability and exclude a malignant neoplasm. 12/27/19 [facility] ED complaining of severe epigastric pain. Multiple home treatments without improvement. Unable to pass gas. T97.1-pulse 102-respiration 20-blood pressure 145/116. CT abdomen to demonstrated findings consistent with small bowel obstruction of indeterminate etiology, minor diverticular changes and descending colon without evidence of acute diverticulitis. NG tube was placed. White count 11.2, hemoglobin 17.2 otherwise CBC within normal limits. Electrolytes, liver tests, troponin, lipase all within normal limits. Patient was treated with Zofran and morphine. Patient was admitted to hospital. Patient was given fresh frozen plasma to reverse INR 2.1, famotidine IV, nothing by mouth with bowel rest. 12/28/19 consult Savana Diaz who confirmed small bowel obstruction, recommended exploratory lap, possible bowel resection documented as of this encounter (statuses as of 10/23/2022) 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 MRI was recommended. 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 Also 1 cm left hepatic lobe cyst. Follow-up MRI in 3-6 months is recommended to assess stability and exclude a malignant neoplasm. 12/27/19 [facility] ED complaining of severe epigastric pain. Multiple home treatments without improvement. Unable to pass gas. T97.1-pulse 102-respiration 20-blood pressure 145/116. CT abdomen to demonstrated findings consistent with small bowel obstruction of indeterminate etiology, minor diverticular changes and descending colon without evidence of acute diverticulitis. NG tube was placed. White count 11.2, hemoglobin 17.2 otherwise CBC within normal limits. Electrolytes, liver tests, troponin, lipase all within normal limits. Patient was treated with Zofran and morphine. Patient was admitted to hospital. Patient was given fresh frozen plasma to reverse INR 2.1, famotidine IV, nothing by mouth with bowel rest. 12/28/19 consult Savana Diaz who confirmed small bowel obstruction, recommended exploratory lap, possible bowel resection documented as of this encounter (statuses as of 10/23/2022) 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 MRI was recommended. 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 Also 1 cm left hepatic lobe cyst. Follow-up MRI in 3-6 months is recommended to assess stability and exclude a malignant neoplasm. 12/27/19 [facility] ED complaining of severe epigastric pain. Multiple home treatments without improvement. Unable to pass gas. T97.1-pulse 102-respiration 20-blood pressure 145/116. CT abdomen to demonstrated findings consistent with small bowel obstruction of indeterminate etiology, minor diverticular changes and descending colon without evidence of acute diverticulitis. NG tube was placed. White count 11.2, hemoglobin 17.2 otherwise CBC within normal limits. Electrolytes, liver tests, troponin, lipase all within normal limits. Patient was treated with Zofran and morphine. Patient was admitted to hospital. Patient was given fresh frozen plasma to reverse INR 2.1, famotidine IV, nothing by mouth with bowel rest. 12/28/19 consult Savana Diaz who confirmed small bowel obstruction, recommended exploratory lap, possible bowel resection documented as of this encounter (statuses as of 10/24/2022) 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 MRI was recommended. 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 Also 1 cm left hepatic lobe cyst. Follow-up MRI in 3-6 months is recommended to assess stability and exclude a malignant neoplasm. 12/27/19 [facility] ED complaining of severe epigastric pain. Multiple home treatments without improvement. Unable to pass gas. T97.1-pulse 102-respiration 20-blood pressure 145/116. CT abdomen to demonstrated findings consistent with small bowel obstruction of indeterminate etiology, minor diverticular changes and descending colon without evidence of acute diverticulitis. NG tube was placed. White count 11.2, hemoglobin 17.2 otherwise CBC within normal limits. Electrolytes, liver tests, troponin, lipase all within normal limits. Patient was treated with Zofran and morphine. Patient was admitted to hospital. Patient was given fresh frozen plasma to reverse INR 2.1, famotidine IV, nothing by mouth with bowel rest. 12/28/19 consult Savana Diaz who confirmed small bowel obstruction, recommended exploratory lap, possible bowel resection documented as of this encounter (statuses as of 10/26/2022) 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 MRI was recommended. 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 Also 1 cm left hepatic lobe cyst. Follow-up MRI in 3-6 months is recommended to assess stability and exclude a malignant neoplasm. 12/27/19 [facility] ED complaining of severe epigastric pain. Multiple home treatments without improvement. Unable to pass gas. T97.1-pulse 102-respiration 20-blood pressure 145/116. CT abdomen to demonstrated findings consistent with small bowel obstruction of indeterminate etiology, minor diverticular changes and descending colon without evidence of acute diverticulitis. NG tube was placed. White count 11.2, hemoglobin 17.2 otherwise CBC within normal limits. Electrolytes, liver tests, troponin, lipase all within normal limits. Patient was treated with Zofran and morphine. Patient was admitted to hospital. Patient was given fresh frozen plasma to reverse INR 2.1, famotidine IV, nothing by mouth with bowel rest. 12/28/19 consult Savana Diaz who confirmed small bowel obstruction, recommended exploratory lap, possible bowel resection documented as of this encounter (statuses as of 11/21/2022) 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 MRI was recommended. 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 Also 1 cm left hepatic lobe cyst. Follow-up MRI in 3-6 months is recommended to assess stability and exclude a malignant neoplasm. 12/27/19 [facility] ED complaining of severe epigastric pain. Multiple home treatments without improvement. Unable to pass gas. T97.1-pulse 102-respiration 20-blood pressure 145/116. CT abdomen to demonstrated findings consistent with small bowel obstruction of indeterminate etiology, minor diverticular changes and descending colon without evidence of acute diverticulitis. NG tube was placed. White count 11.2, hemoglobin 17.2 otherwise CBC within normal limits. Electrolytes, liver tests, troponin, lipase all within normal limits. Patient was treated with Zofran and morphine. Patient was admitted to hospital. Patient was given fresh frozen plasma to reverse INR 2.1, famotidine IV, nothing by mouth with bowel rest. 12/28/19 consult Savana Diaz who confirmed small bowel obstruction, recommended exploratory lap, possible bowel resection documented as of this encounter (statuses as of 11/29/2022) 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 MRI was recommended. 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 Also 1 cm left hepatic lobe cyst. Follow-up MRI in 3-6 months is recommended to assess stability and exclude a malignant neoplasm. 12/27/19 [facility] ED complaining of severe epigastric pain. Multiple home treatments without improvement. Unable to pass gas. T97.1-pulse 102-respiration 20-blood pressure 145/116. CT abdomen to demonstrated findings consistent with small bowel obstruction of indeterminate etiology, minor diverticular changes and descending colon without evidence of acute diverticulitis. NG tube was placed. White count 11.2, hemoglobin 17.2 otherwise CBC within normal limits. Electrolytes, liver tests, troponin, lipase all within normal limits. Patient was treated with Zofran and morphine. Patient was admitted to hospital. Patient was given fresh frozen plasma to reverse INR 2.1, famotidine IV, nothing by mouth with bowel rest. 12/28/19 consult Savana Diaz who confirmed small bowel obstruction, recommended exploratory lap, possible bowel resection documented as of this encounter (statuses as of 11/30/2022) 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 MRI was recommended. 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 Also 1 cm left hepatic lobe cyst. Follow-up MRI in 3-6 months is recommended to assess stability and exclude a malignant neoplasm. 12/27/19 [facility] ED complaining of severe epigastric pain. Multiple home treatments without improvement. Unable to pass gas. T97.1-pulse 102-respiration 20-blood pressure 145/116. CT abdomen to demonstrated findings consistent with small bowel obstruction of indeterminate etiology, minor diverticular changes and descending colon without evidence of acute diverticulitis. NG tube was placed. White count 11.2, hemoglobin 17.2 otherwise CBC within normal limits. Electrolytes, liver tests, troponin, lipase all within normal limits. Patient was treated with Zofran and morphine. Patient was admitted to hospital. Patient was given fresh frozen plasma to reverse INR 2.1, famotidine IV, nothing by mouth with bowel rest. 12/28/19 consult Savana Diaz who confirmed small bowel obstruction, recommended exploratory lap, possible bowel resection documented as of this encounter (statuses as of 12/12/2022) 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 MRI was recommended. 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 Also 1 cm left hepatic lobe cyst. Follow-up MRI in 3-6 months is recommended to assess stability and exclude a malignant neoplasm. 12/27/19 [facility] ED complaining of severe epigastric pain. Multiple home treatments without improvement. Unable to pass gas. T97.1-pulse 102-respiration 20-blood pressure 145/116. CT abdomen to 215/ demonstrated findings consistent with small bowel obstruction of indeterminate etiology, minor diverticular changes and descending colon without evidence of acute diverticulitis. NG tube was placed. White count 11.2, hemoglobin 17.2 otherwise CBC within normal limits. Electrolytes, liver tests, troponin, lipase all within normal limits. Patient was treated with Zofran and morphine. Patient was admitted to hospital. Patient was given fresh frozen plasma to reverse INR 2.1, famotidine IV, nothing by mouth with bowel rest. 12/28/19 consult Savana Diaz who confirmed small bowel obstruction, recommended exploratory lap, possible bowel resection documented as of this encounter (statuses as of 12/14/2022) 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 MRI was recommended. 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 Also 1 cm left hepatic lobe cyst. Follow-up MRI in 3-6 months is recommended to assess stability and exclude a malignant neoplasm. 12/27/19 [facility] ED complaining of severe epigastric pain. Multiple home treatments without improvement. Unable to pass gas. T97.1-pulse 102-respiration 20-blood pressure 145/116. CT abdomen to 215/ demonstrated findings consistent with small bowel obstruction of indeterminate etiology, minor diverticular changes and descending colon without evidence of acute diverticulitis. NG tube was placed. White count 11.2, hemoglobin 17.2 otherwise CBC within normal limits. Electrolytes, liver tests, troponin, lipase all within normal limits. Patient was treated with Zofran and morphine. Patient was admitted to hospital. Patient was given fresh frozen plasma to reverse INR 2.1, famotidine IV, nothing by mouth with bowel rest. 12/28/19 consult Savana Diaz who confirmed small bowel obstruction, recommended exploratory lap, possible bowel resection documented as of this encounter (statuses as of 12/19/2022) 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 MRI was recommended. 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 Also 1 cm left hepatic lobe cyst. Follow-up MRI in 3-6 months is recommended to assess stability and exclude a malignant neoplasm. 12/27/19 [facility] ED complaining of severe epigastric pain. Multiple home treatments without improvement. Unable to pass gas. T97.1-pulse 102-respiration 20-blood pressure 145/116. CT abdomen to / demonstrated findings consistent with small bowel obstruction of indeterminate etiology, minor diverticular changes and descending colon without evidence of acute diverticulitis. NG tube was placed. White count 11.2, hemoglobin 17.2 otherwise CBC within normal limits. Electrolytes, liver tests, troponin, lipase all within normal limits. Patient was treated with Zofran and morphine. Patient was admitted to hospital. Patient was given fresh frozen plasma to reverse INR 2.1, famotidine IV, nothing by mouth with bowel rest. 12/28/19 consult Savana Diaz who confirmed small bowel obstruction, recommended exploratory lap, possible bowel resection documented as of this encounter (statuses as of 12/20/2022) 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 MRI was recommended. 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 Also 1 cm left hepatic lobe cyst. Follow-up MRI in 3-6 months is recommended to assess stability and exclude a malignant neoplasm. 12/27/19 [facility] ED complaining of severe epigastric pain. Multiple home treatments without improvement. Unable to pass gas. T97.1-pulse 102-respiration 20-blood pressure 145/116. CT abdomen to demonstrated findings consistent with small bowel obstruction of indeterminate etiology, minor diverticular changes and descending colon without evidence of acute diverticulitis. NG tube was placed. White count 11.2, hemoglobin 17.2 otherwise CBC within normal limits. Electrolytes, liver tests, troponin, lipase all within normal limits. Patient was treated with Zofran and morphine. Patient was admitted to hospital. Patient was given fresh frozen plasma to reverse INR 2.1, famotidine IV, nothing by mouth with bowel rest. 12/28/19 consult Savana Diaz who confirmed small bowel obstruction, recommended exploratory lap, possible bowel resection documented as of this encounter (statuses as of 01/04/2023) 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 MRI was recommended. 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 Also 1 cm left hepatic lobe cyst. Follow-up MRI in 3-6 months is recommended to assess stability and exclude a malignant neoplasm. 12/27/19 [facility] ED complaining of severe epigastric pain. Multiple home treatments without improvement. Unable to pass gas. T97.1-pulse 102-respiration 20-blood pressure 145/116. CT abdomen to demonstrated findings consistent with small bowel obstruction of indeterminate etiology, minor diverticular changes and descending colon without evidence of acute diverticulitis. NG tube was placed. White count 11.2, hemoglobin 17.2 otherwise CBC within normal limits. Electrolytes, liver tests, troponin, lipase all within normal limits. Patient was treated with Zofran and morphine. Patient was admitted to hospital. Patient was given fresh frozen plasma to reverse INR 2.1, famotidine IV, nothing by mouth with bowel rest. 12/28/19 consult Savana Diaz who confirmed small bowel obstruction, recommended exploratory lap, possible bowel resection documented as of this encounter (statuses as of 01/05/2023) 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 MRI was recommended. 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 Also 1 cm left hepatic lobe cyst. Follow-up MRI in 3-6 months is recommended to assess stability and exclude a malignant neoplasm. 12/27/19 [facility] ED complaining of severe epigastric pain. Multiple home treatments without improvement. Unable to pass gas. T97.1-pulse 102-respiration 20-blood pressure 145/116. CT abdomen to demonstrated findings consistent with small bowel obstruction of indeterminate etiology, minor diverticular changes and descending colon without evidence of acute diverticulitis. NG tube was placed. White count 11.2, hemoglobin 17.2 otherwise CBC within normal limits. Electrolytes, liver tests, troponin, lipase all within normal limits. Patient was treated with Zofran and morphine. Patient was admitted to hospital. Patient was given fresh frozen plasma to reverse INR 2.1, famotidine IV, nothing by mouth with bowel rest. 12/28/19 consult Savana Diaz who confirmed small bowel obstruction, recommended exploratory lap, possible bowel resection documented as of this encounter (statuses as of 01/15/2023) 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 MRI was recommended. 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 Also 1 cm left hepatic lobe cyst. Follow-up MRI in 3-6 months is recommended to assess stability and exclude a malignant neoplasm. 12/27/19 [facility] ED complaining of severe epigastric pain. Multiple home treatments without improvement. Unable to pass gas. T97.1-pulse 102-respiration 20-blood pressure 145/116. CT abdomen to demonstrated findings consistent with small bowel obstruction of indeterminate etiology, minor diverticular changes and descending colon without evidence of acute diverticulitis. NG tube was placed. White count 11.2, hemoglobin 17.2 otherwise CBC within normal limits. Electrolytes, liver tests, troponin, lipase all within normal limits. Patient was treated with Zofran and morphine. Patient was admitted to hospital. Patient was given fresh frozen plasma to reverse INR 2.1, famotidine IV, nothing by mouth with bowel rest. 12/28/19 consult Savana Diaz who confirmed small bowel obstruction, recommended exploratory lap, possible bowel resection documented as of this encounter (statuses as of 01/15/2023) 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 MRI was recommended. 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 Also 1 cm left hepatic lobe cyst. Follow-up MRI in 3-6 months is recommended to assess stability and exclude a malignant neoplasm. 12/27/19 [facility] ED complaining of severe epigastric pain. Multiple home treatments without improvement. Unable to pass gas. T97.1-pulse 102-respiration 20-blood pressure 145/116. CT abdomen to demonstrated findings consistent with small bowel obstruction of indeterminate etiology, minor diverticular changes and descending colon without evidence of acute diverticulitis. NG tube was placed. White count 11.2, hemoglobin 17.2 otherwise CBC within normal limits. Electrolytes, liver tests, troponin, lipase all within normal limits. Patient was treated with Zofran and morphine. Patient was admitted to hospital. Patient was given fresh frozen plasma to reverse INR 2.1, famotidine IV, nothing by mouth with bowel rest. 12/28/19 consult Savana Diaz who confirmed small bowel obstruction, recommended exploratory lap, possible bowel resection documented as of this encounter (statuses as of 01/15/2023) 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 MRI was recommended. 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 Also 1 cm left hepatic lobe cyst. Follow-up MRI in 3-6 months is recommended to assess stability and exclude a malignant neoplasm. 12/27/19 [facility] ED complaining of severe epigastric pain. Multiple home treatments without improvement. Unable to pass gas. T97.1-pulse 102-respiration 20-blood pressure 145/116. CT abdomen to demonstrated findings consistent with small bowel obstruction of indeterminate etiology, minor diverticular changes and descending colon without evidence of acute diverticulitis. NG tube was placed. White count 11.2, hemoglobin 17.2 otherwise CBC within normal limits. Electrolytes, liver tests, troponin, lipase all within normal limits. Patient was treated with Zofran and morphine. Patient was admitted to hospital. Patient was given fresh frozen plasma to reverse INR 2.1, famotidine IV, nothing by mouth with bowel rest. 12/28/19 consult Savana Diaz who confirmed small bowel obstruction, recommended exploratory lap, possible bowel resection documented as of this encounter (statuses as of 01/20/2023) 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 MRI was recommended. 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 Also 1 cm left hepatic lobe cyst. Follow-up MRI in 3-6 months is recommended to assess stability and exclude a malignant neoplasm. 12/27/19 [facility] ED complaining of severe epigastric pain. Multiple home treatments without improvement. Unable to pass gas. T97.1-pulse 102-respiration 20-blood pressure 145/116. CT abdomen to demonstrated findings consistent with small bowel obstruction of indeterminate etiology, minor diverticular changes and descending colon without evidence of acute diverticulitis. NG tube was placed. White count 11.2, hemoglobin 17.2 otherwise CBC within normal limits. Electrolytes, liver tests, troponin, lipase all within normal limits. Patient was treated with Zofran and morphine. Patient was admitted to hospital. Patient was given fresh frozen plasma to reverse INR 2.1, famotidine IV, nothing by mouth with bowel rest. 12/28/19 consult Savana Diaz who confirmed small bowel obstruction, recommended exploratory lap, possible bowel resection documented as of this encounter (statuses as of 01/22/2023) 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 MRI was recommended. 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 Also 1 cm left hepatic lobe cyst. Follow-up MRI in 3-6 months is recommended to assess stability and exclude a malignant neoplasm. 12/27/19 [facility] ED complaining of severe epigastric pain. Multiple home treatments without improvement. Unable to pass gas. T97.1-pulse 102-respiration 20-blood pressure 145/116. CT abdomen to demonstrated findings consistent with small bowel obstruction of indeterminate etiology, minor diverticular changes and descending colon without evidence of acute diverticulitis. NG tube was placed. White count 11.2, hemoglobin 17.2 otherwise CBC within normal limits. Electrolytes, liver tests, troponin, lipase all within normal limits. Patient was treated with Zofran and morphine. Patient was admitted to hospital. Patient was given fresh frozen plasma to reverse INR 2.1, famotidine IV, nothing by mouth with bowel rest. 12/28/19 consult Savana Diaz who confirmed small bowel obstruction, recommended exploratory lap, possible bowel resection documented as of this encounter (statuses as of 01/25/2023) 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 MRI was recommended. 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 Also 1 cm left hepatic lobe cyst. Follow-up MRI in 3-6 months is recommended to assess stability and exclude a malignant neoplasm. 12/27/19 [facility] ED complaining of severe epigastric pain. Multiple home treatments without improvement. Unable to pass gas. T97.1-pulse 102-respiration 20-blood pressure 145/116. CT abdomen to 215/20 demonstrated findings consistent with small bowel obstruction of indeterminate etiology, minor diverticular changes and descending colon without evidence of acute diverticulitis. NG tube was placed. White count 11.2, hemoglobin 17.2 otherwise CBC within normal limits. Electrolytes, liver tests, troponin, lipase all within normal limits. Patient was treated with Zofran and morphine. Patient was admitted to hospital. Patient was given fresh frozen plasma to reverse INR 2.1, famotidine IV, nothing by mouth with bowel rest. 12/28/19 consult Savana Diaz who confirmed small bowel obstruction, recommended exploratory lap, possible bowel resection documented as of this encounter (statuses as of 02/01/2023) 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 MRI was recommended. 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 Also 1 cm left hepatic lobe cyst. Follow-up MRI in 3-6 months is recommended to assess stability and exclude a malignant neoplasm. 12/27/19 [facility] ED complaining of severe epigastric pain. Multiple home treatments without improvement. Unable to pass gas. T97.1-pulse 102-respiration 20-blood pressure 145/116. CT abdomen to 215/20 demonstrated findings consistent with small bowel obstruction of indeterminate etiology, minor diverticular changes and descending colon without evidence of acute diverticulitis. NG tube was placed. White count 11.2, hemoglobin 17.2 otherwise CBC within normal limits. Electrolytes, liver tests, troponin, lipase all within normal limits. Patient was treated with Zofran and morphine. Patient was admitted to hospital. Patient was given fresh frozen plasma to reverse INR 2.1, famotidine IV, nothing by mouth with bowel rest. 12/28/19 consult Savana Diaz who confirmed small bowel obstruction, recommended exploratory lap, possible bowel resection documented as of this encounter (statuses as of 02/15/2023) 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 MRI was recommended. 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 Also 1 cm left hepatic lobe cyst. Follow-up MRI in 3-6 months is recommended to assess stability and exclude a malignant neoplasm. 12/27/19 [facility] ED complaining of severe epigastric pain. Multiple home treatments without improvement. Unable to pass gas. T97.1-pulse 102-respiration 20-blood pressure 145/116. CT abdomen to demonstrated findings consistent with small bowel obstruction of indeterminate etiology, minor diverticular changes and descending colon without evidence of acute diverticulitis. NG tube was placed. White count 11.2, hemoglobin 17.2 otherwise CBC within normal limits. Electrolytes, liver tests, troponin, lipase all within normal limits. Patient was treated with Zofran and morphine. Patient was admitted to hospital. Patient was given fresh frozen plasma to reverse INR 2.1, famotidine IV, nothing by mouth with bowel rest. 12/28/19 consult Savana Diaz who confirmed small bowel obstruction, recommended exploratory lap, possible bowel resection documented as of this encounter (statuses as of 03/02/2023) 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 MRI was recommended. 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 Also 1 cm left hepatic lobe cyst. Follow-up MRI in 3-6 months is recommended to assess stability and exclude a malignant neoplasm. 12/27/19 [facility] ED complaining of severe epigastric pain. Multiple home treatments without improvement. Unable to pass gas. T97.1-pulse 102-respiration 20-blood pressure 145/116. CT abdomen to / demonstrated findings consistent with small bowel obstruction of indeterminate etiology, minor diverticular changes and descending colon without evidence of acute diverticulitis. NG tube was placed. White count 11.2, hemoglobin 17.2 otherwise CBC within normal limits. Electrolytes, liver tests, troponin, lipase all within normal limits. Patient was treated with Zofran and morphine. Patient was admitted to hospital. Patient was given fresh frozen plasma to reverse INR 2.1, famotidine IV, nothing by mouth with bowel rest. 12/28/19 consult Savana Diaz who confirmed small bowel obstruction, recommended exploratory lap, possible bowel resection documented as of this encounter (statuses as of 03/08/2023) 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 MRI was recommended. 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 Also 1 cm left hepatic lobe cyst. Follow-up MRI in 3-6 months is recommended to assess stability and exclude a malignant neoplasm. 12/27/19 [facility] ED complaining of severe epigastric pain. Multiple home treatments without improvement. Unable to pass gas. T97.1-pulse 102-respiration 20-blood pressure 145/116. CT abdomen to / demonstrated findings consistent with small bowel obstruction of indeterminate etiology, minor diverticular changes and descending colon without evidence of acute diverticulitis. NG tube was placed. White count 11.2, hemoglobin 17.2 otherwise CBC within normal limits. Electrolytes, liver tests, troponin, lipase all within normal limits. Patient was treated with Zofran and morphine. Patient was admitted to hospital. Patient was given fresh frozen plasma to reverse INR 2.1, famotidine IV, nothing by mouth with bowel rest. 12/28/19 consult Savana Diaz who confirmed small bowel obstruction, recommended exploratory lap, possible bowel resection documented as of this encounter (statuses as of 03/08/2023) 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 MRI was recommended. 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 Also 1 cm left hepatic lobe cyst. Follow-up MRI in 3-6 months is recommended to assess stability and exclude a malignant neoplasm. 12/27/19 [facility] ED complaining of severe epigastric pain. Multiple home treatments without improvement. Unable to pass gas. T97.1-pulse 102-respiration 20-blood pressure 145/116. CT abdomen to demonstrated findings consistent with small bowel obstruction of indeterminate etiology, minor diverticular changes and descending colon without evidence of acute diverticulitis. NG tube was placed. White count 11.2, hemoglobin 17.2 otherwise CBC within normal limits. Electrolytes, liver tests, troponin, lipase all within normal limits. Patient was treated with Zofran and morphine. Patient was admitted to hospital. Patient was given fresh frozen plasma to reverse INR 2.1, famotidine IV, nothing by mouth with bowel rest. 12/28/19 consult Savana Diaz who confirmed small bowel obstruction, recommended exploratory lap, possible bowel resection documented as of this encounter (statuses as of 03/16/2023) 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 MRI was recommended. 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 Also 1 cm left hepatic lobe cyst. Follow-up MRI in 3-6 months is recommended to assess stability and exclude a malignant neoplasm. 12/27/19 [facility] ED complaining of severe epigastric pain. Multiple home treatments without improvement. Unable to pass gas. T97.1-pulse 102-respiration 20-blood pressure 145/116. CT abdomen to demonstrated findings consistent with small bowel obstruction of indeterminate etiology, minor diverticular changes and descending colon without evidence of acute diverticulitis. NG tube was placed. White count 11.2, hemoglobin 17.2 otherwise CBC within normal limits. Electrolytes, liver tests, troponin, lipase all within normal limits. Patient was treated with Zofran and morphine. Patient was admitted to hospital. Patient was given fresh frozen plasma to reverse INR 2.1, famotidine IV, nothing by mouth with bowel rest. 12/28/19 consult Savana Diaz who confirmed small bowel obstruction, recommended exploratory lap, possible bowel resection documented as of this encounter (statuses as of 09/15/2023) 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 MRI was recommended. 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 Also 1 cm left hepatic lobe cyst. Follow-up MRI in 3-6 months is recommended to assess stability and exclude a malignant neoplasm. 12/27/19 [facility] ED complaining of severe epigastric pain. Multiple home treatments without improvement. Unable to pass gas. T97.1-pulse 102-respiration 20-blood pressure 145/116. CT abdomen to demonstrated findings consistent with small bowel obstruction of indeterminate etiology, minor diverticular changes and descending colon without evidence of acute diverticulitis. NG tube was placed. White count 11.2, hemoglobin 17.2 otherwise CBC within normal limits. Electrolytes, liver tests, troponin, lipase all within normal limits. Patient was treated with Zofran and morphine. Patient was admitted to hospital. Patient was given fresh frozen plasma to reverse INR 2.1, famotidine IV, nothing by mouth with bowel rest. 12/28/19 consult Savana Diaz who confirmed small bowel obstruction, recommended exploratory lap, possible bowel resection documented as of this encounter (statuses as of 09/16/2023) 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 MRI was recommended. 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 Also 1 cm left hepatic lobe cyst. Follow-up MRI in 3-6 months is recommended to assess stability and exclude a malignant neoplasm. 12/27/19 [facility] ED complaining of severe epigastric pain. Multiple home treatments without improvement. Unable to pass gas. T97.1-pulse 102-respiration 20-blood pressure 145/116. CT abdomen to demonstrated findings consistent with small bowel obstruction of indeterminate etiology, minor diverticular changes and descending colon without evidence of acute diverticulitis. NG tube was placed. White count 11.2, hemoglobin 17.2 otherwise CBC within normal limits. Electrolytes, liver tests, troponin, lipase all within normal limits. Patient was treated with Zofran and morphine. Patient was admitted to hospital. Patient was given fresh frozen plasma to reverse INR 2.1, famotidine IV, nothing by mouth with bowel rest. 12/28/19 consult Savana Diaz who confirmed small bowel obstruction, recommended exploratory lap, possible bowel resection documented as of this encounter (statuses as of 09/16/2023) [facility] Diagnosis Chronic atrial fibrillation (HCC)- Primary Atrial fibrillation Other hyperlipidemia documented in this [facility] Diagnosis Chronic atrial fibrillation (HCC) Atrial fibrillation documented [facility] Diagnosis Heartburn Epigastric pain Abdominal pain, epigastric documented in this [facility] [place] [facility] Diagnosis Chronic atrial fibrillation (HCC) Atrial fibrillation documented [facility] this 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 [place] [facility]* Diagnosis Liver hemangioma- Primary Hemangioma of intra-abdominal structures documented in this encounter [facility] [place] [facility]* Diagnosis Liver hemangioma Hemangioma of intra-abdominal structures documented in this encounter [facility] [place] [facility]* Diagnosis Chronic atrial fibrillation (HCC)- Primary Atrial fibrillation [facility] [place] [facility] Diagnosis Chronic atrial fibrillation (HCC)- Primary Atrial fibrillation Other hyperlipidemia documented in this encounter [facility] [place] [facility]* Diagnosis Suspected COVID-19 virus infection- Primary documented in this encounter [facility] [place] [facility]* Diagnosis Chronic atrial fibrillation (HCC) Atrial fibrillation documented in this [facility] [place] [facility] Diagnosis Chronic atrial fibrillation (HCC) Atrial fibrillation documented in this [facility] [place] [facility]* Diagnosis Chronic atrial fibrillation (HCC) Atrial fibrillation documented [facility] this [facility] [place] [facility]* Diagnosis Right shoulder tendinitis- Primary CMC DJD(carpometacarpal degenerative joint disease), localized primary, right documented in this encounter [facility] [place] [facility]* Diagnosis Pain of right hand- Primary Pain in limb documented in this 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 [place] [facility]* Diagnosis Chronic atrial fibrillation (HCC) Atrial fibrillation CMC DJD(carpometacarpal degenerative joint disease), localized primary, right documented in this [facility] [place] [facility]* Diagnosis Right shoulder tendinitis- Primary CMC DJD(carpometacarpal degenerative joint disease), localized primary, right CMC DJD(carpometacarpal degenerative joint disease), localized primary, right documented in this 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 [place] [facility]* Diagnosis Chronic atrial fibrillation (HCC) Atrial fibrillation CMC DJD(carpometacarpal degenerative joint disease), localized primary, right [facility] Right shoulder tendinitis- Primary CMC DJD(carpometacarpal degenerative joint disease), localized primary, right CMC DJD(carpometacarpal degenerative joint disease), localized primary, right [facility] Diagnosis CMC DJD(carpometacarpal degenerative joint disease), localized primary, right [facility] [place] [facility]* Diagnosis 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- Primary Primary localized osteoarthrosis, hand [facility] Diagnosis Chronic atrial fibrillation (HCC)- Primary Atrial fibrillation Chronic anticoagulation Long-term (current) use of anticoagulants COPD with exacerbation (HCC) Obstructive chronic bronchitis with exacerbation RUIZ (dyspnea on exertion) Other dyspnea and respiratory abnormality Other hyperlipidemia Recurrent vertigo Dizziness and giddiness Intracranial meningioma (HCC) Benign neoplasm of cerebral meninges Arthritis of carpometacarpal (CMC) joint of left thumb CMC DJD(carpometacarpal degenerative joint disease), localized primary, right Right shoulder tendinitis Gastroesophageal reflux disease, unspecified whether esophagitis present Hemangioma of liver Hemangioma of intra-abdominal structures Chronic insomnia Insomnia, unspecified Hypogonadism in male [facility] Diagnosis CMC DJD(carpometacarpal degenerative joint disease), localized primary, right- Primary [facility] Diagnosis Chronic atrial fibrillation (HCC)- Primary Atrial fibrillation Chronic anticoagulation Long-term (current) use of anticoagulants [facility] Diagnosis 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 [place] [facility]* Diagnosis CMC DJD(carpometacarpal degenerative joint disease), localized primary, right- Primary documented in this encounter [facility] [place] [facility]* Diagnosis Chronic atrial fibrillation (HCC) Atrial fibrillation documented in this [facility] [place] [facility]* Diagnosis Pain of right hand Pain in limb documented in this [facility] [place] [facility]* Diagnosis Intracranial meningioma (HCC) Benign neoplasm of cerebral meninges documented in this encounter [facility] for referral (narrative)* Outpatient Procedure (Routine) - Authorized Specialty Diagnoses / Procedures Referred By Contac t Referred To Contact [facility] Diagnoses Chronic atrial fibrillation (HCC) Procedures ECG COMPLETE ECG ROUTINE ECG W/LEAST 12 LDS W/I&R Ras Mendez MD [address] [place] [address] [place] [address] Referral ID Status Reason Start Date Expiration Date Visits Requested Visits Authorized [id number] Authorized Auto-Generat ed Referral 07/05/2022 07/05/2023 1 1 [facility] for referral (narrative)* Diagnostic Procedure Only (Routine) - Pending Review Specialty Diagnoses / Procedures Referred By Contac t Referred To Contact XR IMAGING Diagnoses Pain of right hand Procedures XR HAND GENERAL 3V PA/LAT/OBL RIGHT RADEX HAND MINIMUM 3 VIEWS Gonzales Monroy MD [address] [place] [address] Xr Imaging Referral ID Status Reason Start Date Expiration Date Visits Requested Visits Authorized [id number] Pending Review Auto-Generat ed Referral 2 10/27/2023 1 1 [facility] for referral (narrative)* Diagnostic Procedure Only (Routine) - Pending Review Specialty Diagnoses / Procedures Referred By Moy t Referred To Contact XR IMAGING Diagnoses 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 Procedures XR HAND GENERAL 3V PA/LAT/OBL RIGHT RADEX HAND MINIMUM 3 VIEWS Gonzales Monroy MD [address] [place] [address] Xr Imaging Referral ID Status Reason Start Date Expiration Date Visits Requested Visits Authorized [id number] Pending Review Auto-Generat ed Referral 12/13/2022 01/12/2024 1 1 [facility] for referral (narrative)* Diagnostic Procedure Only (Routine) - Closed Specialty Diagnoses / Procedures Referred By Moy t Referred To Contact XR IMAGING Diagnoses Pain of right hand Procedures XR HAND GENERAL 3V PA/LAT/OBL RIGHT RADEX HAND MINIMUM 3 VIEWS Gonzales Monroy MD [address] [place] [address] [place] [address] Referral ID Status Reason Start Date Expiration Date V isits Requested Visits Authorized [id number] Closed Auto-Generate d Referral 09/27/2022 10/27/2023 1 1 [facility] for visit Narrative* Diagnostic Procedure Only (Routine) - Closed Specialty Diagnoses / Procedures Referred By Moy t Referred To Contact XR IMAGING Diagnoses Pain of right hand Procedures XR HAND GENERAL 3V PA/LAT/OBL RIGHT RADEX HAND MINIMUM 3 VIEWS Gonzales Monroy MD [address] [place] [address] [place] [address] Referral ID Status Reason Start Date Expiration Date V isits Requested Visits Authorized [id number] Closed Auto-Generate d Referral 09/27/2022 10/27/2023 [address] [facility] Reason for Referral Specialty Diagnoses / Procedures Referred By Contac t Referred To Contact MR IMAGING Diagnoses Hemangioma of liver Procedures MRI LIVER WO IVCON MRI, ABDOMEN (MRI) Shanelle Purvis PA-C [address] [place] [address] Mr Imaging Referral ID Status Reason Start Date Expiration Date Visits Requested Visits Authorized [id number] Pending Review Auto-Generat ed Referral 04/28/2022 05/28/2023 1 1 Specialty Diagnoses / Procedures [facility] To Contact Ophthalmology Diagnoses Age-related cataract of both eyes, unspecified age-related cataract type Procedures CONSULT TO OPHTHALMOLOGY OFFICE/OUTPATIENT [facility] 60-74 MINUTES Shanelle Purvis PA-C [address] [place] [address] Referral ID Status Reason Start Date Expiration Date Visits Requested Visits Authorized [id number] Authorized PCP Requested Referral 04/28/2022 04/28/2023 1 1 Specialty Diagnoses / Procedures [facility] Referred To Contact [facility] Diagnoses CMC DJD(carpometacarpal degenerative joint disease), localized primary, right Procedures CONSULT TO EXECUTIVE SALES [employer]GER OCCUPATIONAL THERAPY [facility] 60 MINS Roxy Young PA-C [address] [place] [address] [facility] [address] [address] Referral ID Status Reason Start Date Expiration Date Visits Requested Visits Authorized [id number] Authorized PCP Requested Referral Auto-Generate d Referral 10/04/2023 99 99 Specialty Diagnoses / Procedures Referred By Contdarlene t Referred To Contact [facility] Diagnoses CMC DJD(carpometacarpal degenerative joint disease), localized primary, right Procedures OT REHAB FOLLOW UP ORDER THERAPEUT ACTVITY DIRECT PT CONTACT EACH 15 MIN Ot [facility] [address] [place] [address] [facility] [address] [address] Referral ID Status Reason Start Date Expiration Date Visits Requested Visits Authorized [id number] Pending Review PCP Requested Referral Auto-Generate d Referral 11/28/2022 02/26/2023 1 1 Specialty Diagnoses / Procedures Referred By Moy t Referred To Contact [facility] Diagnoses CMC DJD(carpometacarpal degenerative joint disease), localized primary, right Procedures OT REHAB FOLLOW UP ORDER THERAPEUT ACTVITY DIRECT PT CONTACT EACH 15 MIN Ot [facility] [address] [place] [address] [facility] [place] [address] [place] [address] Referral ID Status Reason Start Date Expiration Date Visits Requested Visits Authorized [id number] Pending Review PCP Requested Referral Auto-Generate d Referral 01/04/2023 04/04/2023 1 1 Specialty Diagnoses / Procedures Referred By Moy fatima Referred To Contact MR IMAGING Diagnoses Intracranial meningioma (HCC) Procedures MRI BRAIN WO/W IVCON MRI BRAIN BRAIN STEM W/O W/CONTRAST MATERIAL Shanelle Puvris PA-C [address] [place] [address] [place] [id number] Referral ID Status Reason Start Date Expiration Date V isits Requested Visits Authorized [id number] Closed Auto-Generate d Referral 09/18/2022 10/18/2023 1 1 Medications Administered Section Active Administered Medications - up to 3 most recent administrations Medication Order MAR Action Action Date Dose Rate Site PHENYLephrine 2.5 % 1 Drop (AK-DILATE, PAUL-SYNEPHRINE) 1 Drop, BOTH EYES, DIRECTED, Starting on Sun10/03/22 at 0900, Until Sun10/03/22 at 2058, Administer for dilation PROTECT FROM LIGHT Given 10/03/2022 8:50 AM EST 1 Drop proparacaine 0.5 % 1 Drop (ALCAINE) 1 Drop, BOTH EYES, DIRECTED, Starting on Sun10/03/22 at 0900, Until Sun10/03/22 at 2058, Administer for pneumo tonometry, tonopen tonometry, or pachymetry. In the event of a proparacaine shortage, administer tetracaine 0.5% ophthalmic drops 1 drop in the left eye as directed for pneumo tonometry, tonopen tonometry, or pachymetry Given 10/03/2022 8:50 AM EST 1 Drop tropicamide 1 % 1 Drop (MYDRIACYL) 1 Drop, BOTH EYES, DIRECTED, Starting on Sun10/03/22 at 0900, Until Sun10/03/22 at 2059, Administer for dilation Given 10/03/2022 8:50 AM EST 1 Drop Summary Purpose Family History No Family History Records FoundNo Family History Records Found Advance Directives No Advanced Directives Records FoundNo Advanced Directives Records Found Additional Source Comments Source Comments (unrecognize d section and content) In the event this informatio n is protected by the Federal Confidentiality of Alcohol and Drug Abuse Patient Records regulations: The Federal rules restrict any use of the information to criminally investigate or prosecute any alcohol or drug abuse patient.[facility] the event this information is protected by the Federal Confidentiality of Alcohol and Drug Abuse Patient Records regulations: The Federal rules restrict any use of the information to criminally investigate or prosecute any alcohol or drug abuse patient.[facility] HospitalIn the event this information is protected by the Federal Confidentiality of Alcohol and Drug Abuse Patient Records regulations: The Federal rules restrict any use of the information to criminally investigate or prosecute any alcohol or drug abuse patient.[facility] HospitalIn the event this information is protected by the Federal Confidentiality of Alcohol and Drug Abuse Patient Records regulations: The Federal rules restrict any use of the information to criminally investigate or prosecute any alcohol or drug abuse patient.[facility] HospitalIn the event this information is protected by the Federal Confidentiality of Alcohol and Drug Abuse Patient Records regulations: The Federal rules restrict any use of the information to criminally investigate or prosecute any alcohol or drug abuse patient.[facility] HospitalIn the event this information is protected by the Federal Confidentiality of Alcohol and Drug Abuse Patient Records regulations: The Federal rules restrict any use of the information to criminally investigate or prosecute any alcohol or drug abuse patient.[facility] HospitalIn the event this information is protected by the Federal Confidentiality of Alcohol and Drug Abuse Patient Records regulations: The Federal rules restrict any use of the information to criminally investigate or prosecute any alcohol or drug abuse patient.[facility] HospitalIn the event this information is protected by the Federal Confidentiality of Alcohol and Drug Abuse Patient Records regulations: The Federal rules restrict any use of the information to criminally investigate or prosecute any alcohol or drug abuse patient.[facility] HospitalIn the event this information is protected by the Federal Confidentiality of Alcohol and Drug Abuse Patient Records regulations: The Federal rules restrict any use of the information to criminally investigate or prosecute any alcohol or drug abuse patient.[facility] HospitalIn the event this information is protected by the Federal Confidentiality of Alcohol and Drug Abuse Patient Records regulations: The Federal rules restrict any use of the information to criminally investigate or prosecute any alcohol or drug abuse patient.[facility] HospitalIn the event this information is protected by the Federal Confidentiality of Alcohol and Drug Abuse Patient Records regulations: The Federal rules restrict any use of the information to criminally investigate or prosecute any alcohol or drug abuse patient.[facility] HospitalIn the event this information is protected by the Federal Confidentiality of Alcohol and Drug Abuse Patient Records regulations: The Federal rules restrict any use of the information to criminally investigate or prosecute any alcohol or drug abuse patient.[facility] HospitalIn the event this information is protected by the Federal Confidentiality of Alcohol and Drug Abuse Patient Records regulations: The Federal rules restrict any use of the information to criminally investigate or prosecute any alcohol or drug abuse patient.[facility] HospitalIn the event this information is protected by the Federal Confidentiality of Alcohol and Drug Abuse Patient Records regulations: The Federal rules restrict any use of the information to criminally investigate or prosecute any alcohol or drug abuse patient.[facility] HospitalIn the event this information is protected by the Federal Confidentiality of Alcohol and Drug Abuse Patient Records regulations: The Federal rules restrict any use of the information to criminally investigate or prosecute any alcohol or drug abuse patient.[facility] HospitalIn the event this information is protected by the Federal Confidentiality of Alcohol and Drug Abuse Patient Records regulations: The Federal rules restrict any use of the information to criminally investigate or prosecute any alcohol or drug abuse patient.[facility] HospitalIn the event this information is protected by the Federal Confidentiality of Alcohol and Drug Abuse Patient Records regulations: The Federal rules restrict any use of the information to criminally investigate or prosecute any alcohol or drug abuse patient.[facility] HospitalIn the event this information is protected by the Federal Confidentiality of Alcohol and Drug Abuse Patient Records regulations: The Federal rules restrict any use of the information to criminally investigate or prosecute any alcohol or drug abuse patient.[facility] HospitalIn the event this information is protected by the Federal Confidentiality of Alcohol and Drug Abuse Patient Records regulations: The Federal rules restrict any use of the information to criminally investigate or prosecute any alcohol or drug abuse patient.[facility] HospitalIn the event this information is protected by the Federal Confidentiality of Alcohol and Drug Abuse Patient Records regulations: The Federal rules restrict any use of the information to criminally investigate or prosecute any alcohol or drug abuse patient.[facility] HospitalIn the event this information is protected by the Federal Confidentiality of Alcohol and Drug Abuse Patient Records regulations: The Federal rules restrict any use of the information to criminally investigate or prosecute any alcohol or drug abuse patient.[facility] HospitalIn the event this information is protected by the Federal Confidentiality of Alcohol and Drug Abuse Patient Records regulations: The Federal rules restrict any use of the information to criminally investigate or prosecute any alcohol or drug abuse patient.[facility] HospitalIn the event this information is protected by the Federal Confidentiality of Alcohol and Drug Abuse Patient Records regulations: The Federal rules restrict any use of the information to criminally investigate or prosecute any alcohol or drug abuse patient.[facility] HospitalIn the event this information is protected by the Federal Confidentiality of Alcohol and Drug Abuse Patient Records regulations: The Federal rules restrict any use of the information to criminally investigate or prosecute any alcohol or drug abuse patient.[facility] HospitalIn the event this information is protected by the Federal Confidentiality of Alcohol and Drug Abuse Patient Records regulations: The Federal rules restrict any use of the information to criminally investigate or prosecute any alcohol or drug abuse patient.[facility] HospitalIn the event this information is protected by the Federal Confidentiality of Alcohol and Drug Abuse Patient Records regulations: The Federal rules restrict any use of the information to criminally investigate or prosecute any alcohol or drug abuse patient.[facility] HospitalIn the event this information is protected by the Federal Confidentiality of Alcohol and Drug Abuse Patient Records regulations: The Federal rules restrict any use of the information to criminally investigate or prosecute any alcohol or drug abuse patient.[facility] HospitalIn the event this information is protected by the Federal Confidentiality of Alcohol and Drug Abuse Patient Records regulations: The Federal rules restrict any use of the information to criminally investigate or prosecute any alcohol or drug abuse patient.[facility] HospitalIn the event this information is protected by the Federal Confidentiality of Alcohol and Drug Abuse Patient Records regulations: The Federal rules restrict any use of the information to criminally investigate or prosecute any alcohol or drug abuse patient.[facility] HospitalIn the event this information is protected by the Federal Confidentiality of Alcohol and Drug Abuse Patient Records regulations: The Federal rules restrict any use of the information to criminally investigate or prosecute any alcohol or drug abuse patient.[facility] HospitalIn the event this information is protected by the Federal Confidentiality of Alcohol and Drug Abuse Patient Records regulations: The Federal rules restrict any use of the information to criminally investigate or prosecute any alcohol or drug abuse patient.[facility] HospitalIn the event this information is protected by the Federal Confidentiality of Alcohol and Drug Abuse Patient Records regulations: The Federal rules restrict any use of the information to criminally investigate or prosecute any alcohol or drug abuse patient.[facility] HospitalIn the event this information is protected by the Federal Confidentiality of Alcohol and Drug Abuse Patient Records regulations: The Federal rules restrict any use of the information to criminally investigate or prosecute any alcohol or drug abuse patient.[facility] HospitalIn the event this information is protected by the Federal Confidentiality of Alcohol and Drug Abuse Patient Records regulations: The Federal rules restrict any use of the information to criminally investigate or prosecute any alcohol or drug abuse patient.[facility] HospitalIn the event this information is protected by the Federal Confidentiality of Alcohol and Drug Abuse Patient Records regulations: The Federal rules restrict any use of the information to criminally investigate or prosecute any alcohol or drug abuse patient.[facility] HospitalIn the event this information is protected by the Federal Confidentiality of Alcohol and Drug Abuse Patient Records regulations: The Federal rules restrict any use of the information to criminally investigate or prosecute any alcohol or drug abuse patient.[facility] HospitalIn the event this information is protected by the Federal Confidentiality of Alcohol and Drug Abuse Patient Records regulations: The Federal rules restrict any use of the information to criminally investigate or prosecute any alcohol or drug abuse patient.[facility] HospitalIn the event this information is protected by the Federal Confidentiality of Alcohol and Drug Abuse Patient Records regulations: The Federal rules restrict any use of the information to criminally investigate or prosecute any alcohol or drug abuse patient.[facility] HospitalIn the event this information is protected by the Federal Confidentiality of Alcohol and Drug Abuse Patient Records regulations: The Federal rules restrict any use of the information to criminally investigate or prosecute any alcohol or drug abuse patient.[facility] HospitalIn the event this information is protected by the Federal Confidentiality of Alcohol and Drug Abuse Patient Records regulations: The Federal rules restrict any use of the information to criminally investigate or prosecute any alcohol or drug abuse patient.[facility] HospitalIn the event this information is protected by the Federal Confidentiality of Alcohol and Drug Abuse Patient Records regulations: The Federal rules restrict any use of the information to criminally investigate or prosecute any alcohol or drug abuse patient.[facility] HospitalIn the event this information is protected by the Federal Confidentiality of Alcohol and Drug Abuse Patient Records regulations: The Federal rules restrict any use of the information to criminally investigate or prosecute any alcohol or drug abuse patient.[facility] HospitalIn the event this information is protected by the Federal Confidentiality of Alcohol and Drug Abuse Patient Records regulations: The Federal rules restrict any use of the information to criminally investigate or prosecute any alcohol or drug abuse patient.[facility] HospitalIn the event this information is protected by the Federal Confidentiality of Alcohol and Drug Abuse Patient Records regulations: The Federal rules restrict any use of the information to criminally investigate or prosecute any alcohol or drug abuse patient.[facility] HospitalIn the event this information is protected by the Federal Confidentiality of Alcohol and Drug Abuse Patient Records regulations: The Federal rules restrict any use of the information to criminally investigate or prosecute any alcohol or drug abuse patient.[facility] HospitalIn the event this information is protected by the Federal Confidentiality of Alcohol and Drug Abuse Patient Records regulations: The Federal rules restrict any use of the information to criminally investigate or prosecute any alcohol or drug abuse patient.[facility] the event this information is protected by the Federal Confidentiality of Alcohol and Drug Abuse Patient Records regulations: The Federal rules restrict any use of the information to criminally investigate or prosecute any alcohol or drug abuse patient.[facility] HospitalIn the event this information is protected by the Federal Confidentiality of Alcohol and Drug Abuse Patient Records regulations: The Federal rules restrict any use of the information to criminally investigate or prosecute any alcohol or drug abuse patient.[facility] HospitalIn the event this information is protected by the Federal Confidentiality of Alcohol and Drug Abuse Patient Records regulations: The Federal rules restrict any use of the information to criminally investigate or prosecute any alcohol or drug abuse patient.[facility] HospitalIn the event this information is protected by the Federal Confidentiality of Alcohol and Drug Abuse Patient Records regulations: The Federal rules restrict any use of the information to criminally investigate or prosecute any alcohol or drug abuse patient.[facility] HospitalIn the event this information is protected by the Federal Confidentiality of Alcohol and Drug Abuse Patient Records regulations: The Federal rules restrict any use of the information to criminally investigate or prosecute any alcohol or drug abuse patient.[facility] HospitalIn the event this information is protected by the Federal Confidentiality of Alcohol and Drug Abuse Patient Records regulations: The Federal rules restrict any use of the information to criminally investigate or prosecute any alcohol or drug abuse patient.[facility] HospitalIn the event this information is protected by the Federal Confidentiality of Alcohol and Drug Abuse Patient Records regulations: The Federal rules restrict any use of the information to criminally investigate or prosecute any alcohol or drug abuse patient.[facility] HospitalIn the event this information is protected by the Federal Confidentiality of Alcohol and Drug Abuse Patient Records regulations: The Federal rules restrict any use of the information to criminally investigate or prosecute any alcohol or drug abuse patient.[facility] HospitalIn the event this information is protected by the Federal Confidentiality of Alcohol and Drug Abuse Patient Records regulations: The Federal rules restrict any use of the information to criminally investigate or prosecute any alcohol or drug abuse patient.[facility] HospitalIn the event this information is protected by the Federal Confidentiality of Alcohol and Drug Abuse Patient Records regulations: The Federal rules restrict any use of the information to criminally investigate or prosecute any alcohol or drug abuse patient.[facility] HospitalIn the event this information is protected by the Federal Confidentiality of Alcohol and Drug Abuse Patient Records regulations: The Federal rules restrict any use of the information to criminally investigate or prosecute any alcohol or drug abuse patient.[facility] HospitalIn the event this information is protected by the Federal Confidentiality of Alcohol and Drug Abuse Patient Records regulations: The Federal rules restrict any use of the information to criminally investigate or prosecute any alcohol or drug abuse patient.[facility] HospitalIn the event this information is protected by the Federal Confidentiality of Alcohol and Drug Abuse Patient Records regulations: The Federal rules restrict any use of the information to criminally investigate or prosecute any alcohol or drug abuse patient.[facility] HospitalIn the event this information is protected by the Federal Confidentiality of Alcohol and Drug Abuse Patient Records regulations: The Federal rules restrict any use of the information to criminally investigate or prosecute any alcohol or drug abuse patient.[facility] HospitalIn the event this information is protected by the Federal Confidentiality of Alcohol and Drug Abuse Patient Records regulations: The Federal rules restrict any use of the information to criminally investigate or prosecute any alcohol or drug abuse patient.[facility] HospitalIn the event this information is protected by the Federal Confidentiality of Alcohol and Drug Abuse Patient Records regulations: The Federal rules restrict any use of the information to criminally investigate or prosecute any alcohol or drug abuse patient.[facility] HospitalIn the event this information is protected by the Federal Confidentiality of Alcohol and Drug Abuse Patient Records regulations: The Federal rules restrict any use of the information to criminally investigate or prosecute any alcohol or drug abuse patient.[facility] HospitalIn the event this information is protected by the Federal Confidentiality of Alcohol and Drug Abuse Patient Records regulations: The Federal rules restrict any use of the information to criminally investigate or prosecute any alcohol or drug abuse patient.[facility] HospitalIn the event this information is protected by the Federal Confidentiality of Alcohol and Drug Abuse Patient Records regulations: The Federal rules restrict any use of the information to criminally investigate or prosecute any alcohol or drug abuse patient.[facility] HospitalIn the event this information is protected by the Federal Confidentiality of Alcohol and Drug Abuse Patient Records regulations: The Federal rules restrict any use of the information to criminally investigate or prosecute any alcohol or drug abuse patient.[facility] Reason for Visit (unrecogniz ed section and content) Specialty Diagnoses / Procedures Referred By Moy fatima Referred To Contact [facility] Diagnoses CMC DJD(carpometacarpal degenerative joint disease), localized primary, right Procedures CONSULT TO EXECUTIVE SALES MANAGER OCCUPATIONAL THERAPY EVAL HIGH COMPLEX 60 MINS Roxy Young PA-C [address] [place] [address] [facility] [address] [address] Referral ID Status Reason Start Date Expiration Date Visits Requested Visits Authorized [id number] Authorized PCP Requested Referral Auto-Generate d Referral 10/04/2023 99 99 Reason Comments PT Discharge Specialty Diagnoses / Procedures Referred By Contac t Referred To Contact [facility] Diagnoses Right shoulder tendinitis CMC DJD(carpometacarpal degenerative joint disease), localized primary, right Procedures CONSULT TO PHYSICAL THERAPY PHYSICAL THERAPY EVALUATION HIGH COMPLEX 45 MINS Shanelle Purvis PA-C [address] [place] [address] [facility] [address] [address] Referral ID Status Reason Start Date Expiration Date Visits Requested Visits Authorized [id number] Authorized PCP Requested Referral Auto-Generate d Referral 09/18/2022 09/18/2023 99 99 Reason Comments Physical Therapy Reason Comments Lab Orders Reason Comments Anticoagulation Reason Comments Prescription Refills Reason Comments 6 Month Exam Reason Comments Orders Reason Comments Opened In Error Reason Comments Follow Up Reason Comments Patient Update Reason Comments Nausea Diarrhea, stomach ac he, low fever x5 days Reason Comments Anticoagulation Patient Update Reason Comments Patient Request Reason Comments PT Eval Reason Comments Cataract Follow Up 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 Specialty Diagnoses / Procedures Referred By Moy t Referred To Contact Ophthalmology Diagnoses Age-related cataract of both eyes, unspecified age-related cataract type Procedures CONSULT TO OPHTHALMOLOGY OFFICE/OUTPATIENT [facility] MDM 60-74 MINUTES Shanelle Purvis PA-C [address] [place] [address] Referral ID Status Reason Start Date Expiration Date V isits Requested Visits Authorized [id number] Closed PCP Requested Referral 04/28/2022 04/28/2023 1 1 Reason Comments Schedule Surgery Reason Comments Consult Reason Comments Pre-Op Update AC instructions Reason Comments Results Reason Onset Date Comments Clinical Update 11/21/2022 Reason Comments OT EVAL Reason Comments Pain Reason Comments Follow Up 3 month Reason Comments Post Op 8 weeks 3 days post op Right thumb CMC arthroplasty and 1st dorsal compartment release Reason Comments Post Op 4 weeks 6 days post op Right thumb CMC arthroplasty and 1st dorsal compartment release Reason Comments 6 month check Reason Comments OT Discharge Specialty Diagnoses / Procedures [facility] Diagnoses CMC DJD(carpometacarpal degenerative joint disease), localized primary, right Procedures CONSULT TO EXECUTIVE SALES MANAGER OCCUPATIONAL THERAPY EVAL HIGH COMPLEX 60 MINS Roxy Young PA-C [address] [place] [address] [facility] [place] [address] [place] [address] Reason Comments Urology/coumadin update Reason Onset Date Comments Refill Request 03/08/2023 Reason Onset Date Comments Refill Request 09/13/2023 Specialty Diagnoses / Procedures [facility] Diagnoses Intracranial meningioma (HCC) Procedures MRI BRAIN WO/W IVCON MRI BRAIN BRAIN STEM W/O W/CONTRAST MATERIAL Shanelle Purvis PA-C [address] [place] [address] [place] [id number] Referral ID Status Reason Start Date Expiration Date V isits Requested Visits Authorized [id number] Closed Auto-Generate d Referral 09/18/2022 10/18/2023 1 1 Care Teams (unrecognized sec tion and content) Manager Of Distribution Relationship Specialty Start Date End Date Shanelle Purvis PA-C [address] [place] [address] PCP - General Family Practice 08/21/16 Manager Of Distribution Relationship Specialty Start Date End Date Shanelle Purvis PA-C [address] [place] [address] PCP - General Family Practice 08/21/16 Manager Of Distribution Relationship Specialty Start Date End Date Shanelle Purvis PA-C [address] [place] [address] PCP - General Family Practice 08/21/16 Manager Of Distribution Relationship Specialty Start Date End Date Sahnelle Purvis PA-C [address] [place] [address] PCP - General Family Practice 08/21/16 Manager Of Distribution Relationship Specialty Start Date End Date Shanelle Purvis PA-C [address] [place] [address] PCP - General Family Practice 08/21/16 Manager Of Distribution Relationship Specialty Start Date End Date Shanelle Purvis PA-C [address] [place] [address] PCP - General Family Practice 08/21/16 Manager Of Distribution Relationship Specialty Start Date End Date Shanelle Purvis PA-C [address] [place] [address] PCP - General Family Practice 08/21/16 Manager Of Distribution Relationship Specialty Start Date End Date Shanelle Purvis PA-C [address] [facility] [place] [address] PCP - General Family Practice 08/21/16 Manager Of Distribution Relationship Specialty Start Date End Date Shanelle Purvis PA-C [address] [facility] [address] PCP - General Family Practice 08/21/16 Manager Of Distribution Relationship Specialty Start Date End Date Shanelle Purvis PA-C [address] [facility] [place] [address] PCP - General Family Practice 08/21/16 Manager Of Distribution Relationship Specialty Start Date End Date Shanelle Purvis PA-C [address] [facility] [place] [address] PCP - General Family Medicine 08/21/16 Manager Of Distribution Relationship Specialty Start Date End Date Shanelle Purvis PA-C [address] [facility] [address] PCP - General Family Medicine 08/21/16 Manager Of Distribution Relationship Specialty Start Date End Date Shanelle Purvis PA-C [address] [facility] [place] [address] PCP - General Family Medicine 08/21/16 Manager Of Distribution Relationship Specialty Start Date End Date Shanelle Purvis PA-C [address] [facility] [place] [address] PCP - General Family Medicine 08/21/16 Manager Of Distribution Relationship Specialty Start Date End Date Shanelle Purvis PA-C [address] [facility] [address] PCP - General Family Medicine 08/21/16 Manager Of Distribution Relationship Specialty Start Date End Date Shanelle Purvis PA-C [address] [facility] [place] [address] PCP - General Family Medicine 08/21/16 Manager Of Distribution Relationship Specialty Start Date End Date Shanelle Purvis PA-C [address] [facility] [address] PCP - General Family Medicine 08/21/16 Manager Of Distribution Relationship Specialty Start Date End Date Shanelle Purvis PA-C [address] [facility] [place] [address] PCP - General Family Medicine 08/21/16 Manager Of Distribution Relationship Specialty Start Date End Date Shanelle Purvis PA-C [address] [facility] [place] [address] PCP - General Family Medicine 08/21/16 Manager Of Distribution Relationship Specialty Start Date End Date Shanelle Purvis PA-C [address] [facility] [place] [address] PCP - General Family Medicine 08/21/16 Manager Of Distribution Relationship Specialty Start Date End Date Shanelle Purvis PA-C [address] [facility] [place] [address] PCP - General Family Medicine 08/21/16 Manager Of Distribution Relationship Specialty Start Date End Date Shanelle Purvis PA-C [address] [facility] [place] [address] PCP - General Family Medicine 08/21/16 Manager Of Distribution Relationship Specialty Start Date End Date Shanelle Purvis PA-C [address] [facility] [address] PCP - General Family Medicine 08/21/16 Manager Of Distribution Relationship Specialty Start Date End Date Shanelle Purvis PA-C [address] [facility] [place] [address] PCP - General Family Medicine 08/21/16 Manager Of Distribution Relationship Specialty Start Date End Date Shanelle Purvis PA-C [address] [facility] [place] [address] PCP - General Family Medicine 08/21/16 Manager Of Distribution Relationship Specialty Start Date End Date Shanelle Purvis PA-C [address] [facility] [place] [address] PCP - General Family Medicine 08/21/16 Manager Of Distribution Relationship Specialty Start Date End Date Shanelle Purvis PA-C [address] [facility] [place] [address] PCP - General Family Medicine 08/21/16 Manager Of Distribution Relationship Specialty Start Date End Date Shanelle Purvis PA-C [address] [facility] [place] [address] PCP - General Family Medicine 08/21/16 Manager Of Distribution Relationship Specialty Start Date End Date Shanelle Purvis PA-C [address] [facility] [address] PCP - General Family Medicine 08/21/16 Manager Of Distribution Relationship Specialty Start Date End Date Shanelle Purvis PA-C [address] [facility] [place] [address] PCP - General Family Medicine 08/21/16 Manager Of Distribution Relationship Specialty Start Date End Date Shanelle Purvis PA-C [address] [facility] [place] [address] PCP - General Family Medicine 08/21/16 Manager Of Distribution Relationship Specialty Start Date End Date Shanelle Purvis PA-C [address] [facility] [place] [address] PCP - General Family Medicine 08/21/16 Manager Of Distribution Relationship Specialty Start Date End Date Shanelle Purvis PA-C [address] [facility] [place] [address] PCP - General Family [facility] 08/21/16 Manager Of Distribution Relationship Specialty Start Date End Date Shanelle Purvis PA-C [address] [place], [place] [address] PCP - General [facility] 08/21/16 Manager Of Distribution Relationship Specialty Start Date End Date Shanelle Purvis PA-C [address] [place], [place] [address] PCP - General [facility] 08/21/16 Manager Of Distribution Relationship Specialty Start Date End Date Shanelle Purvis PA-C [address] [place], [place] [address] PCP - [facility] 08/21/16 Manager Of Distribution Relationship Specialty Start Date End Date Shanelle Purvis PA-C [address] [place] [address] PCP - [facility] 08/21/16 Manager Of Distribution Relationship Specialty Start Date End Date Shanelle Purvis PA-C [address] [place] [address] PCP - General [facility] 08/21/16 (unrecognized sect ion and content) No Status Records FoundNo Status Records Found INFORMATION SOURCE (unrecogn ized section and content) DATE CREATED AUTHOR AUTHOR'S ORGANIZ ATION 03/18/2023 [facility] FOR RECORDS PERTAINING TO PATIENTS WHO ARE OR HAVE BEEN ENROLLED IN A CHEMICAL DEPENDENCY/SUBSTANCEABUSE PROGRAM, SOME INFORMATION MAY BE OMITTED. This clinical summary was aggregated from multiple sources. Caution should be exercised in using it in the provision of clinical care. This summary normalizes information from multiple sources, and as a consequence, information in this document may materially change the coding, format and clinical context of patient data. In addition, data may be omitted in some cases. CLINICAL DECISIONS SHOULD BE BASED ON THE PRIMARY CLINICAL RECORDS. [facility] [employer] [facility]. provides no warranty or guarantee of the accuracy or completeness of information in this document.
== END | disposition home or self-care (01) ==
LOC: LABSPEC 10:32
PROVIDERS: PCP Family Medicine; Visit Provider Nurse Practitioner Family
DX: R14.0 Abdominal distension (gaseous) (principal)
CPT/HCPCS: 83690